=== PATIENT | female | born 1940 | race Caucasian/White ===

== ENCOUNTER 2024-01-25 15:01 | Inpatient (IN) | payer MEDICARE, BC, SELFPAY ==
[2024-01-25 09:40] VITALS: BP 163/80
--- NOTE | 2024-01-25 11:14 | ED.GENMED ---
History of Present Illness
General
Chief Complaint: Back Pain
Time Seen by Provider: 01/25/24 10:59
Travel History
Have you had any contact with someone who has COVID-19?: No
Do you have any symptoms of coronavirus? Fever > 100 degrees, chills, cough, shortness of breath, sore throat, loss of taste or smell, muscle aches, or headache?: No
History of Present Illness
History of Present Illness:
83-year-old female presents to the emergency department for evaluation of progressively worsening neck pain. She was initially treated [facility] in early October for nontraumatic low back pain where she was identified to have suspected acute
compression fractures of L1-L3, report the CT scan at that time suggest some degree of bony retropulsion at L2. She denies any lower extremity weakness or paresthesias but has had progressively worsening low back pain that is impairing her
functionality. She is following up with outpatient spine surgery as well as optimization of her bone health. Due to severe pain she has discontinued physical therapy. also notes, Constipation and urinary frequency over the past week, concern for
abdominal bloating and distention
Review of Systems
Review of Systems
Allergies reviewed?: Yes
All Other Systems: ROS reviewed and negative except as documented in HPI and ROS
Phy Exam
Physical Exam
Physical Exam:
GEN: Well appearing, NAD, WDWN
HEENT: Oral mucosa moist, no scleral icterus
Cardiac: Regular rate
Lung: No respiratory distress, no tachypnea
Abdomen: Soft, nontender, no rigidity or obvious distention
MSK: No gross deformity or injuries, trace lower extremity edema bilaterally
Skin: Good color, no pallor or jaundice, no rashes
Neuro: AO x3, moves all extremities freely. 3/5 strength of all villafana bilateral lower extremities, symmetric, no skin sensation abnormalities
Psych: Calm, cooperative
Course
Orders/Labs/Results
Orders:
Orders
01/25/24 11:13
CR Lumbar Spine Comp Min 4 Vw* Urgent
Comment:
Reason For Exam: increased back pain, known L1-2-3 compression fx
01/25/24 11:23
Complete Blood Count/With Diff Urgent
Comprehensive Metabolic Panel Urgent
01/25/24 11:51
Urinalysis Reflex To Culture Urgent
Date Specimen was Collected: 01/25/24
Time Specimen was Collected: 11:46
Urine Microscopic Reflex Cult Urgent
01/25/24 12:24
Pt Eval And Treat Urgent
Treatment: known L1-L2 compression fx
Activity Level: Ambulate
01/25/24 12:59
Case Management Consult ONCE
Case Management Consult: [facility]
01/25/24 13:03
Ketorolac [Toradol] 15 mg IV NOW STA
01/25/24 13:37
Polyethylene Glycol Powder [Miralax] 17 grams PO DAILY ONE
01/25/24 14:11
IRAD CONSULT Routine
Consulting Provider: Scott Briscoe
Was physician already notified: Yes
Reason for Consult/Procedure: l1, l2 compression fx eval for vetebroplasty
Acknowledgement that appropriate orders are entered: Yes
01/25/24 14:37
Admit/Transfer Patient As Directed
Co-Sign Provider:
Level of Care: Inpatient admission
Assign to:: Medical/Surgical
Physician / Group: jenna gonzalez
Diagnosis: intractable bacl pain 2/2 L1, L2 compression fx, constipation
Reason for Hospitalization: intractable bacl pain 2/2 L1, L2 compression fx, constipation
Expected length of stay greater than two midnights?: Yes
ELOS- Estimated Length of Stay in days: 3
I certify the patient meets the requirements for IP care: Yes
Code Status As Directed
Resuscitation Status: Do not resuscitate
Reached after discussion with pt or family/Healthcare POA: Yes
Based on pt advanced directive or healthcare POA form: Yes
Decision communicated with: per pt with daughter present at bedside
01/25/24 14:38
DNR Bracelet Application ONCE
Abnormal Lab Results
01/25/24 01/25/24
11:23 11:51
MPV 11.8 H fL
(7.4-10.4)
Abs Immat Gran (auto) 0.1 H 10^3/uL
(0-0.05)
Absolute Lymphs (auto) 0.8 L 10^3/uL
(1.2-3.4)
Absolute Monos (auto) 0.7 H 10^3/uL
(0.1-0.6)
Immature Gran % 0.7 H %
(0-0.5)
Neutrophils % 75.8 H %
(42.2-75.2)
Lymphocytes % 11.9 L %
(20.5-51.1)
Monocytes % 10.3 H %
(1.7-9.3)
BUN 22 H mg/dl
(7-17)
Glucose 125 H mg/dl
(70-99)
Calcium 10.8 H mg/dl
(8.4-10.2)
Urine Ketones 1+ A
(Negative)
Ur Occult Blood Reflex Trace A
(Negative)
Urine Bacteria (Reflex) Few A
(Negative)
01/25/24 11:23
01/25/24 11:23
Vital Signs
Initial and Last Documented VS:
Initial Vital Signs
Temp Pulse BP Pulse Ox
99.7 F 97 163/80 100
01/25/24 09:40 01/25/24 09:40 01/25/24 09:40 01/25/24 09:40
Last Documented Vital Signs
Temp Pulse BP Pulse Ox
99.7 F 97 163/80 100
01/25/24 09:40 01/25/24 09:40 01/25/24 09:40 01/25/24 09:40
MDM/Problems Addressed
MDM/Problems Addressed:
Patient is severely limited secondary to pain associated with her subacute lumbar compression fractures. Of note L1 has progressed dramatically since her initial x-rays in October. She does not have any focal lateralizing lower extremity
deficits, I suspect her general lower extremity weakness is more driven by pain with true neurologic deficit. I discussed the case with her orthopedic/intensive care medicine specialist who advises that a vertebroplasty would be indicated for pain control purposes,
if she is to be admitted for rehab purposes could feasibly consult IR for this to be done inpatient. She will be admitted due to lack of appropriate pain control and ambulatory dysfunction and will have hospitalist service consult interventional
radiology to consider vertebroplasty if appropriate for her.
There are no focal neurologic findings or signs of urinary retention/incontinence that would require urgent MRI. Her complaint abdominal distention is likely due to constipation which is likely in the setting of tramadol use coupled with recent
functional limitation
*Critical Care Note
Total Time (30-74mins, 75-104mins- exclusive of procedures): Not Applicable
ED Attending Note
-
Portions of this chart may have been created with voice recognition software.� Occasional wrong word or��sound alike� substitutions may have occurred due to the inherent limitations of voice recognition software.
Discharge Plan
Departure
Patient Disposition: Admit
Date of Disposition: 01/25/24
Time of Disposition: 13:53
Admit to: Med/Surg
Presentation/result/management discussed w/ accepting MD/DO: Hospitalist
Discharge Problem:
Closed compression fracture of L1 vertebra, Closed compression fracture of L2 vertebra, Intractable back pain
Prescriptions:
No Action
diltiazem HCl 180 mg Capsule,Extended Release 24 Hr
180 mg PO DAILY
lisinopril 20 mg Tablet
20 mg PO QPM
Theragen Tablet
1 tab PO DAILY@1200
tramadol 50 mg Tablet
25 mg PO QID
acetaminophen [Tylenol Extra Strength] 500 mg Tablet
500 mg PO QID
lactase [Lactaid] 3,000 unit Tablet
3,000 unit PO QPM
gabapentin 100 mg Capsule
100 mg PO HS
cyclosporine [Restasis] 0.05 % Dropperette
1 drp BOTH EYES Q12H
rosuvastatin [Crestor] 10 mg Tablet
10 mg PO QPM
Tymlos 80 mcg (3,120 mcg/1.56 mL) Pen Injector
0 mcg SC DAILY
Referrals:
Brien Booth DO [Family Provider] -
Interventions
Interventions:
*Risk Screen - Suicide Last Done: 01/25/24 11:26
*General Assessment Last Done: 01/25/24 11:26
*Neglect/Abuse Screening Last Done: 01/25/24 11:26
*ED COVID-19 Vaccine History Last Done: 01/25/24 11:26
ED-Musculoskeletal Assessment Last Done: 01/25/24 11:26
Discharge Date and Time
Print Language: AMHARIC
[2024-01-25 11:36] LABS: % Basophils 0.7 % (0-2); % Eosinophils 0.6 % (0-6); % Immature Granulocytes 0.7 % (0-0.5); % Lymphocytes 11.9 % (20.5-51.1); % Monocytes 10.3 % (1.7-9.3); % Neutrophils 75.8 % (42.2-75.2); Absolute Basophils 0.1 10^3/uL (0-0.2); Absolute Immature Granulocytes 0.1 10^3/uL (0-0.05); Absolute Lymphocytes 0.8 10^3/uL (1.2-3.4); Absolute Monocytes 0.7 10^3/uL (0.1-0.6); Absolute Neutrophils 5.2 10^3/uL (1.4-6.5); Hematocrit 41.5 % (37.0-47.0); Hemoglobin 13.9 g/dL (12.0-16.0); Mean Corp Hgb Conc. 33.5 g/dL (33.0-37.0); Mean Corpuscular Hgb 30.6 pg (27.0-31.0); Mean Corpuscular Volume 91.4 fL (81.0-99.0); Mean Platelet Volume 11.8 fL (7.4-10.4); Nucleated Red Blood Cells % 0 %; Platelet Count 243 10^3/uL (130-400); Red Blood Cell Count 4.54 10^6/uL (4.20-5.40); Red Cell Dist. Width 12.5 % (11.5-14.5); White Blood Cell Count 6.9 10^3/uL (4.8-10.8)
[2024-01-25 11:47] LABS: ALT (SGPT) 17 U/L (0-35); AST (SGOT) 25 U/L (14-36); Albumin 4.5 g/dl (3.5-5.0); Alkaline Phosphatase 66 U/L (38-126); Blood Urea Nitrogen 22 mg/dl (7-17); Calcium 10.8 mg/dl (8.4-10.2); Carbon Dioxide 26 mmol/L (22-30); Chloride 103 mmol/L (98-107); Glucose 125 mg/dl (70-99); Potassium 4.4 mmol/L (3.5-5.1); Sodium 141 mmol/L (135-145); Total Bilirubin 0.8 mg/dl (0.2-1.3); Total Protein 7.4 g/dl (6.3-8.2); eGFR > 60.00
[2024-01-25 12:11] LABS: Urine Albumin Negative (Neg - Trace); Urine Bilirubin Negative (Negative); Urine Character Clear (Clear); Urine Color Yellow; Urine Glucose Negative (Negative); Urine Ketone 1+ (Negative); Urine Leukocyte Negative (Negative); Urine Nitrite Negative (Negative); Urine Occult Blood Trace (Negative); Urine Specific Gravity 1.015 (<1.030); Urine Urobilinogen Negative (Neg - 1+); Urine pH 6.5 (5.0-9.0)
[2024-01-25] MEDS: TORADOL 15 MG IV (13:07)
[2024-01-25 13:46] LABS: Urine Bacteria Few (Negative); Urine Red Blood Cell 0-2 /HPF (0-2); Urine White Cell 0-2 /HPF (0-5)
[2024-01-25] MEDS: MIRALAX 17 GRAMS PO (14:01)
--- NOTE | 2024-01-25 14:08 | HPS.HSE ---
Addendum entered and electronically signed by Renee Panda MD 01/26/24 04:47:
Late entry I saw and examined the patient 01/25/24.
The PARKS WORKER or PA's note was reviewed and I agree with the note with exceptions/additions as follows.
Comment:
83F pmhx memory impairment, HTN, HLD, IBS, diverticulitis, arthritis, spinal fractures, osteoporosis, glaucoma p/w acute on chronic lower back pain. History L1-L3 compression fractures recently diagnosed in October. Pain progressively worsening,
debilitating, and impairing ambulatory function since then. Associate constipation. Patient recently had 50 mg of tramadol prn for pain decreased to 25 mg QID due to oversedation. Also was recently started on gabapentin but developed a rash rxn
to the medication. Follows orthopedic spine surgeon Dr Covarrubias outpatient who referred her for admission IR evaluation possible benefit vertebroplasty.
Physical Exam
General: Comfortable and Conversant; No Fever or Chills
HEENT: NormoCephalic, Anicteric, [place] Conjunctivae and No Ptosis
Cardiac: S1/S2 and Murmur (Systolic 3/6); No Rub, Gallop or Peripheral Edema
GI: Soft, Non Tender, Non Distended, Normal Bowel Sounds and No Hepatosplenomegaly
Musculoskeletal: No Clubbing, No Cyanosis, No Edema, Lower lumbar back pain tenderness
Neuro: AO x 3
Psych: Calm
#Acute on Chronic Back pain
#Lumbar compression fractures
#constipation
cont pain control tramadol Tylenol
IR eval vertebroplasty
bowel regimen
PT/OT
#Systolic Murmur noted on exam
known to patient who reports previous evaluation a few years ago was benign
Check ECHO
Original Note:
Family Physician
-
Family Physician: Brien Booth
Chief Complaint
-
Lumbar back pain
History of Present Illness
83-year-old female complaining of worsening lower lumbar back pain. She reports she was seen at [facility] and early October was noted to have compression fractures of L1-L3. She states the pain is progressively worsening and impairing her
ability to walk. She has also had constipation with only small pebble-like stool past few days. Her daughter states she is unable to tolerate 50 mg of tramadol so they decreased to 25 mg yesterday 4 times daily with Tylenol 500 mg 4 times daily
for pain. She had some mild relief only. She did take a gabapentin for pain for which she developed a macular rash to her face and back. She denies any lower extremity weakness, paresthesias, bowel or bladder incontinence, fever, chills, chest
pain, palpitations, shortness breath, cough, abdominal pain, nausea, vomiting, diarrhea. She is past medical history of memory impairment, HTN, HLD, IBS, diverticulitis, arthritis, spinal fractures, osteoporosis, glaucoma
Medical History
Past Medical History
Past Medical History: Reports Other
Additional Past Medical History:
memory impairment
HTN
HLD
IBS
diverticulitis
arthritis
Osteoporosis
Glaucoma
spinal fractures
Past Surgical History: Reports Other
Additional Past Surgical History:
Hysterectomy
Left lumpectomy
Cataract extraction
[place] teeth extraction
Prior history of colonoscopy
Social History
Tobacco: Non-smoker
Alcohol: None
Drug: None
Personal: Single
Living: With Family
Employment: Retired
Family History
Family History: Other (Father of gastric cancer mother is unknown)
Allergies / Home Medications
Allergies reflects when Allergies were last updated in [facility].
Home Medications with original date entered in [facility]
Allergy/Medication List:
Allergies
Allergy/AdvReac Type Severity Reaction Status Date / Time
lactose Allergy Intermediate Unknown Verified 01/25/24 09:43
gabapentin Allergy Mild Rash Verified 01/25/24 14:31
Sulfa (Sulfonamide Allergy Mild Rash Verified 01/25/24 09:43
Antibiotics)
Penicillins Allergy Rash Verified 01/25/24 09:43
Home Medications
abaloparatide (Tymlos) 0 mcg SC DAILY 01/25/24
acetaminophen 500 mg tablet (Tylenol Extra Strength) 500 mg PO QID 01/25/24
cyclosporine 0.05 % eye drops in a dropperette (Restasis) 1 drp BOTH EYES Q12H 01/25/24
diltiazem HCl 180 mg capsule,24 hr,extended release 180 mg PO DAILY 01/25/24
gabapentin 100 mg capsule 100 mg PO HS 01/25/24
lactase 3,000 unit tablet (Lactaid) 3,000 unit PO QPM 01/25/24
lisinopril 20 mg tablet 20 mg PO QPM 01/25/24
rosuvastatin 10 mg tablet 10 mg PO QPM 01/25/24
therapeutic multivitamin 1 tab PO DAILY@1200 01/25/24
tramadol 50 mg tablet 25 mg PO QID 01/25/24
Review of Systems
-
History Source: Patient and Family (Daughter and aide at bedside)
A 12 point ROS was completed and negative except as noted: Yes
Constitutional: Denies Fatigue or Chills
EENT: Denies Runny Nose
Abdomen/GI: Reports Constipated; Denies Abdominal Pain, Nausea, Vomiting or Diarrhea
: Reports Frequency; Denies Dysuria, Flank Pain, Incontinence, Difficulty Voiding or Urgency
Musculoskeletal: Reports Other (Lower lumbar pain); Denies Joint Pain or Edema
Skin: Reports Rash (Macular rash to face and upper back post gabapentin); Denies Itching
Neurological: Denies Dizzy, Headache or Weakness
Endocrine: Reports No Symptoms
Hematologic/Lymphatic: Reports No Symptoms
Psych: Reports Calm
Physical Exam
Vital Signs
Vital Signs
Temp Pulse BP Pulse Ox
99.7 F 97 163/80 100
01/25/24 09:40 01/25/24 09:40 01/25/24 09:40 01/25/24 09:40
Physical Exam
General: Comfortable and Conversant; No Fever or Chills
HEENT: NormoCephalic, Anicteric, [place] Conjunctivae and No Ptosis
Cardiac: S1/S2 and Murmur (Systolic 3/6); No Rub, Gallop or Peripheral Edema
Breast: Deferred by me
GI: Soft, Non Tender, Non Distended, Normal Bowel Sounds and No Hepatosplenomegaly
Genito-urinary: Deferred by me
Musculoskeletal: No Clubbing, No Cyanosis, No Edema and Other (Lower lumbar back pain)
Skin: Warm, Dry and Rash (Macular rash to face and upper back post gabapentin from home)
Neuro: AO x 3, Cranial Nerves Intact, No Sensory Deficits and Other (Reported painful walking has been using walker); No Slurred Speech, Facial Droop or Sedated
Psych: Calm
Laboratory Results
-
01/25/24 11:23
01/25/24 11:23
Laboratory Results
Total Bilirubin 0.8 mg/dl (0.2-1.3) 01/25/24 11:23
AST 25 U/L (14-36) 01/25/24 11:23
ALT 17 U/L (0-35) 01/25/24 11:23
Alkaline Phosphatase 66 U/L (38-126) 01/25/24 11:23
Data Reviewed
-
Diagnostic Radiology: Report Reviewed by me
Lab Data: Labs Reviewed by me
Impression/Plan
-
Impression/plan:
Admit to MedSurg
#Intractable pain secondary to acute/subacute L1-L2 compression fracture
-Consult IR for possible vertebroplasty
-Pain control, bowel regimen
-IV Toradol given in ER
-Continue Tylenol 650 mg 4 times daily with tramadol 25 mg 4 times daily
-Stop gabapentin as patient developed drug rash
-PT/OT/case management consult
X-ray lumbar spine:
1. Acute/subacute 95 per send compression fracture L1
2. Stable 50% compression fracture L2
3. Moderate lumbar levoscoliosis
4. DDD L3-4, L4-5 with mild disc space narrowing
#Acute constipation
-MiraLAX 17 g given in ER
-Continue bowel regimen
#Cardiac murmur on exam
- check 2D echo
#HTN�benign
BP 163/80
-Continue lisinopril 20 mg every afternoon, diltiazem 180 mg daily
#HLD
-Continue Crestor 10 mg every afternoon
#Hx IBS
#Hx diverticulitis
# hx severe lactose intolerance
-Lactaid free diet, unable to tolerate ibuprofen due to lactose binding agent
-Continue Lactaid 3000 units every afternoon
#Hx arthrits/osteoporosis
Patient may take own Tymlos injection daily
#Glaucoma
-Patient may take own Restasis
DVT prophylaxis
Subcu Lovenox
DNR per patient with daughter at bedside
--- NOTE | 2024-01-25 14:25 | CM ---
Addendum entered by Vicky Cooney RN 01/25/24 16:10:
CM updated daughter that patient is INPATIENT. Shraddha will consider alternative SNF's in the even [facility] is not available.
CM updated Samara at [facility] with plan for inpatient admission.
Addendum entered by Vicky Cooney RN 01/25/24 15:12:
CM provided patient with PAC list for SNF's. Of note, patient is inpatient.
Original Note:
CM met with patient in room. Patient's daughter Shraddha was available to assist with discharge plan. Patient's daughter stated that patient was recently at [facility] under observation. Patient lives alone and is otherwise independent.
Patient was discharged to [facility] with [facility] care for two weeks. Daughter stated that she had a poor experience at [place] so patient was brought here as she was continuing to have severe pain.
As per PT, patient was recommended SNF. Patient is Medicare Prime and not able to be placed from the emergency room. Patient is NOT eligible for [facility] SNF waiver.
Patient will be placed in OBS or admitted for procedure. Patient's daughter would like private pay information from [facility] as that is her first choice of SNF if needed. CM sent referral via Care port to [facility]. As per Mena admission
coordinator at [facility], she may not have bed availability when patient is ready for discharge. CM to advise daughter to consider alternative SNF's if needed on discharge.
Patient's daughter would be agreeable to [facility] at home. Patient does have a private pay [employer] for three hours three days per week. CM advised if SNF is not available patient may have to return home with [facility] and private pay [employer] care.
Patient daughter was appreciative for information.
[2024-01-25 17:15] VITALS: BP 196/88; BMI 21.2
[2024-01-25] MEDS: CRESTOR 10 MG PO (17:47)
[2024-01-25] MEDS: ULTRAM 25 MG PO ×2 (17:47→23:38)
[2024-01-25] MEDS: TYLENOL 650 MG PO ×2 (17:47→23:38)
[2024-01-25] MEDS: ZESTRIL 20 MG PO (17:48)
[2024-01-25] MEDS: LACTAID 1 CAPSULE PO (17:49)
[2024-01-25] MEDS: LOVENOX SC (17:50)
[2024-01-25] MEDS: RESTASIS 0.05% OPHTHALMIC EMULSION 1 DROPS BOTH EYES (21:14)
[2024-01-25 23:55] VITALS: BP 178/98
[2024-01-26 03:00] VITALS: BP 155/83
[2024-01-26] MEDS: ULTRAM 25 MG PO ×4 (05:09→23:23)
[2024-01-26] MEDS: TYLENOL 650 MG PO ×4 (05:09→23:23)
[2024-01-26 06:05] LABS: % Basophils 0.7 % (0-2); % Eosinophils 3.6 % (0-6); % Immature Granulocytes 0.2 % (0-0.5); % Neutrophils 60.5 % (42.2-75.2); Absolute Eosinophils 0.2 10^3/uL (0-0.7); Absolute Lymphocytes 1.2 10^3/uL (1.2-3.4); Absolute Monocytes 0.9 10^3/uL (0.1-0.6); Absolute Neutrophils 3.5 10^3/uL (1.4-6.5); Hematocrit 37.6 % (37.0-47.0); Hemoglobin 12.2 g/dL (12.0-16.0); Mean Corp Hgb Conc. 32.4 g/dL (33.0-37.0); Mean Corpuscular Hgb 30.5 pg (27.0-31.0); Mean Platelet Volume 11.7 fL (7.4-10.4); Nucleated Red Blood Cells % 0 %; Platelet Count 211 10^3/uL (130-400); Red Cell Dist. Width 12.4 % (11.5-14.5); White Blood Cell Count 5.8 10^3/uL (4.8-10.8)
[2024-01-26 06:37] LABS: ALT (SGPT) 14 U/L (0-35); AST (SGOT) 21 U/L (14-36); Albumin 3.5 g/dl (3.5-5.0); Alkaline Phosphatase 50 U/L (38-126); Blood Urea Nitrogen 16 mg/dl (7-17); Calcium 9.6 mg/dl (8.4-10.2); Carbon Dioxide 28 mmol/L (22-30); Chloride 103 mmol/L (98-107); Estimated Creatinine Clearance 63 ml/min; Glucose 99 mg/dl (70-99); Potassium 3.9 mmol/L (3.5-5.1); Sodium 140 mmol/L (135-145); Total Bilirubin 0.7 mg/dl (0.2-1.3); Total Protein 5.9 g/dl (6.3-8.2); eGFR > 60.00
[2024-01-26 07:20] VITALS: BP 178/100
--- NOTE | 2024-01-26 07:52 | W.PN.HOSP.TC ---
Today's Communication/Plan
-
pain control
blood pressure control
prn antiemetic
PT/OT
Assessment / Plan
Assessment / Plan
Physical Exam
General: moderate distress d/t back pain, constipation, nausea
HEENT: NormoCephalic, Anicteric, [place] Conjunctivae and No Ptosis
Cardiac: S1/S2 and Murmur (Systolic 3/6); No Rub, Gallop or Peripheral Edema
GI: Soft, Non Tender, Non Distended, Normal Bowel Sounds and No Hepatosplenomegaly
Musculoskeletal: No Clubbing, No Cyanosis, No Edema, Lower lumbar back pain tenderness
Neuro: AO x 3
Psych: Calm
83F pmhx memory impairment, HTN, HLD, IBS, diverticulitis, arthritis, spinal fractures, osteoporosis, glaucoma p/w acute on chronic lower back pain. History L1-L3 compression fractures recently diagnosed in October. Pain progressively worsening,
debilitating, and impairing ambulatory function since then. Associate constipation. Patient recently had 50 mg of tramadol prn for pain decreased to 25 mg QID due to oversedation. Also was recently started on gabapentin but developed a rash rxn
to the medication. Follows orthopedic spine surgeon Dr Covarrubias outpatient who referred her for admission IR evaluation possible benefit vertebroplasty. Denies lower extremity weakness, paresthesias, bowel or bladder incontinence, fever, chills,
chest pain, palpitations, shortness breath, cough, abdominal pain, diarrhea. Reports nausea constipation.
#Intractable pain secondary to acute/subacute L1-L2 compression fracture
-Consult IR requested for possible vertebroplasty
-Pain control, bowel regimen
-Continue Tylenol 650 mg 4 times daily with tramadol 25 mg 4 times daily, IV toradol prn added
-Gabapentin stopped d/t drug rash
-PT/OT/case management consult appreciated SNF rehab
X-ray lumbar spine:
1. Acute/subacute 95 per send compression fracture L1
2. Stable 50% compression fracture L2
3. Moderate lumbar levoscoliosis
4. DDD L3-4, L4-5 with mild disc space narrowing
MRI lumbar spine appreciated
Acute on chronic severe L1 compression fracture. Additional acute/subacute compression deformities of T11, T12 and L3. Subacute to chronic L2 compression fracture.
Prominent osseous retropulsion at L1 contributes to moderate to severe spinal canal stenosis with mild cord/conus impingement at this level.
#Nausea
prn zofran
#constipation
cont prn miralax senna/colace
resolving, hard stools
#Cardiac murmur on exam
ECHO appreciated normal systolic function, mild to moderate aortic stenosis and moderate tricuspid regurgitation
#HTN
#Hypertensive Urgency
-Continue lisinopril 20 mg every afternoon, diltiazem 180 mg daily
-BP possibly elevated d/t pain nausea
-cont pain control, prn antinausea medication
-hydralazine prn
#HLD
-Continue Crestor 10 mg every afternoon
#Hx IBS
#Hx diverticulitis
# hx severe lactose intolerance
-Lactaid free diet, unable to tolerate ibuprofen due to lactose binding agent
-Continue Lactaid 3000 units every afternoon
#Hx arthrits/osteoporosis
Patient may take own Tymlos injection daily
#Glaucoma
-Patient may take own Restasis
DVT prophylaxis
Subcu Lovenox
DNR
Discussed with patient and her daughter Shraddha
I spent a total of 59 minutes with the patient or on the floor. More than 50% of this time involved counseling and coordination of care.
Anticipated Discharge: 24 - 48 hours
Subjective/Interval History
-
Date of Service: January 26, 2024
Seen examined at bedside mild moderate distress due to back pain nausea constipation.
Objective Data
-
Labs:
Laboratory Results
01/26/24
05:32
WBC 5.8
Hgb 12.2
Hct 37.6
Plt Count 211
Sodium 140
Potassium 3.9
Chloride 103
Carbon Dioxide 28
BUN 16
Creatinine 0.6
Glucose 99
Calcium 9.6
Total Bilirubin 0.7
AST 21
ALT 14
Alkaline Phosphatase 50
Vital Signs:
Vital Signs
Temp Pulse Resp BP Pulse Ox
97.5 F 93 18 155/83 97
01/25/24 23:55 01/26/24 03:00 01/25/24 23:55 01/26/24 03:00 01/25/24 23:55
[2024-01-26] MEDS: MIRALAX 17 GRAMS PO (08:09)
[2024-01-26] MEDS: RESTASIS 0.05% OPHTHALMIC EMULSION 1 DROPS BOTH EYES ×2 (08:10→20:35)
[2024-01-26] MEDS: SENOKOT-S 1 TABLET PO (08:10)
[2024-01-26] MEDS: CARDIZEM CD 180 MG PO (08:11)
[2024-01-26] MEDS: NON-FORMULARY ITEM 80 MCG SC (08:12)
[2024-01-26] MEDS: ZOFRAN 4 MG IV ×2 (09:18→12:08)
[2024-01-26] MEDS: APRESOLINE 5 MG IV (09:46)
[2024-01-26] MEDS: PROTONIX 40 MG PO (10:14)
[2024-01-26] MEDS: TORADOL 15 MG IV (10:15)
[2024-01-26 10:19] LABS: Troponin I < 0.012 ng/ml
[2024-01-26 11:11] VITALS: BP 172/98
[2024-01-26] MEDS: MORPHINE SULFATE 2 MG IV (12:08)
[2024-01-26] MEDS: THERAGRAN 1 TABLET PO (14:51)
[2024-01-26 15:06] VITALS: BP 168/86
--- NOTE | 2024-01-26 15:59 | CM ---
ZEYNEP met with Aliyah at bedside. She had many tests today and felt very tired. I provided information about my role snf we spoke about the Medicare 3 day rule for SNF. Aliyah advised that she anticipates needing 'another procedure', so is unsure how
long she will be in the hospital.
I advised Aliyah that CM would follow her hospitalization and assist with discharge planning needs and resources as the hospitalization progresses. I provided her with a card so her daughter could be in contact with me, as well.
CM will follow for assistance with potential SNF placement at discharge. [facility] is first choice, and per Aliyah, her daughter is looking into other facilities.
[2024-01-26] MEDS: LACTAID 1 CAPSULE PO (17:16)
[2024-01-26] MEDS: CRESTOR 10 MG PO (17:16)
[2024-01-26] MEDS: ZESTRIL 20 MG PO (17:17)
[2024-01-26] MEDS: LOVENOX 40 MG SC (17:18)
[2024-01-26 19:08] VITALS: BP 144/74
[2024-01-26 23:30] VITALS: BP 128/72
[2024-01-27 03:30] VITALS: BP 134/75
[2024-01-27] MEDS: TORADOL 15 MG IV ×2 (04:02→14:24)
[2024-01-27] MEDS: ULTRAM 25 MG PO ×3 (06:12→17:36)
[2024-01-27] MEDS: TYLENOL 650 MG PO ×3 (06:13→17:35)
--- NOTE | 2024-01-27 06:56 | W.PN.HOSP.TC ---
Addendum entered and electronically signed by Renee Panda MD 01/28/24 03:25:
compression fractures likely d/t osteoporosis
Original Note:
Today's Communication/Plan
-
pain control
bowel regimen
blood pressure control
PT/OT
possible vertebroplasty with IR
Assessment / Plan
Assessment / Plan
Physical Exam
General: no acute distress appears comfortable at this time
HEENT: NormoCephalic, Anicteric, [place] Conjunctivae and No Ptosis
Cardiac: S1/S2 and Murmur (Systolic 3/6); No Rub, Gallop or Peripheral Edema
GI: Soft, Non Tender, Non Distended, Normal Bowel Sounds and No Hepatosplenomegaly
Musculoskeletal: No Clubbing, No Cyanosis, No Edema, Lower lumbar back pain tenderness
Neuro: AO x 3
Psych: Calm
83F pmhx memory impairment, HTN, HLD, IBS, diverticulitis, arthritis, spinal fractures, osteoporosis, glaucoma p/w acute on chronic lower back pain. History L1-L3 compression fractures recently diagnosed in October. Pain progressively worsening,
debilitating, and impairing ambulatory function since then. Associate constipation. Patient recently had 50 mg of tramadol prn for pain decreased to 25 mg QID due to oversedation. Also was recently started on gabapentin but developed a rash rxn
to the medication. Follows orthopedic spine surgeon Dr Covarrubias outpatient who referred her for admission IR evaluation possible benefit vertebroplasty. Denies lower extremity weakness, paresthesias, bowel or bladder incontinence, fever, chills,
chest pain, palpitations, shortness breath, cough, abdominal pain, diarrhea. Reports nausea constipation.
#Intractable pain secondary to acute/subacute L1-L2 compression fracture
-Consult IR appreciated possible benefit vertebroplasty
-Pain control, bowel regimen
-Continue Tylenol 650 mg 4 times daily with tramadol 25 mg 4 times daily, IV toradol prn added
-Gabapentin stopped d/t drug rash
-PT/OT/case management consult appreciated SNF rehab
X-ray lumbar spine:
1. Acute/subacute 95 per send compression fracture L1
2. Stable 50% compression fracture L2
3. Moderate lumbar levoscoliosis
4. DDD L3-4, L4-5 with mild disc space narrowing
MRI lumbar spine appreciated
Acute on chronic severe L1 compression fracture. Additional acute/subacute compression deformities of T11, T12 and L3. Subacute to chronic L2 compression fracture.
Prominent osseous retropulsion at L1 contributes to moderate to severe spinal canal stenosis with mild cord/conus impingement at this level.
Neurosurgery consult appreciated
#Nausea
prn zofran
#constipation
cont prn miralax senna/colace
resolving, hard stools
#Cardiac murmur on exam
ECHO appreciated normal systolic function, mild to moderate aortic stenosis and moderate tricuspid regurgitation
#HTN
#Hypertensive Urgency
-Continue lisinopril 20 mg every afternoon, diltiazem 180 mg daily
-BP possibly elevated d/t pain nausea
-cont pain control, prn antinausea medication
-hydralazine prn
#HLD
-Continue Crestor 10 mg every afternoon
#Hx IBS
#Hx diverticulitis
# hx severe lactose intolerance
-Lactaid free diet, unable to tolerate ibuprofen due to lactose binding agent
-Continue Lactaid 3000 units every afternoon
#Hx arthrits/osteoporosis
Patient may take own Tymlos injection daily
#Glaucoma
-Patient may take own Restasis
DVT prophylaxis
Subcu Lovenox
DNR
Discussed with patient and her daughter Shraddha
I spent a total of 55 minutes with the patient or on the floor. More than 50% of this time involved counseling and coordination of care.
Anticipated Discharge: 24 - 48 hours
Subjective/Interval History
-
Date of Service: January 27, 2024
Pain improved at rest constipation resolving. Denies nausea.
Objective Data
-
Labs:
Laboratory Results
01/27/24
06:00
WBC Pending
Hgb Pending
Hct Pending
Plt Count Pending
Sodium Pending
Potassium Pending
Chloride Pending
Carbon Dioxide Pending
BUN Pending
Creatinine Pending
Glucose Pending
Calcium Pending
Vital Signs:
Vital Signs
Temp Pulse Resp BP Pulse Ox
98.4 F 92 18 134/75 96
01/27/24 03:30 01/27/24 03:30 01/27/24 03:30 01/27/24 03:30 01/27/24 03:30
I&O
01/25/24 01/26/24 01/27/24
06:59 06:59 06:59
Intake Total 1200 / 1200
Balance 1200 / 1200
[2024-01-27 07:30] VITALS: BP 160/90
[2024-01-27 07:32] LABS: Hematocrit 41.8 % (37.0-47.0); Hemoglobin 13.6 g/dL (12.0-16.0); Mean Corp Hgb Conc. 32.5 g/dL (33.0-37.0); Mean Corpuscular Hgb 30.9 pg (27.0-31.0); Mean Platelet Volume 11.7 fL (7.4-10.4); Platelet Count 231 10^3/uL (130-400); Red Cell Dist. Width 12.5 % (11.5-14.5); White Blood Cell Count 5.5 10^3/uL (4.8-10.8)
[2024-01-27 08:01] LABS: Blood Urea Nitrogen 18 mg/dl (7-17); Calcium 10.3 mg/dl (8.4-10.2); Carbon Dioxide 28 mmol/L (22-30); Chloride 101 mmol/L (98-107); Estimated Creatinine Clearance 47 ml/min; Glucose 98 mg/dl (70-99); Phosphorus 4.5 mg/dl (2.5-4.5); Potassium 4.3 mmol/L (3.5-5.1); Sodium 139 mmol/L (135-145); eGFR > 60.00
[2024-01-27] MEDS: NON-FORMULARY ITEM 80 MCG SC (08:11)
[2024-01-27] MEDS: SENOKOT-S 1 TABLET PO (08:12)
[2024-01-27] MEDS: MIRALAX 17 GRAMS PO (08:13)
[2024-01-27] MEDS: RESTASIS 0.05% OPHTHALMIC EMULSION 1 DROPS BOTH EYES ×2 (08:14→20:26)
[2024-01-27] MEDS: PROTONIX 40 MG PO (08:14)
[2024-01-27] MEDS: CARDIZEM CD 180 MG PO (08:14)
--- NOTE | 2024-01-27 10:09 | PN.CDI ---
CDI
- -
CDI:
Physician Documentation Request
Admit Date: 01/25/24 15:01
Dear Doctor Farzad,
Please review the following and provide your response in the progress notes.
Clinical Indicators:
Pt admitted with Intractable pain secondary to acute/subacute L1-L2 compression fracture
Documented in the record, ' ..osteoporosis Patient may take own Tymlos injection daily...'
MRI Lumbar Spine,' Acute on chronic severe L1 compression fracture. Additional acute/subacute compression deformities of T11, T12 and L3. Subacute to chronic L2 compression fracture.Prominent osseous retropulsion at L1 contributes to moderate to
severe spinal canal stenosis with mild cord/conus impingement at this level....'
Please provide the suspected etiology of the acute L1-L2 compression fractures :
Due to Osteoporosis
Due to other etiology ( please specify)
Unable to determine
Use of terms such as suspected, likely, concern for, or probable (associated with a specific diagnosis that is being evaluated, monitored, or treated as if it exists) are acceptable and can be coded in the inpatient setting, when documented at the
time of discharge.
Thank you,
Nohemi Ahn RN
CDI Specialist
[place] [facility]
Please use your independent medical judgment in providing your response.
[2024-01-27 11:00] VITALS: BP 156/76
[2024-01-27] MEDS: THERAGRAN 1 TABLET PO (11:08)
[2024-01-27] MEDS: LMX 4 1 APPLIC TOPICAL ×2 (11:16→20:27)
--- NOTE | 2024-01-27 11:59 | CON.NS ---
Chief Complaint
-
Low back pain
History of Present Illness
This is a very pleasant 84-year-old female who was admitted with a chief complaint of low back pain. She states that she has been dealing with severe amounts of low back pain dating back to August 2023. She was seen in the hospital in October 2023
at that time she diagnosed with L1-L3 compression fractures. She was treated conservatively with a brace and followed with Dr. Webber. Her pain became acutely worse the day of her admission being her doctor to call 911. She is brought to the
emergency room. She states she has severe central low back pain which also refers to the left side of the back. Denies any radicular symptoms. Denies any weakness in the lower extremities however she is having difficulty walking secondary to her
pain. MRI was completed and is available for review
Review of Systems
-
10 point review of systems completed negative except stated in the HPI
Medication and Allergies
Home Medications
Home Medications
�Medication �Instructions �Recorded
abaloparatide (Tymlos) 0 mcg SC DAILY 01/25/24
acetaminophen 500 mg tablet 500 mg PO QID 01/25/24
(Tylenol Extra Strength)
cyclosporine 0.05 % eye drops in a 1 drp BOTH EYES Q12H 01/25/24
dropperette (Restasis)
diltiazem HCl 180 mg capsule,24 180 mg PO DAILY 01/25/24
hr,extended release
gabapentin 100 mg capsule 100 mg PO HS 01/25/24
lactase 3,000 unit tablet (Lactaid) 3,000 unit PO QPM 01/25/24
lisinopril 20 mg tablet 20 mg PO QPM 01/25/24
rosuvastatin 10 mg tablet 10 mg PO QPM 01/25/24
therapeutic multivitamin 1 tab PO DAILY@1200 01/25/24
tramadol 50 mg tablet 25 mg PO QID 01/25/24
Allergies
Allergies
Allergy/AdvReac Type Severity Reaction Status Date / Time
gabapentin Allergy Rash/macular Verified 01/25/24 17:10
rash upper
back and
face
lactose Allergy abd pain Verified 01/25/24 17:10
and
diarrhea
Penicillins Allergy Rash Verified 01/25/24 09:43
Sulfa (Sulfonamide Allergy Rash Verified 01/25/24 17:10
Antibiotics)
Physical Exam
-
Exam:
Is awake alert and oriented
Cranials 2 through 12 are grossly intact
Respirations even unlabored
Peripheral pulses palpable
Sensory is grossly intact
Motor exam reveals 5 out of 5 upper and lower extremity strength.
Reflexes are normal
No Gurrola's, no clonus
MRI lumbar spine reveals T11, T12 acute to subacute fractures. At L1 there is acute on chronic fracture. Chronic L2 fracture
Problems
-
Problem Status Onset Code
Intractable back pain M54.9
Closed compression fracture of L2 vertebra S32.020A
Closed compression fracture of L1 vertebra S32.010A
Assessment / Plan
-
Multilevel compression fractures
1. We discussed surgical versus nonsurgical interventions. In my opinion she has tried and failed conservative therapies with bracing and pain medication. Given the recent exacerbation of her pain and MRI findings I agree with proceeding with an
IR consult for kyphoplasty.
2. Would recommend T11, T12 and attempted L1 kyphoplasty.
3. No acute neurosurgical interventions.
4. Will sign off at this time please reconsult as needed
--- NOTE | 2024-01-27 12:14 | CON.IR ---
Consultation
-
Date/Time Consultation Requested: @14:10
Date/Time Consultation Performed: 01/27/24 @12:00
Requesting Provider: Jaja Freedman
Performing Provider: Debora Sterling PA-C
Reason for Consultation: Intractable back pain
Medical History
-
Chief Complaint: Back Pain
History of Present Illness:
This is an 83 yo female with PMHx of HTN, HLD, IBS, diverticulitis, arthritis, compression fractures, osteoporosis, glaucoma and memory impairment. She was diagnosed with L1-L3 compression fractures in October. She reports the pain is progressively
worsening despite Tramadol. The pain is interfering with her ambulatory function. She was trialed on Gabapentin but had a reaction and had to stop. She was admitted for evaluation of intractable back pain. She reports the pain radiates around
her sides. She denies paresthesias or weakness. She has no loss of bowel or bladder control. She denies fever, chills, chest pain, palpitations, shortness breath, cough, abdominal pain, nausea, vomiting, diarrhea
PMHx: HTN, HLD, IBS, diverticulitis, arthritis, compression fractures, osteoporosis, glaucoma and memory impairment
Social History
Tobacco: Non-Smoker
Alcohol: None
Personal: Single
Living: With Family
Allergies / Home Medications
Allergy/AdvReac Type Severity Reaction Status Date / Time
gabapentin Allergy Rash/macular Verified 01/25/24 17:10
rash upper
back and
face
lactose Allergy abd pain Verified 01/25/24 17:10
and
diarrhea
Penicillins Allergy Rash Verified 01/25/24 09:43
Sulfa (Sulfonamide Allergy Rash Verified 01/25/24 17:10
Antibiotics)
�Medication �Instructions �Recorded �Confirmed �Type
abaloparatide (Tymlos) 0 mcg SC DAILY 01/25/24 01/25/24 History
acetaminophen 500 mg tablet 500 mg PO QID 01/25/24 01/25/24 History
(Tylenol Extra Strength)
cyclosporine 0.05 % eye drops in a 1 drp BOTH EYES Q12H 01/25/24 01/25/24 History
dropperette (Restasis)
diltiazem HCl 180 mg capsule,24 180 mg PO DAILY 01/25/24 01/25/24 History
hr,extended release
gabapentin 100 mg capsule 100 mg PO HS 01/25/24 01/25/24 History
lactase 3,000 unit tablet (Lactaid) 3,000 unit PO QPM 01/25/24 01/25/24 History
lisinopril 20 mg tablet 20 mg PO QPM 01/25/24 01/25/24 History
rosuvastatin 10 mg tablet 10 mg PO QPM 01/25/24 01/25/24 History
therapeutic multivitamin 1 tab PO DAILY@1200 01/25/24 01/25/24 History
tramadol 50 mg tablet 25 mg PO QID 01/25/24 01/25/24 History
Physical Exam
Vital Signs
Temp Pulse Resp BP Pulse Ox
98.2 F 88 18 156/76 95
01/27/24 11:00 01/27/24 11:00 01/27/24 11:00 01/27/24 11:00 01/27/24 11:00
Lab Results
01/27/24 06:56
01/27/24 06:56
Troponin I < 0.012 ng/ml 01/26/24 09:45
PE: This is a WN/WD 84 yo female in [facility]. Color is good. Skin warm and dry. Heart is regular. Lungs are CTA. Abdomen is soft and nontender. She has tenderness to palpation over her lower lumbar spine. Mild tenderness over her lower thoracic
spine She has negative SLR. NO LE edema. Strength 5/5 Sensation maintained. Ambulations independently.
Assessment / Plan
-
84 yo female admitted with acute exacerbation of chronic back pain. She has been having pain since August of 2023 and was siagnosed with L1-L3 compression fractures in October 2023. Over the past several days the pain has acutely worsened. Repeat
MRI demonstrates Acute/Subacute T11, T12 and L3 compression fractures, acute on chronic L2 compression fracture and subacute to chronic L2 compression fracture. On exam her pain is mostly in her lower lumbar spine despite MRI findings of T11 and
T12 fractures.
I discussed the techniques of vertebral body augmentation including the logistics, risks, and success and failure rates, and alternatives.� The risks include, but are not limited to: Infection, bruising, bleeding, incomplete treatment, spinal cord
injury, paralysis and even . We discussed the probability of outcomes and the length of convalescence post procedure. She would like for me to discuss this with her daughter and the two of them can decide together.
With so many levels involved she may benefit from less invasive procedure like steroid injection
Case discussed with Dr. Briscoe who is in agreement with the plan
Data Reviewed
-
Medical Tests (Nuc Med, Echo etc): Other (MRI images and report personally reviewed by me)
Labs: Labs Reviewed by me
Old Records: Reviewed
[2024-01-27 15:15] VITALS: BP 166/86
[2024-01-27] MEDS: ZESTRIL 20 MG PO (17:35)
[2024-01-27] MEDS: CRESTOR 10 MG PO (17:35)
[2024-01-27] MEDS: LACTAID 1 CAPSULE PO (17:35)
[2024-01-27] MEDS: LOVENOX 40 MG SC (17:35)
--- NOTE | 2024-01-27 17:41 | CM ---
Referrals sent via [facility] to Isis Geller, Murali Mascorro and Ivonne Martin; updated [facility] regarding skilled stay with potential for LTC or d/c with in-home services.
[2024-01-27 19:45] VITALS: BP 145/73
[2024-01-27 23:57] VITALS: BP 132/77
[2024-01-28] VITALS (7 sets, daily range): BP systolic 115–187; BP diastolic 69–96; PULSE 90; O2SAT 97
[2024-01-28] MEDS: TYLENOL 650 MG PO ×5 (00:05→23:11)
[2024-01-28] MEDS: ULTRAM 25 MG PO ×5 (00:06→23:11)
[2024-01-28 05:30] LABS: Hematocrit 35.6 % (37.0-47.0); Hemoglobin 11.9 g/dL (12.0-16.0); Mean Corp Hgb Conc. 33.4 g/dL (33.0-37.0); Mean Corpuscular Hgb 30.6 pg (27.0-31.0); Mean Corpuscular Volume 91.5 fL (81.0-99.0); Mean Platelet Volume 11.6 fL (7.4-10.4); Platelet Count 226 10^3/uL (130-400); Red Blood Cell Count 3.89 10^6/uL (4.20-5.40); Red Cell Dist. Width 12.4 % (11.5-14.5); White Blood Cell Count 5.4 10^3/uL (4.8-10.8)
[2024-01-28 06:09] LABS: Blood Urea Nitrogen 18 mg/dl (7-17); Carbon Dioxide 30 mmol/L (22-30); Chloride 101 mmol/L (98-107); Estimated Creatinine Clearance 54 ml/min; Glucose 101 mg/dl (70-99); Phosphorus 4.1 mg/dl (2.5-4.5); Sodium 138 mmol/L (135-145); eGFR > 60.00
--- NOTE | 2024-01-28 07:24 | W.PN.HOSP.TC ---
Today's Communication/Plan
-
Pain control
bowel regimen
PT/OT
epidural steroid injection with IR today
Assessment / Plan
Assessment / Plan
Physical Exam
General: no acute distress appears comfortable at this time
HEENT: NormoCephalic, Anicteric, [place] Conjunctivae and No Ptosis
Cardiac: S1/S2 and Murmur (Systolic 3/6); No Rub, Gallop or Peripheral Edema
GI: Soft, Non Tender, Non Distended, Normal Bowel Sounds and No Hepatosplenomegaly
Musculoskeletal: No Clubbing, No Cyanosis, No Edema, Lower lumbar back pain tenderness
Neuro: AO x 3
Psych: Calm
83F pmhx memory impairment, HTN, HLD, IBS, diverticulitis, arthritis, spinal fractures, osteoporosis, glaucoma p/w acute on chronic lower back pain. History L1-L3 compression fractures recently diagnosed in October. Pain progressively worsening,
debilitating, and impairing ambulatory function since then. Associate constipation. Patient recently had 50 mg of tramadol prn for pain decreased to 25 mg QID due to oversedation. Also was recently started on gabapentin but developed a rash rxn
to the medication. Follows orthopedic spine surgeon Dr Covarrubias outpatient who referred her for admission IR evaluation possible benefit vertebroplasty. Denies lower extremity weakness, paresthesias, bowel or bladder incontinence, fever, chills,
chest pain, palpitations, shortness breath, cough, abdominal pain, diarrhea. Reports nausea constipation.
#Intractable pain secondary to acute/subacute L1-L2 compression fracture
-Consult IR appreciated possible benefit vertebroplasty vs steroid injection (given multilevel involvement steroid injection was offered and patient following discussion with daughter consented0
-Pain control, bowel regimen
-Continue Tylenol 650 mg 4 times daily with tramadol 25 mg 4 times daily, IV toradol prn added
-Gabapentin stopped d/t drug rash
-PT/OT/case management consult appreciated SNF rehab
Anxiety
-prn ativan
X-ray lumbar spine:
1. Acute/subacute 95 per send compression fracture L1
2. Stable 50% compression fracture L2
3. Moderate lumbar levoscoliosis
4. DDD L3-4, L4-5 with mild disc space narrowing
MRI lumbar spine appreciated
Acute on chronic severe L1 compression fracture. Additional acute/subacute compression deformities of T11, T12 and L3. Subacute to chronic L2 compression fracture.
Prominent osseous retropulsion at L1 contributes to moderate to severe spinal canal stenosis with mild cord/conus impingement at this level.
Neurosurgery consult appreciated
#Nausea
prn zofran
#constipation
cont prn miralax senna/colace
resolving, hard stools
#Cardiac murmur on exam
ECHO appreciated normal systolic function, mild to moderate aortic stenosis and moderate tricuspid regurgitation
#HTN
#Hypertensive Urgency
-Continue lisinopril 20 mg every afternoon, diltiazem 180 mg daily
-BP possibly elevated d/t pain nausea
-cont pain control, prn antinausea medication
-hydralazine prn
#HLD
-Continue Crestor 10 mg every afternoon
#Hx IBS
#Hx diverticulitis
# hx severe lactose intolerance
-Lactaid free diet, unable to tolerate ibuprofen due to lactose binding agent
-Continue Lactaid 3000 units every afternoon
#Hx arthrits/osteoporosis
Patient may take own Tymlos injection daily
#Glaucoma
-Patient may take own Restasis
#Stress vs Urge Incontinence
bladder scan prn retention
recent urinalysis not suggestive of UTI
Kegel exercises recommended
outpatient follow up with gynecology urologist recommended
DVT prophylaxis
Subcu Lovenox
DNR
Discussed with patient and her daughter Shraddha
I spent a total of 55 minutes with the patient or on the floor. More than 50% of this time involved counseling and coordination of care.
Anticipated Discharge: 24 - 48 hours
Subjective/Interval History
-
Date of Service: January 28, 2024
Seen and examined at bedside in no acute distress sitting up comfortably in chair. Reports improvement in overall symptoms including nausea. Patient reporting some incontinence progressive for the past few months stress vs urge. Daughter Shraddha
present during evaluation
Objective Data
-
Labs:
Laboratory Results
01/28/24
04:58
WBC 5.4
Hgb 11.9 L
Hct 35.6 L
Plt Count 226
Sodium 138
Potassium 4.0
Chloride 101
Carbon Dioxide 30
BUN 18 H
Creatinine 0.7
Glucose 101 H
Calcium 10.0
Vital Signs:
Vital Signs
Temp Pulse Resp BP Pulse Ox
98.5 F 84 16 139/77 97
01/28/24 03:21 01/28/24 03:21 01/28/24 03:21 01/28/24 03:21 01/28/24 03:21
I&O
01/27/24 01/28/24 01/29/24
06:59 06:59 06:59
Intake Total 1200 / 1200 120 / 120
Balance 1200 / 1200 120 / 120
[2024-01-28] MEDS: RESTASIS 0.05% OPHTHALMIC EMULSION 1 DROPS BOTH EYES ×2 (08:44→21:15)
[2024-01-28] MEDS: LMX 4 1 APPLIC TOPICAL ×2 (08:44→21:14)
[2024-01-28] MEDS: PROTONIX 40 MG PO (08:44)
[2024-01-28] MEDS: CARDIZEM CD 180 MG PO (08:44)
[2024-01-28] MEDS: NON-FORMULARY ITEM 80 MCG SC (08:47)
[2024-01-28 10:44] LABS: Hematocrit 38.2 % (37.0-47.0); Hemoglobin 12.5 g/dL (12.0-16.0)
[2024-01-28] MEDS: THERAGRAN 1 TABLET PO (12:05)
[2024-01-28 12:46] LABS: INR 1.05; PT 13.5 Sec (11.4-14.6)
[2024-01-28] MEDS: ATIVAN 0.25 MG IV (15:33)
[2024-01-28] MEDS: NSS (PRESERVATIVE FREE) 0.125 ML IV (15:35)
[2024-01-28] MEDS: APRESOLINE 5 MG IV (16:43)
--- NOTE | 2024-01-28 17:25 | PTCARENOTE ---
Received patient this am AAOx3. Pt OOB ambulating with assistance x1 an walker. Tolerated diet well. Pt off unit to IR for Epidural Injection. Pt returned from IR. Pt very anxious. Medicated with Ativan IV with relief. Pt's B/P 176/90 Pt medicated
at 1645 with Hydralazine 5mg IV. Will recheck patients B/P. Pt on schedule pain medication for back pain. Made patient comfortable. Cont to assess patient status.
[2024-01-28] MEDS: LACTAID 1 CAPSULE PO (17:54)
[2024-01-28] MEDS: CRESTOR 10 MG PO (17:54)
[2024-01-28] MEDS: LOVENOX 40 MG SC (17:55)
[2024-01-28] MEDS: ZESTRIL 20 MG PO (17:56)
[2024-01-29] MEDS: TYLENOL 650 MG PO ×4 (05:43→23:16)
[2024-01-29] MEDS: ULTRAM 25 MG PO ×4 (05:43→23:18)
[2024-01-29 07:10] VITALS: BP 129/64
[2024-01-29] MEDS: PROTONIX 40 MG PO (08:03)
[2024-01-29] MEDS: CARDIZEM CD 180 MG PO (08:04)
[2024-01-29] MEDS: NON-FORMULARY ITEM 80 MCG SC (08:04)
[2024-01-29] MEDS: RESTASIS 0.05% OPHTHALMIC EMULSION 1 DROPS BOTH EYES ×2 (08:04→20:42)
[2024-01-29] MEDS: LMX 4 1 APPLIC TOPICAL ×2 (08:05→20:42)
--- NOTE | 2024-01-29 08:22 | W.PN.HOSP.TC ---
Today's Communication/Plan
-
Blood Pressure Pain Control
PT/OT
discharge planning snf rehab
Assessment / Plan
Assessment / Plan
Physical Exam
General: no acute distress appears comfortable at this time
HEENT: NormoCephalic, Anicteric, [place] Conjunctivae and No Ptosis
Cardiac: S1/S2 and Murmur (Systolic 3/6); No Rub, Gallop or Peripheral Edema
GI: Soft, Non Tender, Non Distended, Normal Bowel Sounds and No Hepatosplenomegaly
Musculoskeletal: No Clubbing, No Cyanosis, No Edema, Lower lumbar back pain tenderness
Neuro: AO x 3
Psych: Calm
83F pmhx memory impairment, HTN, HLD, IBS, diverticulitis, arthritis, spinal fractures, osteoporosis, glaucoma p/w acute on chronic lower back pain. History L1-L3 compression fractures recently diagnosed in October. Pain progressively worsening,
debilitating, and impairing ambulatory function since then. Associate constipation. Patient recently had 50 mg of tramadol prn for pain decreased to 25 mg QID due to oversedation. Also was recently started on gabapentin but developed a rash rxn
to the medication. Follows orthopedic spine surgeon Dr Covarrubias outpatient who referred her for admission IR evaluation possible benefit vertebroplasty. Denies lower extremity weakness, paresthesias, bowel or bladder incontinence, fever, chills,
chest pain, palpitations, shortness breath, cough, abdominal pain, diarrhea. Reports nausea constipation.
#Intractable pain secondary to acute/subacute L1-L2 compression fracture
-Consult IR appreciated possible benefit vertebroplasty vs steroid injection (given multilevel involvement steroid injection was offered and patient following discussion with daughter consented0
-Pain control, bowel regimen
-Continue Tylenol 650 mg 4 times daily with tramadol 25 mg 4 times daily, IV toradol prn added
-Gabapentin stopped d/t drug rash
-PT/OT/case management consult appreciated SNF rehab
Anxiety
-prn ativan
X-ray lumbar spine:
1. Acute/subacute 95 per send compression fracture L1
2. Stable 50% compression fracture L2
3. Moderate lumbar levoscoliosis
4. DDD L3-4, L4-5 with mild disc space narrowing
MRI lumbar spine appreciated
Acute on chronic severe L1 compression fracture. Additional acute/subacute compression deformities of T11, T12 and L3. Subacute to chronic L2 compression fracture.
Prominent osseous retropulsion at L1 contributes to moderate to severe spinal canal stenosis with mild cord/conus impingement at this level.
Neurosurgery consult appreciated
#Nausea
prn zofran
#constipation
cont prn miralax senna/colace
resolving, hard stools
#Cardiac murmur on exam
ECHO appreciated normal systolic function, mild to moderate aortic stenosis and moderate tricuspid regurgitation
#HTN
#Hypertensive Urgency
-Continue lisinopril 20 mg every afternoon, diltiazem 180 mg daily
-BP possibly elevated d/t pain nausea
-cont pain control, prn antinausea medication
-hydralazine prn
#HLD
-Continue Crestor 10 mg every afternoon
#Hx IBS
#Hx diverticulitis
# hx severe lactose intolerance
-Lactaid free diet, unable to tolerate ibuprofen due to lactose binding agent
-Continue Lactaid 3000 units every afternoon
#Hx arthrits/osteoporosis
Patient may take own Tymlos injection daily
#Glaucoma
-Patient may take own Restasis
#Stress vs Urge Incontinence
bladder scan prn retention
recent urinalysis not suggestive of UTI
Kegel exercises recommended
outpatient follow up with gynecology urologist recommended
DVT prophylaxis
Subcu Lovenox
DNR
Discussed with patient and her daughter Shraddha
I spent a total of 55 minutes with the patient or on the floor. More than 50% of this time involved counseling and coordination of care.
Anticipated Discharge: 24 - 48 hours
Subjective/Interval History
-
Date of Service: January 29, 2024
Reports feeling well, pain significantly improved. constipation resolved. Denies new acute issues at this time.
Objective Data
-
Labs:
Laboratory Results
01/29/24
08:08
WBC Pending
Hgb Pending
Hct Pending
Plt Count Pending
Sodium Pending
Potassium Pending
Chloride Pending
Carbon Dioxide Pending
BUN Pending
Creatinine Pending
Glucose Pending
Calcium Pending
Vital Signs:
Vital Signs
Temp Pulse Resp BP Pulse Ox
97.8 F 88 18 129/64 96
01/29/24 07:10 01/29/24 08:04 01/29/24 07:10 01/29/24 08:04 01/29/24 07:10
I&O
01/28/24 01/29/24 01/30/24
06:59 06:59 06:59
Intake Total 120 / 120 960 / 960
Output Total 320 / 320
Balance 120 / 120 640 / 640
[2024-01-29 08:45] LABS: Hematocrit 36.6 % (37.0-47.0); Hemoglobin 12.3 g/dL (12.0-16.0); Mean Corp Hgb Conc. 33.6 g/dL (33.0-37.0); Mean Corpuscular Hgb 30.7 pg (27.0-31.0); Mean Corpuscular Volume 91.3 fL (81.0-99.0); Mean Platelet Volume 11.4 fL (7.4-10.4); Platelet Count 238 10^3/uL (130-400); Red Blood Cell Count 4.01 10^6/uL (4.20-5.40); Red Cell Dist. Width 12.4 % (11.5-14.5); White Blood Cell Count 7.5 10^3/uL (4.8-10.8)
[2024-01-29 09:07] LABS: Blood Urea Nitrogen 24 mg/dl (7-17); Carbon Dioxide 29 mmol/L (22-30); Chloride 100 mmol/L (98-107); Estimated Creatinine Clearance 54 ml/min; Glucose 120 mg/dl (70-99); Phosphorus 4.5 mg/dl (2.5-4.5); Potassium 4.5 mmol/L (3.5-5.1); Sodium 137 mmol/L (135-145); eGFR > 60.00
[2024-01-29] MEDS: THERAGRAN 1 TABLET PO (11:50)
[2024-01-29 15:10] VITALS: BP 148/79
[2024-01-29] MEDS: LOVENOX 40 MG SC (18:18)
[2024-01-29] MEDS: CRESTOR 10 MG PO (18:18)
[2024-01-29] MEDS: LACTAID 1 CAPSULE PO (18:18)
[2024-01-29] MEDS: ZESTRIL 20 MG PO (18:18)
[2024-01-29] MEDS: APRESOLINE 5 MG IV (23:26)
[2024-01-29 23:53] VITALS: BP 163/91
[2024-01-30 00:57] VITALS: BP 122/63
[2024-01-30] MEDS: ULTRAM 25 MG PO ×4 (05:11→23:21)
[2024-01-30] MEDS: TYLENOL 650 MG PO ×4 (05:11→23:20)
[2024-01-30 06:53] LABS: Hematocrit 35.8 % (37.0-47.0); Hemoglobin 11.8 g/dL (12.0-16.0); Mean Platelet Volume 11.9 fL (7.4-10.4); Platelet Count 214 10^3/uL (130-400); Red Blood Cell Count 3.81 10^6/uL (4.20-5.40); Red Cell Dist. Width 12.6 % (11.5-14.5); White Blood Cell Count 7.6 10^3/uL (4.8-10.8)
--- NOTE | 2024-01-30 06:58 | W.PN.HOSP.TC ---
Today's Communication/Plan
-
Medically stable for discharge pending placement SNF rehab
Assessment / Plan
Assessment / Plan
Physical Exam
General: no acute distress appears comfortable at this time
HEENT: NormoCephalic, Anicteric, [place] Conjunctivae and No Ptosis
Cardiac: S1/S2 and Murmur (Systolic 3/6); No Rub, Gallop or Peripheral Edema
GI: Soft, Non Tender, Non Distended, Normal Bowel Sounds and No Hepatosplenomegaly
Musculoskeletal: No Clubbing, No Cyanosis, No Edema, Lower lumbar back pain tenderness
Neuro: AO x 3
Psych: Calm
83F pmhx memory impairment, HTN, HLD, IBS, diverticulitis, arthritis, spinal fractures, osteoporosis, glaucoma p/w acute on chronic lower back pain. History L1-L3 compression fractures recently diagnosed in October. Pain progressively worsening,
debilitating, and impairing ambulatory function since then. Associate constipation. Patient recently had 50 mg of tramadol prn for pain decreased to 25 mg QID due to oversedation. Also was recently started on gabapentin but developed a rash rxn
to the medication. Follows orthopedic spine surgeon Dr Covarrubias outpatient who referred her for admission IR evaluation possible benefit vertebroplasty. Denies lower extremity weakness, paresthesias, bowel incontinence, fever, chills, chest pain,
palpitations, shortness breath, cough, abdominal pain, diarrhea. Reports nausea constipation.
#Intractable pain secondary to acute/subacute L1-L2 compression fracture
-Consult IR appreciated possible benefit vertebroplasty vs steroid injection (given multilevel involvement steroid injection was offered and patient following discussion with daughter consented0
-s/p therapeutic steroid injection 01/27
-Pain control, bowel regimen
-Continue Tylenol 650 mg 4 times daily with tramadol 25 mg 4 times daily, IV toradol prn added
-Gabapentin stopped d/t drug rash
-PT/OT/case management consult appreciated SNF rehab
Anxiety
-prn ativan
X-ray lumbar spine:
1. Acute/subacute 95 per send compression fracture L1
2. Stable 50% compression fracture L2
3. Moderate lumbar levoscoliosis
4. DDD L3-4, L4-5 with mild disc space narrowing
MRI lumbar spine appreciated
Acute on chronic severe L1 compression fracture. Additional acute/subacute compression deformities of T11, T12 and L3. Subacute to chronic L2 compression fracture.
Prominent osseous retropulsion at L1 contributes to moderate to severe spinal canal stenosis with mild cord/conus impingement at this level.
Neurosurgery consult appreciated
#Nausea
prn zofran
#constipation
cont prn miralax senna/colace
resolving, hard stools
#Cardiac murmur on exam
ECHO appreciated normal systolic function, mild to moderate aortic stenosis and moderate tricuspid regurgitation
#HTN
#Hypertensive Urgency
-Continue lisinopril 20 mg every afternoon, diltiazem 180 mg daily
-BP possibly elevated d/t pain nausea
-cont pain control, prn antinausea medication
-hydralazine prn
#HLD
-Continue Crestor 10 mg every afternoon
#Hx IBS
#Hx diverticulitis
# hx severe lactose intolerance
-Lactaid free diet, unable to tolerate ibuprofen due to lactose binding agent
-Continue Lactaid 3000 units every afternoon
#Hx arthrits/osteoporosis
Patient may take own Tymlos injection daily
#Glaucoma
-Patient may take own Restasis
#Stress vs Urge Incontinence
bladder scan prn retention
recent urinalysis not suggestive of UTI
Kegel exercises recommended also discussed w/ patient strategies such as timed bathroom visits
outpatient follow up with gynecology urologist recommended
PT/OT SNF rehab
DVT prophylaxis
Subcu Lovenox
DNR
Medically stable for discharge pending placement
Discussed with patient and her daughter Shraddha
I spent a total of 35 minutes with the patient or on the floor. More than 50% of this time involved counseling and coordination of care.
Anticipated Discharge: 24 - 48 hours
Subjective/Interval History
-
Date of Service: January 30, 2024
pain control improved.
Objective Data
-
Labs:
Laboratory Results
01/30/24
06:21
WBC Pending
Hgb Pending
Hct Pending
Plt Count Pending
Sodium Pending
Potassium Pending
Chloride Pending
Carbon Dioxide Pending
BUN Pending
Creatinine Pending
Glucose Pending
Calcium Pending
Vital Signs:
Vital Signs
Temp Pulse Resp BP Pulse Ox
98.0 F 90 18 122/63 97
01/29/24 23:53 01/30/24 00:57 01/29/24 23:53 01/30/24 00:57 01/29/24 23:53
I&O
01/28/24 01/29/24 01/30/24
06:59 06:59 06:59
Intake Total 120 / 120 960 / 960 1530 / 1530
Output Total 320 / 320 450 / 450
Balance 120 / 120 640 / 640 1080 / 1080
[2024-01-30 07:02] LABS: Blood Urea Nitrogen 28 mg/dl (7-17); Calcium 9.8 mg/dl (8.4-10.2); Carbon Dioxide 29 mmol/L (22-30); Chloride 100 mmol/L (98-107); Estimated Creatinine Clearance 54 ml/min; Glucose 130 mg/dl (70-99); Phosphorus 4.1 mg/dl (2.5-4.5); Potassium 4.5 mmol/L (3.5-5.1); Sodium 135 mmol/L (135-145); eGFR > 60.00
[2024-01-30 07:05] VITALS: BP 152/89
[2024-01-30] MEDS: CARDIZEM CD 180 MG PO (08:41)
[2024-01-30] MEDS: NON-FORMULARY ITEM 80 MCG SC (08:42)
[2024-01-30] MEDS: LMX 4 1 APPLIC TOPICAL ×2 (08:42→21:51)
[2024-01-30] MEDS: PROTONIX 40 MG PO (08:42)
[2024-01-30] MEDS: RESTASIS 0.05% OPHTHALMIC EMULSION 1 DROPS BOTH EYES ×2 (08:42→21:51)
[2024-01-30] MEDS: THERAGRAN 1 TABLET PO (12:33)
[2024-01-30 15:15] VITALS: BP 130/61
[2024-01-30] MEDS: LACTAID 1 CAPSULE PO (17:30)
[2024-01-30] MEDS: CRESTOR 10 MG PO (17:30)
[2024-01-30] MEDS: ZESTRIL 20 MG PO (17:30)
[2024-01-30] MEDS: LOVENOX 40 MG SC (17:30)
[2024-01-30 23:47] VITALS: BP 165/86
[2024-01-30] MEDS: APRESOLINE 5 MG IV (23:54)
[2024-01-31 02:00] VITALS: BP 141/71
[2024-01-31] MEDS: TYLENOL 650 MG PO ×2 (06:03→11:53)
[2024-01-31] MEDS: ULTRAM 25 MG PO ×2 (06:04→11:53)
[2024-01-31 07:30] VITALS: BP 186/89
[2024-01-31 08:19] LABS: Hematocrit 41.9 % (37.0-47.0); Hemoglobin 13.9 g/dL (12.0-16.0); Mean Corp Hgb Conc. 33.2 g/dL (33.0-37.0); Mean Corpuscular Volume 93.3 fL (81.0-99.0); Mean Platelet Volume 12.1 fL (7.4-10.4); Platelet Count 282 10^3/uL (130-400); Red Blood Cell Count 4.49 10^6/uL (4.20-5.40); Red Cell Dist. Width 12.8 % (11.5-14.5); White Blood Cell Count 7.7 10^3/uL (4.8-10.8)
[2024-01-31 08:37] LABS: Blood Urea Nitrogen 22 mg/dl (7-17); Calcium 10.2 mg/dl (8.4-10.2); Carbon Dioxide 30 mmol/L (22-30); Chloride 100 mmol/L (98-107); Estimated Creatinine Clearance 54 ml/min; Glucose 115 mg/dl (70-99); Magnesium 2.1 mg/dl (1.6-2.3); Phosphorus 4.1 mg/dl (2.5-4.5); Potassium 4.7 mmol/L (3.5-5.1); Sodium 140 mmol/L (135-145); eGFR > 60.00
[2024-01-31] MEDS: CARDIZEM CD 180 MG PO (08:47)
[2024-01-31] MEDS: RESTASIS 0.05% OPHTHALMIC EMULSION 1 DROPS BOTH EYES (08:47)
[2024-01-31] MEDS: PROTONIX 40 MG PO (08:48)
[2024-01-31] MEDS: LMX 4 1 APPLIC TOPICAL (08:48)
[2024-01-31] MEDS: NON-FORMULARY ITEM 80 MCG SC (08:49)
[2024-01-31 09:30] VITALS: BP 150/80
--- NOTE | 2024-01-31 11:45 | CM ---
Aliyah has been offered a bed at [facility] for today. I spoke with Aliyah and her daughter, Shraddha, who prefer [facility] also offered a bed, however since Aliyah will be moving into a suite at [facility] in the near future, both
Shraddha and Aliyah advised they would prefer to stay within the [facility] facility.
Covid test must be done prior to discharge; notified.
W/C van transport to be arranged with [facility] for transfer to [facility] ($120 cost per [facility] at [facility]) for after 3PM. Daughter provided phone number to call to pay for transport.
Report: [phone]
[2024-01-31] MEDS: THERAGRAN 1 TABLET PO (11:52)
[2024-01-31 12:52] LABS: COVID-19 Antigen Negative (Negative)
--- NOTE | 2024-01-31 14:33 | W.PN.HOSP.TC ---
Today's Communication/Plan
-
dc to SNF
Assessment / Plan
Assessment / Plan
Assessment:
Intractable pain secondary to acute/subacute L1-L2 compression fracture
- X-ray lumbar spine: Acute/subacute 95 per send compression fracture L1, Stable 50% compression fracture L2, Moderate lumbar levoscoliosis, DDD L3-4, L4-5 with mild disc space narrowing
- MRI L spine: Acute on chronic severe L1 compression fracture. Additional acute/subacute compression deformities of T11, T12 and L3. Subacute to chronic L2 compression fracture.
Prominent osseous retropulsion at L1 contributes to moderate to severe spinal canal stenosis with mild cord/conus impingement at this level.
- s/p steroid injection 01/27 by IR - as recommended by NeuroSurgery
- pain control + concurrent bowel regimen
- PT/OT - SNF today
Anxiety
- prn ativan
Nausea
- prn zofran
Constipation
- continue bowel regimen
Cardiac murmur on exam
- ECHO appreciated normal systolic function, mild to moderate aortic stenosis and moderate tricuspid regurgitation
Essential HTN
Hypertensive Urgency
- continue lisinopril/diltiazem
HLD
- continue Crestor 10 mg every afternoon
Hx IBS
Hx diverticulitis
hx severe lactose intolerance
- Lactaid free diet, unable to tolerate ibuprofen due to lactose binding agent
- Continue Lactaid 3000 units every afternoon
Hx arthritis/osteoporosis
- Patient may take own Tymlos injection daily
Glaucoma
- Patient may take own Restasis
Stress vs Urge Incontinence
- bladder scan prn retention
- Kegel exercises recommended also discussed w/ patient strategies such as timed bathroom visits
- outpatient follow up with gynecology urologist recommended
DVT prophylaxis: SC Lovenox
Code: DNR
More than 30 minutes spent in discharge including
Final examination of the patient
Summarizing hospital stay
Instructions for continuing care to all relevant caregivers
Preparation of discharge records, prescriptions, and referral forms
Total time spent (in minutes): 41
Anticipated Discharge: Today
Subjective/Interval History
-
Date of Service: January 31, 2024
pain reasonably controlled, denies any complaints
Objective Data
-
Labs:
Laboratory Results
01/31/24
07:03
WBC 7.7
Hgb 13.9
Hct 41.9
Plt Count 282 D
Sodium 140
Potassium 4.7
Chloride 100
Carbon Dioxide 30
BUN 22 H
Creatinine 0.7
Glucose 115 H
Calcium 10.2
Vital Signs:
Vital Signs
Temp Pulse Resp BP Pulse Ox
98.4 F 85 20 186/89 98
01/31/24 07:30 01/31/24 08:47 01/31/24 07:30 01/31/24 08:47 01/31/24 07:30
I&O
01/30/24 01/31/24 02/01/24
06:59 06:59 06:59
Intake Total 1530 / 1530 1200 / 1200
Output Total 450 / 450 900 / 900
Balance 1080 / 1080 300 / 300
Physical Exam
-
General: No Apparent Distress
HEENT: Normocephalic and Atraumatic
Respiratory: Negative Wheezes
Cardiac: Regular Rhythm and S1/S2
GI: Soft
Neuro: AO x 3
Psych: Calm
Data Reviewed
-
Total Time Spent with Patient (in minutes): 41
Labs: Labs Reviewed by me
[2024-01-31 15:05] VITALS: BP 191/84
--- NOTE | 2024-01-31 15:19 | W.DS.TRANS ---
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
-
Discharge Instructions:
Discharge Diagnosis/Procedures acute/subacute L1-L2 compression fracture s/p
steroid injection 01/27
Diet Low Cholesterol
Activity As tolerated
Bathing Restrictions None
Other Services PT,OT
Instructions:
Stand-Alone Forms:
Changes to Home Medications: Yes
Discharge Medications:
DC Medications w/original date entered in [facility]
abaloparatide (Tymlos) 0 mcg SC DAILY 01/25/24
acetaminophen 500 mg tablet (Tylenol Extra Strength) 500 mg PO QID 01/25/24
cyclosporine 0.05 % eye drops in a dropperette (Restasis) 1 drp BOTH EYES Q12H 01/25/24
diltiazem HCl 180 mg capsule,24 hr,extended release 180 mg PO DAILY 01/25/24
gabapentin 100 mg capsule 100 mg PO HS 01/25/24
lactase 3,000 unit tablet (Lactaid) 3,000 unit PO QPM 01/25/24
rosuvastatin 10 mg tablet 10 mg PO QPM 01/25/24
therapeutic multivitamin 1 tab PO DAILY@1200 01/25/24
baclofen 5 mg tablet 2.5 mg (1/2 x 5 mg) PO TIDPRN PRN muscle spasm/cramping #60 tabs 01/31/24
lisinopril 20 mg tablet 20 mg PO BID #60 tabs 01/31/24
sennosides 8.6 mg-docusate sodium 50 mg tablet (Stool Softener-Stimulant Laxative) 1 tab PO BIDPRN PRN constipation #60 tabs 01/31/24
tramadol 50 mg tablet 25 mg (1/2 x 50 mg) PO QID #20 tabs 01/31/24
Home Medication Changes
Lisinopril to BID
Pending Results: No
Total time spent discharging patient (in min): 41
[2024-01-31 15:27] VITALS: BP 152/82
== END 2024-01-31 15:35 | DRG 544 ==
LOC: 4 EAST ACU 15:01
PROVIDERS: Clinical Nurse Specialist Family Health; Physician Assistant; ADMITTING PHYSICIAN Internal Medicine; ATTENDING PHYSICIAN Internal Medicine; CONSULT PHYSICIAN Radiology Vascular & Interventional Radiology; EMERGENCY PHYSICIAN Emergency Medicine; FAMILY PHYSICIAN Family Medicine; OTHER PHYSICIAN Neurological Surgery
PROC: 3E0R33Z Introduction of Anti-inflammatory into Spinal Canal, Percutaneous Approach (ICD-10-PCS; 2024-01-28)
PROC: 3E0R3BZ Introduction of Anesthetic Agent into Spinal Canal, Percutaneous Approach (ICD-10-PCS; 2024-01-28)
DX: M80.08XA Age-related osteoporosis with current pathological fracture, vertebra(e), initial encounter for fracture (principal); E78.5 Hyperlipidemia, unspecified; I10 Essential (primary) hypertension; G89.29 Other chronic pain; K58.1 Irritable bowel syndrome with constipation; M19.90 Unspecified osteoarthritis, unspecified site; H40.9 Unspecified glaucoma; E73.9 Lactose intolerance, unspecified; Z66 Do not resuscitate; I08.2 Rheumatic disorders of both aortic and tricuspid valves; N39.46 Mixed incontinence; I16.0 Hypertensive urgency; F41.9 Anxiety disorder, unspecified; R11.0 Nausea; M41.86 Other forms of scoliosis, lumbar region; M51.36 Other intervertebral disc degeneration, lumbar region; Z11.52 Encounter for screening for COVID-19; Z79.899 Other long term (current) drug therapy
CPT/HCPCS: 62323; 72110; 72148; 80048; 80053; 81003; 81015; 83735; 84100; 84484; 85014; 85018; 85025; 85027; 85610; 87811; 93005; 93306; 96374; 97116; 97530; 99285

== ENCOUNTER 2024-12-04 08:48 | Inpatient (IN) | payer MEDICARE, BC, SELFPAY ==
[2024-12-02] VITALS (10 sets, daily range): BP systolic 168–224; BP diastolic 72–110; BMI 19.4
--- NOTE | 2024-12-02 19:01 | ED.GENMED ---
History of Present Illness
General
Chief Complaint: Blood Pressure Problem
Source: patient and ambulance crew
Time Seen by Provider: 12/02/24 18:47
History of Present Illness
History of Present Illness:
84 year old female with past medical history of hypertension and hyperlipidemia presenting to the ER from [facility] via EMS for evaluation of elevated blood pressure with systolic being greater than 200 today accompanied with feeling lightheaded
with change in position, at time of my exam patient works she only feels nervous about being here in the ER but has no physical concerns at this time including headache, chest pain, abdominal pain, shortness of breath, visual changes, focal weakness
or numbness or any other concerns. Patient reports good compliance with her antihypertensive regimen. No change to her medications recently. Patient believes she took her medications this morning but has not taken her nighttime dose yet. She has
no other concerns at this time
Review of Systems
Review of Systems
All Other Systems: ROS reviewed and negative except as documented in HPI and ROS
Phy Exam
Physical Exam
Physical Exam:
GENERAL: Alert , in no apparent distress
HEAD: Normocephalic atraumatic
EYE: pupils equal and reactive, 4 mm bilateral, clear conjunctiva
NECK: Supple
ENT: o/p clr, mmm.
CARDIAC: Regular rate and rhythm .
LUNGS: Clear breath sounds bilaterally, no acute respiratory distress, no wheezes/rales/rhonchi
ABDOMEN: Soft, without focal tenderness, no r/g, no cvat
NEUROLOGICAL: Alert and oriented, no focal neuro deficits, moves all extremities, she does have shakiness/tremor to the right upper extremity which she is attributing to her nervousness
SKIN: Warm and dry, skin intact.
MUSCULOSKELETAL: No edema, well perfused.
PSYCH: Normal and appropriate interaction.
Scores
Heart Failure Risk
Heart Failure Risk Score: Not Applicable
Heart Score for Chest Pain Patients
STEMI patient?: Not applicable
Withdrawal Assessment of Alcohol
Withdrawal Assessment Completed?: Not applicable
Course
Orders/Labs/Results
Orders:
Orders
12/02/24 18:54
Electrocardiogram (*1) Urgent
Reason for Study: Hypertension, Benign
CT Head W/o Iv Contrast Urgent
Comment:
Reason For Exam: elevated BP, intermittent dizzy/lightheaded
EKG- Treatment ONCE
12/02/24 19:26
Complete Blood Count/With Diff Urgent
Comprehensive Metabolic Panel Urgent
Troponin I Urgent
12/02/24 21:59
HydrALAZINE [Apresoline] 10 mg IV NOW STA
Abnormal Lab Results
12/02/24
19:26
MCH 31.9 H pg
(27.0-31.0)
MPV 12.1 H fL
(7.4-10.4)
Absolute Monos (auto) 0.7 H 10^3/uL
(0.1-0.6)
Neutrophils % 41.2 L %
(42.2-75.2)
Monocytes % 13.7 H %
(1.7-9.3)
Eosinophils % 9.5 H %
(0-6)
Carbon Dioxide 31 H mmol/L
(22-30)
BUN 18 H mg/dl
(7-17)
Glucose 110 H mg/dl
(70-99)
Calcium 12.3 H mg/dl
(8.4-10.2)
Total Bilirubin 1.5 H mg/dl
(0.2-1.3)
12/02/24 19:26
12/02/24 19:26
Vital Signs
Initial and Last Documented VS:
Initial Vital Signs
Temp Pulse Resp BP Pulse Ox
97.9 F 85 18 170/110 97
12/02/24 18:50 12/02/24 18:50 12/02/24 18:50 12/02/24 18:50 12/02/24 18:50
Last Documented Vital Signs
Temp Pulse Resp BP Pulse Ox
97.9 F 86 15 180/72 100
12/02/24 18:50 12/02/24 22:30 12/02/24 22:30 12/02/24 22:30 12/02/24 22:30
MDM/Problems Addressed
Differential Diagnosis Includes:
Asymptomatic hypertension, hypertensive urgency/emergency, no current symptoms to suggest ACS, CVA, endorgan dysfunction
MDM/Problems Addressed:
84-year-old female presenting to the ER for evaluation of elevated blood pressures over the last 2 days with systolic intermittently being greater than 200. On arrival to the ER here patient blood pressure is 170/110 however she has no symptoms at
this time given her age we will check labs including an EKG as well as CT of the head. Will closely monitor patient's blood pressure. Disposition pending
Chronic conditions affecting care: HTN
Acute Exacerbation and/or Progression of Chronic Illness: HTN
*Radiology
Radiology exam reviewed: radiology read reviewed
*Pulse Oximetry
Patient hypoxic: no
*EKG
Interpreted by ED Provider?: Yes
Heart Rate: 83
Rate: normal
Rhythm: sinus
Ischemia: no ischemia
*Manager Appointment Interpretation
Rate: normal
Rhythm: sinus
*Critical Care Note
Total Time (30-74mins, 75-104mins- exclusive of procedures): Not Applicable
Data Reviewed
Review of Other/Old Records Reveals: Records
Patient Management
Discussion with other providers: Hospitalist
Escalation/DeEscalation of care consider admission/obs:
CT scan without any acute intracranial pathologies. There is a suspected meningioma, radiology recommends MRI if any further concern but do not suspect any acute neurologic complications. Patient blood pressure continues to have multiple readings
with her systolic being greater than 200 and diastolic being greater than 100 her home medications. Caregiver is now at the bedside stating that a few weeks ago patient had her amlodipine increased by cardiology but patient has not had any
improvement with her blood pressure. I did give her a dose of hydralazine, shortly before receiving this medication patient now notes she is feeling a little bit lightheaded again. Given her age combined with continuously elevated blood pressures
and now symptomatic will admit for further monitoring and care as well as treatment of hypertensive urgency.
ED Attending Note
-
Portions of this chart may have been created with voice recognition software.� Occasional wrong word or��sound alike� substitutions may have occurred due to the inherent limitations of voice recognition software.
Discharge Plan
Departure
Patient Disposition: Admit
Date of Disposition: 12/02/24
Time of Disposition: 22:18
Presentation/result/management discussed w/ accepting MD/DO: Hospitalist
Discharge Problem:
Hypertensive urgency
Prescriptions:
No Action
diltiazem HCl 180 mg Capsule,Extended Release 24 Hr
180 mg PO DAILY
therapeutic multivitamin Tablet
1 tab PO DAILY@1200
acetaminophen [Tylenol Extra Strength] 500 mg Tablet
500 mg PO QID
lactase [Lactaid] 3,000 unit Tablet
3,000 unit PO QPM
gabapentin 100 mg Capsule
100 mg PO HS
cyclosporine [Restasis] 0.05 % Dropperette
1 drp BOTH EYES Q12H
rosuvastatin 10 mg Tablet
10 mg PO QPM
Tymlos 80 mcg (3,120 mcg/1.56 mL) Pen Injector
0 mcg SC DAILY
lisinopril 20 mg Tablet
20 mg PO BID Qty: 60 0RF
baclofen 5 mg Tablet
2.5 mg PO TIDPRN PRN (Reason: muscle spasm/cramping) Qty: 60 0RF
sennosides-docusate sodium [Stool Softener-Stimulant Laxat] 8.6-50 mg Tablet
1 tab PO BIDPRN PRN (Reason: constipation) Qty: 60 0RF
tramadol 50 mg Tablet
25 mg PO QID Qty: 20 0RF
Referrals:
Brien Booth, DO [Family Provider] -
Interventions
Interventions:
*Risk Screen - Suicide Last Done: 12/02/24 18:54
*General Assessment Last Done: 12/02/24 18:54
*Neglect/Abuse Screening Last Done: 12/02/24 18:54
*ED- Fall Risk Assessment Last Done: 12/02/24 18:54
*ED COVID-19 Vaccine History Last Done: 12/02/24 18:54
ED- Cardiac Assessment Last Done: 12/02/24 19:27
ED- Neurological Assessment Last Done: 12/02/24 19:27
ED- Pulmonary Assessment Last Done: 12/02/24 19:27
Discharge Date and Time
Print Language: SRI LANKAN
[2024-12-02 19:38] LABS: % Basophils 1.3 % (0-2); % Eosinophils 9.5 % (0-6); % Lymphocytes 34.3 % (20.5-51.1); % Monocytes 13.7 % (1.7-9.3); % Neutrophils 41.2 % (42.2-75.2); Absolute Basophils 0.1 10^3/uL (0-0.2); Absolute Eosinophils 0.5 10^3/uL (0-0.7); Absolute Lymphocytes 1.9 10^3/uL (1.2-3.4); Absolute Monocytes 0.7 10^3/uL (0.1-0.6); Absolute Neutrophils 2.2 10^3/uL (1.4-6.5); Hematocrit 43.5 % (37.0-47.0); Mean Corp Hgb Conc. 34.5 g/dL (33.0-37.0); Mean Corpuscular Hgb 31.9 pg (27.0-31.0); Mean Corpuscular Volume 92.6 fL (81.0-99.0); Mean Platelet Volume 12.1 fL (7.4-10.4); Nucleated Red Blood Cells % 0 %; Platelet Count 158 10^3/uL (130-400); Red Cell Dist. Width 12.2 % (11.5-14.5); White Blood Cell Count 5.4 10^3/uL (4.8-10.8)
[2024-12-02 19:47] LABS: ALT (SGPT) 27 U/L (0-35); AST (SGOT) 34 U/L (14-36); Albumin 3.9 g/dl (3.5-5.0); Alkaline Phosphatase 122 U/L (38-126); Blood Urea Nitrogen 18 mg/dl (7-17); Calcium 12.3 mg/dl (8.4-10.2); Carbon Dioxide 31 mmol/L (22-30); Chloride 103 mmol/L (98-107); Estimated Creatinine Clearance 45 ml/min; Glucose 110 mg/dl (70-99); Potassium 3.5 mmol/L (3.5-5.1); Sodium 144 mmol/L (135-145); Total Bilirubin 1.5 mg/dl (0.2-1.3); Total Protein 7.9 g/dl (6.3-8.2); eGFR > 60.00
[2024-12-02 19:58] LABS: Troponin I 0.012 ng/ml
[2024-12-02] MEDS: APRESOLINE 10 MG IV (22:03)
--- NOTE | 2024-12-02 23:54 | HPS.HSE ---
Family Physician
-
Family Physician: Brien Booth
Chief Complaint
-
Lightheadedness and hypertension
History of Present Illness
Patient is an 84-year-old female with past medical history significant for hypertension, hyperlipidemia presented to the emergency department from [facility] via EMS secondary to elevated blood pressures associated with lightheadedness. She had
systolic blood pressures greater than 200 at the nursing facility associated with lightheadedness. In in addition, in the ED she initially felt anxious. She denies chest pain no abdominal pain no headache no change in vision, no neurologic focal
deficits, and has been taking her medications regularly. In the ED her blood pressure initially was 170/110 and 211/91
Emergency room -treatment hydralazine 10 mg IV once
Medical History
Past Medical History
Past Medical History: Reports HTN, Hypercholesterolemia and Other (Arthritis, glaucoma, stress and urge incontinence, glaucoma)
Additional Past Medical History:
memory impairment
HTN
HLD
IBS
diverticulitis
arthritis
Osteoporosis
Glaucoma
spinal fractures
Past Surgical History: Reports Other
Additional Past Surgical History:
Hysterectomy
Left lumpectomy
Cataract extraction
[place] teeth extraction
Prior history of colonoscopy
Social History
Tobacco: Non-smoker
Alcohol: None
Drug: None
Personal: Single
Living: With Family
Employment: Retired
Family History
Family History: Other (Father of gastric cancer mother is unknown)
Allergies / Home Medications
Allergies reflects when Allergies were last updated in [facility].
Home Medications with original date entered in [facility]
Allergy/Medication List:
Allergies
Allergy/AdvReac Type Severity Reaction Status Date / Time
gabapentin Allergy Rash/macular Verified 01/25/24 17:10
rash upper
back and
face
lactose Allergy abd pain Verified 01/25/24 17:10
and
diarrhea
Penicillins Allergy Rash Verified 01/25/24 09:43
Sulfa (Sulfonamide Allergy Rash Verified 01/25/24 17:10
Antibiotics)
Home Medications
abaloparatide (Tymlos) 0 mcg SC DAILY 01/25/24
acetaminophen 500 mg tablet (Tylenol Extra Strength) 500 mg PO QID 01/25/24
cyclosporine 0.05 % eye drops in a dropperette (Restasis) 1 drp BOTH EYES Q12H 01/25/24
diltiazem HCl 180 mg capsule,24 hr,extended release 180 mg PO DAILY 01/25/24
gabapentin 100 mg capsule 100 mg PO HS 01/25/24
lactase 3,000 unit tablet (Lactaid) 3,000 unit PO QPM 01/25/24
rosuvastatin 10 mg tablet 10 mg PO QPM 01/25/24
therapeutic multivitamin 1 tab PO DAILY@1200 01/25/24
baclofen 5 mg tablet 2.5 mg (1/2 x 5 mg) PO TIDPRN PRN muscle spasm/cramping #60 tabs 01/31/24
lisinopril 20 mg tablet 20 mg PO BID #60 tabs 01/31/24
sennosides 8.6 mg-docusate sodium 50 mg tablet (Stool Softener-Stimulant Laxative) 1 tab PO BIDPRN PRN constipation #60 tabs 01/31/24
tramadol 50 mg tablet 25 mg (1/2 x 50 mg) PO QID #20 tabs 01/31/24
Review of Systems
-
A 12 point ROS was completed and negative except as noted: Yes
Physical Exam
Vital Signs
Vital Signs
Temp Pulse Resp BP Pulse Ox
97.9 F 86 15 180/72 100
12/02/24 18:50 12/02/24 22:30 12/02/24 22:30 12/02/24 22:30 12/02/24 22:30
Physical Exam
General: Well Nourished, No Apparent Distress, Comfortable and Conversant
HEENT: NormoCephalic and Anicteric
Respiratory: Clear
Cardiac: S1/S2, Regular Rhythm and Murmur
GI: Soft, Non Tender, Non Distended and Normal Bowel Sounds
Musculoskeletal: No Clubbing, No Cyanosis and No Edema
Skin: Warm and Dry
Neuro: No Motor Deficits and Nonfocal/grossly intact
Psych: Calm
Laboratory Results
-
12/02/24 19:26
12/02/24 19:
Laboratory Results
Total Bilirubin 1.5 mg/dl (0.2-1.3) H 12/02/24:
AST 34 U/L (14-36) 12/02/24 19:
ALT 27 U/L (0-35) 12/02/24 19:
Alkaline Phosphatase 122 U/L (38-126) 12/02/24 19:
Troponin I 0.012 ng/ml 12/02/24 19:
Data Reviewed
-
Medical Tests (Nuc Med, Echo, EKG etc): Image Personally Visualized and interpreted and Report Reviewed by me (EKG NSR, no STEMI, unchanged from 01/26/24)
Lab Data: Other (Echocardiogram 01/26/2024 shows normal left ventricular size wall thickness and systolic function with an EF of 55 to 60% and mild to moderate aortic stenosis with moderate tricuspid regurgitation)
Impression/Plan
-
IMPRESSION: The patient is an 84-year-old woman with past medical history significant for hypertension and hyperlipidemia presents the emergency department with systolic blood pressure in the 200s associated with lightheadedness.
#Hypertensive urgency
-telemetry monitoring
- History of essential hypertension
- Blood pressure improved after IV hydralazine in the emergency department
- Continue lisinopril and amlodipine in the morning and Nebivolol and lisinopril in the evening
-Increased morning dose of amlodipine to 10 mg from 5 mg, and monitor BP
Chronic medical conditions:
#memory impairment
#HLD
# IBS
#diverticulitis
#Osteoporosis
-Tylenol prn
#Glaucoma
# spinal fractures
DVT proph Lovenox
Full Code
[2024-12-03] VITALS (10 sets, daily range): BP systolic 127–216; BP diastolic 65–94; BMI 17.8
[2024-12-03] MEDS: TYLENOL 650 MG PO (02:54)
[2024-12-03] MEDS: APRESOLINE 10 MG IV (03:24)
[2024-12-03 06:44] LABS: Blood Urea Nitrogen 16 mg/dl (7-17); Calcium 11.9 mg/dl (8.4-10.2); Carbon Dioxide 32 mmol/L (22-30); Chloride 105 mmol/L (98-107); Estimated Creatinine Clearance 48 ml/min; Glucose 103 mg/dl (70-99); Magnesium 1.4 mg/dl (1.6-2.3); Potassium 3.3 mmol/L (3.5-5.1); Sodium 145 mmol/L (135-145); eGFR > 60.00
[2024-12-03] MEDS: NORVASC 10 MG PO (09:28)
[2024-12-03] MEDS: ZESTRIL 20 MG PO ×2 (09:29→20:10)
--- NOTE | 2024-12-03 11:53 | W.PN.HOSP.TC ---
Today's Communication/Plan
-
Continue with current antihypertensive regimen
Start on IV fluids and follow calcium
Replete magnesium IV
Assessment / Plan
Assessment / Plan
IMPRESSION: The patient is an 84-year-old woman with past medical history significant for hypertension and hyperlipidemia presents the emergency department with systolic blood pressure in the 200s associated with lightheadedness.
#Hypertensive urgency
-Improved on her home regimen and increased dose of amlodipine from 5 mg to 10 mg on admission.
- History of essential hypertension
Patient lives in [facility] home and independent section. According to the caregiver at bedside who gets involved over the weekends only tells me that the patient medications are organized in the pillbox and patient supposed to take them. She reviewed
the medication record and tells me that patient did not take her Wednesday afternoon medications and subsequent to that the blood pressure was noted to be high. Caregiver could not tell me how she was doing over the weekdays.
Uncontrolled blood pressure could be secondary to medication compliance. She does have cognitive impairment evident now and also has a history of memory impairment/dementia.
There is also hypercalcemia which could potentially increase the blood pressure.
Hypercalcemia
Patient is on Tymlos for OA which is PTH analog and could be a potential cause of it. Hold labs and start on IV fluids for hypercalcemia and follow. She has to choose another agent for osteoporosis.
Hypomagnesemia-replete
Chronic medical conditions:
#memory impairment
#HLD
# IBS
#diverticulitis
#Osteoporosis
-Tylenol prn
#Glaucoma
# spinal fractures
DVT proph Lovenox
Full Code
Total time spent on today's encounter was 52 minutes which included time spent in counseling the patient/family regarding diagnosis and treatment plan as listed above, goals of care, and symptom management. Case was discussed with nursing staff,
specialists, and care coordinators/case management. All labs and imaging personally reviewed by me. Remainder the time spent in detailed review of previous records, lab data, imaging, and other medical provider documentation.
Anticipated Discharge: 24 - 48 hours
Subjective/Interval History
-
Date of Service: December 03, 2024
Patient is alert but she thought she was at [facility]. Could easily be reoriented to the place. She knew the month and the year. She does have a history of dementia according to the caregiver at bedside.
Patient is not sure why she came to the hospital.
Denies headache, dizziness, visual disturbances or speech impairment. Denies any chest pain or shortness of breath. Denies any limb weakness.
Objective Data
-
Labs:
Laboratory Results
12/03/24
05:22
Sodium 145
Potassium 3.3 L
Chloride 105
Carbon Dioxide 32 H
BUN 16
Creatinine 0.7
Glucose 103 H
Calcium 11.9 H
Vital Signs:
Vital Signs
Temp Pulse Resp BP Pulse Ox
98.0 F 73 20 158/76 98
12/03/24 11:00 12/03/24 11:00 12/03/24 11:00 12/03/24 11:00 12/03/24 11:00
I&O
12/02/24 12/03/24 12/04/24
06:59 06:59 06:59
Output Total 400 / 400
Balance -400 / -400
Physical Exam
-
General: Comfortable
Respiratory: Clear to Auscultation and Non Labored Respirations; Negative Accessory Resp Muscle Use
Cardiac: Regular Rhythm, S1/S2 and Murmur; Negative Tachycardic
GI: Soft and Nontender
Neuro: Awake, Alert, Oriented and No Motor Deficits; Negative Tremors, Slurred Speech or Facial Droop
Psych: Calm
Data Reviewed
-
Labs: Labs Reviewed by me
[2024-12-03] MEDS: NSS 1000 IV (12:44)
[2024-12-03] MEDS: MAGNESIUM SULFATE 100 IV (12:46)
--- NOTE | 2024-12-03 14:27 | CM ---
Spoke with patient's daughter to obtain information for assessment. Patient's daughter stated that patient lives alone in an apartment at [facility]. Patient has someone who comes in at 9am to provide patient with her morning
pills and then someone comes in at 9 at night to provide patient's evening pills. She has friends who watch her during the day and support her. The cg that provides pills to patient in the am, assists with bathing and dressing. [facility]
caregivers come in on the weekends. They assist her with cooking, cleaning, side door worker and laundry. During the week she goes with friends to the dining room. She uses a walker to assist with her ambulation. She has had [facility] in the past as
recently as a month ago. She has been to [facility] for rehab in the past.
Patient's daughter stated that right now, patient is on the waiting list at [facility] for personal care.
Patient's daughter was advised that patient is on OBS status and form was reviewed. It is signed on chart. Patient stated that she is unsure of what patient will need at d/c as patient's cognition has rapidly declined. Per daughter patient is
normally forgetful but not confused and agitated.
Attending updated about change in mental status.
D/C plan will be dependent on how patient does (if she becomes more oriented) as she would be unable to be independent currently.
Plan: Case management will continue to follow and assist with discharge planning. Back to [facility] with daughter supervising or other caregivers and VN, or SNF however patient is currently not inpatient and will not then get her 3 night stay.
--- NOTE | 2024-12-03 15:55 | PTCARENOTE ---
Received patient this am AAOX 2-3. Pt forgetful and uncooperative at times. Spoke to patients daughter on phone an gave her an update. Pt OOB to chair an tolerated well. Tolerated diet , however appetite poor. Made patient comfortable. Cont to
assess patient status.
[2024-12-03] MEDS: LOVENOX 40 MG SC (17:25)
[2024-12-03] MEDS: LACTAID PO (17:30)
--- NOTE | 2024-12-03 17:57 | PTCARENOTE ---
Took over care of pt once transferred from . Pt initially gave staff difficult time getting in to bed but then her managed care coordinator showed up and she was able to get her to bed. call hinds in reach. Bed alarm placed on bed.
--- NOTE | 2024-12-03 18:12 | PTCARENOTE ---
1715 Report given to [facility] RN An patient transferred.
--- NOTE | 2024-12-03 18:23 | PTCARENOTE ---
Dr. Romo made aware that patient refused Potassium Po.
[2024-12-03] MEDS: BYSTOLIC 5 MG PO (20:09)
[2024-12-04] VITALS (28 sets, daily range): BP systolic 116–187; BP diastolic 56–106; BMI 17.8; BMI 17.6
[2024-12-04] MEDS: NSS 1000 IV ×2 (02:19→18:01)
[2024-12-04] MEDS: APRESOLINE 10 MG IV (07:39)
[2024-12-04] MEDS: BYSTOLIC 5 MG PO (08:51)
[2024-12-04] MEDS: NORVASC 10 MG PO (08:52)
[2024-12-04] MEDS: ZESTRIL 20 MG PO (08:53)
[2024-12-04 09:02] LABS: Blood Urea Nitrogen 13 mg/dl (7-17); Calcium 11.1 mg/dl (8.4-10.2); Carbon Dioxide 28 mmol/L (22-30); Chloride 105 mmol/L (98-107); Estimated Creatinine Clearance 48 ml/min; Glucose 110 mg/dl (70-99); Magnesium 1.4 mg/dl (1.6-2.3); Potassium 3.1 mmol/L (3.5-5.1); Sodium 143 mmol/L (135-145); eGFR > 60.00
[2024-12-04] MEDS: MAGNESIUM SULFATE 100 IV (11:24)
--- NOTE | 2024-12-04 13:15 | RR ---
Addendum entered by Sherri De Leon RN 12/04/24 15:11:
1:1 rang to alert nursing staff of new LUE weakness noted while taking pt to bathroom. Upon assessment, pt able to move LUE but cannot hold or keep arm up on her own. Pt states she feels 'pins and needles', like her 'arm is asleep.' Slight L sided
facial droop noted and mild slurring. Dr. Wing at bedside, advised to call stroke alert.
Original Note:
A Rapid Response was called on this patient, please see Rapid Response form.
[2024-12-04 13:29] LABS: Glucose - Point of Care 128 mg/dl (70-99)
--- NOTE | 2024-12-04 13:45 | CM ---
custodial manager reviewed patient's chart and patient has switched to inpatient IMM discussed with patient's daughter by phone, and referral sent to [facility] skilled, PT/OT to see patient. Spoke with physician.
Plan; Skilled placement at [facility] referral sent through [facility].
--- NOTE | 2024-12-04 13:51 | CON.NEURO ---
Neuro Assessment/Plan
Assessment
84 year old woman, in hospital strokie/TIA, improving, symptoms remain disabling, advising TNK
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
CTA head/neck imgs rev'd, right carotid bifurcation calcification; await measurement from radiologist
Plan
TNK then transfer to ICU
neurochecks q1, Frequent vital signs Q15min x 2hrs, then Q30min x 6hrs, then Q1H x 16hrs until stable from the start of TNK.�
�tele, accuchecks/ISS.
Blood pressure goals: <180/105 and MAP 80-100� in the acute period.� If BP elevated for 2 readings, preferred agents include IV labetalol or nicardipine.� Vasopressors as necessary to maintain MAP and CPP.�
Glucose goals: Maintain euglycemia using sliding scale insulin. If glucose >180 for two consecutive readings, please use MICU insulin protocol.�
Temperature goals: maintain normothermia�
Diagnostic tests: MRI brain without contrast, ECHO with bubble.�
Consultation
Order
Date of Consultation: 12/04/24
Requesting Provider: Rosaura Wing
Reason for Consult: Stroke alert
Subjective/Objective
Subjective Data
Date of Service: December 04, 2024
Objective Data
Vital Signs
Temp Pulse Resp BP Pulse Ox
37.1 C 81 20 158/72 98
12/04/24 13:19 12/04/24 13:19 12/04/24 13:19 12/04/24 13:19 12/04/24 13:19
Lab Results
12/02/24 19:26
12/04/24 07:01
Sodium 143 mmol/L (135-145) 12/04/24 07:01
Potassium 3.1 mmol/L (3.5-5.1) L 12/04/24 07:01
BUN 13 mg/dl (7-17) 12/04/24 07:01
Glucose 110 mg/dl (70-99) H 12/04/24 07:01
Calcium 11.0 mg/dl (8.4-10.2) H 12/04/24 12:27
Patient Allergies
gabapentin Allergy (Verified 01/25/24 17:10)
Rash/macular rash upper back and face
lactose Allergy (Verified 01/25/24 17:10)
abd pain and diarrhea
Penicillins Allergy (Verified 01/25/24 09:43)
Rash
Sulfa (Sulfonamide Antibiotics) Allergy (Verified 01/25/24 17:10)
Rash
CVA Assessment
Onset of Stroke Symptoms
Time pt last seen normal is known: Yes
Date last time pt seen normal: 12/04/24
Time last time pt seen normal: 13:00
NIH Stroke Score
Level of Consciousness: 0 - Alert
LOC Questions: 0-Answers both correctly
LOC Commands: 0-Performs both correctly
Best Horizontal Gaze: 0-Normal
Visual Solano: 0=Normal, no visual loss
Facial Palsy: 1=Minor paralysis
Motor - Right Arm: 0=No drift 10 seconds
Motor - Left Arm: 2=Partial vs. gravity
Motor - Right Le-No drift 5 seconds
Motor - Left Le-Drift < 5 seconds
Limb Ataxia: 0-Absent
Sensation: 0-Normal
Best Language: 0-No aphasia
Dysarthria: 1-Mild slurring
Extinction and Inattention: 0-No abnormality
Total Score:: 5
Tenecteplase Contraindications
Inclusion and Exclusion criteria reviewed: Yes
Physical Exam
-
AAOx3, mildly dysarthric
VFF, EOMI, L nasolabial flattening
LUE some antigravity, LLE mild drift; RUE/LE full strength
sensation intact touch/pin; decreased vib left side
Medications
-
Active Medications
Generic Name Dose Route Start Last Admin
Trade Name Freq PRN Reason Stop Dose Admin
Acetaminophen 650 mg 12/03/24 01:59
Acetaminophen 325 Mg Tablet PO 12/31/24 01:58
Q6HPRN PRN
mild pain/ fever>100.5F
Amlodipine Besylate 10 mg 12/03/24 08:00 12/04/24 08:52
Amlodipine 10 Mg Tablet PO 12/31/24 07:59 10 mg
DAILY SOSA Administration
Bisacodyl 10 mg 12/03/24 01:59
Bisacodyl 10 Mg Rectal Suppository RECTAL 12/31/24 01:58
[id number] PRN
constipation
Enoxaparin Sodium 40 mg 12/03/24 18:00 12/03/24 17:25
Enoxaparin Sodium 40 Mg/0.4 Ml Syringe SC 12/31/24 17:59 40 mg
QPM SOSA Administration
Hydralazine HCl 10 mg 12/03/24 01:59 12/04/24 07:39
Hydralazine 20 Mg/Ml Vial IV 12/31/24 01:58 10 mg
Q6HPRN PRN Administration
HTN
Sodium Chloride 1,000 mls @ 80 mls/hr 12/03/24 12:00 12/04/24 02:19
Nss IV 1,000 mls
.[id number] SOSA Administration
Magnesium Sulfate 4 gram in 100 mls @ 25 mls/hr 12/04/24 11:06 12/04/24 11:24
Magnesium Sulfate IV 12/04/24 15:05 100 mls
NOW STA Administration
Potassium Chloride 40 meq/ 270 mls @ 67.5 mls/hr 12/04/24 11:42
Sodium Chloride IV 12/04/24 15:41
NOW STA
Tenecteplase 13 mg/ Device 2.6 mls @ 1,872 mls/hr 12/04/24 13:48
IV 12/04/24 13:49
NOW STA
Protocol
Lactase 1 capsule 12/03/24 18:00 12/03/24 17:30
Lactase Enzyme Capsule PO 12/31/24 17:59 Not Given
QPM SOSA
Lisinopril 20 mg 12/03/24 08:00 12/04/24 08:53
Lisinopril 20 Mg Tablet PO 12/31/24 07:59 20 mg
BID SOSA Administration
Nebivolol 5 mg 12/03/24 20:00 12/04/24 08:51
Nebivolol Hcl 2.5 Mg Tablet PO 12/31/24 19:59 5 mg
DAILY SOSA Administration
Polyethylene Glycol 17 grams 12/03/24 01:59
Polyethylene Glycol Powder 17 Grams Packet PO 12/31/24 01:58
DAILYPRN PRN
constipation
Senna/Docusate Sodium 1 tablet 12/03/24 01:59
Docusate W/Senna (Lizzy-Colace) Tablet PO 12/31/24 01:58
BIDPRN PRN
constipation
Sodium Chloride 0 flush 12/04/24 12:00
Sodium Chloride 0.9% (Flush) Syringe IV 01/01/25 11:59
PER PROTOCOL SOSA
Tramadol HCl 25 mg 12/03/24 03:08
Tramadol Hcl 50 Mg Tablet PO 12/31/24 03:07
Q6HPRN PRN
mod pain
Home Medications
�Medication �Instructions �Recorded
abaloparatide (Tymlos) 0 mcg SC DAILY 01/25/24
acetaminophen 500 mg tablet 500 mg PO QID 01/25/24
(Tylenol Extra Strength)
cyclosporine 0.05 % eye drops in a 1 drp BOTH EYES Q12H 01/25/24
dropperette (Restasis)
lactase 3,000 unit tablet (Lactaid) 3,000 unit PO QPM 01/25/24
therapeutic multivitamin 1 tab PO DAILY@1200 01/25/24
lisinopril 20 mg tablet 20 mg PO BID #60 tabs 01/31/24
sennosides 8.6 mg-docusate sodium 1 tab PO BIDPRN PRN constipation 01/31/24
50 mg tablet (Stool #60 tabs
Softener-Stimulant Laxative)
Zyrtec 12/03/24
amlodipine 5 mg tablet 5 mg PO DAILY 12/03/24
calcium 12/03/24
nebivolol 5 mg tablet 5 mg PO HS 12/03/24
[2024-12-04] MEDS: TNKASE 2.6 MG IV (14:05)
--- NOTE | 2024-12-04 14:06 | PTCARENOTE ---
TNK 13 mg slow IV push given as ordered.
--- NOTE | 2024-12-04 14:13 | CON.INTV ---
Consultation
Consultation Request
Date/Time Consultation Requested: 12/04/24
Date/Time Consultation Performed: 12/04/24
Performing Provider: Mallika
Reason for Consultation: ICU
Medical History
-
History of Present Illness:
Patient is an 84-year-old female with a previous history of hypertension, hypercholesterolemia presenting to ER on 12/02/2024 with elevated blood pressure, lightheadedness. She had reported systolic blood pressures greater than 200; was started on
IV hydralazine. 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 This AM 12/04/2024 developed left upper extremity weakness with slurred speech. Stroke alert was called,
patient ruled in with NIH score of 5, received TNK. She is now transferred to ICU for further management.
Past Medical History
Past Medical History: Other (see list below)
Social History
Tobacco: Non-smoker
Alcohol: None
Drug: None
Family History
Family History: Reviewed & Not Pertinent
Allergies / Home Medications
Allergies
Allergy/AdvReac Type Severity Reaction Status Date / Time
gabapentin Allergy Rash/macular Verified 01/25/24 17:10
rash upper
back and
face
lactose Allergy abd pain Verified 01/25/24 17:10
and
diarrhea
Penicillins Allergy Rash Verified 01/25/24 09:43
Sulfa (Sulfonamide Allergy Rash Verified 01/25/24 17:10
Antibiotics)
Home Medications
�Medication �Instructions �Recorded �Confirmed �Last Taken �Type
abaloparatide (Tymlos) 0 mcg SC DAILY 01/25/24 12/04/24 01/25/24 History
acetaminophen 500 mg tablet 500 mg PO QID 01/25/24 12/04/24 01/25/24 History
(Tylenol Extra Strength)
cyclosporine 0.05 % eye drops in a 1 drp BOTH EYES Q12H 01/25/24 12/04/24 01/25/24 History
dropperette (Restasis)
lactase 3,000 unit tablet (Lactaid) 3,000 unit PO QPM 01/25/24 12/04/24 01/24/24 History
therapeutic multivitamin 1 tab PO DAILY@1200 01/25/24 12/03/24 01/25/24 History
lisinopril 20 mg tablet 20 mg PO BID #60 tabs 01/31/24 12/03/24 Unknown Rx
sennosides 8.6 mg-docusate sodium 1 tab PO BIDPRN PRN constipation 01/31/24 12/04/24 Unknown Rx
50 mg tablet (Stool #60 tabs
Softener-Stimulant Laxative)
Zyrtec 12/03/24 Unknown History
amlodipine 5 mg tablet 5 mg PO DAILY 12/03/24 12/03/24 Unknown History
calcium 12/03/24 Unknown History
nebivolol 5 mg tablet 5 mg PO HS 12/03/24 12/03/24 Unknown History
Review of Systems
-
History Source: Patient
All other systems: Negative unless noted
Vitals / Labs / Diagnostic Testing
Vital Signs
Temp Pulse Resp BP Pulse Ox
98.7 F 81 20 158/72 98
12/04/24 13:19 12/04/24 13:19 12/04/24 13:19 12/04/24 13:19 12/04/24 13:19
Lab Data
12/02/24 19:26
12/04/24 07:01
Diagnostic Testing:
Physical Exam
-
HEENT: Normocephalic, Anicteric and Moist Mucous Membranes
Cardiovascular: S1/S2 and Regular Rhythm
Respiratory: Clear and Non-Labored Respirations
GI: Soft, Non Distended and Non Tender
Neurology: Awake, Alert, Other (weakness of LUE, improved) and Other (confusion, speaking but not oriented, not able to answer questions clearly)
Skin: Warm and Dry
General: Comfortable and Other (NAD)
Assessment
-
Patient is an 84-year-old female with a previous history of hypertension, hypercholesterolemia presenting to ER on 12/02/2024 with elevated blood pressure, lightheadedness. She had reported systolic blood pressures greater than 200; was started on
IV hydralazine. 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 This AM 12/04/2024 developed left upper extremity weakness with slurred speech. Stroke alert was called,
patient ruled in with NIH score of 5, received TNK. She is now transferred to ICU for further management.
Acute CVA status post TNK 12/04/24
Left upper extremity weakness, slurred speech
Admitted 12/02/24 for hypertensive emergency
Lightheadedness
Conditions present prior to admission
memory impairment
HTN
HLD
IBS
diverticulitis
Osteoporosis
Glaucoma
Spinal fractures, L1
Plan
S/p TNK for CVA
Observe overnight following administration, careful watch for signs of bleeding
Follow CBC, neurovascular checks
Repeat MRI in AM
Neuro following
Prior cardiac history includes HTN, HLD
Hypertensive emergency noted on admission
IV PRN treatment, gtt if needed
Monitor on telemetry
ECHO showing normal function in the past
No prior h/o lung disease, nonsmoker
Aspiration precautions
No prior CXR available for review
Stable on RA
Restart diet per protocol
Speech eval
GI ppx if indicated
Creat at baseline, follow UO
I/Os, daily weights
No signs/symptoms suspicious for infectious etiology at this time.
Will observe off antibiotics for now.
DVT ppx held, SCDs
Diagnostic Data
Chest X-Ray:
CT Scan: H&N 12/04/24- Bilateral carotid atherosclerotic plaque without hemodynamically significant bilateral internal carotid artery stenosis. No findings to suggest internal carotid artery or vertebral artery dissection bilaterally.
No findings to suggest significant proximal intracranial arterial stenosis or vessel cut off bilaterally. Enlarged heterogeneous thyroid gland with calcifications as well as small low-attenuation nodules. Suggest elective dedicated thyroid
ultrasound for more complete evaluation.
Echo: 01/26/24 Normal biventricular size and systolic function without regional wall motion abnormality. Mild to moderate aortic stenosis. Moderate tricuspid regurgitation. No prior study available for comparison.
PFT's:
Reports and relevant images were personally reviewed.
Critical Care time 50 mins -- The patient is admitted for acute critical illness for the treatment of vital organ failure and/or prevention of further life-threatening conditions. Total care includes time spent in review of history, physical exam,
medications, hemodynamic/ventilator parameters, laboratory data, imaging and discussion with house staff, pharmacy, respiratory therapy, ice house supervisor, and nursing.
--- NOTE | 2024-12-04 14:39 | W.PN.UPDATE ---
Update Note
Progress Note Update
Called to see patient by nurse for limited left arm movement with paresthesias. Had seen patient approximately 1/2-hour before with residents on routine rounds. At that time, patient had tremor to the right hand/arm with no other deficits.
Arrived at patient bedside and noticed small facial droop on the left with worsening confusion and trouble with words along with significant weakness to the left arm 0 menagerie superintendent strength and inability to hold arm up on her own. Asked nurse to call
stroke alert.
GENERAL: well developed, well nourished, female in no apparent distress
HEENT: left facial droop, mild
NEUROLOGIC: thick speech, trouble word finding, confusion--left arm with 0 menagerie superintendent strength and no ability to keep arm elevated under her own power.
EKG, SR rate ~75
accucheck [address] negative.
Neurology at bedside.
TNK given.
Patient transferred to ICU.
Total Critical Care Time 33 minutes. I was immediately available to the patient and staff. I personally examined, reviewed labs, diagnostic images/reports, interpretations, treatment plans, discussed patient care with other providers and family
or caregivers (if patient is unable to make decisions), entered orders as appropriate and documented the medical record.
--- NOTE | 2024-12-04 15:02 | PTCARENOTE ---
recd [id number] at AIR MOVING TECHNICIAN, ongoing assessment [facility] neuro, Dr. Wing, to CT scan for CT/CTA. Dr. Talavera bedside, discussing with PT, reviewed and pt agreeable to proceed. to ICU. TNK given at 1406, see MAR. See VS and neuro exams. as less activity, pt
began talking more, confused speech but tangential about environment and per perceptions of safety. paranoid about people out to harm her. redirectable in the moment but then it continued.
--- NOTE | 2024-12-04 15:28 | PTCARENOTE ---
multiple visitors, pt storytelling, reassured she is safe, that there is no threat, oriented at times. confused. occas has difficulty following directions or maintaining focus. presently being seen by speech therapy.
[2024-12-04] MEDS: KCL 270 MEQ IV (16:12)
--- NOTE | 2024-12-04 16:17 | PTOTSP ---
Speech Therapy Evaluation:
Pt presents with mild oral dysphagia with no signs concerning for aspiration/pharyngeal dysphagia. She demonstrated impaired bolus retrieval (LUE weakness and RUE tremors), occasional oral holding, prolonged mastication and bolus formation, and
diffuse lingual residue. No overt s/sx of aspiration across trials. Pt required frequent verbal cueing not to talk while masticating. Suspect pt's current swallow function a reflection of cognitive status with impaired attention and impulsivity. Pt
currently afebrile, on room air, and WBC WNL. No chest imaging completed thus far. Pt remains at increased risk of aspiration given current cognitive status with concern for CVA.
Recommend:
1. Diet downgrade to IDDSI Level 6 (soft and bite sized solids); Continue thin liquids
2. Medications as best tolerated
3. 1:1 assistance and supervision
4. Strict aspiration precautions including 1 bite at a time and not to talk while masticating
5. METAL ANNEALER to follow to monitor tolerance of diet and determine need for further modifications/advancements
--- NOTE | 2024-12-04 17:33 | PTCARENOTE ---
forgetful, confused, restless. Neuro exam fluid at times, pt not necessarily cooperative or understanding questions or tasks. becomes paranoid with noise in the hallway. friend bedside.
--- NOTE | 2024-12-04 18:23 | W.PN.HOSP.TC ---
Addendum entered and electronically signed by Rosaura Wing MD 12/04/24 19:10:
I saw and evaluated the patient independently. I reviewed the resident�s note and agree with findings and plan as documented by Dr. Diaz.
GENERAL: well developed, well nourished, female in no apparent distress
HEENT: NC/AT
HEART: regular rate and rhythm, +S1, +S2, SANFORD
LUNGS : clear to auscultation bilaterally
ABDOM: soft, nontender, nondistended, + bowel sounds
EXT: no cyanosis, clubbing, or edema
NEUROLOGIC:grossly intact with right arm tremor (says it is with nerves)
CVA with left arm weakness and paresthesia--was normal at the time of earlier evaluation with the residents--called to see patient urgently as documented in update note--moved to ICU after TNK administration--head CT
neg--neurochecks--PT/OT/speech--likely will need MRI brain--apprec neuro
Hypertensive urgency--initial presentation--BP improved--No dizziness, headaches, blurred vision, nausea, vomiting--Continue on amlodipine 10 mg and nebivolol 5 mg when OK with neuro--permissive HTN post stroke--Past echo showed normal function
Hypercalcemia--etiology unclear but may be related to Tymlos (pth analog)--hold for now--Ordered PTH related peptide and PTH--hold on renal consult for now--calcium 11.0--cont IVF--No history of nephrolithiasis, dehydration, bone pain, pathological
fracture, constipation, abdominal pain, does have neuro/psych symptoms
Hypokalemia--Repleted potassium
Hypomagnesemia--Repleted magnesium level was 1.4 prior to repletion
DVT proph
code status--Full code
Total Critical Care Time 40 minutes. I was immediately available to the patient and staff. I personally examined, reviewed labs, diagnostic images/reports, interpretations, treatment plans, discussed patient care with other providers and family
or caregivers (if patient is unable to make decisions), entered orders as appropriate and documented the medical record.
Original Note:
Today's Communication/Plan
-
Continue to follow with neuro
Trend BMP
Carefully monitor blood pressure
Assessment / Plan
Assessment / Plan
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
-Stroke alert was called today after patient started to develop left arm weakness, decreased strength, facial droop on the left, confusion
-Head CT was negative
-Neurology was consulted and they gave TNK, watch for bleeding overnight observation
-Patient was transferred to ICU
-Neurochecks daily
-Repeat MRI in a.m.
Hypertensive urgency:
-Today her blood pressure is 160/75
-No dizziness, headaches, blurred vision, nausea, vomiting
-Continue on amlodipine 10 mg and nebivolol 5 mg
-Past echo showed normal function
Hypercalcemia:
-Ordered PTH related peptide and PTH
-No history of nephrolithiasis, dehydration, bone pain, pathological fracture, constipation, abdominal pain, does have neuro/psych symptoms
-Continue on IV fluids as needed
-Trend BMP, albumin, ionized calcium
Hypokalemia:
-Repleted potassium
-Potassium level was 3.1 prior to repletion
Hypomagnesemia:
-Repleted magnesium level was 1.4 prior to repletion
-Trend magnesium levels
Anticipated Discharge: 24 - 48 hours
Subjective/Interval History
-
Date of Service: December 04, 2024
Patient is an 84-year-old woman the past medical history for hypertension, hyperlipidemia who presented from [facility] to the emergency department for hypertensive urgency because her blood pressure systolic was in the
200s. Was not adherent to her medications. Also was found to have hypercalcemia.
Objective Data
-
Labs:
Laboratory Results
12/04/24 12/04/24
07:01 12:27
Sodium 143
Potassium 3.1 L
Chloride 105
Carbon Dioxide 28
BUN 13
Creatinine 0.7
Glucose 110 H
Calcium 11.1 H 11.0 H
Vital Signs:
Vital Signs
Temp Pulse Resp BP Pulse Ox
98.1 F 78 16 160/75 97
12/04/24 15:19 12/04/24 18:00 12/04/24 18:00 12/04/24 18:00 12/04/24 18:00
I&O
12/03/24 12/04/24 12/05/24
06:59 06:59 06:59
Intake Total 1670 / 1670 712 / 712
Output Total 400 / 400 550 / 550
Balance -400 / -400 1670 / 1670 162 / 162
Review of Systems
-
Unable to obtain full review of systems at this time due to: Dementia
History Source: Patient
Constitutional: Denies Fever, Fatigue or Night Sweats
Respiratory: Denies Cough, Trouble Breathing or Wheezing
Cardiac: Denies Chest Pain, Palpitations, Syncope or Orthopnea
Abdomen/GI: Denies Abdominal Pain, Nausea, Vomiting, Diarrhea or Constipated
Genitourinary: Reports Dysuria
Physical Exam
-
Respiratory: Clear to Auscultation and Non Labored Respirations
Cardiac: Regular Rhythm and S1/S2
GI: Soft, Nontender and Nondistended
Skin: Dry
Neuro: Awake, Alert and Other (Left upper extremity weakness with slurred speech)
Data Reviewed
-
CT Scan: Image personally visualized and interpreted, Report Reviewed by me and Discussed with Physician
Medical Tests (Nuc Med, Echo etc): Image personally visualized and interpreted, Report Reviewed by me and Discussed with Physician
Labs: Labs Reviewed by me and Discussed with Physician
[2024-12-04] MEDS: LACTAID PO (18:24)
[2024-12-04] MEDS: RESTASIS 0.05% OPHTHALMIC EMULSION 1 DROPS BOTH EYES (20:23)
--- NOTE | 2024-12-04 23:38 | PTCARENOTE ---
Pt received at 19:00, initial assessment as documented. Pt continues with L sided weakness and mild facial droop. Confused conversation, varying orientation to place/time/events. Frequently adamant that she is at home and needs to go to bed or get
up for the day. Yelling out for daughter Shraddha intermittently, difficulty reorienting.
[2024-12-05] VITALS (20 sets, daily range): BP systolic 126–183; BP diastolic 53–100; BMI 18.0
--- NOTE | 2024-12-05 01:25 | PTCARENOTE ---
Addendum entered by Fern Lira RN 12/05/24 02:27:
Pt c/o dizziness/nausea prior to head CT. Neuro assessment remains unchanged. Head CT completed.
Original Note:
Pt requesting tylenol, c/o 'horrible DOMINGO' and back pain. Pupils 3mm, remain equal and brisk, no change in neuro check. [employer] MEMBER made aware, ordered STAT head CT. PRN tylenol given.
[2024-12-05] MEDS: TYLENOL 650 MG PO ×3 (01:34→18:38)
--- NOTE | 2024-12-05 01:55 | W.PN.UPDATE ---
Update Note
Progress Note Update
0130 Patient complaining of headache, stat head CT ordered. No deficit noted.
0150 Patient now complaining of nausea and dizziness. CT still pending.
0230 CT results, not significant changes noted
[2024-12-05 03:52] LABS: Hematocrit 27.9 % (37.0-47.0); Hemoglobin 9.6 g/dL (12.0-16.0); Mean Corp Hgb Conc. 34.4 g/dL (33.0-37.0); Mean Corpuscular Hgb 31.7 pg (27.0-31.0); Mean Corpuscular Volume 92.1 fL (81.0-99.0); Mean Platelet Volume 12.2 fL (7.4-10.4); Platelet Count 109 10^3/uL (130-400); Red Blood Cell Count 3.03 10^6/uL (4.20-5.40); Red Cell Dist. Width 12.5 % (11.5-14.5); White Blood Cell Count 5.4 10^3/uL (4.8-10.8)
[2024-12-05 03:58] LABS: INR 1.56; PT 18.9 Sec (11.4-14.6)
[2024-12-05 03:59] LABS: APTT 30.3 Sec (23.4-35.0)
--- NOTE | 2024-12-05 04:43 | PTCARENOTE ---
LUE strength varies, drift intermittently with neuro hourly neuro checks. Intermittently c/o nausea, PRN zofran given and effective.
[2024-12-05] MEDS: ZOFRAN 4 MG IV (04:48)
[2024-12-05 04:57] LABS: Blood Urea Nitrogen 11 mg/dl (7-17); Calcium 10.5 mg/dl (8.4-10.2); Carbon Dioxide 27 mmol/L (22-30); Chloride 110 mmol/L (98-107); Estimated Creatinine Clearance 56 ml/min; Glucose 109 mg/dl (70-99); Potassium 3.2 mmol/L (3.5-5.1); Sodium 144 mmol/L (135-145); eGFR > 60.00
--- NOTE | 2024-12-05 06:55 | W.PN.HOSP.TC ---
Addendum entered and electronically signed by Rosaura Wing MD 12/05/24 18:23:
I saw and evaluated the patient independently. I reviewed the resident�s note and agree with findings and plan as documented by Dr. Diaz.
GENERAL: well developed, well nourished, female in no apparent distress
HEENT: NC/AT
HEART: regular rate and rhythm, +S1, +S2, SANFORD
LUNGS : clear to auscultation bilaterally
ABDOM: soft, nontender, nondistended, + bowel sounds
EXT: no cyanosis, clubbing, or edema
NEUROLOGIC: grossly intact strength much improved
AM labs from 03:27 incorrect--drawn from IV line and diluted
acute CVA with left arm weakness and paresthesia--was normal at the time of earlier evaluation with the residents on 12/04--called to see patient urgently as documented in update note 12/04--s/p TNK administration--head CT
neg--neurochecks--PT/OT/speech-- MRI brain shows right hemisphere acute to subacute infarct, left hemisphere foci of subacute infarction--apprec neuro--asa after 24 hour jb--cont lipitor
Hypertensive urgency--initial presentation--BP improved--No dizziness, headaches, blurred vision, nausea, vomiting--Continue on amlodipine 10 mg and nebivolol 5 mg when OK with neuro--permissive HTN post stroke--Past echo showed normal
function--repeat ECHO with normal EF and stage 2 diastolic dysfunction
Hypercalcemia--etiology unclear but may be related to Tymlos (PTH analog)--hold for now, hold calcium supps too- iPTH low indicates intact feedback loop---calcium 10.1--stop IVF--No history of nephrolithiasis, dehydration, bone pain, pathological
fracture, constipation, abdominal pain, does have neuro/psych symptoms
Hypokalemia--Repleted potassium
Hypomagnesemia--Repleted magnesium level was 1.4 prior to repletion
DVT proph
code status--Full code
ok to downgrade from ICU to tele
Original Note:
Today's Communication/Plan
-
- Neurology is following
- Neurochecks
- Monitor in ICU
Assessment / Plan
Assessment / Plan
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
-Stroke alert was called today after patient started to develop left arm weakness, decreased strength, facial droop on the left, confusion
- recent Head CT was negative as well as CTA
-Neurology was consulted and following,administered TNK, watch for bleeding overnight observation
-Neurochecks daily
- PT/OT
-Keep blood pressure less than 180/105 and mean atrial pressure between 80-100.
- Can restart aspirin and lipitor after 24 hours as per Neurology
-Needs MRI brain contrast in a.m.
Hypertensive urgency:
-Today her blood pressure is 166/70
-No dizziness, headaches, blurred vision, nausea, vomiting
-Continue on amlodipine 10 mg and nebivolol 5 mg
- IV hydralazine
-Past echo showed normal function
Hypercalcemia:
-Calcium levels 10.5
-Ordered PTH related peptide and PTH which are still pending
-No history of nephrolithiasis, dehydration, bone pain, pathological fracture, constipation, abdominal pain, does have neuro/psych symptoms
-Continue on IV fluids as needed
- Check 1,25 hydroxyvitamin D
-Trend BMP, albumin, ionized calcium
Hypokalemia:
-Repleted potassium
-Potassium level was 3.2 prior to repletion
Hypomagnesemia:
-Repleted magnesium level was 1.4
Anticipated Discharge: 24 - 48 hours
Subjective/Interval History
-
Date of Service: December 05, 2024
She she is an 84-year-old female full code was admitted into the ICU yesterday just after we had rounds because she had limited left arm movement with paresthesias, small facial droop on the left, initially with significant weakness to the left arm
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
Objective Data
-
Labs:
Laboratory Results
12/05/24 12/05/24
03:27 04:26
WBC 5.4
Hgb 9.6 L D
Hct 27.9 L
Plt Count 109 L D
PT 18.9 H
INR 1.56
APTT 30.3
Sodium Cancelled 144
Potassium Cancelled 3.2 L
Chloride Cancelled 110 H
Carbon Dioxide Cancelled 27
BUN Cancelled 11
Creatinine Cancelled 0.6
Glucose Cancelled 109 H
Calcium Cancelled 10.5 H
Vital Signs:
Vital Signs
Temp Pulse Resp BP Pulse Ox
98 F 77 12 166/70 96
12/05/24 03:39 12/05/24 06:15 12/05/24 06:15 12/05/24 06:00 12/05/24 06:15
I&O
12/03/24 12/04/24 12/05/24
06:59 06:59 06:59
Intake Total 1670 / 1670 1822 / 1822
Output Total 400 / 400 550 / 550
Balance -400 / -400 1670 / 1670 1272 / 1272
Review of Systems
-
History Source: Patient
Constitutional: Denies Fever, Chills or Weakness
Respiratory: Denies Cough, Trouble Breathing or Wheezing
Abdomen/GI: Denies Abdominal Pain, Nausea, Vomiting, Diarrhea or Constipated
Musculoskeletal: Denies Joint Pain
Physical Exam
-
Respiratory: Clear to Auscultation
Cardiac: Irregular Rhythm
GI: Soft, Nontender, Nondistended and Normal Bowel Sounds
Musculoskeletal: No Clubbing and No Edema
Skin: Warm and Dry
Neuro: Awake, Alert and Oriented
Psych: Calm
Data Reviewed
-
Labs: Labs Reviewed by me and Discussed with Physician
[2024-12-05] MEDS: NSS 1000 IV (07:13)
--- NOTE | 2024-12-05 07:19 | W.PN.INTV ---
Today's Communication / Plan
Recommendations
Stable ON, not on pressors, on RA
MRI planning today
Speech to see, diet advancement per team
If stable, can transfer to tele today, we will sign off upon transfer
Assessment
-
Patient is an 84-year-old female with a previous history of hypertension, hypercholesterolemia presenting to ER on 12/02/2024 with elevated blood pressure, lightheadedness. She had reported systolic blood pressures greater than 200; was started on
IV hydralazine. 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 This AM 12/04/2024 developed left upper extremity weakness with slurred speech. Stroke alert was called,
patient ruled in with NIH score of 5, received TNK. She is now transferred to ICU for further management.
Acute CVA status post TNK 12/04/24
Left upper extremity weakness, slurred speech
Admitted 12/02/24 for hypertensive emergency
Lightheadedness
Conditions present prior to admission
memory impairment
HTN
HLD
IBS
diverticulitis
Osteoporosis
Glaucoma
Spinal fractures, L1
Plan
S/p TNK for CVA
Observe overnight following administration, careful watch for signs of bleeding
Follow CBC, neurovascular checks
Repeat MRI this AM
Neuro following
Prior cardiac history includes HTN, HLD
Hypertensive emergency noted on admission
IV PRN treatment, gtt if needed
Monitor on telemetry
ECHO showing normal function in the past
No prior h/o lung disease, nonsmoker
Aspiration precautions
No prior CXR available for review
Stable on RA
Restart diet per protocol
Speech eval
GI ppx if indicated
Creat at baseline, follow UO
I/Os, daily weights
No signs/symptoms suspicious for infectious etiology at this time.
Will observe off antibiotics for now.
DVT ppx held, SCDs
Diagnostic Data
Chest X-Ray:
CT Scan: H&N 12/04/24- Bilateral carotid atherosclerotic plaque without hemodynamically significant bilateral internal carotid artery stenosis. No findings to suggest internal carotid artery or vertebral artery dissection bilaterally.
No findings to suggest significant proximal intracranial arterial stenosis or vessel cut off bilaterally. Enlarged heterogeneous thyroid gland with calcifications as well as small low-attenuation nodules. Suggest elective dedicated thyroid
ultrasound for more complete evaluation.
Echo: 01/26/24 Normal biventricular size and systolic function without regional wall motion abnormality. Mild to moderate aortic stenosis. Moderate tricuspid regurgitation. No prior study available for comparison.
PFT's:
Reports and relevant images were personally reviewed.
Critical Care time 32 mins -- The patient is admitted for acute critical illness for the treatment of vital organ failure and/or prevention of further life-threatening conditions. Total care includes time spent in review of history, physical exam,
medications, hemodynamic/ventilator parameters, laboratory data, imaging and discussion with house staff, pharmacy, respiratory therapy, surface mount technology operator, and nursing.
Subjective Dataa
Subjective Data
Date of Service:
Date of Service: December 05, 2024
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
Subjective:
No new events ON, stable on RA
Speech and motor function improved
Objective Data
Data Reviewed
Vital Signs / I&O / Oxygen:
Vital Signs
Temp Pulse Resp BP Pulse Ox
98 F 77 12 166/70 96
12/05/24 03:39 12/05/24 06:15 12/05/24 06:15 12/05/24 06:00 12/05/24 06:15
Intake and Output
12/04/24 12/05/24 12/06/24
06:59 06:59 06:59
Intake Total 1670 / 1670 1822 / 1822
Output Total 550 / 550
Balance 1670 / 1670 1272 / 1272
SaO2 96
Physical Exam
General: Comfortable and Other (NAD)
HEENT: Normocephalic, Anicteric and Moist Mucous Membranes
Cardiovascular: S1-S2 and Regular Rhythm
Respiratory: Clear and Non-Labored Respirations
GI: Soft, Non Distended and Non Tender
Neurology: Awake, Alert, Oriented and No Motor Deficits
Skin: Warm, Dry and Good Color
Labs/Micro/Reports
Lab Data
12/05/24 03:27
12/05/24 04:26
Laboratory Results
12/05/24
03:27
PT 18.9 H
INR 1.56
APTT 30.3
[2024-12-05 07:51] LABS: Magnesium 1.8 mg/dl (1.6-2.3)
[2024-12-05] MEDS: RESTASIS 0.05% OPHTHALMIC EMULSION 1 DROPS BOTH EYES ×2 (07:54→19:59)
[2024-12-05] MEDS: KCL 270 MEQ IV (07:54)
[2024-12-05] MEDS: BYSTOLIC 5 MG PO (07:54)
[2024-12-05] MEDS: NORVASC 10 MG PO (07:54)
--- NOTE | 2024-12-05 08:26 | W.PN.INTV ---
Today's Communication / Plan
Recommendations
Patient doing much better today, will most likely be downgraded from ICU levels following results of MRI
Assessment
-
Assessment:
84yo F with a past medical history of hypertension and hyperlipidemia presented to the ED with hypertensive crisis on 12/02/2024 and then while admitted developed stroke like symptoms affecting her left side for which she was given TNK and
transferred to the ICU for further monitoring. Patient had some worsening headaches and nausea and underwent a stat Head CT which did not show any abnormalities. Currently awaiting MRI and Echo today for further management. Patient potentially
downgraded today as per results of MRI.
Acute CVA status post TNK 12/04/24
Left upper extremity weakness, slurred speech
Admitted 12/02/24 for hypertensive emergency
Lightheadedness
Conditions present prior to admission:
Memory Impairment
HTN
HLD
IBS
diverticulitis
Osteoporosis
Glaucoma
Spinal fractures, L1
Plan
#Acute CVA with subsequent TNK administration
-Developed headache and nausea overnight
-Stat Head CT ordered which did not show any acute findings
-Symptoms resolved with Zofran and pain medication (Tylenol) Continue monitoring
-Hgb abnormality seen on lab draw (misdraw most likely)- repeat CBC showed improvement in Hgb
-Neuro on board, input appreciated
-continue neurochecks as directed
-MRI in the AM today
-Echocardiogram today
#Hypertensive urgency
-Continue hydralazine PRN
-Continue Amlodipine 10mg (recently increased from 5mg)
-Continue Nebivolol (5mg)- can increase dose if HTN worsens
-Previous Echo in 2023 showed no abnormalities
-Recent EKG yesterday showed normal sinus rhythm with inverted T waves
-Repeat Echo today
#Clear lungs with no history of respiratory disease
-No recent CXR done, no symptoms such as cough, dyspnea or fever
-Aspiration precautions due to dysphagia
-No supplemental oxygen required at this time, continue monitoring breathing
#Dysphagia following acute CVA
-Speech evaluation showed aspiration risk
-IDDSI 6 diet ordered yesterday
-Lactose intolerance so low lactose diet
-Nausea treated with Zofran, give as needed
-LFTs normal on presentation
-Evaluated by speech today, diet upgraded to Regular, Thin Liquids
#Hypercalcemia
#Hypomagnesemia
#Hypokalemia
-Bladder scan as needed
-Incontinent, urinating with no problems
-Hypercalcemia improving probably due to dilutional effect from IVF
-Underlying hypercalcemia reason unknown-> PTHrp levels pending. Most likely from home med Tymlos
-Hypomagnesemia resolved- continue monitoring and replete as needed
-Hypokalemia- persisting, continue repletion
#Afebrile, no dysuria, no leukocytosis
-No current signs of infection, no abx indicated at this time
#Acute anemia post TNK/IVF Fluids
-Pancytopenia and thrombocytopenia seen seen on lab draw (misdraw most likely)- repeated CBC showed improvement
-Continue to monitor CBC
#Enlarged Thyroid gland with calcifications
-Enlarged heterogeneous thyroid gland with calcifications as well as small low-attenuation nodules. Suggest elective dedicated thyroid ultrasound for more complete evaluation.
-TSH normal
-PTH low/PTHrh pending
-Hypercalcemia resolving with IVF (Possibly residual from med for osteoporosis Tymlos)
-Glucose levels in control
DVT prophylaxis: SCDs, Lovenox held-> can be resumed pending MRI
Diagnostic Data
Chest X-Ray: None
CT Scan: H&N 12/04/24- Bilateral carotid atherosclerotic plaque without hemodynamically significant bilateral internal carotid artery stenosis. No findings to suggest internal carotid artery or vertebral artery dissection bilaterally.
No findings to suggest significant proximal intracranial arterial stenosis or vessel cut off bilaterally. Enlarged heterogeneous thyroid gland with calcifications as well as small low-attenuation nodules. Suggest elective dedicated thyroid
ultrasound for more complete evaluation.
CT Head 12/05/2024- No acute intracranial abnormality noted. Moderate atrophy. Stable. Mild periventricular small vessel ischemic disease. Stable. Stable partially calcified meningiomas.
Echo: 01/26/24 Normal biventricular size and systolic function without regional wall motion abnormality. Mild to moderate aortic stenosis. Moderate tricuspid regurgitation. No prior study available for comparison.
Subjective Dataa
Subjective Data
Date of Service:
Date of Service: December 05, 2024
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
Subjective:
Patient had some headaches and nausea overnight for which she had a stat CT head. Patient started feeling much better after receiving tylenol and a dose of Zofran. Currently, patient says that her strength is returning and is feeling a bit better
from before. Said she had some nightmares last night about being kidnapped which made it hard for her to sleep.
Review of Systems
GI: Nausea
Neuro: Headache, Numbness (Describes numbness in her right hand which resolved overnight) and Weakness
Objective Data
Data Reviewed
Vital Signs / I&O / Oxygen:
Vital Signs
Temp Pulse Resp BP Pulse Ox
98 F 80 12 177/77 95
12/05/24 03:39 12/05/24 08:00 12/05/24 08:00 12/05/24 08:00 12/05/24 08:00
Intake and Output
12/04/24 12/05/24 12/06/24
06:59 06:59 06:59
Intake Total 1670 / 1670 1822 / 1902 160 / 160
Output Total 550 / 550
Balance 1670 / 1670 1272 / 1352 160 / 160
SaO2 95
Physical Exam
General: Comfortable and Good Appetite
HEENT: Normocephalic and Anicteric
Cardiovascular: S1-S2 and Regular Rhythm
Respiratory: Clear and Non-Labored Respirations
GI: Soft, Non Distended, Non Tender and Normal Bowel Sounds
Neurology: Awake, Alert, Oriented, AO x 3 and Other (3/5 strength left upper extremity. No sensory deficits )
Skin: Warm and Good Color
Labs/Micro/Reports
Lab Data
12/05/24 03:27
12/05/24 04:26
Laboratory Results
12/05/24
03:27
PT 18.9 H
INR 1.56
APTT 30.3
[2024-12-05 09:53] LABS: TSH 1.05 uIU/ml (0.47-4.68)
--- NOTE | 2024-12-05 10:09 | W.PN.NEURO.1 ---
Addendum entered and electronically signed by Mychal Talavera MD 12/05/24 19:36:
I reviewed brain MRI imaging, appears embolic, ~6-7 emboli all subacute appearing
with embolic stroke of unknown source, continue ASA 81 and Lipitor 40
not much yield looking for clots on DASHAWN after TNK as if there were any they're probably gone now.
in addition with recent lightheadedness, I think our yield on afib ~20-25%, would prefer loop recorder over zio, though this is optional
spent 15 mins on phone with patient's dtr Shraddha, who is willing to consider it
Original Note:
Today's Communication / Plan
-
complete 24 hrs of ICU monitoring then repeat head CT and start aspirin 81 and Lipitor 40
Neuro Assessment/Plan
Assessment
84 year old woman, [facility], improving, symptoms remain disabling, advising TNK
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
CTA head/neck imgs rev'd, right carotid bifurcation calcification; await measurement from radiologist
Plan
complete 24 hrs of ICU monitoring then repeat head CT, and if no bleed then downgrade and start aspirin 81 and Lipitor 40
Subjective/Objective
Subjective Data
Date of Service: December 05, 2024
doing well after TNK
mild left arm weakness
Objective Data
Vital Signs
Temp Pulse Resp BP Pulse Ox
36.7 C 80 12 177/77 95
12/05/24 08:00 12/05/24 08:00 12/05/24 08:00 12/05/24 08:00 12/05/24 08:00
Lab Results
12/05/24 03:27
12/05/24 04:26
PT 18.9 Sec (11.4-14.6) H 12/05/24 03:27
INR 1.56 12/05/24 03:27
APTT 30.3 Sec (23.4-35.0) 12/05/24 03:27
Sodium 144 mmol/L (135-145) 12/05/24 04:26
Potassium 3.2 mmol/L (3.5-5.1) L 12/05/24 04:26
BUN 11 mg/dl (7-17) 12/05/24 04:26
Glucose 109 mg/dl (70-99) H 12/05/24 04:26
Calcium 10.5 mg/dl (8.4-10.2) H 12/05/24 04:26
Patient Allergies
gabapentin Allergy (Verified 01/25/24 17:10)
Rash/macular rash upper back and face
lactose Allergy (Verified 01/25/24 17:10)
abd pain and diarrhea
Penicillins Allergy (Verified 01/25/24 09:43)
Rash
Sulfa (Sulfonamide Antibiotics) Allergy (Verified 01/25/24 17:10)
Rash
Physical Exam
-
AAOx3
speech clear
face symmetric
LUE 5-/5, RUE and b/l LE 5/5
sensation intact
[2024-12-05 10:25] LABS: Intact PTH 5.9 pg/ml (13.6-85.8)
[2024-12-05 10:53] LABS: % Basophils 1.3 % (0-2); % Eosinophils 7.2 % (0-6); % Immature Granulocytes 0.2 % (0-0.5); % Lymphocytes 19.3 % (20.5-51.1); % Monocytes 12.6 % (1.7-9.3); % Neutrophils 59.4 % (42.2-75.2); Absolute Basophils 0.1 10^3/uL (0-0.2); Absolute Eosinophils 0.5 10^3/uL (0-0.7); Absolute Lymphocytes 1.2 10^3/uL (1.2-3.4); Absolute Monocytes 0.8 10^3/uL (0.1-0.6); Absolute Neutrophils 3.7 10^3/uL (1.4-6.5); Hematocrit 35.4 % (37.0-47.0); Hemoglobin 12.5 g/dL (12.0-16.0); Mean Corp Hgb Conc. 35.3 g/dL (33.0-37.0); Mean Corpuscular Hgb 32.3 pg (27.0-31.0); Mean Corpuscular Volume 91.5 fL (81.0-99.0); Mean Platelet Volume 12.3 fL (7.4-10.4); Nucleated Red Blood Cells % 0 %; Platelet Count 140 10^3/uL (130-400); Red Blood Cell Count 3.87 10^6/uL (4.20-5.40); Red Cell Dist. Width 12.6 % (11.5-14.5); White Blood Cell Count 6.3 10^3/uL (4.8-10.8)
--- NOTE | 2024-12-05 11:03 | PTOTSP ---
Dysphagia Therapy
Impression: Mildly prolonged but functional oral stage (i.e., mastication, A-P transfers) this date. No signs of aspiration. Suspect improvement in cognition compared to prior evaluation, though this may fluctuate. Monitor tolerance of diet
advancement (to allow preferred foods) closely.
Recommend:
1. IDDSI Level 7 Regular, Thin Liquids
2. Medications as best tolerated
3. 1:1 assistance and supervision
4. Strict aspiration precautions including 1 bite at a time and not to talk while masticating
5. Brief dysphagia tx f/u to monitor tolerance of diet, use of compensations, and determine need for further modifications
[2024-12-05 11:07] LABS: ALT (SGPT) 39 U/L (0-35); AST (SGOT) 43 U/L (14-36); Albumin 3.3 g/dl (3.5-5.0); Alkaline Phosphatase 86 U/L (38-126); Blood Urea Nitrogen 11 mg/dl (7-17); Calcium 10.1 mg/dl (8.4-10.2); Carbon Dioxide 28 mmol/L (22-30); Chloride 108 mmol/L (98-107); Estimated Creatinine Clearance 57 ml/min; Glucose 166 mg/dl (70-99); Potassium 3.5 mmol/L (3.5-5.1); Sodium 142 mmol/L (135-145); Total Bilirubin 1.4 mg/dl (0.2-1.3); Total Protein 6.5 g/dl (6.3-8.2); eGFR > 60.00
--- NOTE | 2024-12-05 12:00 | PTCARENOTE ---
AAOx2. Morning NIH 3. Strength equal bilaterally. Very faint facial droop. LUE ataxia. Tolerating diet. All other assessments unchanged. Daughter at bedside.
[2024-12-05] MEDS: NSS IV (12:34)
[2024-12-05 13:18] LABS: Vitamin D, 25-OH*** 73.4 ng/mL (30-80)
--- NOTE | 2024-12-05 16:09 | PTCARENOTE ---
All assessments unchanged. Heading to MRI at this time.
--- NOTE | 2024-12-05 16:24 | CM ---
Patient seen at beside with physicians in ED. Patient plan to go to [facility] pending assessment; SNF vs home with VN to apartment. CM will continue to follow for discharge planning needs.
Plan; home with VN vs SNF
[2024-12-05] MEDS: LIDOCAINE 4% PATCH 1 PATCH TOPICAL (16:28)
[2024-12-05] MEDS: LACTAID PO (18:24)
[2024-12-05] MEDS: LIPITOR 40 MG PO (18:38)
[2024-12-05] MEDS: ASPIR LOW (ENTERIC COATED) 81 MG PO (19:59)
[2024-12-06] VITALS (19 sets, daily range): BP systolic 111–181; BP diastolic 51–94; PULSE 86–91; BMI 17.9; BMI 18.0
[2024-12-06 05:32] LABS: Hematocrit 33.6 % (37.0-47.0); Hemoglobin 11.7 g/dL (12.0-16.0); Mean Corp Hgb Conc. 34.8 g/dL (33.0-37.0); Mean Corpuscular Hgb 32.1 pg (27.0-31.0); Mean Corpuscular Volume 92.1 fL (81.0-99.0); Mean Platelet Volume 12.8 fL (7.4-10.4); Platelet Count 143 10^3/uL (130-400); Red Blood Cell Count 3.65 10^6/uL (4.20-5.40); Red Cell Dist. Width 12.5 % (11.5-14.5); White Blood Cell Count 5.9 10^3/uL (4.8-10.8)
[2024-12-06 05:55] LABS: Blood Urea Nitrogen 15 mg/dl (7-17); Calcium 10.6 mg/dl (8.4-10.2); Carbon Dioxide 29 mmol/L (22-30); Chloride 109 mmol/L (98-107); Estimated Creatinine Clearance 49 ml/min; Glucose 105 mg/dl (70-99); Potassium 3.5 mmol/L (3.5-5.1); Sodium 144 mmol/L (135-145); eGFR > 60.00
[2024-12-06] MEDS: BYSTOLIC 5 MG PO (08:44)
[2024-12-06] MEDS: RESTASIS 0.05% OPHTHALMIC EMULSION 1 DROPS BOTH EYES ×2 (08:45→20:25)
[2024-12-06] MEDS: ASPIR LOW (ENTERIC COATED) 81 MG PO (08:45)
[2024-12-06] MEDS: NORVASC 10 MG PO (08:45)
[2024-12-06] MEDS: LIDOCAINE 4% PATCH 1 PATCH TOPICAL (08:45)
--- NOTE | 2024-12-06 09:00 | PTCARENOTE ---
Rec'd pt at 0700 and Neuro check completed with off going RN. Rec'd pt awake and alert resting in bed. Oriented to self but not to place or time. Thought she was in a basement and at another location. Speech is clear can answer some basic questions
and was able to let me know that she had to urinate, although will have some confused conversation. Was able to identify objects appropriately. NIH is a 5. Pt with a sl L sided facial droop. Denies headache or dizziness. [place]. L handgrasp is weaker
than the R and does have sl less sensation on the L arm as opposed to the R as well as some ataxia with the L arm. Legs are equal in strength and movement although is weak and unsteady with getting oob to the bsc. Pt with occasional arm tremors.
OSCAR at 2mm. Skin is pale pink wm and dry. Respirs are unlabored on RA with sats of 94%. BS are sl decreased at the bases but clear. Monitor SR with 1st'avb. + pulses. No edema. Denies chest pain. Pt had been placed on the schedule this am for a
LINQ device-loop recorder however when Dr. Argueta went in to speak with her she refused it. He updated her daughter Shraddha who was made aware that if the decision is to go ahead with it, she will need to be here with her mother to sign consent.
Procedure cancelled for today. Abd is soft with + BS. Denies nausea. Assisted with assist of 1 oob to the BSC for yellow urine. Gait is weak but able to bear wt. Needs direction for activities. Pt did own oral care this am. Currently resting back in
bed as she did not want to sit in a chair currently. Capped #22 int intact L forearm. Pt repositioned. Pts caregiver Rosa in with pt and plan of care reviewed with both pt and caregiver. Call hinds in reach. Bed alarm on bed.
--- NOTE | 2024-12-06 09:53 | CON.CAR ---
Consultation
Consultation Request
Date/Time Consultation Requested: 12/06/2024
Date/Time Consultation Performed: 12/06/2024
Requesting Provider: Dr. Talavera
Performing Provider: Dr. Castellon
Reason for Consultation: CVA
Medical History
-
Chief Complaint: CVA
History of Present Illness:
84-year-old female with hypertension, hyperlipidemia, and mild to moderate aortic stenosis admitted with multifocal CVA (treated with TNK). Cardiology consulted for ILR to help monitor for occult atrial fibrillation.
Past Medical History
Past Medical History: HTN and Hypercholesterolemia
Past Surgical History: Gynecological (hysterectomy) and Other (cataract)
Social History
Tobacco: Non-Smoker
Alcohol: None
Drug: None
Personal: Single
Living: With Family
Employment: Retired
Family History
Family History: Reviewed & Not Pertinent
Allergies / Home Medications
Allergy/AdvReac Type Severity Reaction Status Date / Time
gabapentin Allergy Rash/macular Verified 01/25/24 17:10
rash upper
back and
face
lactose Allergy abd pain Verified 01/25/24 17:10
and
diarrhea
Penicillins Allergy Rash Verified 01/25/24 09:43
Sulfa (Sulfonamide Allergy Rash Verified 01/25/24 17:10
Antibiotics)
�Medication �Instructions �Recorded �Confirmed �Type
abaloparatide (Tymlos) 80 mcg SC DAILY Osteoporosis 01/25/24 12/04/24 History
acetaminophen 500 mg tablet 500 mg PO QID Pain 01/25/24 12/04/24 History
(Tylenol Extra Strength)
cyclosporine 0.05 % eye drops in a 1 drp BOTH EYES Q12 Eye Condition 01/25/24 12/04/24 History
dropperette (Restasis)
lactase 3,000 unit tablet (Lactaid) 3,000 unit PO QPM Supplement 01/25/24 12/04/24 History
therapeutic multivitamin 1 tab PO DAILY@1200 Supplement 01/25/24 12/03/24 History
lisinopril 20 mg tablet 20 mg PO BID #60 tabs 01/31/24 12/04/24 Rx
sennosides 8.6 mg-docusate sodium 1 tab PO BIDPRN PRN constipation 01/31/24 12/04/24 Rx
50 mg tablet (Stool #60 tabs
Softener-Stimulant Laxative)
amlodipine 5 mg tablet 5 mg PO DAILY Blood Pressure 12/03/24 12/04/24 History
nebivolol 5 mg tablet 5 mg PO HS Blood Pressure 12/03/24 12/04/24 History
cetirizine 10 mg tablet 10 mg PO DAILYPRN PRN allergies 12/04/24 12/04/24 History
Review of Systems
-
Unable to obtain full review of systems at this time due to: Other (CVA)
History Source: Patient
All other systems: Negative unless noted
Physical Exam
Vital Signs
Temp Pulse Resp BP Pulse Ox
98.3 F 82 23 173/68 95
12/06/24 07:25 12/06/24 08:45 12/06/24 06:00 12/06/24 08:45 12/05/24 11:15
Lab Results
12/06/24 05:14
12/06/24 05:14
Troponin I 0.012 ng/ml 12/02/24 19:26
Physical Exam
General: No Apparent Distress and Comfortable
HEENT: Anicteric
Respiratory: Clear
Cardiac: S1/S2, Regular Rhythm and Murmur (11/02)
Breast: Deferred by me
GI: Soft and Non Tender
Rectal: Deferred by Provider
Musculoskeletal: No Clubbing, No Cyanosis and No Edema
Neuro: Awake and Alert
Psych: Calm
Impression / Plan
-
84-year-old female with hypertension, hyperlipidemia, and mild to moderate aortic stenosis admitted with multifocal CVA (treated with TNK). Cardiology consulted for ILR to help monitor for occult atrial fibrillation.
Multifocal CVA:
- Patient likely with some residual cognitive deficits related to her CVA, but she is currently declining ILR insertion this a.m.
- I had a conversation with the patient and her daughter yesterday, and they were agreeable at that time; however, the patient is not agreeable currently.
- I informed the daughter this morning that the procedure will be canceled for today; they will notify the team if they wish to proceed at some point in the future.
- Cardiology will remain available on an as-needed basis.
Hypertension:
- On amlodipine and Bystolic; continue management as per primary team.
Hyperlipidemia:
- Continue atorvastatin; goal LDL should be less than 55.
Mild to moderate aortic stenosis:
- Outpatient follow-up with her primary Wrecker Operator at [place] for surveillance monitoring.
Data Reviewed
-
EKG: Tracing Personally Visualized and interpreted (Telemetry: Sinus rhythm)
Medical Tests (Nuc Med, Echo etc): Report Reviewed by me (Echo: Normal LVEF; mild to moderate .)
Labs: Labs Reviewed by me
--- NOTE | 2024-12-06 10:10 | PTCARENOTE ---
OOB to the BSC for yellow urine. Overall appetite ok for breakfast. No difficulty noted with swallowing. Pts aide/caregiver at the bedside with her. Had placed SCD's on pt this am around 0930 however within about 30 min of having them on pt got
angry and insisted they be taken off. Informed pt that they help prevent blood clots and pt sternly said 'Not that way'. SCD's removed. No other changes. If BP remains elevated will give PRN BP meds. Pt rec'd all of her am meds a little over an hr
ago.
--- NOTE | 2024-12-06 10:21 | PTOTSP ---
Speech Pathology
Dysphagia Treatment
Impression: Continues to p/w mildly prolonged but functional oral stage of swallowing this date. No overt signs of aspiration. AMS. Continue to monitor tolerance of diet advancement.
Maintain recommendations:
1. IDDSI Level 7 Regular, Thin Liquids
2. Medications as best tolerated
3. 1:1 assistance and supervision
4. Strict aspiration precautions including 1 bite at a time and not to talk while masticating
5. Brief dysphagia tx f/u to monitor tolerance of diet, use of compensations, and determine need for further modifications
--- NOTE | 2024-12-06 11:31 | PN.CDI ---
CDI
- -
CDI:
Physician Documentation Request
Admit Date: 12/04/24 08:48
Dear Doctor Emily,
Patient admitted for stroke.
12/05 Hospitalist PN: 'CVA with left arm weakness and paresthesia...Keep blood pressure less than 180/105...Hypertensive urgency'
12/05 Assembler Corncob Pipes PN: 'Acute CVA status post TNK 12/04/24....Admitted 12/02/24 for hypertensive emergency'
Clarify which, if any of the following, is a more accurate diagnosis reflecting the type and acuity of the documented hypertension:
Hypertensive Urgency - B/P is severely elevated (systolic > or = to 180 or diastolic > or = to 110) but there is no associated organ damage. Symptoms may include: headache, shortness of breath, nosebleeds, severe anxiety. Treatment usually consists
of addition to or adjusting of oral medications and does not generally necessitate hospitalization.
Hypertensive Emergency - B/P is severely elevated (systolic > or = to 180 or diastolic > or = to 110) but can occur at lower levels especially in patients who did not previously have high B/P. There is usually associated organ damage. Symptoms may
include: memory loss, LOC, CVA, UT, angina, renal failure, pulmonary edema. Generally requires more aggressive treatment and a hospitalization.
Other (please specify)
Unable to Determine
Use of terms such as suspected, likely, concern for, or probable (associated with a specific diagnosis that is being evaluated, monitored, or treated as if it exists) are acceptable and can be coded in the inpatient setting, when documented at the
time of discharge.
Thank you,
Aye Bneitez RN, BSN
CDI Specialist
Available via [place] text
Please use your independent medical judgment in providing your response.
--- NOTE | 2024-12-06 11:36 | PN.CDI ---
CDI
- -
CDI:
Physician Documentation Request
Admit Date: 12/04/24 08:48
Dear Doctor Emily,
Patient admitted for stroke.
Please review the following and provide your response in the progress notes.
Clinical Indicators:
Height: 5' 8'
Weight: 117 lbs
BMI: 17.9
If possible, please provide an associated diagnosis related to the abnormal BMI, such as:
Underweight
Cachectic
BMI is not significant
Other
BMI < or = to 19.9
Underweight
Weight Loss
Cachectic
Anorexia
Use of terms such as suspected, likely, concern for, or probable (associated with a specific diagnosis that is being evaluated, monitored, or treated as if it exists) are acceptable and can be coded in the inpatient setting, when documented at the
time of discharge.
Thank you,
Aye Benitez RN, BSN
CDI Specialist
Available via [place] text
Please use your independent medical judgment in providing your response.
--- NOTE | 2024-12-06 12:00 | PTCARENOTE ---
Assessment overall is unchanged. Get anxious at intervals but overall is calm and cooperative but forgetful. [place] like she had to have a BM- assisted oob to the BSC but just voided yellow urine. Gait remains tremulous and unsteady but able to bear
wt with assistance. VS as documented. Currently resting oob in the chair. Call hinds in reach. Caregiver remains with pt
--- NOTE | 2024-12-06 13:00 | PTCARENOTE ---
Fair appetite for lunch. No c/o nausea just states she is tired and 'doesn't' feel well. [place] like it was her nerves but was dozing per aide in room prior. Currently worked with PT/OT and is back in bed. See notes. No other changes. Needs direction
for activiies and per PT/OT noticed some neglect of the L side when having pt ambulate in the room. Call hinds in reach.
[2024-12-06] MEDS: TYLENOL 650 MG PO (14:39)
[2024-12-06] MEDS: APRESOLINE 10 MG IV (14:40)
--- NOTE | 2024-12-06 14:40 | PTCARENOTE ---
Pt oob to use the BSC to void and had a small amt of soft brown stool. Does get anxious and tearful intermittently when she struggles to do something. L arm remains weak and overall pt states it feels heavy. Is able to lift the L arm but is weak and
L arm will drift. Waxes and wanes with orientation- sometimes is oriented to where she is her age and her birthday and other times stuggles with the correct answer. Is forgetful. Neurology in and updated and pt was asking himquestions about the
loop recorder. No decision made yet. Admitted to a 10/09 frontal headache. Medicated with Tylenol 650 mg po. BP curretly 181/78 and pt given Hydralazine 10 mg IV at 1440. While flushing pt c/o L forearm IV site hurting her so IV dc'd and new #22
protective inserted the L forearm. Pt with bruising on both arms and slight bruising on the L hip. Currently resting back in bed. Call hinds in reach.
--- NOTE | 2024-12-06 14:53 | W.PN.HOSP.TC ---
Addendum entered and electronically signed by Rosaura Wing MD 12/06/24 15:09:
I saw and evaluated the patient independently. I reviewed the resident�s note and agree with findings and plan as documented by Dr. Diaz.
GENERAL: well developed, well nourished, female in no apparent distress, seems more confused today
HEENT: NC/AT
HEART: regular rate and rhythm, +S1, +S2, [place]
LUNGS : clear to auscultation bilaterally
ABDOM: soft, nontender, nondistended, + bowel sounds
EXT: no cyanosis, clubbing, or edema
NEUROLOGIC: grossly intact strength much improved
AM labs on 12/05/24 from 03:27 incorrect--drawn from IV line and diluted
acute CVA with left arm weakness and paresthesia--was normal at the time of earlier evaluation with the residents on 12/04--called to see patient urgently as documented in update note 12/04--s/p TNK administration--head CT
neg--neurochecks--PT/OT/speech-- MRI brain shows right hemisphere acute to subacute infarct, left hemisphere foci of subacute infarction--apprec neuro--asa after 24 hour jb--cont lipitor
Hypertensive urgency--initial presentation (no stroke was found on initial presentation--stroke happened after BP was better controlled next day)--BP improved--No dizziness, headaches, blurred vision, nausea, vomiting--Continue on amlodipine 10 mg
and nebivolol 5 mg when OK with neuro--permissive HTN post stroke--Past echo showed normal function--repeat ECHO with normal EF and stage 2 diastolic dysfunction
Hypercalcemia--etiology unclear but may be related to Tymlos (PTH analog)--hold for now, hold calcium supps too- iPTH low indicates intact feedback loop---calcium 10.1--stop IVF--No history of nephrolithiasis, dehydration, bone pain, pathological
fracture, constipation, abdominal pain, does have neuro/psych symptoms
Hypokalemia--Repleted potassium
Hypomagnesemia--Repleted magnesium level was 1.4 prior to repletion
underweight by BMI
DVT proph
code status--Full code
Original Note:
Today's Communication/Plan
-
- follow neuro
- Neurochecks
- PT/OT
Assessment / Plan
Assessment / Plan
Downgrading patient to telemetry
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
-Stroke alert was called today after patient started to develop left arm weakness, decreased strength, facial droop on the left, confusion
- recent Head CT was negative as well as CTA
-Neurochecks daily
- PT/OT
-Keep blood pressure less than 180/105 and mean atrial pressure between 80-100.
- Can restart aspirin and lipitor after 24 hours as per Neurology. They will speak to cardiology about ordering a loop recorder.
-MRI shows embolic foci in right and left hemisphere leading to subacute infarction.
Hypertensive urgency:
-Today her blood pressure is 166/70
-No dizziness, headaches, blurred vision, nausea, vomiting
-Continue on amlodipine 10 mg and nebivolol 5 mg
- IV hydralazine
-Past echo showed normal function
Hypercalcemia:
- Hold tymlos and calcium gummies
-Calcium levels 10.6
-PTH levels are low
-No history of nephrolithiasis, dehydration, bone pain, pathological fracture, constipation, abdominal pain, does have neuro/psych symptoms
-Continue on IV fluids as needed
- 1,25 hydroxyvitamin D pending
-Trend BMP, albumin, ionized calcium
Hypokalemia:
- Resolved
Hypomagnesemia:
-Resolved
Anticipated Discharge: 24 - 48 hours
Subjective/Interval History
-
Date of Service: December 06, 2024
She she is an 84-year-old female full code was admitted into the ICU yesterday just after we had rounds because she had limited left arm movement with paresthesias, small facial droop on the left, initially with significant weakness to the left arm
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
Objective Data
-
Labs:
Laboratory Results
12/06/24
05:14
WBC 5.9
Hgb 11.7 L
Hct 33.6 L
Plt Count 143
Sodium 144
Potassium 3.5
Chloride 109 H
Carbon Dioxide 29
BUN 15
Creatinine 0.7
Glucose 105 H
Calcium 10.6 H
Vital Signs:
Vital Signs
Temp Pulse Resp BP Pulse Ox
98.6 F 84 16 181/78 98
12/06/24 11:30 12/06/24 14:40 12/06/24 13:00 12/06/24 14:40 12/06/24 11:30
I&O
12/05/24 12/06/24 12/07/24
06:59 06:59 06:59
Intake Total 1822 / 1902 730.0 / 730.0 350 / 350
Output Total 550 / 550 500 / 500 550 / 550
Balance 1272 / 1352 230.0 / 230.0 -200 / -200
Review of Systems
-
Unable to obtain full review of systems at this time due to: Dementia
History Source: Patient
Constitutional: Denies Fever, Chills or Weakness
Respiratory: Denies Cough, Trouble Breathing or Wheezing
Abdomen/GI: Denies Abdominal Pain, Nausea, Vomiting, Diarrhea or Constipated
Musculoskeletal: Denies Joint Pain
Physical Exam
-
Respiratory: Clear to Auscultation
Cardiac: Irregular Rhythm
GI: Soft, Nontender, Nondistended and Normal Bowel Sounds
Musculoskeletal: No Clubbing and No Edema
Skin: Warm and Dry
Neuro: Awake, Alert and Other (not orientated to time place or person)
Psych: Calm
Data Reviewed
-
MRI: Report Reviewed by me and Discussed with Physician
Labs: Labs Reviewed by me and Discussed with Physician
--- NOTE | 2024-12-06 15:05 | CM ---
Patient seen at bedside with physicians. [facility] responded to referral to say that there is no available bed. CM spoke with patient daughter response and she will look at options and talk to CM tomorrow. CM will continue to follow for discharge
planning needs.
Plan; SNF
--- NOTE | 2024-12-06 17:11 | PTCARENOTE ---
OOB to the bsc to void yellow urine- voids about 100-150 mls at a time. Then assisted into the chair. Used the walker and overall does better with the use of the walker although needs the assist of 1 as she is unsteady on her feet and needs
direction. Daughter in to see pt and updated. Pt for transfer to tele bed when bed available. BP as documented. No other changes.
[2024-12-06] MEDS: LIPITOR 40 MG PO (18:11)
[2024-12-06] MEDS: LACTAID 1 CAPSULE PO (18:11)
--- NOTE | 2024-12-06 18:34 | PTCARENOTE ---
Report called to the 4th floor-will transfer pt via wheelchair. No changes in assessment. Good appetite for dinner
--- NOTE | 2024-12-06 20:02 | W.PN.UPDATE ---
Update Note
Progress Note Update
Underweight: (CDI REQUESTT)
- patient is underweight with a BMI of 17.9
- Her protein and albumin levels are low suggesting some levels of malnutrition
- Currently on a regular diet and is eating appropriately
--- NOTE | 2024-12-06 20:06 | W.PN.UPDATE ---
Update Note
Progress Note Update
Hypertensive urgency:
- On admission her blood pressure was more than 196/88
- No end organ damage
-Today her blood pressure is 166/70
-No dizziness, headaches, blurred vision, nausea, vomiting
-Continue on amlodipine 10 mg and nebivolol 5 mg
- IV hydralazine
-Past echo showed normal function
[2024-12-06] MEDS: LOVENOX 40 MG SC (20:25)
[2024-12-07] VITALS (8 sets, daily range): BP systolic 125–163; BP diastolic 59–85; PULSE 79; O2SAT 94
[2024-12-07 07:38] LABS: % Basophils 1.3 % (0-2); % Eosinophils 11.3 % (0-6); % Immature Granulocytes 0.2 % (0-0.5); % Lymphocytes 29.4 % (20.5-51.1); % Monocytes 13.7 % (1.7-9.3); % Neutrophils 44.1 % (42.2-75.2); Absolute Basophils 0.1 10^3/uL (0-0.2); Absolute Eosinophils 0.7 10^3/uL (0-0.7); Absolute Lymphocytes 1.8 10^3/uL (1.2-3.4); Absolute Monocytes 0.9 10^3/uL (0.1-0.6); Absolute Neutrophils 2.8 10^3/uL (1.4-6.5); Hematocrit 35.7 % (37.0-47.0); Hemoglobin 12.4 g/dL (12.0-16.0); Mean Corp Hgb Conc. 34.7 g/dL (33.0-37.0); Mean Corpuscular Hgb 31.9 pg (27.0-31.0); Mean Corpuscular Volume 91.8 fL (81.0-99.0); Mean Platelet Volume 12.9 fL (7.4-10.4); Nucleated Red Blood Cells % 0 %; Platelet Count 150 10^3/uL (130-400); Red Blood Cell Count 3.89 10^6/uL (4.20-5.40); Red Cell Dist. Width 12.7 % (11.5-14.5); White Blood Cell Count 6.2 10^3/uL (4.8-10.8)
[2024-12-07 08:19] LABS: ALT (SGPT) 64 U/L (0-35); AST (SGOT) 43 U/L (14-36); Alkaline Phosphatase 101 U/L (38-126); Blood Urea Nitrogen 16 mg/dl (7-17); Calcium 10.4 mg/dl (8.4-10.2); Carbon Dioxide 30 mmol/L (22-30); Chloride 109 mmol/L (98-107); Estimated Creatinine Clearance 46 ml/min; Glucose 88 mg/dl (70-99); Magnesium 1.5 mg/dl (1.6-2.3); Potassium 3.2 mmol/L (3.5-5.1); Sodium 144 mmol/L (135-145); Total Bilirubin 1.4 mg/dl (0.2-1.3); eGFR > 60.00
[2024-12-07] MEDS: BYSTOLIC 5 MG PO (08:47)
[2024-12-07] MEDS: LIDOCAINE 4% PATCH 1 PATCH TOPICAL (08:47)
[2024-12-07] MEDS: RESTASIS 0.05% OPHTHALMIC EMULSION 1 DROPS BOTH EYES ×2 (08:48→20:39)
[2024-12-07] MEDS: NORVASC 10 MG PO (08:48)
[2024-12-07] MEDS: ASPIR LOW (ENTERIC COATED) 81 MG PO (08:48)
--- NOTE | 2024-12-07 12:00 | W.PN.HOSP.TC ---
Addendum entered and electronically signed by Rosaura Wing MD 12/07/24 15:59:
I saw and evaluated the patient independently. I reviewed the resident�s note and agree with findings and plan as documented by Dr. Diaz.
GENERAL: well developed, well nourished, female in no apparent distress, confusion seems to wax and wane
HEENT: NC/AT
HEART: regular rate and rhythm, +S1, +S2, [place]
LUNGS : clear to auscultation bilaterally
ABDOM: soft, nontender, nondistended, + bowel sounds
EXT: no cyanosis, clubbing, or edema
NEUROLOGIC: grossly intact strength much improved
AM labs on 12/05/24 from 03:27 incorrect--drawn from IV line and diluted
acute CVA with left arm weakness and paresthesia--was normal at the time of earlier evaluation with the residents on 12/04--called to see patient urgently as documented in update note 12/04--s/p TNK administration--head CT
neg--neurochecks--PT/OT/speech-- MRI brain shows right hemisphere acute to subacute infarct, left hemisphere foci of subacute infarction--apprec neuro--asa after 24 hour jb--cont lipitor
Hypertensive urgency--initial presentation (no stroke was found on initial presentation--stroke happened after BP was better controlled next day)--BP improved--No dizziness, headaches, blurred vision, nausea, vomiting--Continue on amlodipine 10 mg
and nebivolol 5 mg when OK with neuro--permissive HTN post stroke--Past echo showed normal function--repeat ECHO with normal EF and stage 2 diastolic dysfunction
Hypercalcemia--etiology unclear but may be related to Tymlos (PTH analog)--hold for now, hold calcium supps too- iPTH low indicates intact feedback loop---calcium 10.1--stop IVF--No history of nephrolithiasis, dehydration, bone pain, pathological
fracture, constipation, abdominal pain, does have neuro/psych symptoms
Hypokalemia--Repleted potassium
Hypomagnesemia--Repleted magnesium level was 1.4 prior to repletion
underweight by BMI
DVT proph
code status--Full code
d/c planning--no need for pulmonary consult as documented below
Original Note:
Today's Communication/Plan
-
- Pulm consulted
Assessment / Plan
Assessment / Plan
Patient has been downgraded to tele.
PT/OT recommended SNF.
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
-Stroke alert was called today after patient started to develop left arm weakness, decreased strength, facial droop on the left, confusion
- recent Head CT was negative as well as CTA
-Neurochecks daily
- PT/OT
-Keep blood pressure less than 180/105 and mean atrial pressure between 80-100.
- Can restart aspirin and lipitor after 24 hours as per Neurology. They will speak to cardiology about ordering a loop recorder.
-MRI shows embolic foci in right and left hemisphere leading to subacute infarction.
Hypertensive urgency:
-Today her blood pressure is 166/70
-No dizziness, headaches, blurred vision, nausea, vomiting
-Continue on amlodipine 10 mg and nebivolol 5 mg
- IV hydralazine
-Past echo showed normal function
Hypercalcemia:
- Hold tymlos and calcium gummies
-Calcium levels 10.6
-PTH levels are low
-No history of nephrolithiasis, dehydration, bone pain, pathological fracture, constipation, abdominal pain, does have neuro/psych symptoms
-Continue on IV fluids as needed
- 1,25 hydroxyvitamin D pending
-Trend BMP, albumin, ionized calcium
Hypokalemia:
potassium 3.2 but repleted 40 mg iv
Hypomagnesemia:
- mag is 1.5 so repleted with 4 iv
Anticipated Discharge: 24 - 48 hours
Subjective/Interval History
-
Date of Service: December 07, 2024
She she is an 84-year-old female full code was admitted into the ICU yesterday just after we had rounds because she had limited left arm movement with paresthesias, small facial droop on the left, initially with significant weakness to the left arm
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 MRI showed embolic stroke.
Objective Data
-
Labs:
Laboratory Results
12/07/24
06:50
WBC 6.2
Hgb 12.4
Hct 35.7 L
Plt Count 150
Sodium 144
Potassium 3.2 L
Chloride 109 H
Carbon Dioxide 30
BUN 16
Creatinine 0.7
Glucose 88
Calcium 10.4 H
Total Bilirubin 1.4 H
AST 43 H
ALT 64 H
Alkaline Phosphatase 101
Vital Signs:
Vital Signs
Temp Pulse Resp BP Pulse Ox
98.4 F 85 18 162/85 96
12/07/24 07:44 12/07/24 07:44 12/07/24 07:44 12/07/24 08:47 12/07/24 08:00
I&O
12/06/24 12/07/24 12/08/24
06:59 06:59 06:59
Intake Total 730.0 / 730.0 600 / 600
Output Total 500 / 500 900 / 900
Balance 230.0 / 230.0 -300 / -300
Review of Systems
-
History Source: Patient
Constitutional: Denies Fever, Chills or Weakness
Respiratory: Denies Cough, Trouble Breathing or Wheezing
Abdomen/GI: Denies Abdominal Pain, Nausea, Vomiting, Diarrhea or Constipated
Musculoskeletal: Denies Joint Pain
Neuro: Reports No Symptoms
Physical Exam
-
Respiratory: Clear to Auscultation
Cardiac: Irregular Rhythm
GI: Soft, Nontender, Nondistended and Normal Bowel Sounds
Musculoskeletal: No Clubbing and No Edema
Skin: Warm and Dry
Neuro: Awake, Alert and Other (not orientated to place ( thinks shes in [facility]))
Psych: Calm
--- NOTE | 2024-12-07 14:30 | CM ---
Patient seen at bedside, CM will call patient daughter and review referrals for SNF placement. Per aide, no loop recorder anticipated. CM will continue to follow for discharge planing needs.
Plan; placement
[2024-12-07] MEDS: LOVENOX 40 MG SC (17:25)
[2024-12-07] MEDS: LIPITOR 40 MG PO (17:25)
[2024-12-07] MEDS: LACTAID 1 CAPSULE PO (17:25)
[2024-12-07] MEDS: MAGNESIUM SULFATE 100 IV (20:35)
[2024-12-07] MEDS: KCL 40 MEQ PO (20:38)
[2024-12-07 22:44] LABS: Vitamin D 1,25 Dihydroxy 35.7 pg/mL (19.9-79.3)
[2024-12-08] VITALS (7 sets, daily range): BP systolic 139–167; BP diastolic 62–88; PULSE 88–89; O2SAT 96
[2024-12-08 08:16] LABS: % Eosinophils 8.6 % (0-6); % Immature Granulocytes 0.1 % (0-0.5); % Lymphocytes 22.8 % (20.5-51.1); % Monocytes 13.1 % (1.7-9.3); % Neutrophils 54.4 % (42.2-75.2); Absolute Basophils 0.1 10^3/uL (0-0.2); Absolute Eosinophils 0.7 10^3/uL (0-0.7); Absolute Lymphocytes 1.8 10^3/uL (1.2-3.4); Absolute Neutrophils 4.2 10^3/uL (1.4-6.5); Hematocrit 34.2 % (37.0-47.0); Hemoglobin 11.8 g/dL (12.0-16.0); Mean Corp Hgb Conc. 34.5 g/dL (33.0-37.0); Mean Corpuscular Hgb 31.9 pg (27.0-31.0); Mean Corpuscular Volume 92.4 fL (81.0-99.0); Mean Platelet Volume 12.7 fL (7.4-10.4); Nucleated Red Blood Cells % 0 %; Platelet Count 159 10^3/uL (130-400); Red Cell Dist. Width 12.5 % (11.5-14.5); White Blood Cell Count 7.8 10^3/uL (4.8-10.8)
[2024-12-08 08:28] LABS: ALT (SGPT) 61 U/L (0-35); AST (SGOT) 41 U/L (14-36); Albumin 2.9 g/dl (3.5-5.0); Alkaline Phosphatase 112 U/L (38-126); Blood Urea Nitrogen 18 mg/dl (7-17); Calcium 10.1 mg/dl (8.4-10.2); Carbon Dioxide 31 mmol/L (22-30); Chloride 108 mmol/L (98-107); Estimated Creatinine Clearance 46 ml/min; Glucose 117 mg/dl (70-99); Magnesium 2.5 mg/dl (1.6-2.3); Potassium 3.5 mmol/L (3.5-5.1); Sodium 142 mmol/L (135-145); Total Bilirubin 1.1 mg/dl (0.2-1.3); Total Protein 5.9 g/dl (6.3-8.2); eGFR > 60.00
[2024-12-08] MEDS: LIDOCAINE 4% PATCH 1 PATCH TOPICAL (09:39)
[2024-12-08] MEDS: ASPIR LOW (ENTERIC COATED) 81 MG PO (09:39)
[2024-12-08] MEDS: RESTASIS 0.05% OPHTHALMIC EMULSION 1 DROPS BOTH EYES ×2 (09:39→20:19)
[2024-12-08] MEDS: NORVASC 10 MG PO (09:39)
[2024-12-08] MEDS: BYSTOLIC 5 MG PO (09:39)
[2024-12-08 12:51] LABS: COVID-19 Antigen Negative (Negative)
--- NOTE | 2024-12-08 15:44 | CM ---
Patient accepted for transfer to [facility] tomorrow, after 3pm. Patient daughter aware. Patient daughter to sign IMM and verbally indicated that she understood form. Please call report to [phone]/fax [phone]. CM updated [facility] about
the report number and will fax to the unit transportation forms. CM will continue to follow for discharge planning needs.
Plan; transfer to [facility] tomorrow
--- NOTE | 2024-12-08 15:56 | W.PN.HOSP.TC ---
Addendum entered and electronically signed by Rosaura Wing MD 12/08/24 17:38:
I saw and evaluated the patient independently. I reviewed the resident�s note and agree with findings and plan as documented by Dr. Diaz.
GENERAL: well developed, well nourished, female in no apparent distress, confusion seems to wax and wane
HEENT: NC/AT
HEART: regular rate and rhythm, +S1, +S2, [place]
LUNGS : clear to auscultation bilaterally
ABDOM: soft, nontender, nondistended, + bowel sounds
EXT: no cyanosis, clubbing, or edema
NEUROLOGIC: grossly intact strength much improved
AM labs on 12/05/24 from 03:27 incorrect--drawn from IV line and diluted
acute CVA with left arm weakness and paresthesia--was normal at the time of earlier evaluation with the residents on 12/04--called to see patient urgently as documented in update note 12/04--s/p TNK administration--head CT
neg--neurochecks--PT/OT/speech-- MRI brain shows right hemisphere acute to subacute infarct, left hemisphere foci of subacute infarction--apprec neuro--asa after 24 hour jb--cont Lipitor--no loop recorder--for d/c in AM to [facility]
Hypertensive urgency--initial presentation (no stroke was found on initial presentation--stroke happened after BP was better controlled next day)--BP improved--No dizziness, headaches, blurred vision, nausea, vomiting--Continue on amlodipine 10 mg
and nebivolol 5 mg when OK with neuro--permissive HTN post stroke--Past echo showed normal function--repeat ECHO with normal EF and stage 2 diastolic dysfunction
Hypercalcemia--etiology unclear but may be related to Tymlos (PTH analog)--hold for now, hold calcium supps too- iPTH low indicates intact feedback loop---calcium 10.1--stop IVF--No history of nephrolithiasis, dehydration, bone pain, pathological
fracture, constipation, abdominal pain, does have neuro/psych symptoms
Hypokalemia--Repleted potassium
Hypomagnesemia--replete
underweight by BMI
DVT proph
code status--Full code
Original Note:
Today's Communication/Plan
-
- patient is being discharged tomorrow to SNF
Assessment / Plan
Assessment / Plan
Patient has been downgraded to tele.
PT/OT recommended SNF.
She is being discharged to [facility]
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
- recent Head CT was negative as well as CTA
-Neurochecks daily
- PT/OT
-Keep blood pressure less than 180/105 and mean atrial pressure between 80-100.
- Continue aspirin and lipitor after 24 hours as per Neurology
- patient and her daughter decided they do not want loop recorder
-MRI shows embolic foci in right and left hemisphere leading to subacute infarction.
Hypertensive urgency:
-Today her blood pressure is 158/74
-No dizziness, headaches, blurred vision, nausea, vomiting
-Continue on amlodipine 10 mg and nebivolol 5 mg
- IV hydralazine PRN
-Past echo showed normal function
Hypercalcemia:
- Hold tymlos and calcium gummies
-Calcium levels 10.1 and normal
-PTH levels are low
-No history of nephrolithiasis, dehydration, bone pain, pathological fracture, constipation, abdominal pain, does have neuro/psych symptoms
-Continue on IV fluids as needed
- 1,25 hydroxyvitamin D normal
-Trend BMP, albumin, ionized calcium
Hypokalemia:
potassium 3.5
Hypomagnesemia:
- mag is 2.5
Anticipated Discharge: Within 24 hours
Subjective/Interval History
-
Date of Service: December 08, 2024
She she is an 84-year-old female full code was admitted into the ICU yesterday just after we had rounds because she had limited left arm movement with paresthesias, small facial droop on the left, initially with significant weakness to the left arm
with 0 hat body sorter strength and inability to hold up her arm. MRI showed embolic stroke. She was given TNK, has since been paced on Aspirin and Atorvastatin, lovenox. Is conversating normally today. Planning on discharging to [facility].
Objective Data
-
Labs:
Laboratory Results
12/08/24
07:51
WBC 7.8
Hgb 11.8 L
Hct 34.2 L
Plt Count 159
Sodium 142
Potassium 3.5
Chloride 108 H
Carbon Dioxide 31 H
BUN 18 H
Creatinine 0.7
Glucose 117 H
Calcium 10.1
Total Bilirubin 1.1
AST 41 H
ALT 61 H
Alkaline Phosphatase 112
Vital Signs:
Vital Signs
Temp Pulse Resp BP Pulse Ox
98.8 F 85 16 158/74 96
12/08/24 15:41 12/08/24 15:41 12/08/24 15:41 12/08/24 15:41 12/08/24 15:41
I&O
12/07/24 12/08/24 12/09/24
06:59 06:59 06:59
Intake Total 600 / 600 700 / 700
Output Total 900 / 900
Balance -300 / -300 700 / 700
Review of Systems
-
History Source: Patient
Constitutional: Denies Fever, Chills or Weakness
Respiratory: Denies Cough, Trouble Breathing or Wheezing
Abdomen/GI: Denies Abdominal Pain, Nausea, Vomiting, Diarrhea or Constipated
Musculoskeletal: Denies Joint Pain
Neuro: Reports No Symptoms
Physical Exam
-
Respiratory: Clear to Auscultation
Cardiac: Irregular Rhythm
GI: Soft, Nontender, Nondistended and Normal Bowel Sounds
Musculoskeletal: No Clubbing and No Edema
Skin: Warm and Dry
Neuro: Awake, Alert and Other (not orientated to place ( thinks shes in [facility]))
Psych: Calm
Data Reviewed
-
Labs: Labs Reviewed by me and Discussed with Physician
--- NOTE | 2024-12-08 17:25 | W.PN.UPDATE ---
Update Note
Progress Note Update
Cachectic
Protein Calorie malnutrition:
- BMI is 18
- Evidence of muscle wasting
- Low serum albumin and protein
- Nutrition consulted
[2024-12-08] MEDS: LACTAID 1 CAPSULE PO (17:29)
[2024-12-08] MEDS: LIPITOR 40 MG PO (17:29)
[2024-12-08] MEDS: LOVENOX 40 MG SC (17:29)
[2024-12-08] MEDS: TYLENOL 650 MG PO (20:20)
[2024-12-09 00:34] LABS: PTH Related Peptide LC-MS/MS 3.1 pmol/L (0.0-3.4)
[2024-12-09 03:42] VITALS: BP 159/75
[2024-12-09 07:00] VITALS: BP 154/69
[2024-12-09 07:28] LABS: % Basophils 1.5 % (0-2); % Eosinophils 9.3 % (0-6); % Immature Granulocytes 0.2 % (0-0.5); % Lymphocytes 30.3 % (20.5-51.1); % Monocytes 12.8 % (1.7-9.3); % Neutrophils 45.9 % (42.2-75.2); Absolute Basophils 0.1 10^3/uL (0-0.2); Absolute Eosinophils 0.5 10^3/uL (0-0.7); Absolute Lymphocytes 1.7 10^3/uL (1.2-3.4); Absolute Monocytes 0.7 10^3/uL (0.1-0.6); Absolute Neutrophils 2.5 10^3/uL (1.4-6.5); Hematocrit 36.1 % (37.0-47.0); Hemoglobin 12.3 g/dL (12.0-16.0); Mean Corp Hgb Conc. 34.1 g/dL (33.0-37.0); Mean Corpuscular Hgb 31.7 pg (27.0-31.0); Nucleated Red Blood Cells % 0 %; Platelet Count 162 10^3/uL (130-400); Red Blood Cell Count 3.88 10^6/uL (4.20-5.40); Red Cell Dist. Width 12.6 % (11.5-14.5); White Blood Cell Count 5.5 10^3/uL (4.8-10.8)
[2024-12-09 07:55] LABS: Blood Urea Nitrogen 23 mg/dl (7-17); Calcium 10.1 mg/dl (8.4-10.2); Carbon Dioxide 28 mmol/L (22-30); Chloride 107 mmol/L (98-107); Estimated Creatinine Clearance 46 ml/min; Glucose 95 mg/dl (70-99); Potassium 3.6 mmol/L (3.5-5.1); Sodium 144 mmol/L (135-145); eGFR > 60.00
[2024-12-09] MEDS: RESTASIS 0.05% OPHTHALMIC EMULSION 1 DROPS BOTH EYES (08:45)
[2024-12-09] MEDS: BYSTOLIC 5 MG PO (08:45)
[2024-12-09] MEDS: ASPIR LOW (ENTERIC COATED) 81 MG PO (08:45)
[2024-12-09] MEDS: NORVASC 10 MG PO (08:45)
[2024-12-09] MEDS: LIDOCAINE 4% PATCH 1 PATCH TOPICAL (08:46)
[2024-12-09 11:00] VITALS: BP 152/55
--- NOTE | 2024-12-09 12:07 | W.PN.HOSP.TC ---
Today's Communication/Plan
-
d/c
Assessment / Plan
Assessment / Plan
pt is an 84 year old female
acute CVA with left arm weakness and paresthesia--was normal at the time of earlier evaluation with the residents on 12/04--called to see patient urgently as documented in update note 12/04--s/p TNK administration--head CT
neg--neurochecks--PT/OT/speech-- MRI brain shows right hemisphere acute to subacute infarct, left hemisphere foci of subacute infarction--apprec neuro--asa after 24 hour jb--cont Lipitor--no loop recorder--for d/c to [facility]
Hypertensive urgency--initial presentation (no stroke was found on initial presentation--stroke happened after BP was better controlled next day)--BP improved--No dizziness, headaches, blurred vision, nausea, vomiting--Continue on amlodipine 10 mg
and nebivolol 5 mg when OK with neuro--permissive HTN post stroke--Past echo showed normal function--repeat ECHO with normal EF and stage 2 diastolic dysfunction
Hypercalcemia--etiology unclear but may be related to Tymlos (PTH analog)--hold for now, hold calcium supps too- iPTH low indicates intact feedback loop---calcium 10.1--stop IVF--No history of nephrolithiasis, dehydration, bone pain, pathological
fracture, constipation, abdominal pain, does have neuro/psych symptoms
Hypokalemia--Repleted potassium
Hypomagnesemia--replete
underweight by BMI
DVT proph
code status--Full code
Anticipated Discharge: Today
Subjective/Interval History
-
Date of Service: December 09, 2024
pt without c/o
Objective Data
-
Labs:
Laboratory Results
12/09/24
06:28
WBC 5.5
Hgb 12.3
Hct 36.1 L
Plt Count 162
Sodium 144
Potassium 3.6
Chloride 107
Carbon Dioxide 28
BUN 23 H
Creatinine 0.7
Glucose 95
Calcium 10.1
Vital Signs:
max temp for 24 hours
12/08/24
15:41
Temp 98.8 F
Vital Signs
Temp Pulse Resp BP Pulse Ox
97.9 F 69 16 154/69 97
12/09/24 07:00 12/09/24 07:00 12/09/24 07:00 12/09/24 07:00 12/09/24 07:00
I&O
12/08/24 12/09/24 12/10/24
06:59 06:59 06:59
Intake Total 700 / 700 1440 / 1440
Balance 700 / 700 1440 / 1440
Review of Systems
-
All other systems: Reviewed and negative
Physical Exam
-
General: Well Developed and No Apparent Distress
HEENT: Normocephalic and Atraumatic
Respiratory: Clear to Auscultation; Negative Wheezes or Rhonchi
Cardiac: Regular Rhythm, S1/S2 and Murmur
GI: Soft, Nontender, Nondistended and Normal Bowel Sounds
Musculoskeletal: No Clubbing, No Cyanosis and No Edema
Skin: Warm
Neuro: Awake
Psych: Calm
--- NOTE | 2024-12-09 13:50 | CM ---
Pt for dc today to [facility]
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
--- NOTE | 2024-12-09 14:49 | W.DCSUMMARY ---
Discharge Summary
Discharge Data
Date of Admission: 12/04/24
Date of Discharge: 12/09/24
-
Pending Results: No
Hospital Course
Primary care physician : Brien Booth
Principal Discharge diagnosis : Acute stroke status post tenecteplase administration, hypertensive urgency, hypercalcemia
Chronic Discharge diagnosis : Underweight BMI, mild dementia/memory loss, essential hypertension, hyperlipidemia
Hospital Course : Patient was an 84-year-old female with a history of essential hypertension, hyperlipidemia who presented from [facility] secondary to elevated blood pressures associated with lightheadedness. Systolic blood pressure was greater
than 200 at the nursing facility and she felt anxious. She denied chest pain, abdominal pain, headache, change in vision, neurologic focal deficits and stated that she was taking her medications regularly. Initial blood pressures were 170/110 and
211/91. Patient was admitted.
Problem #1: Acute stroke status post tenecteplase administration. Patient did not have an acute stroke on admission or at presentation. On the morning of December 04, 2024, patient was evaluated by myself and the resident team and was found to be
normal. Approximately 1:30 PM, I was asked to see the patient again as she had trouble moving her left arm. Stroke alert was called, neurology arrived at the bedside and patient was sent for head CT which was negative for acute findings. Patient
was given tenecteplase and moved to the intensive care unit. Patient's left arm improved, patient had a mild left facial droop which also improved after tenecteplase administration. She was seen in consultation by physical therapy, Occupational
Therapy, speech therapy who all recommended intermediate facility prior to returning to her apartment to [facility]. She was started on aspirin and higher dose Lipitor. There was some discussion as to whether or not she would need a loop
recorder because brain MRI showed right hemisphere with acute to subacute infarcts in left hemisphere with foci of his subacute infarction consistent with embolic phenomenon. No atrial fibrillation was noted on telemetry. Patient was seen in
consultation by cardiology and loop recorder was recommended. Patient and family declined loop recorder and she was continued on her aspirin and Lipitor. Patient also had an echocardiogram which showed a normal ejection fraction and stage II
diastolic dysfunction.
Problem #2: Hypertensive urgency. Patient was seen given IV hydralazine in the emergency department and started on amlodipine and continued on nebivolol. It is important to note that the patient did not have strokelike symptoms and blood pressure
was improved prior to the episode of the acute stroke. Blood pressure medications were adjusted.
Problem #3: Hypercalcemia. Patient has a history of osteoporosis and has been getting Tymlos (PTH analog) and this was thought to be the cause of the elevated calcium. Intact PTH was appropriately suppressed. Calcium supplements were stopped.
Calcium level on admission was 12.3 which dropped to 10.1 by the time of discharge. This improved with holding medications and administering IV fluids.
Problem #4: All other medical issues. These include Underweight BMI, mild dementia/memory loss, essential hypertension, hyperlipidemia. These medical issues were stable during her hospitalization. Medications were continued as able.
Patient is stable for discharge to intermediate facility at [facility] at this time. If there are any questions regarding this dictation or her hospital stay, please and hesitate to call. Our office number is [phone].
Time for discharge is 37 minutes.
Important imaging findings :
12/02/[address] IMPRESSION:
1. Chronic white matter infarcts in the right frontal lobe and left parietal lobe.
2. Moderate white matter leukoaraiosis.
3. Moderate bilateral temporal lobe volume loss.
4. Mild to moderate bilateral frontal lobe volume loss.
5. 1.3 cm meningioma arising from the right tentorium cerebelli.
6. 2.5 cm meningioma overlying the inferolateral left frontal lobe.
7. No CT evidence for acute intracranial hemorrhage.
12/04/[address] IMPRESSION:
Small old white matter infarcts again seen in the right frontal left parietal lobes.
No findings to suggest acute intracranial abnormality.
12/04/24 CT ANGIOGRAM HEAD/NECK IMPRESSION:
Bilateral carotid atherosclerotic plaque without hemodynamically significant bilateral internal carotid artery stenosis.
No findings to suggest internal carotid artery or vertebral artery dissection bilaterally.
No findings to suggest significant proximal intracranial arterial stenosis or vessel cut off bilaterally.
Enlarged heterogeneous thyroid gland with calcifications as well as small low-attenuation nodules. Suggest elective dedicated thyroid ultrasound for more complete evaluation.
12/05/[address] IMPRESSION:
No acute intracranial abnormality noted.
Moderate atrophy. Stable
Mild periventricular small vessel ischemic disease. Stable
Stable partially calcified meningiomas.
12/05/24 BRAIN MRI IMPRESSION: In the right hemisphere, there are multiple foci of increased diffusion-weighted signal and decreased ADC signal, suggesting acute to subacute infarction.
In the left hemisphere, foci of increased diffusion-weighted signal with only mild before meals signal, suggestive of foci of subacute infarction.
Calcified meningioma involving the right tentorium.
Plaque-like extra-axial area of signal abnormality at the left frontal temporal junction, corresponding to calcified meningeal thickening on prior CT examinations. This could either represent a calcified meningioma or calcification from previous
dural thickening such as a subdural hematoma. Consideration for continued imaging follow-up.
Foci of decreased T2 gradient-echo signal bilaterally within the cerebellum, compatible with old microhemorrhage, likely from hypertensive angiopathy given the distribution.
Discharge Plan
-
Patient Disposition: Correction/SNF
Discharge Diagnosis/Procedures: Acute CVA with left arm weakness/Paresthesia's, Hypertensive urgency, Hypercalcemia, Hypokalemia, Hypomagnesemia, Protein calorie malnutrition
Condition: Fair
Diet: Regular
Activity: As tolerated
Driving Restrictions: Not until seen by your Dr
Bathing Restrictions: After dressing removed
Blood Work: CBC in 1 week with PCP
CMP in 1 week with PCP
Other Services: VN, PT and OT
Stand Alone Forms: DC Inst - Implanted Device
Referrals:
[facility]- [facility] [Provider Group] - 12/20/24 10:40 am (Linq incision check appointment)
Brien Booth DO [Family Provider] - in less than 1 week
Prescriptions:
New
atorvastatin 40 mg Tablet
40 mg PO QPM Qty: 0 0RF
acetaminophen 325 mg Tablet
650 mg PO Q6HPRN PRN (Reason: mild pain/ fever>100.5F) Qty: 0 0RF
lidocaine 4 % Adhesive Patch,Medicated
1 patch topical DAILY Qty: 0 0RF
aspirin 81 mg Tablet,Delayed Release (Dr/Ec)
81 mg PO DAILY Qty: 0 0RF
amlodipine 10 mg Tablet
10 mg PO DAILY Qty: 0 0RF
Continued
therapeutic multivitamin Tablet
1 tab PO DAILY@1200
lactase [Lactaid] 3,000 unit Tablet
3,000 unit PO QPM
cyclosporine [Restasis] 0.05 % Dropperette
1 drp BOTH EYES Q12
sennosides-docusate sodium [Stool Softener-Stimulant Laxat] 8.6-50 mg Tablet
1 tab PO BIDPRN PRN (Reason: constipation) Qty: 60 0RF
nebivolol 5 mg Tablet
5 mg PO HS
cetirizine 10 mg Tablet
10 mg PO DAILYPRN PRN (Reason: allergies)
Discontinued
acetaminophen [Tylenol Extra Strength] 500 mg Tablet
500 mg PO QID
Tymlos 80 mcg (3,120 mcg/1.56 mL) Pen Injector
80 mcg SC DAILY
lisinopril 20 mg Tablet
20 mg PO BID Qty: 60 0RF
amlodipine 5 mg Tablet
5 mg PO DAILY
Discharge Orders:
Discharge Patient (As Directed); Ordered 12/09/24
Ordered By: Rosaura Wing
Discharge Date and Time
Print Language: COOK ISLANDER
[2024-12-09 16:43] VITALS: BP 152/78
[2024-12-09] MEDS: LIPITOR 40 MG PO (17:24)
[2024-12-09] MEDS: LOVENOX 40 MG SC (17:25)
[2024-12-09] MEDS: LACTAID 1 CAPSULE PO (17:25)
[2024-12-09 17:47] VITALS: BP 151/71
[2024-12-09] MEDS: ATIVAN 0.5 MG PO (18:35)
[2024-12-09 19:49] VITALS: BP 148/75
== END 2024-12-09 21:00 | DRG 304 ==
LOC: 4 WEST ACU 08:48
PROVIDERS: Internal Medicine; Nurse Practitioner Primary Care; Physician Assistant Medical; Student in an Organized Health Care Education/Training Program; ADMITTING PHYSICIAN Internal Medicine; ATTENDING PHYSICIAN Internal Medicine; CONSULT PHYSICIAN Internal Medicine; CONSULT PHYSICIAN Psychiatry & Neurology Clinical Neurophysiology; EMERGENCY PHYSICIAN Emergency Medicine; FAMILY PHYSICIAN Family Medicine; OTHER PHYSICIAN Internal Medicine
PROC: 3E03317 Introduction of Other Thrombolytic into Peripheral Vein, Percutaneous Approach (ICD-10-PCS; 2024-12-04)
DX: I16.0 Hypertensive urgency (principal); I63.49 Cerebral infarction due to embolism of other cerebral artery; E46 Unspecified protein-calorie malnutrition; Z68.1 Body mass index [BMI] 19.9 or less, adult; R64 Cachexia; G83.24 Monoplegia of upper limb affecting left nondominant side; R29.810 Facial weakness; R47.81 Slurred speech; R29.705 NIHSS score 5; E83.52 Hypercalcemia; I10 Essential (primary) hypertension; E78.00 Pure hypercholesterolemia, unspecified; F03.A0 Unspecified dementia, mild, without behavioral disturbance, psychotic disturbance, mood disturbance, and anxiety; M81.0 Age-related osteoporosis without current pathological fracture; D32.0 Benign neoplasm of cerebral meninges; I35.0 Nonrheumatic aortic (valve) stenosis; T50.995A Adverse effect of other drugs, medicaments and biological substances, initial encounter; E87.6 Hypokalemia; E83.42 Hypomagnesemia; K58.9 Irritable bowel syndrome, unspecified; H40.9 Unspecified glaucoma; N39.46 Mixed incontinence; M19.90 Unspecified osteoarthritis, unspecified site; Z11.52 Encounter for screening for COVID-19
CPT/HCPCS: 70450; 70496; 70498; 70551; 80048; 80053; 82306; 82652; 82962; 83519; 83735; 83970; 84443; 84484; 85025; 85027; 85610; 85730; 87811; 92526; 92610; 93005; 93306; 96374; 97116; 97163; 97166; 97530; 97535; 99285; J3101; Q9967

== ENCOUNTER 2024-12-22 11:20 | Inpatient (IN) | payer MEDICARE, BC, SELFPAY ==
[2024-12-21 18:41] VITALS: BP 176/93
[2024-12-21 18:47] VITALS: BMI 19.8
[2024-12-21 19:00] VITALS: BP 159/83
[2024-12-21 19:13] LABS: % Basophils 0.8 % (0-2); % Immature Granulocytes 0.3 % (0-0.5); % Lymphocytes 20.2 % (20.5-51.1); % Monocytes 12.5 % (1.7-9.3); % Neutrophils 59.2 % (42.2-75.2); Absolute Basophils 0.1 10^3/uL (0-0.2); Absolute Eosinophils 0.5 10^3/uL (0-0.7); Absolute Lymphocytes 1.5 10^3/uL (1.2-3.4); Absolute Neutrophils 4.5 10^3/uL (1.4-6.5); Hematocrit 38.3 % (37.0-47.0); Hemoglobin 13.8 g/dL (12.0-16.0); Mean Corpuscular Hgb 33.1 pg (27.0-31.0); Mean Corpuscular Volume 91.8 fL (81.0-99.0); Mean Platelet Volume 11.4 fL (7.4-10.4); Nucleated Red Blood Cells % 0 %; Platelet Count 193 10^3/uL (130-400); Red Blood Cell Count 4.17 10^6/uL (4.20-5.40); White Blood Cell Count 7.6 10^3/uL (4.8-10.8)
--- NOTE | 2024-12-21 19:16 | ED.GENMED ---
History of Present Illness
General
Chief Complaint: Abnormal Lab Value
Time Seen by Provider: 12/21/24 19:05
History of Present Illness
History of Present Illness:
TIME OF INITIAL ENCOUNTER: 7 PM
HPI: Patient comes ended from [facility] by EMS due to calcium of 12.8. The patient denies any complaints however daughter indicates that she has had some memory impairment over the last several months.
EXAM:
GENERAL: Appears in no distress, she is awake and alert
HEENT: Moist oral mucosa
CARDIOVASCULAR: Regular rate and rhythm
PULMONARY: No respiratory distress, breathing is nonlabored, equal and clear breath sounds
ABDOMEN: Soft and nontender with no peritoneal signs
NEUROLOGIC: The patient is not oriented to month or place, strength is equal in all extremities
EXTREMITIES: Moves all extremities equally, no tenderness, no edema
PYSCHIATRIC: Very limited historian, poor insight and judgment
NUMBER AND COMPLEXITY OF PROBLEMS ADDRESSED AT THE ENCOUNTER
� Chronic conditions affecting care: 'Memory loss', high blood pressure, hyperlipidemia, IBS
� Acute Exacerbation and/or Progression of Chronic Illness: This is an acute problem
� Differential Diagnosis includes: Hypercalcemia related to medication use, malignancy unlikely, PTH levels checked last admission
AMOUNT AND/OR COMPLEXITY OF DATA TO BE REVIEWED AND ANALYZED
� I performed an independent evaluation of and my interpretation is:
EKG: Sinus 80, QTc 408 ms, first-degree AV block, borderline LVH
CT:
X-rays:
Laboratory Studies: CBC unremarkable, calcium 13.2
Other:
� Review of other/old records: The patient was admitted here from December 04 through December 09, 2024. She was initially here with very high blood pressure but then was found to have a stroke and received TNK (presented with left arm
weakness and mild left facial droop) she was discharged to [facility]. She was found to be hypercalcemic last admission and has history of osteoporosis and has been getting timeless (PTH analog)
� Clinical information was obtained by an independent historian: I spoke to daughter at bedside
� Prescriptions/Medications Considered but not given:
� Further testing considered but not performed:
RISK OF COMPLICATIONS AND/OR MORBIDITY OR MORTALITY OF PATIENT MANAGEMENT
� Social determinants of health affecting care: Has been a [facility]
� Discussion with other providers: Dr. Mccullough for admission
� Escalation of care including admission/observation vs risk of discharge considered: The patient's calcium level is now worse than prior. Daughter states that she has had poor cognitive function since the beginning of this year
and currently she is not oriented to month or place. She has not been diagnosed with dementia in the past. I do question if the calcium is contributing to her cognitive dysfunction. Recommend the patient stay in the hospital for further
evaluation and management.
ANY OTHER UPDATES:
Phy Exam
Physical Exam
Physical Exam:
See HPI
Course
Orders/Labs/Results
Orders:
Orders
12/21/24 18:49
Electrocardiogram (*1) Urgent
Reason for Study: Other
Other Reason for Exam: high calcium
EKG- Treatment ONCE
12/21/24 19:02
Complete Blood Count/With Diff Urgent
Comprehensive Metabolic Panel Urgent
Phosphorus Urgent
12/21/24 19:25
0.9% Sodium Chloride 1000 ml [Nss] 1,000 ml IV BOLUS
12/21/24 20:44
Intact PTH Includes Calcium Urgent
12/21/24 20:45
Add On- LAB Urgent
Tests Added?: phos
Urine Calcium Routine
Urine Creatinine Routine
Abnormal Lab Results
12/21/24
19:02
RBC 4.17 L 10^6/uL
(4.20-5.40)
MCH 33.1 H pg
(27.0-31.0)
MPV 11.4 H fL
(7.4-10.4)
Absolute Monos (auto) 1.0 H 10^3/uL
(0.1-0.6)
Lymphocytes % 20.2 L %
(20.5-51.1)
Monocytes % 12.5 H %
(1.7-9.3)
Eosinophils % 7.0 H %
(0-6)
Carbon Dioxide 33 H mmol/L
(22-30)
BUN 31 H mg/dl
(7-17)
Glucose 110 H mg/dl
(70-99)
Calcium 13.2 H* mg/dl
(8.4-10.2)
12/21/24 19:02
12/21/24 19:02
Vital Signs
Initial and Last Documented VS:
Initial Vital Signs
Temp Pulse Resp BP Pulse Ox
37.1 C 84 22 176/93 98
12/21/24 18:41 12/21/24 18:41 12/21/24 18:41 12/21/24 18:41 12/21/24 18:41
Last Documented Vital Signs
Temp Pulse Resp BP Pulse Ox
37.1 C 84 22 176/93 98
12/21/24 18:41 12/21/24 18:41 12/21/24 18:41 12/21/24 18:41 12/21/24 18:41
*Critical Care Note
Total Time (30-74mins, 75-104mins- exclusive of procedures): Not Applicable
ED Attending Note
-
Portions of this chart may have been created with voice recognition software.� Occasional wrong word or��sound alike� substitutions may have occurred due to the inherent limitations of voice recognition software.
Discharge Plan
Departure
Patient Disposition: Admit
Date of Disposition: 12/21/24
Time of Disposition: 19:48
Presentation/result/management discussed w/ accepting MD/DO: Hospitalist
Discharge Problem:
Hypercalcemia
Prescriptions:
No Action
therapeutic multivitamin Tablet
1 tab PO DAILY@1200
lactase [Lactaid] 3,000 unit Tablet
3,000 unit PO QPM
cyclosporine [Restasis] 0.05 % Dropperette
1 drp BOTH EYES Q12
sennosides-docusate sodium [Stool Softener-Stimulant Laxat] 8.6-50 mg Tablet
1 tab PO BIDPRN PRN (Reason: constipation) Qty: 60 0RF
nebivolol 5 mg Tablet
5 mg PO HS
cetirizine 10 mg Tablet
10 mg PO DAILYPRN PRN (Reason: allergies)
atorvastatin 40 mg Tablet
40 mg PO QPM Qty: 0 0RF
acetaminophen 325 mg Tablet
650 mg PO Q6HPRN PRN (Reason: mild pain/ fever>100.5F) Qty: 0 0RF
lidocaine 4 % Adhesive Patch,Medicated
1 patch topical DAILY Qty: 0 0RF
aspirin 81 mg Tablet,Delayed Release (Dr/Ec)
81 mg PO DAILY Qty: 0 0RF
amlodipine 10 mg Tablet
10 mg PO DAILY Qty: 0 0RF
Referrals:
Brien Booth DO [Family Provider] -
Interventions
Interventions:
*Risk Screen - Suicide Last Done: 12/21/24 18:47
*Neglect/Abuse Screening Last Done: 12/21/24 18:47
*ED- Fall Risk Assessment Last Done: 12/21/24 18:48
Discharge Date and Time
Print Language: URDU
[2024-12-21 19:36] LABS: ALT (SGPT) 30 U/L (0-35); AST (SGOT) 31 U/L (14-36); Albumin 3.6 g/dl (3.5-5.0); Alkaline Phosphatase 95 U/L (38-126); Blood Urea Nitrogen 31 mg/dl (7-17); Calcium 13.2 mg/dl (8.4-10.2); Carbon Dioxide 33 mmol/L (22-30); Chloride 99 mmol/L (98-107); Estimated Creatinine Clearance 37 ml/min; Glucose 110 mg/dl (70-99); Potassium 4.1 mmol/L (3.5-5.1); Sodium 139 mmol/L (135-145); Total Bilirubin 1.1 mg/dl (0.2-1.3); Total Protein 6.9 g/dl (6.3-8.2); eGFR 54.87
[2024-12-21] MEDS: NSS 1000 IV (19:50)
[2024-12-21 20:00] VITALS: BP 164/76
[2024-12-21 20:20] VITALS: BP 168/84
--- NOTE | 2024-12-21 20:24 | HPS.HSE ---
Family Physician
-
Family Physician: Brien Booth
Chief Complaint
-
abnormal labs
History of Present Illness
Patient is a 84-year-old female with past medical history significant for hypertension, hyperlipidemia, arthritis, diverticulosis and IBS who presented to [facility] for evaluation of abnormal out patient labs. Patient with recent hospitalization for
high blood pressure with stroke and TNK, she was found to be hypercalcemic last admission. Patient has been at [facility] since previous discharge. Daughter reported that patient has had increasing memory impairment over the last several months.
Medical History
Past Medical History
Past Medical History: Reports HTN, Hypercholesterolemia and Other (Arthritis, glaucoma, stress and urge incontinence, glaucoma)
Additional Past Medical History:
memory impairment
HTN
HLD
IBS
diverticulitis
arthritis
Osteoporosis
Glaucoma
spinal fractures
Past Surgical History: Reports Other
Additional Past Surgical History:
Hysterectomy
Left lumpectomy
Cataract extraction
[place] teeth extraction
Prior history of colonoscopy
Social History
Tobacco: Non-smoker
Alcohol: None
Drug: None
Personal: Single
Living: With Family
Employment: Retired
Family History
Family History: Other (Father of gastric cancer mother is unknown)
Allergies / Home Medications
Allergies reflects when Allergies were last updated in [employer].
Home Medications with original date entered in [employer]
Allergy/Medication List:
Allergies
Allergy/AdvReac Type Severity Reaction Status Date / Time
gabapentin Allergy Rash/macular Verified 12/21/24 18:47
rash upper
back and
face
lactose Allergy abd pain Verified 12/21/24 18:47
and
diarrhea
Penicillins Allergy Rash Verified 12/21/24 18:47
Sulfa (Sulfonamide Allergy Rash Verified 12/21/24 18:47
Antibiotics)
Home Medications
cyclosporine 0.05 % eye drops in a dropperette (Restasis) 1 drp BOTH EYES Q12 Eye Condition 01/25/24
lactase 3,000 unit tablet (Lactaid) 3,000 unit PO QPM Supplement 01/25/24
therapeutic multivitamin 1 tab PO DAILY@1200 Supplement 01/25/24
sennosides 8.6 mg-docusate sodium 50 mg tablet (Stool Softener-Stimulant Laxative) 1 tab PO BIDPRN PRN constipation #60 tabs 01/31/24
cetirizine 10 mg tablet 10 mg PO DAILYPRN PRN allergies 12/04/24
acetaminophen 325 mg tablet 650 mg (2 x 325 mg) PO Q6HPRN PRN mild pain/ fever>100.5F #0 tabs 12/09/24
amlodipine 10 mg tablet 10 mg PO DAILY #0 tabs 12/09/24
aspirin 81 mg tablet,delayed release 81 mg PO DAILY #0 tabs 12/09/24
atorvastatin 40 mg tablet 40 mg PO QPM #0 tabs 12/09/24
lidocaine 4 % topical patch 1 patch topical DAILY #0 ea 12/09/24
emollient (Vanicream topical) applic topical 12/21/24
metoprolol tartrate 25 mg tablet 25 mg PO BID 12/21/24
Review of Systems
-
History Source: Patient
Constitutional: Reports No Symptoms
EENT: Reports No Symptoms
Respiratory: Reports No Symptoms
Cardiac: Reports No Symptoms
Abdomen/GI: Reports No Symptoms
: Reports No Symptoms
Musculoskeletal: Reports No Symptoms
Skin: Reports No Symptoms
Neurological: Reports No Symptoms
Endocrine: Reports No Symptoms
Hematologic/Lymphatic: Reports No Symptoms
Psych: Reports No Symptoms
Physical Exam
Vital Signs
Vital Signs
Temp Pulse Resp BP Pulse Ox
98.7 F 84 22 176/93 98
12/21/24 18:41 12/21/24 18:41 12/21/24 18:41 12/21/24 18:41 12/21/24 18:41
Physical Exam
General: Well Developed, Well Nourished, No Apparent Distress, Comfortable and Conversant
HEENT: NormoCephalic, Moist mucous membranes, Atraumatic, Nose Appears Normal and Ears Appear Normal
Respiratory: Clear and Non Labored Respirations
Cardiac: S1/S2, Regular Rhythm and Murmur
Breast: Deferred by me
GI: Soft, Non Tender, Non Distended and Normal Bowel Sounds; No Organomegaly
Rectal: Deferred by Provider
Genito-urinary: Deferred by me
Musculoskeletal: No Clubbing, No Cyanosis and No Edema
Skin: No Rash
Neuro: Awake, Alert and Nonfocal/grossly intact
Psych: Calm
Laboratory Results
-
12/21/24 19:02
12/21/24 19:02
Laboratory Results
Total Bilirubin 1.1 mg/dl (0.2-1.3) 12/21/24 19:02
AST 31 U/L (14-36) 12/21/24 19:02
ALT 30 U/L (0-35) 12/21/24 19:02
Alkaline Phosphatase 95 U/L (38-126) 12/21/24 19:02
Data Reviewed
-
Medical Tests (Nuc Med, Echo, EKG etc): Report Reviewed by me (EKG: NORMAL SINUS RHYTHM POSSIBLE LEFT ATRIAL ENLARGEMENT LEFT VENTRICULAR HYPERTROPHY ( R in aVL , Nahid product , Romhilt-Archibald ) ANTEROSEPTAL INFARCT (CITED ON OR BEFORE
26-JAN-2024))
Lab Data: Labs Reviewed by me (Calcium 13.2)
Impression/Plan
-
IMPRESSION/PLAN:
#hypercalcemic
Calcium 13.2
EKG: NORMAL SINUS RHYTHM
POSSIBLE LEFT ATRIAL ENLARGEMENT
LEFT VENTRICULAR HYPERTROPHY ( R in aVL , Otis product , Romhilt-Archibald )
ANTEROSEPTAL INFARCT (CITED ON OR BEFORE 26-JAN-2024)
- Admit to telemetry
- NSS 125cc/hr
- check ionized calcium and magnesium in morning
- Consult Nephrology
- IV Pamidronate
#hypertension
- continue amlodipine and metoprolol
#hyperlipidemia
- continue atorvastatin
#arthritis
- continue lidocaine patch
#diverticulosis
#IBS
- continue lactase
Code status: full code
DVT prophylaxis: Heparin Sq
--- NOTE | 2024-12-21 20:53 | W.PN.UPDATE ---
Update Note
Progress Note Update
Patient seen in conjunction with KAREN. I agree with the examination and physical. I concur with assessment and plan unless stated otherwise.
This is an 84-year-old female with past medical history significant for CVA status post TNK, hypertension, osteoporosis for which she is on Tymlos complicated by hypercalcemia in the setting of additional calcium supplements who was recently
admitted here and then discharged recently. Patient has been off his Tymlos since 09 December. She had a routine blood work done today and was found to be hypercalcemia with a calcium of 12.8 in outpatient setting and she was sent to the emergency
department.
For me the patient denied any acute symptoms. She says she is not having any headache. She denies any abdominal pain. She denies any cramps nausea vomiting. She is unaware of her current medication regimen. She denies feeling dizzy or
lightheaded. She denies feeling thirsty. She denies any polyuria.
In the emergency department her labs are notable for a calcium of 13.2 with albumin of 3.3. Electrolytes are otherwise unremarkable. ECG shows a normal sinus rhythm at a rate of [address] or T wave changes and no interval
abnormalities. She was hypertensive to the 160s systolic but otherwise vital signs are stable. CBC was unremarkable.
Assessment and plan
Patient here coming in with moderate hypercalcemia without acute symptoms or ECG changes. She has had hypercalcemia in the past which was managed with discontinuation of calcium supplementation as well as discontinuation of Tymlos. Calcium is now
even more elevated compared to previous admission. It is 13.2. She is without acute symptoms attributed to the hypercalcemia. Normal renal function. She had suppressed PTH last time.
- admit to med/surg observation
- check ionized calcium in am
- check ipth, vit d, phosphate level, urine calcium excretion to eval for parathyroid driven hypercalcemia.
- IV NS at 125 ml/hr, no h/o CHF
- start pamidronate
- nephrology consultation.
DVT PPX - lovenox sq
Code status - Full code pending further d/w family
[2024-12-21 21:00] VITALS: BP 149/70
[2024-12-21 21:24] LABS: Phosphorus 4.1 mg/dl (2.5-4.5)
[2024-12-21 22:00] VITALS: BP 165/92
[2024-12-21 22:48] LABS: Calcium 12.9 mg/dl (8.4-10.2)
[2024-12-22] VITALS (9 sets, daily range): BP systolic 142–188; BP diastolic 61–118; PULSE 84; O2SAT 97; BMI 19.8
[2024-12-22] MEDS: AREDIA 280 MG IV (00:40)
[2024-12-22] MEDS: NSS 1000 IV ×3 (00:40→17:32)
[2024-12-22 01:29] LABS: Urine Calcium 12.9 mg/dl
[2024-12-22] MEDS: RESTASIS 0.05% OPHTHALMIC EMULSION 1 DROPS BOTH EYES ×2 (07:43→20:10)
[2024-12-22] MEDS: LOPRESSOR 25 MG PO ×2 (07:44→20:11)
[2024-12-22] MEDS: NORVASC 10 MG PO (07:44)
[2024-12-22] MEDS: ASPIR LOW (ENTERIC COATED) 81 MG PO (07:44)
[2024-12-22 08:13] LABS: Blood Urea Nitrogen 24 mg/dl (7-17); Carbon Dioxide 31 mmol/L (22-30); Chloride 106 mmol/L (98-107); Estimated Creatinine Clearance 41 ml/min; Glucose 98 mg/dl (70-99); Magnesium 1.4 mg/dl (1.6-2.3); Potassium 3.6 mmol/L (3.5-5.1); Sodium 144 mmol/L (135-145); eGFR > 60.00
[2024-12-22 08:29] LABS: Vitamin D, 25-OH*** 56.4 ng/mL (30-80)
[2024-12-22] MEDS: MAGNESIUM SULFATE 100 IV (09:15)
--- NOTE | 2024-12-22 11:28 | W.CON.NEPH ---
Consultation
-
Date/Time Consultation Requested: 12/22/2024 7:00 AM
Date/Time Consultation Performed: 12/22/2024 11:51 AM
Requesting Provider: Dr. Wing
Performing Provider: Dr. Fatima
Reason for Consultation: Hypercalcemia
Medical History
-
Chief Complaint: Hypercalcemia
History of Present Illness:
The patient is an 84-year-old female with a history of hypertension maintained on amlodipine and metoprolol. She has a history of dyslipidemia maintained on statin therapy. She has a history of IBS and is maintained on laxatives as needed. The
patient is chronically maintained on Tymlos for her osteoporosis which has potentiated hypercalcemia in the past. She had been hospitalized earlier this month with hypercalcemia at that time and her Tymlos was discontinued on December 09. On routine
blood work yesterday the patient was found to have a calcium of 12.8 and she was sent to the emergency room department for further evaluation. Of note the patient was hypertensive in the 160 systolic range on presentation. Previous intact PTH is
obtained from prior admission were appropriately suppressed. Pamidronate's and IV fluids were given for her hypercalcemia and nephrology was consulted.
Past Medical History
Osteoporosis
Hypertension
Dyslipidemia
History of stroke
Cognitive impairment
Arthritis
Osteoporosis
Spinal fracture
Hysterectomy
Left lumpectomy
Glaucoma
IBS
History of diverticulitis
Social History
Tobacco: Non-Smoker
Alcohol: None
Drug: None
Family History
No chronic kidney disease
Allergies / Home Medications
Allergy/AdvReac Type Severity Reaction Status Date / Time
gabapentin Allergy Rash/macular Verified 12/21/24 18:47
rash upper
back and
face
lactose Allergy abd pain Verified 12/21/24 18:47
and
diarrhea
Penicillins Allergy Rash Verified 12/21/24 18:47
Sulfa (Sulfonamide Allergy Rash Verified 12/21/24 18:47
Antibiotics)
�Medication �Instructions �Recorded �Confirmed �Type
cyclosporine 0.05 % eye drops in a 1 drp BOTH EYES Q12 Eye Condition 01/25/24 12/21/24 History
dropperette (Restasis)
lactase 3,000 unit tablet (Lactaid) 3,000 unit PO QPM Supplement 01/25/24 12/21/24 History
therapeutic multivitamin 1 tab PO DAILY@1200 Supplement 01/25/24 12/21/24 History
sennosides 8.6 mg-docusate sodium 1 tab PO BIDPRN PRN constipation 01/31/24 12/21/24 Rx
50 mg tablet (Stool #60 tabs
Softener-Stimulant Laxative)
cetirizine 10 mg tablet 10 mg PO DAILYPRN PRN allergies 12/04/24 12/21/24 History
acetaminophen 325 mg tablet 650 mg (2 x 325 mg) PO Q6HPRN PRN 12/09/24 12/21/24 Rx
mild pain/ fever>100.5F #0 tabs
amlodipine 10 mg tablet 10 mg PO DAILY #0 tabs 12/09/24 12/21/24 Rx
aspirin 81 mg tablet,delayed 81 mg PO DAILY #0 tabs 12/09/24 12/21/24 Rx
release
atorvastatin 40 mg tablet 40 mg PO QPM #0 tabs 12/09/24 12/21/24 Rx
lidocaine 4 % topical patch 1 patch topical DAILY #0 ea 12/09/24 12/21/24 Rx
emollient (Vanicream topical) applic topical 12/21/24 History
metoprolol tartrate 25 mg tablet 25 mg PO BID 12/21/24 12/21/24 History
Review of Systems
-
History Source: Patient
All other systems: Negative unless noted
Constitutional: No Symptoms
EENT: No Symptoms
Respiratory: No Symptoms
Cardiac: No Symptoms
Abdomen/GI: No Symptoms
: No Symptoms
Musculoskeletal: No Symptoms
Skin: No Symptoms
Neurological: No Symptoms
Endocrine: No Symptoms
Hematologic/Lymphatic: No Symptoms
Physical Exam
Vital Signs
Vital Signs
Temp Pulse Resp BP Pulse Ox
98.2 F 68 17 169/83 96
12/22/24 10:00 12/22/24 10:00 12/22/24 10:00 12/22/24 10:00 12/22/24 10:00
Lab Results
12/21/24 19:02
12/22/24 07:29
WBC 7.6 10^3/uL (4.8-10.8) 12/21/24 19:02
RBC 4.17 10^6/uL (4.20-5.40) L 12/21/24 19:02
Hgb 13.8 g/dL (12.0-16.0) 12/21/24 19:02
Hct 38.3 % (37.0-47.0) 12/21/24 19:02
Plt Count 193 10^3/uL (130-400) 12/21/24 19:02
Sodium 144 mmol/L (135-145) 12/22/24 07:29
Potassium 3.6 mmol/L (3.5-5.1) 12/22/24 07:29
Chloride 106 mmol/L (98-107) 12/22/24 07:29
Carbon Dioxide 31 mmol/L (22-30) H 12/22/24 07:29
BUN 24 mg/dl (7-17) H 12/22/24 07:29
Creatinine 0.9 mg/dL (0.6-1.0) 12/22/24 07:
eGFR > 60.00 12/22/24 07:29
Glucose 98 mg/dl (70-99) 12/22/24 07:29
Calcium 13.0 mg/dl (8.4-10.2) H 12/22/24 07:
Phosphorus 4.1 mg/dl (2.5-4.5) 12/21/24 19:02
Albumin 3.6 g/dl (3.5-5.0) 12/21/24 19:02
Physical Exam
General: AOx3, Nontoxic , NAD
HEENT: PERRL, EOMI, Anicteric, Conjunctivae Clear, Ear/Nose Intact, Hearing Normal, Oropharynx Clear/Moist, Dentition Intact, Facial Symmetry, Neck Supple, Neck: Trachea Midline, No JVD and No Thyromegaly, no Bruits
Respiratory: Clear to auscultation bilaterally with normal lung exersion
Cardiac: S1/S2 and Regular Rate/Rhythm with 3/6 [place]
Breast: Deferred by me
Abdomen: Soft, Nontender, Nondistended, Normal Bowel Sounds and No Hepatosplenomegaly
Rectal: Deferred by Provider
Genito-urinary: No Costovertebral Tenderness
Extremities: No Clubbing, No Cyanosis and No Edema
Skin: No Rash or open lesions
Neuro: Nonfocal/Grossly Intact, CN II-XII (Intact) and Strength (Musculoskeletal exam 5 out of 5 both upper and lower extremities)
Hematologic/Lymphatic: No Cervical Lymphadenopathy, No Submandibular Lymphadenopathy and No Supraclavicular Lymphadenopathy
Psych: Mood/affect pleasant, Insight/judgement good and Appropriate
Vascular: plus 2 pedal and radial pulses
Data Reviewed
-
Medical Tests (Nuc Med, Echo etc): Other (EKG report personally reviewed showed normal sinus rhythm at 80 bpm with anterior septal old infarct)
Labs: Labs Reviewed by me (BMP CBC)
Old Records: Reviewed (Old labs reviewed in EMR from date 12/09/2024 calcium 10.1, PTH level from date 12/04/2024 5.9)
Assessment/Plan
-
Impression:
Hypercalcemia
Hypertension
Dyslipidemia
Osteoarthritis
IBS
History of stroke
Plan:
Hypercalcemia
- Concur with pamidronate administration and IV fluids, monitor I's and O's carefully
- Would obtain SPEP and intact PTH RP, previous PTH level earlier this month was appropriately low at less than 6, WILMER level sent, vitamin D and activated vitamin D levels obtained ,Tymlos and calcium tablets were discontinued during prior admission
weeks ago
- Strong concern for underlying malignancy
HTN:
- Maintain amlodipine and metoprolol
- Hypertension likely exacerbated by underlying hypercalcemia
[2024-12-22] MEDS: THERAGRAN 1 TABLET PO (13:30)
--- NOTE | 2024-12-22 14:33 | W.PN.HOSP.TC ---
Addendum entered and electronically signed by Rosaura Wing MD 12/22/24 17:23:
I saw and evaluated the patient independently. I reviewed the resident�s note and agree with findings and plan as documented by Dr. Diaz.
GENERAL: well developed, well nourished, female in no apparent distress
HEENT: NC/AT no O2
HEART: regular rate and rhythm, +S1, +S2
LUNGS : clear to auscultation bilaterally
ABDOM: soft, nontender, nondistended, + bowel sounds
EXT: no cyanosis, clubbing, or edema
NEUROLOGIC: forgetful but grossly intact
Hypercalcemia--unclear etiology--last admission was thought to be due to calcium gummies and Tymlos (both of which were stopped)--calcium level on admission was 13.2--apprec renal--cont IVF and pamidronate--no improvement with calcium levels--iPTH
low last admission (5.9 on 12/04/24)--rechecking iPTH, PTHrP, SPEP, WILMER level
Essential hypertension--Blood pressure is 160/76--Continue amlodipine 10 mg p.o. daily and metoprolol tartrate--Ordered hydralazine
Hypomagnesemia--replete
Hyperlipidemia--Continue atorvastatin
DVT proph-- Lovenox
code status--Full code
Original Note:
Today's Communication/Plan
-
- Continue to follow-up with nephrology
- Continue to monitor electrolytes
Assessment / Plan
Assessment / Plan
Hypercalcemia due to unspecified cause:
- Calcium level was 13.2 on admission and 13 today
- PTH is pending, to check whether this is PTH dependent or independent hypercalcemia, Vitamin D is 56.4 and normal, phosphate is 95 and normal, urine calcium is 12.9 and normal, on last admission PTH was low. Low PTH suggests PTH independent
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
-Continue IV normal saline
- Continue pamidronate which helps to decrease rate of calcium turnover in the bones
- Nephrology is following
Essential hypertension:
-Blood pressure is 160/76
- Continue amlodipine 10 mg p.o. daily and metoprolol tartrate
- Ordered hydralazine 10 mg once
Hypomagnesemia:
- Magnesium level was 1.4, repleted
- Check magnesium level in the a.m.
Hyperlipidemia:
-Continue atorvastatin
DVT prophylaxis is Lovenox 30
Full code
Anticipated Discharge: 24 - 48 hours
Subjective/Interval History
-
Date of Service: December 22, 2024
Patient is an 84-year-old female patient who presented from [facility] with a past medical history of hypertension hyperlipidemia, diverticulosis, IBS, after she had outpatient labs which showed a calcium level of 12.8. Previously she was seen for
CVA status post TNK therapy, hypertensive urgency, and hypercalcemia for which she was given IV fluids, taken off her Tymlos, taken off her calcium supplements.
Objective Data
-
Labs:
Laboratory Results
12/22/24
07:29
Sodium 144
Potassium 3.6
Chloride 106
Carbon Dioxide 31 H
BUN 24 H
Creatinine 0.9
Glucose 98
Calcium 13.0 H
Vital Signs:
Vital Signs
Temp Pulse Resp BP Pulse Ox
98.2 F 68 17 169/83 96
12/22/24 10:00 12/22/24 10:00 12/22/24 10:00 12/22/24 10:00 12/22/24 10:00
Review of Systems
-
All other systems: Reviewed and negative
Physical Exam
-
General: Well Developed and No Apparent Distress
HEENT: Normocephalic and Atraumatic
Respiratory: Clear to Auscultation
Cardiac: Regular Rhythm, S1/S2 and Murmur (Right upper sternal border)
GI: Soft, Nontender, Nondistended and Normal Bowel Sounds
Musculoskeletal: No Clubbing, No Cyanosis and No Edema
Skin: Warm
Neuro: Awake
Psych: Calm
Data Reviewed
-
Labs: Labs Reviewed by me and Discussed with Physician
--- NOTE | 2024-12-22 16:37 | CM ---
Addendum entered by Divya Chow 12/22/24 16:48:
Patient changed to INP status by physician today.
Original Note:
Patient seen at bedside with physicians. Prior to this admission patient was at [facility] as Short term patient. Previously Patient's daughter indicated that patient lives alone in an apartment at [facility]. Patient has
someone who comes in at 9am to provide patient with her morning pills and then someone comes in at 9 at night to provide patient's evening pills. [facility] caregivers come in on the weekends. They assist her with cooking, cleaning, household
chores and laundry. Patient has a rolling walker for ambulation. She has had [facility] in the past as recently as a month ago. D/C plan will be dependent on patient functional status. CM called to [facility] admissions to inquire as to patient bed
hold status. CM left regarding clarification. CM will continue to follow for discharge planning needs.
Plan: SNF; [facility] pending patient functional status; will need referral
[2024-12-22] MEDS: LACTAID 1 CAPSULE PO (17:25)
[2024-12-22] MEDS: LIPITOR 40 MG PO (17:25)
[2024-12-22] MEDS: LOVENOX 30 MG SC (17:33)
[2024-12-23] VITALS (7 sets, daily range): BP systolic 142–165; BP diastolic 73–89
[2024-12-23] MEDS: NSS 1000 IV (04:16)
[2024-12-23 07:33] LABS: Hematocrit 35.9 % (37.0-47.0); Hemoglobin 12.8 g/dL (12.0-16.0); Mean Corp Hgb Conc. 35.7 g/dL (33.0-37.0); Mean Corpuscular Hgb 32.6 pg (27.0-31.0); Mean Corpuscular Volume 91.3 fL (81.0-99.0); Mean Platelet Volume 12.7 fL (7.4-10.4); Platelet Count 134 10^3/uL (130-400); Red Blood Cell Count 3.93 10^6/uL (4.20-5.40); Red Cell Dist. Width 12.5 % (11.5-14.5); White Blood Cell Count 7.8 10^3/uL (4.8-10.8)
[2024-12-23 08:13] LABS: Blood Urea Nitrogen 23 mg/dl (7-17); Calcium 10.8 mg/dl (8.4-10.2); Carbon Dioxide 27 mmol/L (22-30); Chloride 107 mmol/L (98-107); Estimated Creatinine Clearance 46 ml/min; Glucose 86 mg/dl (70-99); Magnesium 1.8 mg/dl (1.6-2.3); Potassium 3.2 mmol/L (3.5-5.1); Sodium 144 mmol/L (135-145); eGFR > 60.00
[2024-12-23] MEDS: ASPIR LOW (ENTERIC COATED) 81 MG PO (08:59)
[2024-12-23] MEDS: NORVASC 10 MG PO (08:59)
[2024-12-23] MEDS: LOPRESSOR 25 MG PO ×2 (09:00→20:02)
[2024-12-23] MEDS: RESTASIS 0.05% OPHTHALMIC EMULSION 1 DROPS BOTH EYES ×2 (09:02→20:04)
[2024-12-23] MEDS: TYLENOL 650 MG PO ×2 (09:11→17:08)
[2024-12-23 09:42] LABS: Intact PTH 6.1 pg/ml (13.6-85.8)
--- NOTE | 2024-12-23 10:13 | W.PN.NEPH.PH ---
Today's Communication / Plan
-
Can discontinue IV fluids now that serum calcium 10.8
Follow serum calcium level
Hypercalcemia workup in process
Assessment/Plan
-
Impression:
Hypercalcemia
Hypertension
Dyslipidemia
Osteoarthritis
IBS
History of stroke
Plan:
Hypercalcemia
- Status post pamidronate administration and IV fluids, monitor I's and O's carefully
-Can DC further IV fluids today as serum calcium of 10.8
- Pending SPEP and intact PTH RP, previous PTH level earlier this month was appropriately low at less than 6, WILMER level sent, vitamin D and activated vitamin D levels obtained ,Tymlos and calcium tablets were discontinued during prior admission
weeks ago
- Strong concern for underlying malignancy
HTN:
- Maintain amlodipine and metoprolol
- Hypertension likely exacerbated by underlying hypercalcemia
-
-
Date of Service: December 23, 2024
CC / HPI / ROS
-
Chief Complaint:
Hypercalcemia
History of Present Illness:
Serum calcium down to 10.8 following IV fluids and pamidronate administration
Blood pressure remains elevated on amlodipine and metoprolol
Review of Systems:
Nonoliguric
No chest pain or shortness of breath
Labs
-
Labs:
WBC 7.8 10^3/uL (4.8-10.8) 12/23/24 07:12
RBC 3.93 10^6/uL (4.20-5.40) L 12/23/24 07:12
Hgb 12.8 g/dL (12.0-16.0) 12/23/24 07:12
Hct 35.9 % (37.0-47.0) L 12/23/24 07:12
Plt Count 134 10^3/uL (130-400) D 12/23/24 07:12
Sodium 144 mmol/L (135-145) 12/23/24 07:12
Potassium 3.2 mmol/L (3.5-5.1) L 12/23/24 07:12
Chloride 107 mmol/L (98-107) 12/23/24 07:12
Carbon Dioxide 27 mmol/L (22-30) 12/23/24 07:12
BUN 23 mg/dl (7-17) H 12/23/24 07:12
Creatinine 0.8 mg/dL (0.6-1.0) 12/23/24 07:12
eGFR > 60.00 12/23/24 07:12
Glucose 86 mg/dl (70-99) 12/23/24 07:12
Calcium 10.8 mg/dl (8.4-10.2) H D 12/23/24 07:12
Phosphorus 4.1 mg/dl (2.5-4.5) 12/21/24 19:02
Albumin 3.6 g/dl (3.5-5.0) 12/21/24 19:02
Physical Exam
-
Vital Signs:
Vital Signs
Temp Pulse Resp BP Pulse Ox
97.8 F 92 16 162/85 100
12/23/24 07:00 12/23/24 08:59 12/23/24 07:00 12/23/24 08:59 12/23/24 07:00
Cardiovascular:: Regular rate and rhythm
Respiratory:: Bilateral: CTA
Lung Excursion:: Normal
Abdomen:: Nontender and Soft
Bowel Sounds:: Normal
Extremity Edema:: None: Bilateral:
Hanks Catheter: No
[2024-12-23] MEDS: KCL 270 MEQ IV (12:17)
[2024-12-23] MEDS: SENOKOT-S 1 TABLET PO (12:19)
[2024-12-23] MEDS: THERAGRAN 1 TABLET PO (12:19)
--- NOTE | 2024-12-23 12:36 | W.PN.HOSP.TC ---
Addendum entered and electronically signed by Rosaura Wing MD 12/23/24 14:04:
I saw and evaluated the patient independently. I reviewed the resident�s note and agree with findings and plan as documented by Dr. Diaz.
GENERAL: well developed, well nourished, female in no apparent distress
HEENT: NC/AT no O2
HEART: regular rate and rhythm, +S1, +S2
LUNGS : clear to auscultation bilaterally
ABDOM: soft, nontender, nondistended, + bowel sounds
EXT: no cyanosis, clubbing, or edema
NEUROLOGIC: forgetful but grossly intact
Hypercalcemia--unclear etiology--last admission was thought to be due to calcium gummies and Tymlos (both of which were stopped)--calcium level on admission was 13.2--apprec renal--stop IVF, s/p pamidronate---iPTH low last admission (5.9 on
12/04/24)--rechecking iPTH, PTHrP, SPEP, WILMER level
Essential hypertension--Blood pressure is 160/76--Continue amlodipine 10 mg p.o. daily and metoprolol tartrate--Ordered hydralazine
Hypomagnesemia--replete
Hyperlipidemia--Continue atorvastatin
DVT proph-- Lovenox
code status--Full code
dispo--if calcium remains stable off IVF, then OK to d/c back to [facility] in AM--CM aware
Original Note:
Today's Communication/Plan
-
- F/u case managment
- Check CMP, trend electrolytes
Assessment / Plan
Assessment / Plan
Hypercalcemia due to unspecified cause:
- Calcium level was 13.2 on admission and 10.8 today, Iv fluids discontinued as calcium trending towards normal range, waiting on results of PTHrp, SPEP, WILMER,
- PTH is pending, to check whether this is PTH dependent or independent hypercalcemia, Vitamin D is 56.4 and normal, phosphate is 95 and normal, urine calcium is 12.9 and normal, on last admission PTH was low. Low PTH suggests PTH independent
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
- Continue pamidronate which helps to decrease rate of calcium turnover in the bones
- Nephrology is following
- PT/OT recommend skilled rehab
- Case management will try to find her a bed at [facility] [place] tomorrow
Hypokalemia:
- potassium is 3.2, this can possibly explain the muscle cramping she is feeling along the length of her left leg
- Repleted potassium, will check again in AM
Essential hypertension:
-Blood pressure is 160/76
- Continue amlodipine 10 mg p.o. daily and metoprolol tartrate
- Ordered hydralazine 10 mg once
Hypomagnesemia:
- resolved
Hyperlipidemia:
-Continue atorvastatin
DVT prophylaxis is Lovenox 30
Full code
Anticipated Discharge: 24 - 48 hours
Subjective/Interval History
-
Date of Service: December 23, 2024
patient is complaining of a cramping sensation along the length of her left leg and especially around her knee area since this morning.
Objective Data
-
Labs:
Laboratory Results
12/23/24
07:12
WBC 7.8
Hgb 12.8
Hct 35.9 L
Plt Count 134 D
Sodium 144
Potassium 3.2 L
Chloride 107
Carbon Dioxide 27
BUN 23 H
Creatinine 0.8
Glucose 86
Calcium 10.8 H D
Vital Signs:
Vital Signs
Temp Pulse Resp BP Pulse Ox
97.8 F 92 16 162/85 100
12/23/24 07:00 12/23/24 08:59 12/23/24 07:00 12/23/24 08:59 12/23/24 07:00
I&O
12/22/24 12/23/24 12/24/24
06:59 06:59 06:59
Intake Total 2189
Balance 2189
Review of Systems
-
All other systems: Reviewed and negative
Musculoskeletal: Reports Other (cramping along the length of her left extremity especially her knee)
Physical Exam
-
General: Well Developed and No Apparent Distress
HEENT: Normocephalic and Atraumatic
Respiratory: Clear to Auscultation
Cardiac: Regular Rhythm, S1/S2 and Murmur (Right upper sternal border)
GI: Soft, Nontender, Nondistended and Normal Bowel Sounds
Musculoskeletal: No Clubbing, No Cyanosis and No Edema
Skin: Warm
Neuro: Awake
Psych: Calm
--- NOTE | 2024-12-23 12:58 | CM ---
Referral sent to [facility] via [facility] and message to their liaison pending response.
[2024-12-23] MEDS: NSS IV (13:21)
[2024-12-23] MEDS: MAGNESIUM SULFATE 100 IV (16:54)
[2024-12-23] MEDS: LOVENOX 30 MG SC (16:56)
[2024-12-23] MEDS: LIPITOR 40 MG PO (16:56)
[2024-12-23] MEDS: LACTAID 1 CAPSULE PO (16:56)
--- NOTE | 2024-12-23 17:06 | PTCARENOTE ---
Pt c/o LLE and L knee pain. made aware.
[2024-12-23] MEDS: ATIVAN 0.25 MG PO (20:02)
--- NOTE | 2024-12-23 21:01 | PTCARENOTE ---
VAT at the bedside at shift change r/t pt complaints of pain at the IV site, receiving IV magnesium. Pt AAOx1, anxious/tearful, caregiver at the bedside refusing to allow new IV placement/continuation of IV mag until discussed with pt's daughter
Shraddha. RN spoke with Shraddha over the phone, discussed importance of completing IV infusion and importance of INT availability for telemetry ordered patients. Pt's daughter Shraddha expressed understanding, states pt's last admission pt had a similar
presentation of anxiety/paranoia and received a low dose of Ativan, requesting pt receive this now. 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 VAT contacted, responded bedside to place new INT, pt tolerated
well, IV magnesium infusing per order. Pt resting comfortably in bed, caregiver at the bedside, call hinds within reach.
[2024-12-24 03:00] VITALS: BP 167/80
[2024-12-24 07:00] VITALS: BP 174/89
[2024-12-24 07:07] LABS: Blood Urea Nitrogen 23 mg/dl (7-17); Calcium 9.6 mg/dl (8.4-10.2); Carbon Dioxide 25 mmol/L (22-30); Chloride 109 mmol/L (98-107); Estimated Creatinine Clearance 46 ml/min; Glucose 82 mg/dl (70-99); Potassium 3.8 mmol/L (3.5-5.1); Sodium 142 mmol/L (135-145); eGFR > 60.00
[2024-12-24 07:50] LABS: Angiotensin-1-converting Enzym 37 U/L (16-85)
[2024-12-24] MEDS: LOPRESSOR 25 MG PO (08:15)
[2024-12-24] MEDS: ASPIR LOW (ENTERIC COATED) 81 MG PO (08:15)
[2024-12-24] MEDS: RESTASIS 0.05% OPHTHALMIC EMULSION 1 DROPS BOTH EYES (08:18)
[2024-12-24] MEDS: NORVASC 10 MG PO (08:18)
[2024-12-24 09:41] LABS: Hematocrit 33.8 % (37.0-47.0); Hemoglobin 12.2 g/dL (12.0-16.0); Mean Corp Hgb Conc. 36.1 g/dL (33.0-37.0); Mean Corpuscular Hgb 32.7 pg (27.0-31.0); Mean Corpuscular Volume 90.6 fL (81.0-99.0); Mean Platelet Volume 12.3 fL (7.4-10.4); Platelet Count 157 10^3/uL (130-400); Red Blood Cell Count 3.73 10^6/uL (4.20-5.40); Red Cell Dist. Width 12.7 % (11.5-14.5); White Blood Cell Count 6.2 10^3/uL (4.8-10.8)
[2024-12-24 09:54] LABS: ALT (SGPT) 27 U/L (0-35); AST (SGOT) 29 U/L (14-36); Albumin 3.3 g/dl (3.5-5.0); Alkaline Phosphatase 101 U/L (38-126); Blood Urea Nitrogen 21 mg/dl (7-17); Calcium 9.6 mg/dl (8.4-10.2); Carbon Dioxide 26 mmol/L (22-30); Chloride 108 mmol/L (98-107); Estimated Creatinine Clearance 46 ml/min; Glucose 101 mg/dl (70-99); Potassium 3.6 mmol/L (3.5-5.1); Sodium 142 mmol/L (135-145); Total Bilirubin 1.3 mg/dl (0.2-1.3); Total Protein 6.3 g/dl (6.3-8.2); eGFR > 60.00
--- NOTE | 2024-12-24 10:02 | W.PN.UPDATE ---
Update Note
Progress Note Update
I saw and evaluated the patient. I reviewed the resident�s note and agree with findings and plan as documented in the resident�s note.
Pt without new complaints.
Gen: NAD, Awake and alert
Eyes: EOMI, PERRLA, no scleral icterus.
Neck: supple.
CV: RRR, +S1/S2, no m/r/g.
Resp: CTAB, no rales, wheezes, or rhonchi.
Abd: +BS, soft, NT, ND
Skin: No rashes.
Neuro: CN 2-12 intact, non-focal.
Psych: Normal mood and affect.
Hypercalcemia:
-unclear etiology
-last admission was thought to be due to calcium gummies and Tymlos (both of which were stopped)
-iPTH low last admission and this admission
-calcium level on admission was 13.2
-renal following
-s/p pamidronate
-was on IVFs which were stopped 12/23/24
-Ca now now normal
-WILMER, Vit D 25-OH normal
-PTHrp/SPEP/UPEP pending
Other problems:
Essential HTN: cont BB/Norvasc. Start Hydralazine.
Hypomagnesemia, resolved
Hyperlipidemia: cont atorvastatin
FULL/Lovenox
Medically cleared for d/c with continued work up in the outpt setting.
Total time spent on d/c = 31 min. This included today's physical exam, progress note, review of laboratory and diagnostic data, preparation of discharge documents and prescriptions, and discussions about the pt's hospital course and discharge plan
with the patient and other medical assistant prn involved in the patient's care.
--- NOTE | 2024-12-24 10:02 | W.PN.HOSP.TC ---
Today's Communication/Plan
-
- f/u case management
Assessment / Plan
Assessment / Plan
Case management found a bed for this patient today at [facility] pending a negative covid 19 test
Ordered a covid 19 test
Hypercalcemia due to unspecified cause:
- Calcium level was 13.2 on admission and 9.6 today, waiting on results of PTHrp, SPEP, WILMER
- PTH is pending, to check whether this is PTH dependent or independent hypercalcemia, Vitamin D is 56.4 and normal, phosphate is 95 and normal, urine calcium is 12.9 and normal, on last admission PTH was low. Low PTH suggests PTH independent
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
- pamidronate dc'd as calcium level is near normal levels
- Nephrology is following
- PT/OT recommend skilled rehab
Hypokalemia:
- potassium is 3.6 today, cramping in leg resolved
- resolved
Essential hypertension:
-Blood pressure is 174/89
- Continue amlodipine 10 mg p.o. daily and metoprolol tartrate
- Ordered hydralazine 10 mg once
Hypomagnesemia:
- resolved
Hyperlipidemia:
-Continue atorvastatin
DVT prophylaxis is Lovenox 30
Full code
Anticipated Discharge: Today
Subjective/Interval History
-
Date of Service: December 24, 2024
Patient has no acute complaints.
Objective Data
-
Labs:
Laboratory Results
12/24/24 12/24/24
04:35 09:34
WBC 6.2
Hgb 12.2
Hct 33.8 L
Plt Count 157
Sodium 142 142
Potassium 3.8 3.6
Chloride 109 H 108 H
Carbon Dioxide 25 26
BUN 23 H 21 H
Creatinine 0.8 0.8
Glucose 82 101 H
Calcium 9.6 9.6
Total Bilirubin 1.3
AST 29
ALT 27
Alkaline Phosphatase 101
Vital Signs:
Vital Signs
Temp Pulse Resp BP Pulse Ox
98.1 F 87 16 174/89 98
12/24/24 07:00 12/24/24 08:15 12/24/24 07:00 12/24/24 08:15 12/24/24 07:00
I&O
12/23/24 12/24/24 12/25/24
06:59 06:59 06:59
Intake Total 2189
Balance 2189
Review of Systems
-
All other systems: Reviewed and negative
Physical Exam
-
General: Well Developed and No Apparent Distress
HEENT: Normocephalic and Atraumatic
Respiratory: Clear to Auscultation
Cardiac: Regular Rhythm, S1/S2 and Murmur (Right upper sternal border)
GI: Soft, Nontender, Nondistended and Normal Bowel Sounds
Musculoskeletal: No Clubbing, No Cyanosis and No Edema
Skin: Warm and Dry
Neuro: Awake, Alert, Oriented and AO x 3
Psych: Calm
Data Reviewed
-
Labs: Labs Reviewed by me and Discussed with Physician
--- NOTE | 2024-12-24 10:15 | CM ---
Addendum entered by Donna Hernández 12/24/24 13:58:
Facility notified of ambulance picking belt operator time
Met with patient; IMM benefit explained; form signed @ [id number]
Addendum entered by Donna Hernández 12/24/24 10:26:
ambulance picking belt operator scheduled for 1530
Original Note:
Plan: Return to [facility] today via ambulance; Bed on hold
Facility requested a Covid-19 test; Attending notified
Report # [phone]
--- NOTE | 2024-12-24 11:14 | W.PN.NEPH.PH ---
Today's Communication / Plan
-
stable
Assessment/Plan
-
Impression:
Hypercalcemia
Hypertension
Dyslipidemia
Osteoarthritis
IBS
History of stroke
Plan:
Hypercalcemia
- Status post pamidronate administration and IV fluids, monitor I's and O's carefully
-serum calcium now normalized
- Pending SPEP and intact PTH RP, previous PTH level earlier this month was appropriately low at less than 6, WILMER level sent, vitamin D and activated vitamin D levels obtained ,Tymlos and calcium tablets were discontinued during prior admission
weeks ago
- Strong concern for underlying malignancy although previous PTH rp earlier this month was not abnormal
HTN:
- Maintain amlodipine and metoprolol
- Hypertension likely exacerbated by underlying hypercalcemia
-
-
Date of Service: December 24, 2024
CC / HPI / ROS
-
Chief Complaint:
Hypercalcemia
History of Present Illness:
Serum calcium down to 9.6 following IV fluids and pamidronate administration
Blood pressure remains elevated on amlodipine and metoprolol
Review of Systems:
Nonoliguric
No chest pain or shortness of breath
Labs
-
Labs:
WBC 6.2 10^3/uL (4.8-10.8) 12/24/24 09:34
RBC 3.73 10^6/uL (4.20-5.40) L 12/24/24 09:34
Hgb 12.2 g/dL (12.0-16.0) 12/24/24 09:34
Hct 33.8 % (37.0-47.0) L 12/24/24 09:34
Plt Count 157 10^3/uL (130-400) 12/24/24 09:34
Sodium 142 mmol/L (135-145) 12/24/24 09:34
Potassium 3.6 mmol/L (3.5-5.1) 12/24/24 09:34
Chloride 108 mmol/L (98-107) H 12/24/24 09:34
Carbon Dioxide 26 mmol/L (22-30) 12/24/24 09:34
BUN 21 mg/dl (7-17) H 12/24/24 09:34
Creatinine 0.8 mg/dL (0.6-1.0) 12/24/24 09:34
eGFR > 60.00 12/24/24 09:34
Glucose 101 mg/dl (70-99) H 12/24/24 09:34
Calcium 9.6 mg/dl (8.4-10.2) 12/24/24 09:34
Phosphorus 4.1 mg/dl (2.5-4.5) 12/21/24 19:02
Albumin 3.3 g/dl (3.5-5.0) L 12/24/24 09:34
Physical Exam
-
Vital Signs:
Vital Signs
Temp Pulse Resp BP Pulse Ox
98.1 F 75 16 159/70 98
12/24/24 07:00 12/24/24 10:18 12/24/24 07:00 12/24/24 10:18 12/24/24 07:00
[2024-12-24 11:30] VITALS: BP 154/67
[2024-12-24 11:43] LABS: COVID-19 Antigen Negative (Negative)
[2024-12-24] MEDS: THERAGRAN 1 TABLET PO (12:39)
--- NOTE | 2024-12-24 12:57 | W.DCSUMMARY ---
Discharge Summary
Discharge Data
Date of Admission: 12/22/24
Date of Discharge: 12/24/24
-
Pending Results: Yes
Additional Pending Results:
PTHrP, SPEP, WILMER
Hospital Course
Discharging Physician : Dr. Kan Tim and Dr. Celestino Diaz
Disposition : SNF
Primary care physician : Dr. Booth
Principal Discharge diagnosis : Hypercalcemia due to an unspecified cause, Hypokalemia, Hypomagnesemia,
Chronic Discharge diagnosis : Hyperlipidemia, essential Hypertension
Hospital Course : Patient is a 84-year-old female with past medical history significant for hypertension, hyperlipidemia, arthritis, diverticulosis, IBS, and hypercalcemia who presented to ED for evaluation of abnormal out patient labs with a
calcium level of 13.2 . Patient with recent hospitalization on 12/02/24 for high blood pressure with stroke and TNK, she was found to be hypercalcemic last admission and was discontinued on Tymlos and calcium supplements. Patient has been at [facility] since previous discharge.
Problem #1: Hypercalcemia due to unspecified cause---calcium level was 13.2 on admission. Patient did not experience any lethargy, weakness, confusion. Patient was started on IV fluids, pamidronate was started, hydrochlorothiazide was stopped and
nephrology were consulted. Her vitamin D is normal, phosphate is normal, urine calcium is normal, PTH is low. There is a strong suspicion for underlying malignancy as per nephrology. On discharge the calcium level was 9.6, IV fluids were stopped,
and pamidronate/hydrochlorothiazide was discontinued. Nephrology also ordered parathyroid hormone related peptide, WILMER, SPEP which are still pending and will be sent out. CMP to be done in 1 week with PCP.
Problem #2: Essential hypertension---patient is continued on her home medication of amlodipine 10 mg and metoprolol tartrate during hospital stay, however her blood pressure has been running high at times during her admission. Intermittently
ordered hydralazine 10 mg IV as needed during hospital course to control blood pressure. No headache, blurry vision, weakness, lightheadedness. On discharge added hydralazine to be taken at facility, 25 Mg p.o. 3 times daily to help further
control blood pressure. Please address this at PCP follow-up in 1 week.
Problem #3: Hypokalemia/hypomagnesemia---repleted and normal on discharge.
Problem #4 hyperlipidemia---continue on discharge
Important imaging findings :
EKG on:
NORMAL SINUS RHYTHM
POSSIBLE LEFT ATRIAL ENLARGEMENT
LEFT VENTRICULAR HYPERTROPHY ( R in aVL , [place] product , Romhilt-Archibald )
ANTEROSEPTAL INFARCT (CITED ON OR BEFORE 26-JAN-2024)
ABNORMAL ECG
WHEN COMPARED WITH ECG OF 04-DEC-2024 13:25,
NO SIGNIFICANT CHANGE WAS FOUND
Procedure findings :
Discharge Plan
-
Patient Disposition: Longterm/SNF
Discharge Diagnosis/Procedures: Hypercalcemia of unclear etiology, hypokalemia, essential hypertension, hypomagnesemia, hyperlipidemia
Condition: Fair
Diet: Low Cholesterol
Activity: As tolerated
Driving Restrictions: Not until seen by your Dr
Bathing Restrictions: None
Blood Work: CBC in 1 week with PCP
CMP in 1 week with PCP
Activity Restrictions/Additional Instructions:
PTHrP, SPEP, WILMER labs are pending
Referrals:
Brien Booth, DO [Family Provider] - in less than 1 week
Additional Discharge Medication Instructions: Hydralazine 25 mg PO TID added to better control hypertension
Prescriptions:
New
hydralazine 25 mg Tablet
25 mg PO TID Qty: 60 0RF
Continued
therapeutic multivitamin Tablet
1 tab PO DAILY@1200
lactase [Lactaid] 3,000 unit Tablet
3,000 unit PO QPM
cyclosporine [Restasis] 0.05 % Dropperette
1 drp BOTH EYES Q12
sennosides-docusate sodium [Stool Softener-Stimulant Laxat] 8.6-50 mg Tablet
1 tab PO BIDPRN PRN (Reason: constipation) Qty: 60 0RF
cetirizine 10 mg Tablet
10 mg PO DAILYPRN PRN (Reason: allergies)
atorvastatin 40 mg Tablet
40 mg PO QPM Qty: 0 0RF
acetaminophen 325 mg Tablet
650 mg PO Q6HPRN PRN (Reason: mild pain/ fever>100.5F) Qty: 0 0RF
lidocaine 4 % Adhesive Patch,Medicated
1 patch topical DAILY Qty: 0 0RF
aspirin 81 mg Tablet,Delayed Release (Dr/Ec)
81 mg PO DAILY Qty: 0 0RF
amlodipine 10 mg Tablet
10 mg PO DAILY Qty: 0 0RF
emollient [Vanicream] Cream
TOPICAL
metoprolol tartrate 25 mg Tablet
25 mg PO BID
Discharge Orders:
Discharge Patient (As Directed); Ordered 12/24/24
Ordered By: Kan Tim
Discharge Date and Time
Print Language: AMHARIC
[2024-12-24] MEDS: LACTAID 1 CAPSULE PO (15:12)
[2024-12-24] MEDS: APRESOLINE 25 MG PO (15:12)
[2024-12-24 15:36] VITALS: BP 122/86
[2024-12-27 01:08] LABS: Albumin 3.22 g/dL (3.75-5.01); Alpha 1 Globulin 0.36 g/dL (0.19-0.46); Alpha 2 Globulin 0.65 g/dL (0.48-1.05); SPEP IFE Reflex Not Done; Total Protein-Electrophoresis 6.5 g/dL (6.3-8.2)
== END 2024-12-24 15:39 | DRG 641 ==
LOC: 3 WEST ACU 11:20
PROVIDERS: Nurse Practitioner Family; ADMITTING PHYSICIAN Internal Medicine; ATTENDING PHYSICIAN Internal Medicine; EMERGENCY PHYSICIAN Emergency Medicine; FAMILY PHYSICIAN Family Medicine; OTHER PHYSICIAN Specialist
DX: E83.52 Hypercalcemia (principal); E78.00 Pure hypercholesterolemia, unspecified; E87.6 Hypokalemia; E83.42 Hypomagnesemia; I10 Essential (primary) hypertension; H40.9 Unspecified glaucoma; K58.9 Irritable bowel syndrome, unspecified; K57.30 Diverticulosis of large intestine without perforation or abscess without bleeding; M19.90 Unspecified osteoarthritis, unspecified site; M81.0 Age-related osteoporosis without current pathological fracture; Z90.710 Acquired absence of both cervix and uterus; Z88.2 Allergy status to sulfonamides; Z88.0 Allergy status to penicillin; Z86.73 Personal history of transient ischemic attack (TIA), and cerebral infarction without residual deficits; Z79.899 Other long term (current) drug therapy; Z79.82 Long term (current) use of aspirin; Z11.52 Encounter for screening for COVID-19
CPT/HCPCS: 80048; 80053; 82164; 82306; 82340; 82570; 83519; 83735; 83970; 84100; 84155; 84165; 85025; 85027; 87811; 93005; 96360; 97162; 97530; 99285; J2430

== ENCOUNTER 2024-12-27 21:49 | Observation (INO) | payer MEDICARE, BC, SELFPAY ==
[2024-12-27] VITALS (10 sets, daily range): BP systolic 101–171; BP diastolic 43–81; BMI 20.5
[2024-12-27 16:20] LABS: % Basophils 0.9 % (0-2); % Eosinophils 8.9 % (0-6); % Immature Granulocytes 0.2 % (0-0.5); % Lymphocytes 25.3 % (20.5-51.1); % Monocytes 13.7 % (1.7-9.3); Absolute Basophils 0.1 10^3/uL (0-0.2); Absolute Eosinophils 0.6 10^3/uL (0-0.7); Absolute Lymphocytes 1.6 10^3/uL (1.2-3.4); Absolute Monocytes 0.9 10^3/uL (0.1-0.6); Absolute Neutrophils 3.3 10^3/uL (1.4-6.5); Hematocrit 32.3 % (37.0-47.0); Hemoglobin 11.2 g/dL (12.0-16.0); Mean Corp Hgb Conc. 34.7 g/dL (33.0-37.0); Mean Corpuscular Hgb 32.5 pg (27.0-31.0); Mean Corpuscular Volume 93.6 fL (81.0-99.0); Mean Platelet Volume 12.7 fL (7.4-10.4); Nucleated Red Blood Cells % 0 %; Platelet Count 153 10^3/uL (130-400); Red Blood Cell Count 3.45 10^6/uL (4.20-5.40); Red Cell Dist. Width 13.4 % (11.5-14.5); White Blood Cell Count 6.4 10^3/uL (4.8-10.8)
[2024-12-27 16:50] LABS: ALT (SGPT) 48 U/L (0-35); AST (SGOT) 44 U/L (14-36); Albumin 3.5 g/dl (3.5-5.0); Alkaline Phosphatase 93 U/L (38-126); Blood Urea Nitrogen 25 mg/dl (7-17); Calcium 8.2 mg/dl (8.4-10.2); Carbon Dioxide 27 mmol/L (22-30); Chloride 106 mmol/L (98-107); Estimated Creatinine Clearance 45 ml/min; Glucose 120 mg/dl (70-99); Potassium 3.6 mmol/L (3.5-5.1); Sodium 140 mmol/L (135-145); Total Bilirubin 0.8 mg/dl (0.2-1.3); Total Protein 6.2 g/dl (6.3-8.2); eGFR > 60.00
[2024-12-27 17:05] LABS: Urine Albumin 1+ (Neg - Trace); Urine Bilirubin Negative (Negative); Urine Character Clear (Clear); Urine Color Yellow; Urine Glucose Negative (Negative); Urine Ketone Negative (Negative); Urine Leukocyte 3+ (Negative); Urine Nitrite Negative (Negative); Urine Occult Blood Negative (Negative); Urine Urobilinogen 2+ (Neg - 1+)
[2024-12-27 17:11] LABS: Urine Squamous Cell >30 /LPF (Few)
[2024-12-27 17:12] LABS: Urine Bacteria Moderate (Negative); Urine Red Blood Cell 0-2 /HPF (0-2); Urine White Cell 30-40 /HPF (0-5)
[2024-12-27] MEDS: NSS 500 IV (19:06)
[2024-12-27] MEDS: ROCEPHIN 1000 MG IV (19:09)
--- NOTE | 2024-12-27 19:27 | ED.GENMED ---
History of Present Illness
General
Chief Complaint: Extremity Pain (non-traumatic)
Source: patient and family
Time Seen by Provider: 12/27/24 15:13
History of Present Illness
History of Present Illness:
This is a 84-year-old female who presents with family. They report that she saw complaint of left upper leg pain while at the facility. The patient has been on gabapentin in the past. Recently had a CVA. Daughter was at bedside and states that
she had been complaining of the leg and they started rubbing the leg and gave Tylenol. They are thinking about starting gabapentin. Patient daughter then went home for little bit and the nurse called and said she had to come to the hospital
because not responding well to her. Daughter states that she has been recently occasionally confused. She states now she seems much better. She did seem to be slurring her words a little bit. Again, now much improved. Patient states she feels
much better and has no further leg pain. No chest pain. No shortness of breath. No headache
Past History
Past History
ED Past Medical History: CVA, HTN and Other (Hypercalcemia)
Phy Exam
Physical Exam
Physical Exam:
CONSTITUTIONAL Patient alert and oriented to person, place and time. Well-appearing. Vital signs reviewed.
HEAD atraumatic, normocephalic.
EYES eyelids normal to inspection, Extraocular muscles intact, Conjunctiva normal, Sclera normal.
NECK normal range of motion, Trachea midline, no jugular venous distention.
RESPIRATORY CHEST No respiratory distress noted, Chest expansion equal, Bilateral breath sounds clear.
CARDIOVASCULAR regular rate and rhythm, 3 out of 6 systolic ejection murmur
ABDOMEN abdomen nontender, Bowel sounds normal. No distention.
BACK normal inspection, no obvious deformities
UPPER EXTREMITY range of motion normal, Motor strength normal, no cyanosis, no edema.
LOWER EXTREMITY range of motion normal, Motor strength normal, no cyanosis, no edema.
NEURO Speech normal, slight weakness with left hip flexion but is able to flex against gravity, Cranial Nerves intact to screening exam.
SKIN skin warm, dry, and normal in color.
Course
Orders/Labs/Results
Orders:
Orders
12/27/24 16:03
Complete Blood Count/With Diff Urgent
Comprehensive Metabolic Panel Urgent
12/27/24 16:[address] [CT Head W/o Iv Contrast] Urgent
Comment:
Reason For Exam: left side weakness
12/27/24 17:00
Urinalysis Reflex To Culture Urgent
Date Specimen was Collected: 12/27/24
Time Specimen was Collected: 16:58
Urine Microscopic Reflex Cult Urgent
Urine Culture Urgent
LAURA Source: U
Specimen Description:
Date Specimen was Collected: 12/27/24
Time Specimen was Collected: 16:58
12/27/24 18:29
Vital Signs- Treatment ONCE
Frequency: Once
CefTRIAXone [Rocephin] 1,000 mg IV NOW STA
12/27/24 18:51
0.9% Sodium Chloride 500 ml [Nss] 500 ml IV BOLUS
Abnormal Lab Results
12/27/24 12/27/24
16:03 17:00
RBC 3.45 L 10^6/uL
(4.20-5.40)
Hgb 11.2 L g/dL
(12.0-16.0)
Hct 32.3 L %
(37.0-47.0)
MCH 32.5 H pg
(27.0-31.0)
MPV 12.7 H fL
(7.4-10.4)
Absolute Monos (auto) 0.9 H 10^3/uL
(0.1-0.6)
Monocytes % 13.7 H %
(1.7-9.3)
Eosinophils % 8.9 H %
(0-6)
BUN 25 H mg/dl
(7-17)
Glucose 120 H mg/dl
(70-99)
Calcium 8.2 L mg/dl
(8.4-10.2)
AST 44 H U/L
(14-36)
ALT 48 H U/L
(0-35)
Total Protein 6.2 L g/dl
(6.3-8.2)
Urine Urobilinogen 2+ A
(Neg - 1+)
Leukocyte Esterase Rfl 3+ A
(Negative)
Urine WBC (Reflex) 30-40 A /HPF
(0-5)
Urine Bacteria (Reflex) Moderate A
(Negative)
Urine Albumin (Reflex) 1+ A
(Neg - Trace)
12/27/24 16:03
12/27/24 16:03
Vital Signs
Initial and Last Documented VS:
Initial Vital Signs
Temp Pulse Resp BP Pulse Ox
98.2 F 79 15 123/52 99
12/27/24 14:50 12/27/24 14:50 12/27/24 14:50 12/27/24 14:50 12/27/24 14:50
Last Documented Vital Signs
Temp Pulse Resp BP Pulse Ox
98.2 F 63 13 101/43 99
12/27/24 14:50 12/27/24 18:30 12/27/24 18:30 12/27/24 18:15 12/27/24 14:50
MDM/Problems Addressed
Differential Diagnosis Includes:
Metabolic cephalopathy, electrolyte disturbance, UTI, stroke
MDM/Problems Addressed:
Possible TIA, UTI, change in mental status
*Radiology
Radiology exam reviewed: radiology read reviewed
*Pulse Oximetry
Patient hypoxic: no
*Critical Care Note
Total Time (30-74mins, 75-104mins- exclusive of procedures): Not Applicable
Data Reviewed
Review of Other/Old Records Reveals: Discharge Summary (Discharge summary from December 24 reviewed. Patient was here for hypercalcemia and was treated. Discharge summary also reviewed from December 09. Was admitted for acute stroke)
Source: patient and family
Further Testing Considered But Not Given:
Consider TNK but symptoms improved and unclear source of her symptoms
Patient Management
Discussion with other providers: Hospitalist
Escalation/DeEscalation of care consider admission/obs:
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 Unclear cause of her symptomatology from earlier. CT does show possible progression of her previous stroke region and question whether it is new or just demarcation from previous event. Does appear
to have a UTI. Admit for close monitoring and reassessment
ED Attending Note
-
Portions of this chart may have been created with voice recognition software.� Occasional wrong word or��sound alike� substitutions may have occurred due to the inherent limitations of voice recognition software.
Discharge Plan
Departure
Patient Disposition: Admit
Date of Disposition: 12/27/24
Time of Disposition: 19:33
Admit to: Telemetry
Presentation/result/management discussed w/ accepting MD/DO: Hospitalist
Discharge Problem:
Urinary tract infection, TIA (transient ischemic attack)
Prescriptions:
No Action
therapeutic multivitamin Tablet
1 tab PO DAILY@1200
lactase [Lactaid] 3,000 unit Tablet
3,000 unit PO QPM
cyclosporine [Restasis] 0.05 % Dropperette
1 drp BOTH EYES Q12
sennosides-docusate sodium [Stool Softener-Stimulant Laxat] 8.6-50 mg Tablet
1 tab PO BIDPRN PRN (Reason: constipation) Qty: 60 0RF
cetirizine 10 mg Tablet
10 mg PO DAILYPRN PRN (Reason: allergies)
atorvastatin 40 mg Tablet
40 mg PO QPM Qty: 0 0RF
acetaminophen 325 mg Tablet
650 mg PO Q6HPRN PRN (Reason: mild pain/ fever>100.5F) Qty: 0 0RF
lidocaine 4 % Adhesive Patch,Medicated
1 patch topical DAILY Qty: 0 0RF
aspirin 81 mg Tablet,Delayed Release (Dr/Ec)
81 mg PO DAILY Qty: 0 0RF
amlodipine 10 mg Tablet
10 mg PO DAILY Qty: 0 0RF
emollient [Vanicream] Cream
TOPICAL
metoprolol tartrate 25 mg Tablet
25 mg PO BID
hydralazine 25 mg Tablet
25 mg PO TID Qty: 60 0RF
Referrals:
Rodney Anand MD [Family Provider] -
Interventions
Interventions:
*Risk Screen - Suicide Last Done: 12/27/24 14:57
*General Assessment Last Done: 12/27/24 14:57
*Neglect/Abuse Screening Last Done: 12/27/24 14:57
*ED- Fall Risk Assessment Last Done: 12/27/24 14:57
*ED COVID-19 Vaccine History Last Done: 12/27/24 14:57
ED-Skin Assessment Last Done: 12/27/24 18:50
ED-Peripheral Vascular Assessment Last Done: 12/27/24 18:50
ED-Musculoskeletal Assessment Last Done: 12/27/24 17:44
Discharge Date and Time
Print Language: CZECH
--- NOTE | 2024-12-27 20:48 | HPS.HSE ---
Family Physician
-
Family Physician: Rodney Anand MD
Chief Complaint
-
Change in Mental Status
History of Present Illness
Patient is an 84 y/o female past medical history of recent stroke, essential hypertension, hyperlipidemia, and hyperlipidemia who presents with a change in mental status. Patient had two separate hospitalizations this month first from December 04
for hypertensive urgency which was complicated by development of acute stroke for which she received TNK, and second hospitalization from December 21 for hypercalcemia. Patient is currently in the skilled area at [facility] for rehab following
her recent stroke. After lunch today patient was complaining about increased pain in her left thigh. Staff at the facility put her back to bed. Patient seemed sleepy so daughter went home, but shortly afterward she received a call that the was
sent the patient to the ED as she was not responding. Daughter returned to the facility and describe patient as unresponsive as noted her eyes rolled up. Daughter states to took a while for patient to return to baseline.
Medical History
Past Medical History
Past Medical History: Reports Other
Additional Past Medical History:
Multifocal Stroke
Essential Hypertension
Hyperlipidemia
Overactive Bladder / Incontinence
Osteoarthritis
Osteoporosis
Compression Fractures
Glaucoma
Past Surgical History: Reports Other
Additional Past Surgical History:
Hysterectomy
Left Lumpectomy
Cataract Extraction
[place] Teeth Extraction
Social History
Tobacco: Non-smoker
Alcohol: None
Drug: None
Living: Other (Usually resides in independent apartment at [facility], but currently in skilled section)
Employment: Retired
Family History
Family History: Other (Father of gastric cancer mother is unknown)
Allergies / Home Medications
Allergies reflects when Allergies were last updated in [employer].
Home Medications with original date entered in [employer]
Allergy/Medication List:
Allergies
Allergy/AdvReac Type Severity Reaction Status Date / Time
gabapentin Allergy Rash/macular Verified 12/21/24 18:47
rash upper
back and
face
lactose Allergy abd pain Verified 12/21/24 18:47
and
diarrhea
Penicillins Allergy Rash Verified 12/21/24 18:47
Sulfa (Sulfonamide Allergy Rash Verified 12/21/24 18:47
Antibiotics)
Home Medications
cyclosporine 0.05 % eye drops in a dropperette (Restasis) 1 drp BOTH EYES Q12 Eye Condition 01/25/24
lactase 3,000 unit tablet (Lactaid) 3,000 unit PO QPM Supplement 01/25/24
therapeutic multivitamin 1 tab PO DAILY@1200 Supplement 01/25/24
sennosides 8.6 mg-docusate sodium 50 mg tablet (Stool Softener-Stimulant Laxative) 1 tab PO BIDPRN PRN constipation #60 tabs 01/31/24
cetirizine 10 mg tablet 10 mg PO DAILYPRN PRN allergies 12/04/24
acetaminophen 325 mg tablet 650 mg (2 x 325 mg) PO Q6HPRN PRN mild pain/ fever>100.5F #0 tabs 12/09/24
amlodipine 10 mg tablet 10 mg PO DAILY #0 tabs 12/09/24
aspirin 81 mg tablet,delayed release 81 mg PO DAILY #0 tabs 12/09/24
atorvastatin 40 mg tablet 40 mg PO QPM #0 tabs 12/09/24
lidocaine 4 % topical patch 1 patch topical DAILY #0 ea 12/09/24
emollient (Vanicream topical) 1 applic topical DAILY 12/21/24
metoprolol tartrate 25 mg tablet 25 mg PO BID 12/21/24
hydralazine 25 mg tablet 25 mg PO TID #60 tabs 12/24/24
Review of Systems
-
A 12 point ROS was completed and negative except as noted: Yes
Constitutional: Denies Fever
Respiratory: Denies Cough or Trouble Breathing
Cardiac: Denies Chest Pain or Palpitations
Neurological: Reports Other (Daughter describes a new right upper extremity tremor that occurs intermittently and seems to be worse when patient is anxious)
Physical Exam
Vital Signs
Vital Signs
Temp Pulse Resp BP Pulse Ox
98.2 F 81 13 153/78 99
12/27/24 14:50 12/27/24 20:00 12/27/24 20:00 12/27/24 20:00 12/27/24 14:50
Physical Exam
General: Comfortable and Conversant
HEENT: Anicteric and Moist mucous membranes
Respiratory: Clear and Non Labored Respirations
Cardiac: S1/S2 and Regular Rhythm
GI: Soft and Non Tender
Rectal: Deferred by Provider
Musculoskeletal: No Clubbing, No Cyanosis and Other (Tubigrip stockings bilateral lower extremities)
Skin: Warm and Dry
Neuro: Awake, Alert and Other (Left hemiparesis which daughter reports seems to be at baseline)
Psych: Calm
Laboratory Results
-
12/27/24 16:03
12/27/24 16:03
Laboratory Results
Total Bilirubin 0.8 mg/dl (0.2-1.3) 12/27/24 16:03
AST 44 U/L (14-36) H 12/27/24 16:03
ALT 48 U/L (0-35) H 12/27/24 16:03
Alkaline Phosphatase 93 U/L (38-126) 12/27/24 16:03
Data Reviewed
-
CT Scan: Report Reviewed by me
Lab Data: Labs Reviewed by me
Impression/Plan
-
Acute Change in Mental Status, possibly syncope vs seizure vs UTI
-Monitor on Telemetry
-Check orthostatic vital signs
-Check EEG - Consider Neurology consult
-Patient given ceftriaxone 1gm in ED for possible UTI - Urinalysis appears contaminated with >30 squamous epithelial cell - Attempt to obtain a new urine sample
Left Hip / Thigh Pain, suspect sciatica
-Add lidocaine patch
Multifocal Stroke with Residual Left Hemiparesis
-Continue aspirin
-Consult PT/OT
Recent Hypercalcemia
-Calcium level stable
-PTH related peptide from prior admission still pending
Essential Hypertension
-Continue amlodipine, hydralazine and metoprolol
Hyperlipidemia
-Continue atorvastatin
DVT proph: Lovenox
Code Status: Full Code
--- NOTE | 2024-12-27 21:33 | W.PN.UPDATE ---
Update Note
Progress Note Update
Patient seen in conjunction with KAREN. I agree with the examination and physical. I concur with assessment and plan unless stated otherwise.
This is an 84-year-old female with past medical history significant for CVA status post TNK, hypertension, osteoporosis, who hypercalcemia now resolved presenting to the emergency department to be discharged from the hospital for multiple findings
including episode of altered mental status with confusion which she appears to be intermittent for about 1 day as well as an episode of difficulty arousal. The difficulty around is what brought her to the emergency department today. Apparently
after physical therapy today she went to bed. When they tried to get her up she was difficult to arouse. When she was aroused she appeared to be delayed in terms of her mental status which is unusual for her. In addition family reports no
dysuria. No hematuria. She denies any nausea vomiting diarrhea. No fevers or chills. In the noted intermittent tremors when she is anxious but no associated loss of consciousness during those episodes.
Here in the emergency department she was afebrile blood pressure was 150/78 with a pulse of 80 and she was satting 99% on room air. ECG shows a normal sinus rhythm at a rate of 92. CT of the head showing small localized, though progressive region
of diminished white matter attenuation in the posterior-superior right frontal lobe, most consistent with evolving subacute-chronic infarct which has developed/progressed since prior examination. No mass effect. UA was equivocal with numerous
squamous white cells, leukocyte esterase. CBC was normal. Electrolytes BUN/creatinine were normal.
Assessment and plan
84-year-old with CVA status post TNK, CT of the head with evolving subacute/chronic infarct of the posterior inferior right frontal lobe, UA equivocal, shaking episode with depressed mental status difficulty arousal concerning for seizure/syncope.
- admit to telemetry observation
- tele x 24 hours
- eeg
- orthostatic vs
- suspect behavioral changes possibly secondary to stroke, vs UTI, repeat U/a, hold abx pending confirmation of uti
- BP stable, no change unless orthostatic
- DVT PPX - lovenox sq
- Code status - full code
[2024-12-27] MEDS: FLUSH (NSS) 1 FLUSH IV (21:54)
[2024-12-27 22:03] LABS: Urine Albumin 1+ (Neg - Trace); Urine Bilirubin Negative (Negative); Urine Character Clear (Clear); Urine Color Yellow; Urine Glucose Negative (Negative); Urine Ketone Negative (Negative); Urine Leukocyte 3+ (Negative); Urine Nitrite Negative (Negative); Urine Occult Blood Negative (Negative); Urine Urobilinogen 1+ (Neg - 1+); Urine pH 6.5 (5.0-9.0)
[2024-12-27 22:10] LABS: Urine Squamous Cell >30 /LPF (Few)
[2024-12-27 22:11] LABS: Urine Red Blood Cell 0-2 /HPF (0-2)
[2024-12-27 22:12] LABS: Urine Bacteria Moderate (Negative); Urine White Cell 50-60 /HPF (0-5)
[2024-12-27] MEDS: ATARAX 25 MG PO (23:49)
[2024-12-27] MEDS: APRESOLINE 25 MG PO (23:49)
--- NOTE | 2024-12-28 00:24 | PTCARENOTE ---
Patient arrived from the ED via stretcher accompanied by daughter. Patient ambulated into the room with assistance. AAOx1, only to self. VSS, BP elevated, BP medication given see MAR. Patient has left sided weakness from recent stroke. Passed
swallow screen. No complaints of pain. Has a rash to her back and B/L thighs. Complains of itchiness. Hypoallergenic sheets and gown applied. Patient and family updated on plan of care. Bed alarm in place, call hinds is within reach.
[2024-12-28 03:12] VITALS: BP 141/73
[2024-12-28 05:21] VITALS: BP 143/76; BP 152/71; BP 165/71; PULSE 103; PULSE 107; PULSE 96
[2024-12-28 05:55] VITALS: BMI 19.8
[2024-12-28 06:55] VITALS: BP 150/67
[2024-12-28 07:26] LABS: Hematocrit 33.4 % (37.0-47.0); Hemoglobin 11.8 g/dL (12.0-16.0); Mean Corp Hgb Conc. 35.3 g/dL (33.0-37.0); Mean Corpuscular Hgb 32.8 pg (27.0-31.0); Mean Corpuscular Volume 92.8 fL (81.0-99.0); Mean Platelet Volume 12.8 fL (7.4-10.4); Platelet Count 141 10^3/uL (130-400); Red Cell Dist. Width 13.2 % (11.5-14.5); White Blood Cell Count 6.5 10^3/uL (4.8-10.8)
[2024-12-28] MEDS: LIDOCAINE 4% PATCH 1 PATCH TOPICAL (07:59)
[2024-12-28] MEDS: NORVASC 10 MG PO (08:01)
[2024-12-28] MEDS: ASPIR LOW (ENTERIC COATED) 81 MG PO (08:01)
--- NOTE | 2024-12-28 08:01 | W.PN.HOSP.TC ---
Today's Communication/Plan
-
- Follow CBC, temperature curve
- Follow neurology recommendation
- Follow orthostatic vital checks
Assessment / Plan
Assessment / Plan
#Acute Change in Mental Status
-Head CT: No acute intracranial events
-Suspicion of an episode seizure-No one observed an episode-EEG pending to be obtained
-Neurology was consulted
-Monitor Telemetry
-Check orthostatic vital signs
-Patient given ceftriaxone 1gm in ED for possible UTI - 2 sample of UA shows contamination - Follow Temperature curve and WBC to decide treatment
#Transaminitis
-Slightly elevated LFT s; AST 44, ALT 48
-Follow up
-Avoid hepatotoxic meds as possible
Left Hip / Thigh Pain, suspect sciatica
-Continue lidocaine patch as needed
-Pain control
#Multifocal CVA with Residual Left Hemiparesis
-Continue aspirin
-PT/OT
History of recent hypercalcemia
-Calcium level 8.2
-PTHrP on 12/04: 3.1 WNL and other test on 12/23 pending from prior admission
- Follow with PCP
Essential Hypertension
-Continue amlodipine, hydralazine and metoprolol
Hyperlipidemia
-Continue atorvastatin
DVT proph: Lovenox
Code Status: Full Code
Anticipated Discharge: 24 - 48 hours
Subjective/Interval History
-
Date of Service: December 28, 2024
Patient was seen in her last awake and fully oriented.
Objective Data
-
Labs:
Laboratory Results
12/28/24
06:39
WBC 6.5
Hgb 11.8 L
Hct 33.4 L
Plt Count 141
Sodium Pending
Potassium Pending
Chloride Pending
Carbon Dioxide Pending
BUN Pending
Creatinine Pending
Glucose Pending
Calcium Pending
Vital Signs:
Vital Signs
Temp Pulse Resp BP Pulse Ox
98.1 F 87 16 141/73 98
12/28/24 03:12 12/28/24 03:12 12/28/24 03:12 12/28/24 03:12 12/28/24 03:12
Review of Systems
-
History Source: Patient
EENT: Reports No Symptoms Reported
Respiratory: Reports No Symptoms
Cardiac: Reports No Symptoms
Abdomen/GI: Reports No Symptoms
Genitourinary: Reports No Symptoms
Musculoskeletal: Reports Other (Generalized weakness)
Skin: Reports No Symptoms
Neuro: Reports Weakness
Physical Exam
-
General: Well Developed, Well Nourished, Comfortable, Conversant and Appears Chronically Ill
HEENT: Normocephalic and Atraumatic
Respiratory: Clear to Auscultation
Cardiac: Regular Rhythm and S1/S2
GI: Soft, Nontender and Nondistended
Musculoskeletal: No Clubbing, No Cyanosis and No Edema
Skin: Warm
Neuro: Awake, Alert, Oriented, AO x 3 and Other (Residual left-sided weakness comparing to right side)
Psych: Calm
[2024-12-28] MEDS: APRESOLINE 25 MG PO (08:02)
[2024-12-28] MEDS: LOPRESSOR 25 MG PO (08:02)
[2024-12-28] MEDS: HYDROCORTISONE 1% CREAM 1 APPLIC TOPICAL (08:02)
[2024-12-28 08:28] LABS: Blood Urea Nitrogen 18 mg/dl (7-17); Calcium 8.2 mg/dl (8.4-10.2); Carbon Dioxide 25 mmol/L (22-30); Chloride 113 mmol/L (98-107); Estimated Creatinine Clearance 49 ml/min; Glucose 90 mg/dl (70-99); Potassium 3.2 mmol/L (3.5-5.1); Sodium 146 mmol/L (135-145); eGFR > 60.00
--- NOTE | 2024-12-28 08:38 | W.PN.UPDATE ---
Addendum entered and electronically signed by Kan Tim MD 12/28/24 14:03:
EEG normal as per discussion with Dr. Lopez. Medically cleared for discharge.
Total time spent on d/c = 34 min. This included today's physical exam, progress note, review of laboratory and diagnostic data, preparation of discharge documents and prescriptions, and discussions about the pt's hospital course and discharge plan
with the patient and other biomedical specialist involved in the patient's care.
Original Note:
Update Note
Progress Note Update
I saw and evaluated the patient. I reviewed the resident�s note and agree with findings and plan as documented in the resident�s note.
Patient offers no acute complaints.
Gen: NAD, AAOx3.
Eyes: EOMI, PERRLA, no scleral icterus.
Neck: supple.
CV: RRR, +S1/S2, no m/r/g.
Resp: CTAB, no rales, wheezes, or rhonchi.
Abd: +BS, soft, NT, ND
Skin: No rashes.
Neuro: CN 2-12 intact, moves all 4 extremities
Psych: Normal mood and affect.
CT brain: No acute intracranial hemorrhage. Small localized, though progressive region of diminished white matter attenuation in the posterior-superior right frontal lobe, most consistent with evolving subacute-chronic infarct which has
developed/progressed since prior examination. No mass effect.
Acute Change in Mental Status/encephalopathy:
-stop checking U/As (afebrile, no leukocytosis, no urinary symptoms)
-possible seizure. Check EEG, c/s neuro.
-Check orthostatic vital signs
Other problems:
Left Hip/Thigh Pain: Likely sciatica, cont lidocaine patch
Multifocal Stroke with Residual Left Hemiparesis: cont ASA/statin, PT/OT
Recent Hypercalcemia: Ca now low, PTHrp pending
Essential Hypertension: cont amlodipine/hydralazine/metoprolol
Hyperlipidemia: cont statin
FULL/Lovenox
Dispo: Likely discharge later today.
--- NOTE | 2024-12-28 09:07 | CON.NEURO4 ---
Addendum entered and electronically signed by Luciano Lopez MD 12/28/24 14:20:
Studies reviewed.
I have personally examined the patient. I reviewed and agree with the MASTER DYER's Note.
My addenda:
Awake, alert, interactive. No acute distress.
Speech intact. Moderate difficulty with recall of own medical history.
Follows 2-step requests w/ mild difficulty. No tremor.
Extra-ocular movements grossly intact.
Facial movements full and symmetric. Hearing intact to normal conversational volume.
Normal UE movements bilaterally.
Neck: full ROM.
Chest: no dyspnea
Heart: no JVD
Ext: (-) Clubbing, (-) Cyanosis, (-) Edema
IMPRESSIONS/RECOMMENDATIONS:
Abrupt onset of change in mental status. Etiology for this is unclear at this time. Differential diagnosis would include orthostatic hypotension
Continue aspirin
Maintain atorvastatin at 40 mg
Check blood work for potential metabolic abnormalities
Follow orthostatic blood pressures
Outpatient speech therapy/cognitive therapy
D/W patient
Will continue to follow as needed.
Original Note:
Documented by User: Vinita Camp NP 12/28/24 11:38
Consultation - Neurology 4
-
CONSULTING PHYSICIAN: Luciano Lopez MD
REFERRING PHYSICIAN: Hospitalists/Dr. Tim
DICTATED BY: KAREN Regalado
DATE/TIME OF REQUEST: 12/28/24
DATE/TIME OF CONSULTATION: 12/28/24
Reason for Consultation: Change in mental status
History of Present Illness:
This is an 84-year-old female who has presented to the hospital on 12/27/24 with report of a change in mental status. Patient was previously hospitalized at from 12/02/24-12/09/24 with hypertensive urgency and then subsequently developed left-sided
weakness and slurred speech. CTA head/neck was unremarkable and CT head was negative for any acute abnormalities; she received TNK.
From ICU psychologist industrial organizational Dr. Tena's note on 12/04/24:
'Patient is an 84-year-old female with a previous history of hypertension, hypercholesterolemia presenting to ER on 12/02/2024 with elevated blood pressure, lightheadedness. She had reported systolic blood pressures greater than 200; was started
on IV hydralazine. 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 This AM 12/04/2024 developed left upper extremity weakness with slurred speech. Stroke alert was called,
patient ruled in with NIH score of 5, received TNK. She is now transferred to ICU for further management.'
MRI brain 12/05/24 demonstrated multiple acute to subacute foci of infarction in the right hemisphere and one area in the left hemisphere. Neurology recommended follow-up with Cardiology for ILR placement as an outpatient due to embolic appearance of
stroke. Patient was discharged to [facility]. She was admitted at again from 12/21/24-12/24/24 for hypercalcemia. She was discharged back to [facility] for rehab again on 12/24/24.
Yesterday (12/27/24) patient was reporting left thigh discomfort and was assisted back to bed. [place] staff checked on her a couple of hours later and found her unresponsive with an upward gaze. When she 'came to' she was confused and slurring her
words, prompting them to send her to the ER for evaluation. There was no incontinence of bowel/bladder and no tongue biting with this event. CT head was obtained on arrival and is negative for any acute findings. Per medical records, her daughter
has reported that she has memory issues/confusion, becoming more prominent in the past several months. She has not had an ILR placed yet. She continues on aspirin 81mg daily.
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
Surgical History: Hysterectomy, L lumpectomy, b/l cataract extraction
Family History: Reviewed and noncontributory.
Social History: Denies tobacco, alcohol, and illicit drug use.
Allergies: Sulfa, penicillins, gabapentin, lactose.
Home Medications: See below.
Review of Symptoms:
Patient denies any fever, headache, chest pain, shortness of breath, GI or symptoms.
�Per the HPI.�All systems are reviewed negative except above.
Physical Exam:
The patient is afebrile, abdomen is nondistended, breathing is unlabored, skin is warm and dry, no edema.
NIH Stroke Scale:
I performed the NIH stroke scale on the patient on 12/28/24 at 0910. The patient scored 4 points on the NIH stroke scale assessment, which were assigned as follows: See below.
Neurologic Examination:
The patient is awake, alert and oriented x 3, poor historian. She is able to follow commands and answer questions appropriately. There is no aphasia or dysarthria, verbal responses are occasional delayed, unclear if this is related to hearing. On
cranial nerve assessment, pupils are 3 mm bilateral, round and reactive to light and accommodation. Visual solano are full. There is bilateral lateral gaze restriction in the left eye, bilateral upgaze restriction. There is no facial asymmetry.
Hearing is diminished bilaterally to normal conversation volume. Tongue palate and uvula are midline. There is no tongue laceration. +Camptocormia. Sternocleidomastoid strengths are full bilaterally. Motor strengths are 5/5 right upper, 4-/5 left
upper, and 5/5 lower extremities on medical research [place] scale. There is drift in the LUE. No involuntary movement noted. There was extinction noted on double simultaneous stimulation on the left side. Coordination is intact by finger to nose
bilaterally.
Lab Results: See below.
Neuro Imaging:
1. CT Head 12/27/24: No acute intracranial hemorrhage. Small localized, though progressive region of diminished white matter attenuation in the posterior-superior right frontal lobe, most consistent with evolving subacute-chronic infarct which has
developed/progressed since prior examination. No mass effect.
2. MRI Brain 12/05/24: In the right hemisphere, there are multiple foci of increased diffusion-weighted signal and decreased ADC signal, suggesting acute to subacute infarction. In the left hemisphere, foci of increased diffusion-weighted signal with
only mild before meals signal, suggestive of foci of subacute infarction. Calcified meningioma involving the right tentorium. Plaque-like extra-axial area of signal abnormality at the left frontal temporal junction, corresponding to calcified
meningeal thickening on prior CT examinations. This could either represent a calcified meningioma or calcification from previous dural thickening such as a subdural hematoma. Consideration for continued imaging follow-up. Foci of decreased T2
gradient-echo signal bilaterally within the cerebellum, compatible with old microhemorrhage, likely from hypertensive angiopathy given the distribution.
Differentials for the patient's presentation include:
1. Unresponsive episode; unclear etiology, symptoms not highly supportive of partial seizure but cannot entirely exclude this, consider orthostatic hypotension.
2. Transient confusion/memory impairment episodes; likely underlying cognitive impairment, possibly exacerbated by periods of hypertensive encephalopathy and recent stroke.
3. Bihemispheric ischemic stroke 11/2024, etiology concerning for embolic source.
4. No concern for TIA or recurrent stroke. Transient slurred speech may be due to recrudescence of old stroke symptoms.
Patient has the following risk factors for their symptoms: Recent stroke, cognitive impairment, hypertensive urgency
Recommendations:
-Continue aspirin 81mg daily for stroke prevention.
-Check orthostatic vital signs as ordered.
-Routine EEG pending.
-Goal normotension.
-Follow-up with Cardiology as an outpatient for ILR.
-LDL goal <70. Lipid panel pending. Continue atorvastatin 40mg daily.
-Goal normoglycemia. HbA1c pending.
-Checking blood work for metabolic disturbances.
-Neurological checks per unit guidelines.
-Provide patient with a stroke education packet.
-DVT prophylaxis.
-Will follow pending results. Follow-up with Neurology as an outpatient.
Discussed patient care with: Dr. Lopez, the patient
Vital Signs and Labs
-
Vital Signs and Labs:
Vital Signs
Temp Pulse Resp BP Pulse Ox
98.3 F 90 16 150/67 99
12/28/24 06:55 12/28/24 08:01 12/28/24 06:55 12/28/24 08:01 12/28/24 06:55
Lab Results
12/28/24 06:39
12/28/24 06:39
Sodium 146 mmol/L (135-145) H 12/28/24 06:39
Potassium 3.2 mmol/L (3.5-5.1) L 12/28/24 06:39
BUN 18 mg/dl (7-17) H 12/28/24 06:39
Glucose 90 mg/dl (70-99) 12/28/24 06:39
Calcium 8.2 mg/dl (8.4-10.2) L 12/28/24 06:39
Medications
-
Active Medications
Generic Name Dose Route Start Last Admin
Trade Name Freq PRN Reason Stop Dose Admin
Acetaminophen 650 mg 12/27/24 23:25
Acetaminophen 325 Mg Tablet PO 01/24/25 23:24
Q6HPRN PRN
mild pain/ fever>100.5F
Amlodipine Besylate 10 mg 12/28/24 08:00 12/28/24 08:01
Amlodipine 10 Mg Tablet PO 01/25/25 07:59 10 mg
DAILY SOSA Administration
Aspirin 81 mg 12/28/24 08:00 12/28/24 08:01
Aspirin 81 Mg (Enteric Coated) Tablet PO 01/25/25 07:59 81 mg
DAILY SOSA Administration
Atorvastatin Calcium 40 mg 12/28/24 18:00
Atorvastatin (Lipitor) 40 Mg Tablet PO 01/25/25 17:59
QPM SOSA
Enoxaparin Sodium 40 mg 12/28/24 18:00
Enoxaparin Sodium 40 Mg/0.4 Ml Syringe SC 01/25/25 17:59
QPM SOSA
Hydralazine HCl 25 mg 12/27/24 23:25 12/28/24 08:02
Hydralazine 25 Mg Tablet PO 01/24/25 23:24 25 mg
TID SOSA Administration
Hydrocortisone 0 applic 12/28/24 08:00 12/28/24 08:02
Hydrocortisone 1% (Cream) Tube TOPICAL 01/25/25 07:59 1 applic
BID SOSA Administration
Hydroxyzine HCl 25 mg 12/27/24 23:25 12/27/24 23:49
Hydroxyzine 25 Mg Tablet PO 01/24/25 23:24 25 mg
QIDPRN PRN Administration
pruritus
Lactase 1 capsule 12/28/24 18:00
Lactase Enzyme Capsule PO 01/25/25 17:59
QPM SOSA
Lidocaine 1 patch 12/28/24 08:00 12/28/24 07:59
Lidocaine 4% Topical Patch TOPICAL 01/25/25 07:59 1 patch
DAILY SOSA Administration
Protocol
Metoprolol Tartrate 25 mg 12/28/24 08:00 12/28/24 08:02
Metoprolol 25 Mg Regular Release Tablet PO 01/25/25 07:59 25 mg
BID SOSA Administration
Patch Removal 1 patch 12/28/24 20:00
Remove Lidocaine Patch REMOVE 01/25/25 19:59
DAILY@2000 SOSA
Sodium Chloride 0 flush 12/27/24 22:00 12/27/24 21:54
Sodium Chloride 0.9% (Flush) Syringe IV 01/24/25 21:59 1 flush
PER PROTOCOL SOSA Administration
Home Medications
�Medication �Instructions �Recorded
cyclosporine 0.05 % eye drops in a 1 drp BOTH EYES Q12 Eye Condition 01/25/24
dropperette (Restasis)
lactase 3,000 unit tablet (Lactaid) 3,000 unit PO QPM Supplement 01/25/24
therapeutic multivitamin 1 tab PO DAILY@1200 Supplement 01/25/24
sennosides 8.6 mg-docusate sodium 1 tab PO BIDPRN PRN constipation 01/31/24
50 mg tablet (Stool #60 tabs
Softener-Stimulant Laxative)
cetirizine 10 mg tablet 10 mg PO DAILYPRN PRN allergies 12/04/24
acetaminophen 325 mg tablet 650 mg (2 x 325 mg) PO Q6HPRN PRN 12/09/24
mild pain/ fever>100.5F #0 tabs
amlodipine 10 mg tablet 10 mg PO DAILY #0 tabs 12/09/24
aspirin 81 mg tablet,delayed 81 mg PO DAILY #0 tabs 12/09/24
release
atorvastatin 40 mg tablet 40 mg PO QPM #0 tabs 12/09/24
lidocaine 4 % topical patch 1 patch topical DAILY #0 ea 12/09/24
emollient (Vanicream topical) 1 applic topical DAILY Skin Issues 12/21/24
metoprolol tartrate 25 mg tablet 25 mg PO BID Blood Pressure 12/21/24
hydralazine 25 mg tablet 25 mg PO TID #60 tabs 12/24/24
NIH Stroke Score
Subsequent NIH Scale
Date of Subsequent NIH Scale: 12/28/24
Time of Subsequent NIH Scale: 09:10
NIH Stroke Score
Level of Consciousness: 0 - Alert
LOC Questions: 0-Answers both correctly
LOC Commands: 0-Performs both correctly
Best Horizontal Gaze: 1-Partial gaze palsy
Visual Solano: 0=Normal, no visual loss
Facial Palsy: 0=Normal, symmetrical
Motor - Right Arm: 0=No drift 10 seconds
Motor - Left Arm: 1=Drift < 10 seconds
Motor - Right Le-No drift 5 seconds
Motor - Left Le-No drift 5 seconds
Limb Ataxia: 0-Absent
Sensation: 1-Mild loss
Best Language: 0-No aphasia
Dysarthria: 0-Normal
Extinction and Inattention: 1-Sensory inattention
Total Score:: 4
Modified Preston (mRS) Score
Modified Preston Scale (mRS): Moderate disability. Requires some help, able to walk unassisted.
Score: 3

Documented by User: Luciano Lopez MD 12/28/24 14:11
NIH Stroke Score
NIH Stroke Score
Total Score:: 4
Modified [place] (mRS) Score
Score: 3
--- NOTE | 2024-12-28 10:05 | CM ---
Addendum entered by Terese Obrien 12/28/24 14:58:
Patient admitted under OBS, [place] letter reviewed with patient signed and placed on chart.
Original Note:
project manager process development reviewed patient's chart and met with patient and patient is originally from the apartments at [facility], patient has caregivers for AM and PM through [facility]. Patient required assist with adl's and used a walker with ambulation,
patient has been at [facility] skilled, on bedhold and plan is for patient to return to [facility] today, referral sent through [facility] and bed is available today, patient will need COVID testing
[facility]
Report [phone]

Plan; Patient for transfer to [facility] facility today.
[2024-12-28 10:36] LABS: COVID-19 Antigen Negative (Negative)
[2024-12-28 11:28] VITALS: BP 128/61
[2024-12-28 11:30] VITALS: BP 131/71; O2SAT 99
[2024-12-28 12:14] LABS: HDL Cholesterol 31 mg/dl; Iron 158 ug/dl (37-170); LDL Cholesterol, Calculated 59 mg/dl; Total Cholesterol 106 mg/dl (50-199); Triglyceride 80 mg/dl (10-149); Very Low Density Lipoprotein 16 mg/dl (0-30)
[2024-12-28 12:46] LABS: TSH Reflex To Free T4 0.37 uIU/ml (0.47-4.68)
[2024-12-28 12:50] LABS: Ferritin 82.9 ng/ml (11.1-264.0)
[2024-12-28 13:05] LABS: Vitamin B12 791 pg/ml (239-931)
[2024-12-28 13:19] LABS: Glycohemoglobin (HgbA1c) 5.1 % (4.0-5.6)
[2024-12-28 13:56] LABS: Magnesium 1.7 mg/dl (1.6-2.3)
--- NOTE | 2024-12-28 14:06 | EEG.RPT ---
Electroencephalogram Report
Recording
Date of EE12/28/24
Type of EEG: Routine
Length of EEG recordin minutes
Done with Video Recording: Yes
Patient Status: Inpatient
Recording Conditions: Awake, Drowsy and Asleep
Hyperventilation Performed: No
Photic Stimulation Performed: Yes
Report
LESS THAN 1 HOUR EEG REPORT
LESS THAN 1 HOUR EEG INTERPRETATION:
Likely unremarkable EEG for age
CLINICAL CORRELATION:
Although normative values not been established for a person of this advanced age, the patient�s symmetry of the background suggests that this study was unremarkable.
A normal EEG does not rule out a diagnosis of epilepsy. If clinical suspicion for seizure persists, a prolonged recording may be warranted.
Clinical correlation is advised.
METHODS:
A 21 channel digitized electroencephalogram (EEG) was performed using the 10/20 international system of electrode placement and one-lead of ECG recorded. The [employer] website quantitative review system was utilized.
ELECTROENCEPHALOGRAPHER IMPRESSION(S):
Quality of study
Good
Background
There was an unremarkable anterior-posterior voltage gradient of alpha frequency.
With eye opening the background activity changed to a low voltage mixture of frequencies.
There were no significant asymmetries of background activity noted.
Sleep
Drowsiness present
Stage II sleep was characterized by K complexes and sleep spindles
Photic Stimulation
No driving
ECG
Normal sinus rhythm
[2024-12-28 14:13] LABS: Free T4 2.02 ng/dl (0.78-2.19)
--- NOTE | 2024-12-28 14:17 | W.DCSUMMARY ---
Discharge Summary
Discharge Data
Date of Admission: 12/27/24
Date of Discharge: 12/28/24
-
Pending Results: No
Hospital Course
Disposition : SNF/Fpc
Primary care physician : Rodney Anand MD
Principal Discharge diagnosis : Change in mental status/acute encephalopathy, Hypokalemia
Chronic Discharge diagnosis : Recent hx of CVA, Left Hip/Thigh Pain, Underweight BMI, mild dementia/memory loss, essential hypertension, hyperlipidemia
Hospital Course :
# Change in mental status/acute encephalopathy: Patient is an 84-year-old female with a past medical history of essential hypertension, hyperlipidemia who presented from [facility] secondary to being found some confused at her caring facility.
Additionally, patient had two separate hospitalizations in this month first from December 04- for hypertensive urgency which was complicated by development of acute stroke for which she received TNK, and second hospitalization from December 21 for
hypercalcemia.
At this presentation, patient was obtained a head CT due her confusion at ER admission which was not remarkable for an acute event. Her UA showed contamination and her other lab results were not remarkable. She was seen by neurology and obtained an
EEG with a concern of an episode of seizure. EEG findings were not remarkable. The patient was not considered having a TIA or recurrent stroke by neurology. Her mental status found improved this morning, She was awake and alert and oriented. It
was planned to discharge the patient with her current medications.
#Hypokalemia: It was replaced with KCI.
Other Chronic Problems: These include a recent CVA, Left Hip/Thigh Pain, underweight BMI, mild dementia/memory loss, essential hypertension and hyperlipidemia. These medical problems were chris during her hospitalization and treated as able to.
Important imaging findings :
12/27/[address]
FINDINGS:
No acute intracranial hemorrhage. No extra-axial collection. Stable partially calcified meningioma along the posterior right tentorium and probable partially calcified plaque like meningioma contiguous with the inner table at the junction of the
left frontal and temporal lobe.
PARENCHYMA: There is a small localized, though progressive region of diminished white matter attenuation in the subcortical white matter of the posterior superior right frontal lobe. No associated mass effect. No cerebral sulcal effacement. Most
consistent with evolving subacute-chronic white matter infarct having developed/progressed since prior examination.
Otherwise, mild to moderate patchy and confluent regions of white matter diminished attenuation are noted, bilaterally, consistent with chronic ischemic change, relatively stable.
MASS EFFECT: No evidence of mass effect or midline shift.
ATROPHY: Moderate atrophy.
VENTRICLES: No hydrocephalus.
CALVARIUM: No calvarial fracture.
PARANASAL SINUSES: Incompletely imaged. Clear as far as visualized.
MASTOID AIR CELLS: The mastoid air cells are clear.
IMPRESSION:
No acute intracranial hemorrhage.
Small localized, though progressive region of diminished white matter attenuation in the posterior-superior right frontal lobe, most consistent with evolving subacute-chronic infarct which has developed/progressed since prior examination. No mass
effect.
Otherwise stable chronic findings, as described.
Procedure findings :
Electroencephalogram Report
Recording
Date of EE12/28/24
Type of EEG: Routine
Length of EEG recordin minutes
Done with Video Recording: Yes
Patient Status: Inpatient
Recording Conditions: Awake, Drowsy and Asleep
Hyperventilation Performed: No
Photic Stimulation Performed: Yes
Report
LESS THAN 1 HOUR EEG REPORT
LESS THAN 1 HOUR EEG INTERPRETATION:
Likely unremarkable EEG for age
CLINICAL CORRELATION:
Although normative values not been established for a person of this advanced age, the patient�s symmetry of the background suggests that this study was unremarkable.
A normal EEG does not rule out a diagnosis of epilepsy. If clinical suspicion for seizure persists, a prolonged recording may be warranted.
Clinical correlation is advised.
METHODS:
A 21 channel digitized electroencephalogram (EEG) was performed using the 10/20 international system of electrode placement and one-lead of ECG recorded. The [employer] review system was utilized.
ELECTROENCEPHALOGRAPHER IMPRESSION(S):
Quality of study
Good
Background
There was an unremarkable anterior-posterior voltage gradient of alpha frequency.
With eye opening the background activity changed to a low voltage mixture of frequencies.
There were no significant asymmetries of background activity noted.
Sleep
Drowsiness present
Stage II sleep was characterized by K complexes and sleep spindles
Photic Stimulation
No driving
ECG
Normal sinus rhythm
Discharge Plan
-
Patient Disposition: Fpc/SNF
Discharge Diagnosis/Procedures: Change in mental status/acute encephalopathy
Condition: Good
Diet: Low Cholesterol
Activity: With assistance
Driving Restrictions: No driving
Blood Work: BMP in 4 days, script from PCP
Referrals:
Rodney Anand MD [Family Provider] - in less than 1 week
Prescriptions:
Continued
therapeutic multivitamin Tablet
1 tab PO DAILY@1200
lactase [Lactaid] 3,000 unit Tablet
3,000 unit PO QPM
cyclosporine [Restasis] 0.05 % Dropperette
1 drp BOTH EYES Q12
sennosides-docusate sodium [Stool Softener-Stimulant Laxat] 8.6-50 mg Tablet
1 tab PO BIDPRN PRN (Reason: constipation) Qty: 60 0RF
cetirizine 10 mg Tablet
10 mg PO DAILYPRN PRN (Reason: allergies)
atorvastatin 40 mg Tablet
40 mg PO QPM Qty: 0 0RF
acetaminophen 325 mg Tablet
650 mg PO Q6HPRN PRN (Reason: mild pain/ fever>100.5F) Qty: 0 0RF
lidocaine 4 % Adhesive Patch,Medicated
1 patch topical DAILY Qty: 0 0RF
aspirin 81 mg Tablet,Delayed Release (Dr/Ec)
81 mg PO DAILY Qty: 0 0RF
amlodipine 10 mg Tablet
10 mg PO DAILY Qty: 0 0RF
emollient [Vanicream] Cream
1 applic TOPICAL DAILY
metoprolol tartrate 25 mg Tablet
25 mg PO BID
hydralazine 25 mg Tablet
25 mg PO TID Qty: 60 0RF
Discharge Orders:
Discharge Patient (As Directed); Ordered 12/28/24
Ordered By: Kan Tim
Discharge Date and Time
Print Language: YAKUT
[2024-12-28] MEDS: KLOR-CON 40 MEQ PO (14:28)
[2024-12-28 15:11] VITALS: BP 117/51
[2024-12-28] MEDS: APRESOLINE PO (15:11)
[2024-12-28] MEDS: LOVENOX 40 MG SC (17:04)
[2024-12-28] MEDS: LACTAID 1 CAPSULE PO (17:04)
[2024-12-28] MEDS: LIPITOR 40 MG PO (17:05)
== END 2024-12-28 18:41 ==
LOC: 4 EAST ACU 21:49
PROVIDERS: Physician Assistant Medical; Student in an Organized Health Care Education/Training Program; ADMITTING PHYSICIAN Internal Medicine; ATTENDING PHYSICIAN Internal Medicine; CONSULT PHYSICIAN Psychiatry & Neurology Neurology; EMERGENCY PHYSICIAN Emergency Medicine; FAMILY PHYSICIAN Family Medicine
DX: G93.40 Encephalopathy, unspecified (principal); M79.652 Pain in left thigh; R47.81 Slurred speech; R53.1 Weakness; I69.354 Hemiplegia and hemiparesis following cerebral infarction affecting left non-dominant side; E83.52 Hypercalcemia; I10 Essential (primary) hypertension; Z79.82 Long term (current) use of aspirin; R74.01 Elevation of levels of liver transaminase levels; E78.00 Pure hypercholesterolemia, unspecified
CPT/HCPCS: 70450; 80048; 80053; 80061; 81003; 81015; 82607; 82728; 83036; 83540; 83735; 84439; 84443; 85025; 85027; 87086; 87811; 93005; 95816; 96361; 96374; 97163; 97167; 99285; G0378

== ENCOUNTER 2025-07-07 13:38 | Inpatient (IN) | payer MEDICARE, BC, SELFPAY ==
[2025-07-06] VITALS (9 sets, daily range): BP systolic 101–155; BP diastolic 48–86; BMI 23.6
--- NOTE | 2025-07-06 09:50 | ED.GENMED ---
History of Present Illness
General
Chief Complaint: Back Pain
Time Seen by Provider: 07/06/25 09:35
History of Present Illness
History of Present Illness:
85-year-old woman with history of hypertension, hyperlipidemia, dementia presenting to the emergency department with back pain. Patient has limited history given her dementia but states that she has some back pain in her mid to lower back and does
have a history of compression fracture. No recent trauma or falls. No new weakness. No numbness tingling. She does note that her chest feels slightly heavy. She also has slight nausea. No shortness of breath. No abdominal pain. No fevers
chills. No urinary symptoms. No saddle anesthesia. No spinal injections.
Past History
Past History
ED Past Medical History: CVA, HTN and Other (Hypercalcemia)
Phy Exam
Physical Exam
Physical Exam:
GENERAL: in no acute distress
HEENT: normocephalic, extraocular movements intact, moist oral mucosa
NECK: normal inspection
RESPIRATORY: no respiratory distress, clear to auscultation bilaterally
CARDIOVASCULAR: regular rate and rhythm
ABDOMEN/: soft, non-distended, non-tender to palpation, no rebound or guarding
EXTREMITIES: non-tender, no edema/swelling
NEUROLOGIC: awake and alert, moves all extremities, slight weakness of left upper and lower extremity which is at baseline per patient's paperwork
SKIN: warm
Course
Orders/Labs/Results
Orders:
Orders
07/06/25 09:44
Electrocardiogram (*1) Urgent
Reason for Study: Chest Pain
EKG- Treatment ONCE
07/06/25 09:50
CT Chest/abd/pel W Iv Cont Urgent
Comment:
Reason For Exam: nausea,vomitting, back pain, hx compression fx
Ibuprofen [Motrin] 600 mg PO NOW STA
07/06/25 10:30
Complete Blood Count/With Diff Urgent
Comprehensive Metabolic Panel Urgent
Troponin I Urgent
07/06/25 10:31
Ondansetron Injectable [Zofran] 4 mg IV NOW STA
07/06/25 10:47
Urinalysis Reflex To Culture Urgent
Date Specimen was Collected: 07/06/25
Time Specimen was Collected: 10:46
Urine Microscopic Reflex Cult Urgent
07/06/25 14:00
Blood Culture Q30M
LAURA Source: Blood/Venous
Specimen Description:
07/06/25 14:30
Blood Culture Q30M
LAURA Source: Blood/Venous
Specimen Description:
Abnormal Lab Results
07/06/25 07/06/25
10:30 10:47
WBC 19.0 H 10^3/uL
(4.8-10.8)
MPV 11.5 H fL
(7.4-10.4)
Abs Immat Gran (auto) 0.1 H 10^3/uL
(0-0.05)
Absolute Neuts (auto) 15.9 H 10^3/uL
(1.4-6.5)
Absolute Lymphs (auto) 0.7 L 10^3/uL
(1.2-3.4)
Absolute Monos (auto) 2.3 H 10^3/uL
(0.1-0.6)
Neutrophils % 83.5 H %
(42.2-75.2)
Lymphocytes % 3.5 L %
(20.5-51.1)
Monocytes % 12.2 H %
(1.7-9.3)
BUN 23 H mg/dl
(7-17)
Glucose 156 H mg/dl
(70-99)
Total Bilirubin 2.1 H mg/dl
(0.2-1.3)
Urine Ketones 1+ A
(Negative)
Ur Occult Blood Reflex 3+ A
(Negative)
Urine RBC 3-6 A /HPF
(0-2)
Urine Albumin (Reflex) 1+ A
(Neg - Trace)
07/06/25 10:30
07/06/25 10:30
Vital Signs
Initial and Last Documented VS:
Initial Vital Signs
Temp Pulse Resp BP Pulse Ox
98.4 F 98 20 155/86 96
07/06/25 09:39 07/06/25 09:39 07/06/25 09:39 07/06/25 09:39 07/06/25 09:39
Last Documented Vital Signs
Temp Pulse Resp BP Pulse Ox
98.4 F 76 16 132/61 95
07/06/25 09:39 07/06/25 13:30 07/06/25 13:30 07/06/25 13:00 07/06/25 13:30
MDM/Problems Addressed
Differential Diagnosis Includes:
Patient is a 85-year-old woman with history of dementia, hypertension, hyperlipidemia presenting to the emergency department back pain chest pain nausea. On arrival vitals unremarkable and exam is reassuring. Differential is broad but consists of
worsening compression fracture versus ACS versus intra-abdominal pathology. History and exam not consistent with any red flags to suggest cauda equina or cord compression or discitis. Will obtain labs EKG and CT scan to further evaluate. Will
pain control.
*Pulse Oximetry
SaO2: 96
Oxygen Mode of Delivery: Room air
Patient hypoxic: no
*Critical Care Note
Total Time (30-74mins, 75-104mins- exclusive of procedures): Not Applicable
Update Note
Update Note:
On reevaluation pain is slightly better. Blood work does show leukocytosis. Urine does not appear infected. CT scan as above
Given patient's leukocytosis and no clear etiology will obtain blood cultures. Patient will need admission for further evaluation/monitoring.
ED Attending Note
-
Portions of this chart may have been created with voice recognition software.� Occasional wrong word or��sound alike� substitutions may have occurred due to the inherent limitations of voice recognition software.
Discharge Plan
Departure
Patient Disposition: Admit
Date of Disposition: 07/06/25
Time of Disposition: 13:51
Presentation/result/management discussed w/ accepting MD/DO: Hospitalist
Patient with high blood pressure during this ER visit?: Yes
Discharge Problem:
Leukocytosis
Prescriptions:
No Action
therapeutic multivitamin Tablet
1 tab PO DAILY@1200
lactase [Lactaid] 3,000 unit Tablet
3,000 unit PO QPM
cyclosporine [Restasis] 0.05 % Dropperette
1 drp BOTH EYES Q12
sennosides-docusate sodium [Stool Softener-Stimulant Laxat] 8.6-50 mg Tablet
1 tab PO BIDPRN PRN (Reason: constipation) Qty: 60 0RF
cetirizine 10 mg Tablet
10 mg PO DAILYPRN PRN (Reason: allergies)
atorvastatin 40 mg Tablet
40 mg PO QPM Qty: 0 0RF
acetaminophen 325 mg Tablet
650 mg PO Q6HPRN PRN (Reason: mild pain/ fever>100.5F) Qty: 0 0RF
lidocaine 4 % Adhesive Patch,Medicated
1 patch topical DAILY Qty: 0 0RF
aspirin 81 mg Tablet,Delayed Release (Dr/Ec)
81 mg PO DAILY Qty: 0 0RF
amlodipine 10 mg Tablet
10 mg PO DAILY Qty: 0 0RF
emollient [Vanicream] Cream
1 applic TOPICAL DAILY
metoprolol tartrate 25 mg Tablet
25 mg PO BID
hydralazine 25 mg Tablet
25 mg PO TID Qty: 60 0RF
Referrals:
Rodney Anand MD [Family Provider, Family Practice]
Interventions
Interventions:
*Risk Screen - Suicide Last Done: 07/06/25 09:39
*General Assessment Last Done: 07/06/25 09:39
*Neglect/Abuse Screening Last Done: 07/06/25 09:39
*ED COVID-19 Vaccine History Last Done: 07/06/25 10:00
*ED Influenza Vaccine History Last Done: 07/06/25 10:00
ED- Cardiac Assessment Last Done: 07/06/25 10:00
ED-Musculoskeletal Assessment Last Done: 07/06/25 10:00
Discharge Date and Time
Print Language: ROMANIAN
[2025-07-06] MEDS: MOTRIN 600 MG PO (10:34)
[2025-07-06] MEDS: ZOFRAN 4 MG IV (10:34)
[2025-07-06 10:43] LABS: Hematocrit 38.8 % (37.0-47.0); Hemoglobin 12.9 g/dL (12.0-16.0); Mean Corp Hgb Conc. 33.2 g/dL (33.0-37.0); Mean Corpuscular Volume 88.4 fL (81.0-99.0); Nucleated Red Blood Cells % 0 %; Platelet Count 250 10^3/uL (130-400); Red Cell Dist. Width 13.3 % (11.5-14.5)
[2025-07-06 10:57] LABS: Urine Character Clear (Clear)
[2025-07-06 11:12] LABS: ALT (SGPT) 29 U/L (0-35); AST (SGOT) 24 U/L (14-36); Albumin 4.4 g/dl (3.5-5.0); Alkaline Phosphatase 115 U/L (38-126); Blood Urea Nitrogen 23 mg/dl (7-17); Calcium 9.6 mg/dl (8.4-10.2); Carbon Dioxide 26 mmol/L (22-30); Chloride 101 mmol/L (98-107); Estimated Creatinine Clearance 55 ml/min; Glucose 156 mg/dl (70-99); Potassium 4.1 mmol/L (3.5-5.1); Sodium 135 mmol/L (135-145); Total Protein 7.5 g/dl (6.3-8.2); eGFR > 60.00
[2025-07-06 11:44] LABS: Urine White Cell 0-2 /HPF (0-5)
[2025-07-06 12:00] LABS: Troponin I < 0.012 ng/ml
--- NOTE | 2025-07-06 13:55 | HPS.HSE ---
Family Physician
-
Family Physician: Rodney Anand MD
Chief Complaint
-
Back pain
History of Present Illness
I could not get any information from the patient due to dementia �
Information gathered by chart review and speaking with the ER staff.
HPI�
85F Limited historian , non smoker, Res of independent apartment at [facility]
HX recent stroke, essential hypertension, hyperlipidemia, Overactive Bladder / Incontinence, Compression Fractures
- seen at ER who pw back pain -mid to lower back and does have HX L1 compression fracture per Prior MRI
- report chest feels slightly heavy
- slight nausea. No vomiting. No abdominal pain.
ROS
- No recent trauma or falls.
- No new weakness.
- No paraesthesia .
- No saddle anaesthesia
- No shortness of breath.
- No fevers chills. No urinary symptoms.
Medical History
Past Medical History
Past Medical History: Reports Other
Past Surgical History: Reports Other
Additional Past Surgical History:
Hysterectomy
Left Lumpectomy
Cataract Extraction
[place] Teeth Extraction
Social History
Tobacco: Non-smoker
Alcohol: None
Drug: None
Living: Other (Usually resides in independent apartment at [facility], but currently in skilled section)
Employment: Retired
Family History
Family History: Other (Father of gastric cancer mother is unknown)
Allergies / Home Medications
Allergies reflects when Allergies were last updated in [employer]
Home Medications with original date entered in [employer]
Allergy/Medication List:
Allergies
Allergy/AdvReac Type Severity Reaction Status Date / Time
gabapentin Allergy Rash/macular Verified 12/21/24 18:47
rash upper
back and
face
lactose Allergy abd pain Verified 12/21/24 18:47
and
diarrhea
Penicillins Allergy Rash Verified 12/21/24 18:47
Sulfa (Sulfonamide Allergy Rash Verified 12/21/24 18:47
Antibiotics)
Home Medications
cyclosporine 0.05 % eye drops in a dropperette (Restasis) 1 drp BOTH EYES Q12 Eye Condition 01/25/24
lactase 3,000 unit tablet (Lactaid) 3,000 unit PO QPM Supplement 01/25/24
therapeutic multivitamin 1 tab PO DAILY@1200 Supplement 01/25/24
sennosides 8.6 mg-docusate sodium 50 mg tablet (Stool Softener-Stimulant Laxative) 1 tab PO BIDPRN PRN constipation #60 tabs 01/31/24
cetirizine 10 mg tablet 10 mg PO DAILYPRN PRN allergies 12/04/24
acetaminophen 325 mg tablet 650 mg (2 x 325 mg) PO Q6HPRN PRN mild pain/ fever>100.5F #0 tabs 12/09/24
amlodipine 10 mg tablet 10 mg PO DAILY #0 tabs 12/09/24
aspirin 81 mg tablet,delayed release 81 mg PO DAILY #0 tabs 12/09/24
atorvastatin 40 mg tablet 40 mg PO QPM #0 tabs 12/09/24
lidocaine 4 % topical patch 1 patch topical DAILY #0 ea 12/09/24
emollient (Vanicream topical) 1 applic topical DAILY 12/21/24
metoprolol tartrate 25 mg tablet 25 mg PO BID 12/21/24
hydralazine 25 mg tablet 25 mg PO TID #60 tabs 12/24/24
Review of Systems
-
Constitutional: Reports No Symptoms
EENT: Reports No Symptoms
Respiratory: Reports No Symptoms
Cardiac: Reports No Symptoms
Abdomen/GI: Reports No Symptoms
: Reports No Symptoms
Musculoskeletal: Reports See HPI and Other (Back pain )
Skin: Reports No Symptoms
Neurological: Reports No Symptoms
Endocrine: Reports No Symptoms
Hematologic/Lymphatic: Reports No Symptoms
Psych: Reports No Symptoms
Physical Exam
Vital Signs
Vital Signs
Temp Pulse Resp BP Pulse Ox
98.4 F 76 16 132/61 95
07/06/25 09:39 07/06/25 13:30 07/06/25 13:30 07/06/25 13:00 07/06/25 13:30
Physical Exam
General: Comfortable and Conversant
HEENT: Anicteric and Moist mucous membranes
Respiratory: Clear and Non Labored Respirations
Cardiac: S1/S2 and Regular Rhythm
GI: Soft and Non Tender
Rectal: Brown and Other (SARAH: many aaron of stool at proximal valutl, large yellow bulk of stool impaction at distal vault )
Musculoskeletal: No Clubbing, No Cyanosis and Other (Tubigrip stockings bilateral lower extremities)
Skin: Warm and Dry
Neuro: Awake, Alert and Other (Left hemiparesis which daughter reports seems to be at baseline)
Psych: Calm
Laboratory Results
-
07/06/25 10:30
07/06/25 10:30
Laboratory Results
Total Bilirubin 2.1 mg/dl (0.2-1.3) H 07/06/25 10:30
AST 24 U/L (14-36) 07/06/25 10:30
ALT 29 U/L (0-35) 07/06/25 10:30
Alkaline Phosphatase 115 U/L (38-126) 07/06/25 10:30
Troponin I < 0.012 ng/ml 07/06/25 10:30
Data Reviewed
-
CT Scan: Report Reviewed by me
Lab Data: Labs Reviewed by me
Old Records: Reviewed
Impression/Plan
-
Vital Signs
Temp Pulse Resp BP Pulse Ox
98.4 F 76 16 132/61 95
07/06/25 09:39 07/06/25 13:30 07/06/25 13:30 07/06/25 13:00 07/06/25 13:30
Laboratory Tests
12/28/24 07/06/25
06:39 10:30
WBC 6.5 19.0 H
Hgb 11.8 L 12.9
Plt Count 141 250
Absolute Neuts (auto) 15.9 H
BUN 23 H
Creatinine 0.7
eGFR > 60.00
Glucose 156 H
Total Bilirubin 2.1 H
Troponin I < 0.012
CT Chest/abd/pel W Iv Cont
1. Trace bilateral pleural effusions with adjacent bandlike opacities within the lower lobes, likely scarring versus atelectasis.
2. Mildly enlarged heart with small pericardial effusion.
3. Moderate to large amount of stool within the rectum which is distended measuring 6.9 cm.
No wall thickening or inflammatory stranding.
Fecal impaction is a diagnostic consideration.
4. Diffuse osteopenia with multiple thoracolumbar compression fractures, most of which appear old.
Moderate compression deformity of T12, age-indeterminate, new compared to prior MRI from 01/26/24.
5. Additional findings above.
01/06/24 Lx spine MRI
Acute on chronic severe L1 compression fracture.
Additional acute/subacute compression deformities of T11, T12 and L3. Subacute to chronic L2 compression fracture.
Prominent osseous retropulsion at L1 contributes to moderate to severe spinal canal stenosis with mild cord/conus impingement at this level.
Last hospitalist admission: 12/27/24 - 12/28/24
DC DXS:
Change in mental status/acute encephalopathy, Hypokalemia
ASSESSMENT & PLAN
Pending Rx reconciliation
Limited historian due to dementia
- non smoker, Res of independent apartment at [facility]
CT suggestive of fecal impaction confirmed by SARAH by me : many aaron of stool at proximal vault with large soft bulk of ywllow stool impaction at distal vault , able to broken up
Acute back pain suspect likely precipitated by fecal impaction
HX prior Back pain due to multiple chr compression Fxs ( T11 , T12 + L1, L2, L3)
- No clinical evidence of BWO - just slight nausea. No vomiting. No abdominal pain.
- Molasses enema times one
- BW Regime: Lactulose 30ml q3hr till adequate BMs + senna ii tabs now and BID PRN
- IV Gentle Hydration NS 60/H for 1 L
- Local pain control: Lidoderm patch
- PT/OT
Leucocytosis
- suspect Leukemoid reaction to fecal impaction
- no clinical evidence of acute infective process
- Elements of hemoconcentration
- Trend WCC
- Gentle IV NS 1 L
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
Multifocal Stroke with Residual Left Hemiparesis
-Continue ASA
Essential Hypertension
- Continue amlodipine, hydralazine and metoprolol
Hyperlipidemia
- Continue atorvastatin
HX Overactive Bladder / Incontinence
DVT LMWH
Code: Full code
OBS MS
[2025-07-06] MEDS: NSS 1000 IV (17:19)
[2025-07-06] MEDS: LOVENOX 40 MG SC (17:20)
[2025-07-06] MEDS: LIPITOR 40 MG PO (17:20)
--- NOTE | 2025-07-06 17:47 | PTCARENOTE ---
RN called pt's only contact on file- Shraddha (daughter). RN completed the admission questions to the best of Shraddha's ability. Shraddha lives in [place] and hasn't seen her mom since her stroke in November 2024 which she received treatment for here at
[facility].
Pt is pleasantly confused, only oriented to self, walked from ER stretcher to bed. She voided in bathroom. Abdomen is soft, non tender. Pt endorses chronic back pain. RN called pharmacy to get stat Senokot syrup which was supposed to be
administered in ED at 1400. Pharmacy told RN to jb it not given since it was ordered for ED care area, as it is ordered again to be administered on the next shift.
Pt eating dinner in bed, IVF infusing per order. Bed alarm placed for memory issues. Call hinds placed next to patient. Patient oriented to room and call hinds use
[2025-07-06] MEDS: HYDROCORTISONE 1% CREAM 1 APPLIC TOPICAL (21:52)
[2025-07-06] MEDS: SENOKOT 8.6 MG PO (21:53)
[2025-07-06] MEDS: ZYRTEC 5 MG PO (21:53)
[2025-07-06] MEDS: LOPRESSOR 25 MG PO (21:56)
[2025-07-06] MEDS: RESTASIS 0.05% OPHTHALMIC EMULSION 1 DROPS BOTH EYES (22:07)
[2025-07-07 04:18] VITALS: BMI 23.6
[2025-07-07 07:05] VITALS: BP 139/65
[2025-07-07 07:55] LABS: Hematocrit 34.3 % (37.0-47.0); Hemoglobin 11.4 g/dL (12.0-16.0); Mean Corp Hgb Conc. 33.2 g/dL (33.0-37.0); Mean Corpuscular Volume 89.8 fL (81.0-99.0); Nucleated Red Blood Cells % 0.2 %; Platelet Count 206 10^3/uL (130-400); Red Cell Dist. Width 13.7 % (11.5-14.5)
[2025-07-07 08:13] LABS: ALT (SGPT) 24 U/L (0-35); AST (SGOT) 19 U/L (14-36); Albumin 3.4 g/dl (3.5-5.0); Alkaline Phosphatase 94 U/L (38-126); Blood Urea Nitrogen 28 mg/dl (7-17); Calcium 8.7 mg/dl (8.4-10.2); Carbon Dioxide 24 mmol/L (22-30); Chloride 104 mmol/L (98-107); Estimated Creatinine Clearance 41 ml/min; Glucose 101 mg/dl (70-99); Potassium 3.9 mmol/L (3.5-5.1); Sodium 134 mmol/L (135-145); Total Protein 6.2 g/dl (6.3-8.2); eGFR > 60.00
[2025-07-07] MEDS: ASPIR LOW (ENTERIC COATED) 81 MG PO (10:39)
[2025-07-07] MEDS: LOPRESSOR 25 MG PO (10:39)
[2025-07-07] MEDS: COZAAR 50 MG PO (10:39)
[2025-07-07] MEDS: SENOKOT 8.6 MG PO ×2 (10:39→19:53)
[2025-07-07] MEDS: RESTASIS 0.05% OPHTHALMIC EMULSION 1 DROPS BOTH EYES ×2 (10:39→19:52)
[2025-07-07] MEDS: NORVASC 10 MG PO (10:39)
--- NOTE | 2025-07-07 10:42 | VATNOTE ---
pt with infiltrated to right ac. less than +1 edema. pt denies discomfort. heat applied, RN to elevate once pt returns from testing.will cont to monitor
[2025-07-07] MEDS: HYDROCORTISONE 1% CREAM 1 APPLIC TOPICAL ×2 (10:46→19:52)
[2025-07-07 12:36] VITALS: BP 140/82; O2SAT 95
[2025-07-07] MEDS: TYLENOL 650 MG PO (12:42)
--- NOTE | 2025-07-07 13:00 | PTCARENOTE ---
Patient HR in 150s. EKG preformed, shows A fib with RVR. Telemetry monitoring initiated. Rhythm breaking back to SR without intervention. A 6.33 second pause noted as Afib broke. Dr. Cano notified. Cardiology consult placed. See orders.
--- NOTE | 2025-07-07 13:22 | W.PN.HOSP.TC ---
Today's Communication/Plan
-
Monitor vital signs see plan
Cardiology evaluation
Continue to monitor telemetry
Hold metoprolol
Check TSH, magnesium
Abdominal x-ray
Assessment / Plan
Assessment / Plan
General: Comfortable and Conversant
HEENT: Anicteric and Moist mucous membranes
Respiratory: Clear and Non Labored Respirations
Cardiac: S1/S2 and Regular Rhythm
GI: Soft and Non Tender
Musculoskeletal: no edema
Neuro: Awake, Alert and Other (Left hemiparesis which daughter reports seems to be at baseline)
Psych: Calm
Patient with fecal impaction
Disimpacted in the ED
And enema administered
Continue monitor bowel movements
Check abdomen x-ray
Leukocytosis improving
Positive blood culture, 1 bottle with gram-positive cocci in clusters
Likely contaminant, await final speciation
Currently without any fever and leukocytosis improving without any antibiotic
Went into A-fib with RVR 07/07, no prior history
Subsequently converted to normal sinus rhythm with big pause. Cardiology consulted. Discussed and will need pacemaker
Check TSH, check magnesium
Check echo
chadvasc 6; awaiting cardiology evaluation. Start anticoagulation if okay with cardiology
Hold metoprolol
Essential hypertension
Currently normotensive
Hold amlodipine, metoprolol
Hyponatremia
monitor
Multifocal stroke with residual left hemiparesis
Continue aspirin for now
Spoke with daughter, patient refused loop recorder in the past
Hyperlipidemia
DVT prophylaxis
Full code
I spent a total of 54 minutes with the patient or on the floor. More than 50% of this time involved counseling and coordination of care.
Anticipated Discharge: > 48 hours
Subjective/Interval History
-
Date of Service: July 07, 2025
denies pain
Objective Data
-
Labs:
Laboratory Results
07/07/25
07:18
WBC 12.8 H
Hgb 11.4 L
Hct 34.3 L
Plt Count 206
Sodium 134 L
Potassium 3.9
Chloride 104
Carbon Dioxide 24
BUN 28 H
Creatinine 0.9
Glucose 101 H
Calcium 8.7
Total Bilirubin 2.2 H
AST 19
ALT 24
Alkaline Phosphatase 94
Vital Signs:
Vital Signs
Temp Pulse Resp BP Pulse Ox
99 F 82 18 139/65 95
07/07/25 07:05 07/07/25 07:05 07/07/25 07:05 07/07/25 07:05 07/07/25 07:05
I&O
07/06/25 07/07/25 07/08/25
06:59 06:59 06:59
Intake Total 980 / 980
Output Total 300 / 300
Balance 680 / 680
--- NOTE | 2025-07-07 13:33 | CM ---
I.A: Completed By ZEYNEP Noe.
Patient lives with her daughter in a 1 level private home with 2 steps to enter, No DME, No VN/PT, and No Inpatient Rehab.
PCP: Dr. Prashant Alvarado
Pharmacy: [facility]
Patient has transportation home. PLAN: Anticipate Home No [facility] vs. VN
[2025-07-07 14:05] LABS: Magnesium 1.8 mg/dl (1.6-2.3)
[2025-07-07 15:25] VITALS: BP 103/55
[2025-07-07] MEDS: LOVENOX 40 MG SC (17:57)
[2025-07-07] MEDS: LIPITOR 40 MG PO (17:57)
[2025-07-07 19:53] VITALS: BP 99/66
[2025-07-07] MEDS: ZYRTEC 5 MG PO (19:54)
[2025-07-07 23:06] VITALS: BP 126/57
[2025-07-08] VITALS (10 sets, daily range): BP systolic 112–170; BP diastolic 58–131; BMI 23.4
[2025-07-08] MEDS: TYLENOL 650 MG PO ×2 (02:27→18:22)
[2025-07-08 07:16] LABS: Hematocrit 31.0 % (37.0-47.0); Hemoglobin 10.0 g/dL (12.0-16.0); Mean Corp Hgb Conc. 32.3 g/dL (33.0-37.0); Mean Corpuscular Volume 89.9 fL (81.0-99.0); Nucleated Red Blood Cells % 0 %; Platelet Count 203 10^3/uL (130-400); Red Cell Dist. Width 13.5 % (11.5-14.5)
[2025-07-08 07:32] LABS: ALT (SGPT) 30 U/L (0-35); AST (SGOT) 25 U/L (14-36); Albumin 2.8 g/dl (3.5-5.0); Alkaline Phosphatase 84 U/L (38-126); Blood Urea Nitrogen 34 mg/dl (7-17); Calcium 8.4 mg/dl (8.4-10.2); Carbon Dioxide 24 mmol/L (22-30); Chloride 103 mmol/L (98-107); Estimated Creatinine Clearance 34 ml/min; Glucose 107 mg/dl (70-99); Potassium 3.8 mmol/L (3.5-5.1); Sodium 131 mmol/L (135-145); Total Protein 5.5 g/dl (6.3-8.2); eGFR 48.63
[2025-07-08] MEDS: ASPIR LOW (ENTERIC COATED) 81 MG PO (08:47)
[2025-07-08] MEDS: COZAAR 50 MG PO (08:47)
[2025-07-08] MEDS: RESTASIS 0.05% OPHTHALMIC EMULSION 1 DROPS BOTH EYES ×2 (08:47→19:31)
[2025-07-08] MEDS: SENOKOT 8.6 MG PO ×2 (08:47→19:30)
[2025-07-08] MEDS: HYDROCORTISONE 1% CREAM 1 APPLIC TOPICAL (08:48)
--- NOTE | 2025-07-08 10:53 | CON.CAR ---
Consultation
Consultation Request
Date/Time Consultation Requested: 07/08/2025
Date/Time Consultation Performed: 07/08/2025
Reason for Consultation: Atrial fibrillation and pauses
Medical History
-
Chief Complaint: New onset atrial fibrillation and significant conversion pauses
History of Present Illness:
Ms. Young is an 85-year-old woman, resident of independent apartment at [facility] with history of CVA, HTN, HPL and dementia presenting now with new onset atrial fibrillation and back pain. Patient's back pain was likely related to fecal
impaction and was disimpacted in the ER with an enema. Patient was noted to be in A-fib with RVR. Subsequently she converted back to normal sinus rhythm and had 6.7-second pause.
[id number] score is 6�age, gender, CVA, HTN
Patient continued to have paroxysms of atrial fibrillation and conversion pauses. Amlodipine and metoprolol has been held. Blood pressure has been acceptable. She was noted to have leukocytosis but has already started to improve with fecal
disimpaction.
LVEF 60%, mild AR.
Past Medical History
Past Medical History: Arrhythmias (Newly identified atrial fibrillation), CVA, HTN, Hypercholesterolemia and Other (Dementia, overactive bladder, compression fracture.)
Past Surgical History: Gynecological (Hysterectomy, left lumpectomy) and Other (Cataract extraction)
Social History
Tobacco: Non-Smoker
Alcohol: None
Drug: None
Employment: Retired
Family History
Family History: Reviewed & Not Pertinent
Allergies / Home Medications
Allergy/AdvReac Type Severity Reaction Status Date / Time
gabapentin Allergy Rash/macular Verified 07/06/25 09:42
rash upper
back and
face
lactose Allergy abd pain Verified 07/06/25 09:42
and
diarrhea
Penicillins Allergy Rash Verified 07/06/25 09:42
Sulfa (Sulfonamide Allergy Rash Verified 07/06/25 09:42
Antibiotics)
�Medication �Instructions �Recorded �Confirmed �Type
cyclosporine 0.05 % eye drops in a 1 drp BOTH EYES Q12 Eye Condition 01/25/24 07/06/25 History
dropperette (Restasis)
sennosides 8.6 mg-docusate sodium 1 tab PO BIDPRN PRN constipation 01/31/24 07/06/25 Rx
50 mg tablet (Stool #60 tabs
Softener-Stimulant Laxative)
cetirizine 10 mg tablet 5 mg PO HS Allergies 12/04/24 07/06/25 History
acetaminophen 325 mg tablet 650 mg (2 x 325 mg) PO Q6HPRN PRN 12/09/24 07/06/25 Rx
mild pain/ fever>100.5F #0 tabs
metoprolol tartrate 25 mg tablet 25 mg PO BID Blood Pressure 12/21/24 07/06/25 History
amlodipine 10 mg tablet 10 mg PO DAILY Blood Pressure 07/06/25 07/06/25 History
ammonium lactate 12 % lotion 1 applic topical BID b/l legs, back 07/06/25 07/06/25 History
(AmLactin)
aspirin 81 mg tablet,delayed 81 mg PO DAILY Blood Clot 07/06/25 07/06/25 History
release Prevention/Tx
atorvastatin 40 mg tablet 40 mg PO QPM High Cholesterol 07/06/25 07/06/25 History
hydralazine 25 mg tablet 12.5 mg PO BIDPRN PRN rash 07/06/25 07/06/25 History
hydrocortisone 1 % topical cream 1 applic topical BID b/l legs 07/06/25 07/06/25 History
ipratropium 0.5 mg-albuterol 3 mg 3 ml inhalation R Q6HPRN PRN sob 07/06/25 07/06/25 History
(2.5 mg base)/3 mL nebulization
soln
lactase 3,000 unit tablet 3,000 unit PO Q6HPRN PRN dairy 07/06/25 07/06/25 History
lidocaine 4 % topical patch 1 patch topical DAILYPRN PRN lower 07/06/25 07/06/25 History
back
losartan 50 mg tablet 50 mg PO DAILY Blood Pressure 07/06/25 07/06/25 History
Review of Systems
-
History Source: Patient and Family (Daughter who is POA and son who was visiting and at bedside.)
All other systems: Negative unless noted
Physical Exam
Vital Signs
Temp Pulse Resp BP Pulse Ox
98 F 86 16 138/67 95
07/08/25 07:00 07/08/25 07:00 07/08/25 07:00 07/08/25 07:00 07/08/25 07:00
Lab Results
07/08/25 06:28
07/08/25 06:28
Troponin I < 0.012 ng/ml 07/06/25 10:30
Physical Exam
General: Well Developed, Well Nourished and No Apparent Distress
HEENT: Normocephalic, Anicteric and Moist Mucous Membranes
Respiratory: Clear and Non Labored Respirations
Cardiac: S1/S2 and Regular Rhythm; Negative Murmur or Peripheral Edema
GI: Soft, Non Tender, Non Distended and Normal Bowel Sounds
Musculoskeletal: No Clubbing, No Cyanosis and No Edema
Skin: Warm and Dry
Neuro: Awake, Alert and Other (Dementia with difficult to provide history. She urged me to talk to her daughter as well.)
Psych: Calm and Confused
Impression / Plan
-
85-year-old woman with advanced dementia, hypertension, CVA, hyperlipidemia, compression fracture, with fecal impaction status post disimpaction is noted to have recurrent paroxysmal atrial fibrillation. Patient is going in and out of atrial
fibrillation and is having significant long conversion pauses.
Paroxysmal atrial fibrillation /tachybradycardia syndrome
- [id number]-[id number] score is 6
- Patient is going in and out of A-fib.
- She presented with A-fib with RVR and had significant long pauses 6.7 seconds after conversion into sinus.
- Recurrent pauses noted on telemetry
- Transfer patient from medical floor to IVU.
- Holding metoprolol.
- With elevated [id number]-QHXt score, risk of stroke was discussed with the patient, her son and her daughter.
- The patient has dementia but appears alert and oriented at this time. She wants to proceed with therapy as needed. She does not want stroke and was willing to start chronic anticoagulation therapy.
- I discussed this with her daughter (Shraddha Young) who was of the opinion that patient did not want any interventions and does not want to be hospitalized either.
- This was based on a conversation she had with her mother a year ago when she was emotionally aggravated and asked for no interventions. At that time patient was suspected of having atrial fibrillation and loop recorder was suggested. Patient
refused implantable loop recorder implantation.
- Now atrial fibrillation is confirmed and she is having significant pauses. I discussed in detail the need for pacemaker. After explaining that this is life saving intervention and patient is at high risk for sudden cardiac if she does not
proceed with pacemaker, her daughter Shraddha is in agreement with proceeding with pacemaker implantation.
- Patient's daughter will talk in detail to the patient and let us know whether a pacemaker is warranted or not.
- In case patient's and her daughter decided to not pursue pacemaker, aggressive interventions are of little value and I would suggest discontinuation of Eliquis and continue supportive therapy. Patient probably can be discharged back to [facility]
home.
- For now we will continue with the plan for pacemaker implantation.
- Given patient's dementia, she would be a good candidate for leadless pacemaker. If patient and her POA/daughter is in agreement, we will plan for leadless pacemaker implantation tomorrow
Data Reviewed
-
EKG: Tracing Personally Visualized and interpreted, Report Reviewed by me, Discussed with Physician, Discussed with Nurse, Discussed with Patient and Discussed with Family
Labs: Labs Reviewed by me, Discussed with Physician, Discussed with Patient and Discussed with Family
Old Records: Reviewed
[2025-07-08] MEDS: MAGNESIUM SULFATE 102 GRAMS IV (11:11)
--- NOTE | 2025-07-08 11:15 | VATNOTE ---
vat following r ac infiltrate. upon assessment, looks better than yesterday, less that +1 edema,area pink, soft to palpation. pt denies discomfort. heat applied, arm elevated. will cont to monitor
[2025-07-08] MEDS: ELIQUIS 5 MG PO ×2 (11:23→19:31)
[2025-07-08] MEDS: MIRALAX 17 GRAMS PO (11:23)
[2025-07-08] MEDS: ELIQUIS PO (11:47)
--- NOTE | 2025-07-08 12:46 | W.PN.HOSP.TC ---
Today's Communication/Plan
-
Monitor vitals
See plan
Pacemaker tomorrow
Transfer to IVU
Discussed with cardiology
Discussed with daughter
Hold metoprolol
Eliquis
Assessment / Plan
Assessment / Plan
General: Comfortable and Conversant
HEENT: Anicteric and Moist mucous membranes
Respiratory: Clear and Non Labored Respirations
Cardiac: S1/S2 and Regular Rhythm
GI: Soft and Non Tender
Musculoskeletal: no edema
Neuro: Awake, Alert and Other (Left hemiparesis which daughter reports seems to be at baseline)
Psych: Calm
New onset A-fib with RVR 07/07, no prior history
Subsequently converted to normal sinus rhythm with a 6-second pause. Cardiology following. Plan for pacemaker tomorrow
Reviewed telemetry, multiple pauses. Will move patient to IVU. Cardiology aware
Hold metoprolol
TSH wnl
Check echo
chadvasc 6; started on Eliquis
Hold metoprolol
Patient with fecal impaction
Disimpacted in the ED
And enema administered
Continue monitor bowel movements
Leukocytosis improving
Positive blood culture, 1 bottle with gram-positive cocci in clusters
Likely contaminant, speciated as coag negative staph
Currently without any fever and leukocytosis improving without any antibiotic
Essential hypertension
Currently normotensive
Hold amlodipine, metoprolol
WOOD likely secondary to hypotension
Hold losartan
Monitor
Hyponatremia
monitor
Multifocal stroke with residual left hemiparesis
some cognitive impairment from likely CVA
Aspirin now stopped since started Eliquis
Spoke with daughter, patient refused loop recorder in the past
Hyperlipidemia
DVT prophylaxis
Eliquis
Full code
I spent a total of 52 minutes with the patient or on the floor. More than 50% of this time involved counseling and coordination of care.
Anticipated Discharge: 24 - 48 hours
Subjective/Interval History
-
Date of Service: July 08, 2025
Denies pain
Objective Data
-
Labs:
Laboratory Results
07/08/25
06:28
WBC 9.1
Hgb 10.0 L
Hct 31.0 L
Plt Count 203
Sodium 131 L
Potassium 3.8
Chloride 103
Carbon Dioxide 24
BUN 34 H
Creatinine 1.1 H
Glucose 107 H
Calcium 8.4
Total Bilirubin 1.3
AST 25
ALT 30
Alkaline Phosphatase 84
Vital Signs:
Vital Signs
Temp Pulse Resp BP Pulse Ox
98.2 F 84 18 136/58 98
07/08/25 11:00 07/08/25 11:00 07/08/25 11:00 07/08/25 11:00 07/08/25 11:00
I&O
07/07/25 07/08/25 07/09/25
06:59 06:59 06:59
Intake Total 980 / 980 1380 / 1380
Output Total 300 / 300
Balance 680 / 680 1380 / 1380
--- NOTE | 2025-07-08 16:00 | PTCARENOTE ---
Patient transferred to IVU room 2243. All belongings taken with patient at time of transfer.
[2025-07-08] MEDS: LIPITOR 40 MG PO (18:20)
--- NOTE | 2025-07-08 19:04 | PTCARENOTE ---
~1600: Received patient from via stretcher. Patient ambulated off stretcher with Ax1 walker to bed and c/o dizziness. While connecting patient to IVU tele monitor, patient alarms and is now in Afib 90s-190s with SBP 160s-170s, asmyptomatic.
Jaquan made aware, no new orders at this time. Pt oriented to self, place and situation but not time. and forgettful. + Murmur noted RA satting 95% diminished at bases. +2/+2 pulses, trace edema. Patient does not c/o pain at this time. Oriented to
room and call hinds system. Bed alarm and chair alarm in place for safety. All needs met at this time, call hinds within reach.
~[id number]: Patient OOB with Ax2 to bedside commode to void. I/Os charted. Order received from Dr. Partida for hydralazine PRN for SBP >160. Pt current SBP 150. Family at bedside at this time. Pt c/o L thigh pain, per family has been happening
prior to admission, PRN tylenol given. All needs met, call hinds within reach. Handoff given to nightshift RN.
[2025-07-08] MEDS: HYDROCORTISONE 1% CREAM TOPICAL (20:31)
[2025-07-08] MEDS: ZYRTEC 5 MG PO (21:25)
--- NOTE | 2025-07-08 21:46 | PTCARENOTE ---
Received pt at change of shift resting in bed. AOx2--name and situation/place. SR on tele, HR 80's-90's. pt denies any CP or SOB at this time. Fall risk precautions maintained, bed alarm on and audible. Educated pt on NPO status after midnight, pt
verbalizes understanding. MEAT SEA[employer]OD ASSOCIATE in room to insert 20g IV. Encouraged pt to call RN for assistance ambulating. pt ambulating to bedside commode w/ RN and rw. pt calls appropriately. Call hinds within reach.
[2025-07-09] VITALS (17 sets, daily range): BP systolic 111–160; BP diastolic 59–76; PULSE 91; O2SAT 97; BMI 23.3
[2025-07-09 04:03] LABS: Hematocrit 36.6 % (37.0-47.0); Hemoglobin 12.0 g/dL (12.0-16.0); Mean Corp Hgb Conc. 32.8 g/dL (33.0-37.0); Mean Corpuscular Volume 90.8 fL (81.0-99.0); Nucleated Red Blood Cells % 0 %; Platelet Count 272 10^3/uL (130-400); Red Cell Dist. Width 13.2 % (11.5-14.5)
[2025-07-09 04:19] LABS: ALT (SGPT) 35 U/L (0-35); AST (SGOT) 30 U/L (14-36); Albumin 3.5 g/dl (3.5-5.0); Alkaline Phosphatase 115 U/L (38-126); Blood Urea Nitrogen 25 mg/dl (7-17); Calcium 9.0 mg/dl (8.4-10.2); Carbon Dioxide 24 mmol/L (22-30); Chloride 107 mmol/L (98-107); Estimated Creatinine Clearance 46 ml/min; Glucose 101 mg/dl (70-99); Potassium 4.4 mmol/L (3.5-5.1); Sodium 139 mmol/L (135-145); Total Protein 6.4 g/dl (6.3-8.2); eGFR > 60.00
--- NOTE | 2025-07-09 08:05 | PTCARENOTE ---
Assumed care of pt from prev nsg shift; Pt AAOx1-2, pt confused to time & place, which is pt's baseline. Pt w/no c/o CP or SOB. Pt's VSS w/HR in the 80's & BP 131/76 this AM. Pt is SR w/PAC's on telemetry monitoring. Pt NPO for leadless pacemaker
placement today. Plan of care discussed w/pt & pt verbalized her understanding. Pt w/no addtl needs at this time. Call hinds within reach & Bed & chair alarms in place for safety.
[2025-07-09] MEDS: HYDROCORTISONE 1% CREAM TOPICAL (09:29)
[2025-07-09] MEDS: MIRALAX 17 GRAMS PO (09:49)
[2025-07-09] MEDS: SENOKOT 8.6 MG PO ×2 (09:50→19:32)
[2025-07-09] MEDS: RESTASIS 0.05% OPHTHALMIC EMULSION 1 DROPS BOTH EYES ×2 (09:50→19:32)
--- NOTE | 2025-07-09 10:22 | W.PN.HOSP.TC ---
Today's Communication/Plan
-
For permanent pacemaker placement today
Assessment / Plan
Assessment / Plan
New onset A-fib with RVR 07/07, no prior history
Subsequently converted to normal sinus rhythm with a 6-second pause. Cardiology following. Plan for pacemaker today
TSH within normal limits, echocardiogram requested, started on Eliquis, aspirin discontinued
Hold metoprolol
Patient with fecal impaction
Disimpacted in the ED, enema administered
Continue monitor bowel movements
Leukocytosis improving
Positive blood culture, 1 bottle with gram-positive cocci in clusters
Likely contaminant, speciated as coag negative staph
Currently without any fever and leukocytosis improving without any antibiotic
Essential hypertension
Currently normotensive
Hold amlodipine, losartan, metoprolol
WOOD likely secondary to hypotension
Hold losartan
Monitor
Hyponatremia
monitor
Multifocal stroke with residual left hemiparesis
Some cognitive impairment from likely CVA
Aspirin now stopped since started Eliquis
Spoke with daughter, patient refused loop recorder in the past
Hyperlipidemia
DVT prophylaxis- Eliquis
DNR
Total time spent to see the patient on the floor, examine the patient, review data and lab results, discuss treatment plan with patient, nursing staff around 40 minutes.
Physical exam
General: No acute distress
HEENT: Anicteric and Moist mucous membranes
Respiratory: Clear and Non Labored Respirations
Cardiac: S1/S2 and Regular Rhythm
GI: Soft and Non Tender
Musculoskeletal: no edema
Neuro: Awake, Alert and Other (Left hemiparesis which daughter reports seems to be at baseline)
Psych: Calm
Anticipated Discharge: Within 24 hours
Subjective/Interval History
-
Date of Service: July 09, 2025
Patient complains of left thigh pain and cramping. Denies chest pain, denies shortness of breath. No lightheadedness, no dizziness. No fever, no vomiting.
Objective Data
-
Labs:
Laboratory Results
07/09/25
03:03
WBC 7.7
Hgb 12.0
Hct 36.6 L
Plt Count 272 D
Sodium 139 D
Potassium 4.4
Chloride 107
Carbon Dioxide 24
BUN 25 H
Creatinine 0.8
Glucose 101 H
Calcium 9.0
Total Bilirubin 1.4 H
AST 30
ALT 35
Alkaline Phosphatase 115
Vital Signs:
Vital Signs
Temp Pulse Resp BP Pulse Ox
98.3 F 76 18 131/76 98
07/09/25 07:37 07/09/25 08:00 07/09/25 07:37 07/09/25 07:36 07/09/25 07:37
I&O
07/08/25 07/09/25 07/10/25
06:59 06:59 06:59
Intake Total 1380 / 1380 400 / 400
Output Total 950 / 950
Balance 1380 / 1380 -550 / -550
--- NOTE | 2025-07-09 11:02 | CM ---
spoke to pt in room, she lives withher daughter in indep apt at [facility]. plan is for PPM/leadless today and dc to home when medically stable.
--- NOTE | 2025-07-09 14:30 | PTCARENOTE ---
Pt received from 2242 to calibration laboratory technician recovery bay 8, pt alert, oriented to person and birthday only, disoriented to place and time, monitor showing NSR, denies any pain, palpable peripheral pulses, bilat lower leg trace edema, lung sounds diminished at
bases, O2 sat 98% on romm air, abd soft with +BS, verified with RN during handoff report that pt has been NPO since midnight, voided just prior to transfer here, NSS @ KVO placed to medial left hand IV site, temp 99.[address] Jaquan Dr
Asher at bedside to complete pre anesthesia evaluation
--- NOTE | 2025-07-09 14:55 | PTCARENOTE ---
Dr Partida at bedside to see pt, pt with c/o left thigh pain, unable to rate on pain scale, area assessed by MD, no new orders at this time
--- NOTE | 2025-07-09 15:06 | PTCARENOTE ---
Hand off report given to Kerri and Nicholas pt transferred via bed to procedure room
[2025-07-09] MEDS: VANCOCIN 200 IV (15:30)
--- NOTE | 2025-07-09 16:17 | W.PN.CD ---
Today's Communication / Plan
-
- Micra implant today
- Restart Coreg post op.
- If hypertensive, then can add Amlodipine back.
Impression / Plan
-
85-year-old woman with advanced dementia, hypertension, CVA, hyperlipidemia, compression fracture, with fecal impaction status post disimpaction is noted to have recurrent paroxysmal atrial fibrillation. Patient is going in and out of atrial
fibrillation and is having significant long conversion pauses.
Paroxysmal atrial fibrillation /tachybradycardia syndrome
- HTQ4ZH0-HRQz score is 6
- Patient is going in and out of A-fib.
- She presented with A-fib with RVR and had significant long pauses 6.7 seconds after conversion into sinus.
- Recurrent pauses noted on telemetry
- Transfer patient from medical floor to IVU.
- Holding metoprolol.
- I discussed this with her daughter (Shraddha Young) and the plan of pacemaker was explained in detail. Patient and daughter are both in agreement to proceed with pacemaker. We discussed the benefits and risks of both leadless and traditional
pacemaker. Given pt dementia, UTI and risk of infections, it was decided to proceed with leadless pacemaker.
- Consent obtained on the phone from the daughter.
- Micra implant today.
Physical Exam
Vital Signs/Labs
Vital Signs
Temp Pulse Resp BP Pulse Ox
99.5 F 95 15 137/66 98
07/09/25 14:38 07/09/25 14:38 07/09/25 14:38 07/09/25 14:38 07/09/25 14:38
07/08/25 07/09/25 07/10/25
06:59 06:59 06:59
Actual Weight 65.828 kg 65.4 kg
07/09/25 03:03
07/09/25 03:03
Magnesium 1.8 mg/dl (1.6-2.3) 07/07/25 07:18
Physical Exam
Constitutional: No acute distress, Comfortable and Confusion
EENT: Anicteric and Moist mucous membranes
Cardiovascular: Rhythm & rate is regular, Pedal edema is absent and Systolic murmur absent
Respiratory: Respiratory effort normal, Wheeze Absent and Crackles Absent
GI: Soft, Non tender and Normal bowel sounds
Neuro/Psych: Alert and Oriented
Data Reviewed
-
Date of Service: July 09, 2025
Medical Decision Making: Reviewed Test Results, Test Interpretation and Review of Case with other Provider
EKG: Tracing Personally Visualized and interpreted
Echo: Report Reviewed by me
Labs: Labs Reviewed by me
Old Records: Reviewed
--- NOTE | 2025-07-09 16:28 | ITS.CL.PACE ---
District Wildlife Manager - Pacemaker Implant
Pacemaker Implant
Procedure Report:
Leadless Pacemaker (Micra) Implantation:
Ms. Young is a very pleasant 85 yr old woman with with history of CVA, HTN, HPL and advanced dementia presenting now with new onset atrial fibrillation with tachy casa syndrome and long conversion pauses and pre-syncope and was recommended for a
leadless pacemaker.
Indications: Tachy casa syndrome and long conversion pauses
Date of the Procedure:
07/09/2025
Pre-Operative Diagnosis: Tachy casa syndrome and long conversion pauses
Post-Operative Diagnosis: Tachy casa syndrome and long conversion pauses
Procedure Performed: Leadless pacemaker placement
Performing Physician:
Tony Partida MD
Anesthesia:
See anesthesia records
Pre-operative antibiotics:
Aztreonam and Vancomycin
Detailed Description of the Procedure:
Written informed consent was obtained from the patient after a full explanation of the risks and benefits of the procedure including the risks of sedation and anesthesia.
The patient was brought to the electrophysiology laboratory in stable condition in fasting state. Continuous electrocardiographic and hemodynamic monitoring was initiated.
The initial rhythm was sinus rhythm.
The procedure site was meticulously prepared with surgical scrub and allowed to dry with no pooling. Sterile draping was applied to cover the procedure site. The image intensifier was draped with sterile bag and positioned over the patient.
After infusion of local anesthetic, vascular access was obtained under ultrasound guidance and sheaths were placed over guide wire as detailed below.
An 8Fr sheath in right femoral vein was placed and Amplatz Guidewire 0.035 was placed in the superior vena cava. The venous access was gradually dilated from 14-24 German dilators. Then the 27 Fr Micra outer sheath was successfully and carefully
advanced to the RA.
Leadless Pacemaker (Micra) implantation:
The delivery system of the Micra was prepped with removal of all air underwater and was advanced into the sheath to the RA with continuous saline irrigation. The sheath was pulled back to the IVC and the delivery sheath was advanced into the RV
cavity. The delivery system as placed against the ventricular septum using FIELD and REJI fluoroscopic views. Once adequate location was confirmed, the locked sutures were unlocked and the Micra was slowly advanced pulling back the delivery sheath
releasing the anchoring hooks. The Micra was attached successfully to the RV septum. The PM was tested and adequate sensing and threshold noted.
Next, the tug test was done with the pulling the attached suture under fluoroscopic guidance with the three anchors securely embedded and showed movement and widening of the anchors with pulling them. The PPM again was tested showing stable
thresholds and excellent sensing.
The one side of the suture was cut and the other side was gradually and carefully pulled until free. The delivery system sheath was pulled back to the IVC and the PPM was again tested showing stable numbers.
Device Information:
Medtronic Leadless (Micra) pacemaker-
Model #: [id number]; Serial Number: [id number] @ RV septum
Casa parameter settings were VVI 60 bpm. �
Measured data in the Micra was sensing of 20mV, impedance of 1150 ohms and the threshold of 0.38 V at 0.24ms.
Procedure End
Following the completion of the Micra implant, catheters were removed. The decision was made to also place a �figure of 8� sutures. The sheaths were removed and hemostasis achieved with manual compression.
Estimated Blood loss:
<5 cc
Total contrast used:
0
Specimens Removed:
None.
Implants / Devices:
None
Urine output:
None
Packs / Drains/ Tubes:
None
Instrument / Sponge Count Correct:
Yes
Complications of the Procedure:
None
Condition of Patient at Time of Transfer:
Hemodynamically stable with no neurological or vascular compromise.
Summary:
Successful implantation of MRI compatible Medtronic leadless ventricular pacemaker
[2025-07-09] MEDS: TYLENOL 650 MG PO (19:31)
[2025-07-09] MEDS: COREG 12.5 MG PO (19:32)
[2025-07-09] MEDS: SENOKOT-S 2 TABLET PO (19:32)
[2025-07-09] MEDS: LIPITOR 40 MG PO (19:33)
--- NOTE | 2025-07-09 21:50 | PTCARENOTE ---
Pt rec'd at change of shift awake, alert with friend at bedside who helped pt eat her dinner. CBR maintained at this time. Right femoral vein Fig 8 suture clipped without difficulty. no active bleeding noted. Pt remains on cbr until 2214. Pt has
been resting in bed after getting Tylenol for c/o pain in left thigh. Pt's friend stated she c/o pain last week in same area.
[2025-07-09] MEDS: ZYRTEC 5 MG PO (22:32)
[2025-07-09] MEDS: HYDROCORTISONE 1% CREAM 1 APPLIC TOPICAL (22:33)
--- NOTE | 2025-07-09 23:21 | PTCARENOTE ---
Right femoral site remains dry and intact with no hematoma. Bedrest complete. Pt assisted to bathroom to void. Pt with significant stress incontinence
bath given with bath cloths and disposable underwear with pad placed. urine dark kong in color
[2025-07-10] VITALS (9 sets, daily range): BP systolic 116–142; BP diastolic 57–79; PULSE 71; O2SAT 97; BMI 22.9
[2025-07-10 04:25] LABS: Hematocrit 35.0 % (37.0-47.0); Hemoglobin 11.7 g/dL (12.0-16.0); Mean Corp Hgb Conc. 33.4 g/dL (33.0-37.0); Mean Corpuscular Volume 88.2 fL (81.0-99.0); Platelet Count 268 10^3/uL (130-400); Red Cell Dist. Width 13.1 % (11.5-14.5)
[2025-07-10 04:51] LABS: Blood Urea Nitrogen 23 mg/dl (7-17); Calcium 9.3 mg/dl (8.4-10.2); Carbon Dioxide 24 mmol/L (22-30); Chloride 107 mmol/L (98-107); Estimated Creatinine Clearance 53 ml/min; Glucose 151 mg/dl (70-99); Potassium 4.7 mmol/L (3.5-5.1); Sodium 135 mmol/L (135-145); eGFR > 60.00
--- NOTE | 2025-07-10 08:08 | W.PN.CD ---
Today's Communication / Plan
-
- Micra interrogation today
- Resume Losartan. Continue Coreg and Eliquis.
Impression / Plan
-
85-year-old woman with advanced dementia, hypertension, CVA, hyperlipidemia, compression fracture, with fecal impaction status post disimpaction is noted to have recurrent paroxysmal atrial fibrillation. Patient is going in and out of atrial
fibrillation and is having significant long conversion pauses.
tachybradycardia syndrome
- Long conversion pauses.
- s/p leadless pacemaker - Micra 07/09/25
- Intermittent demand pacing noted
- No pauses noted
- PPM is working well.
Paroxysmal atrial fibrillation /
- [id number] score is 6
- Coreg 12.5 mg BID
- Resume Eliquis - 5 mg BID
- rates are better controlled with Coreg
HTN
- BP was elevated and Coreg is started
- Will stop Amlodipine and resume Losartan 50 mg QD today
- Out patient regimen is modified with discontinuation of Amlodipine and Hydralazine
- Further titration as outpatient.
Fever:
- Unclear etiology
- As per primary
- Blood cultures obtained on 07/09/25 before antibiotics given with pacemaker.
Physical Exam
Vital Signs/Labs
Vital Signs
Temp Pulse Resp BP Pulse Ox
97.8 F 74 20 142/58 93
07/10/25 03:49 07/10/25 08:00 07/09/25 22:35 07/10/25 07:59 07/10/25 03:49
07/09/25 07/10/25 07/11/25
06:59 06:59 06:59
Actual Weight 65.4 kg 64.4 kg
07/10/25 04:12
07/10/25 04:12
Magnesium 1.8 mg/dl (1.6-2.3) 07/07/25 07:18
Physical Exam
Constitutional: No acute distress and Comfortable
EENT: Anicteric and Moist mucous membranes
Cardiovascular: Rhythm & rate is regular, Pedal edema is absent and JVD pressure is normal
Respiratory: Respiratory effort normal, Lungs clear to auscul. and Crackles Absent
GI: Soft, Distention absent and Normal bowel sounds
Neuro/Psych: Alert, Oriented and AO x 3
Data Reviewed
-
Date of Service: July 10, 2025
Medical Decision Making: Reviewed Test Results, Test Interpretation and Review of Case with other Provider
EKG: Tracing Personally Visualized and interpreted
Labs: Labs Reviewed by me
Old Records: Reviewed
--- NOTE | 2025-07-10 08:31 | PTCARENOTE ---
Assumed care of pt from prev nsg shift; Pt AAOx1-2, pt confused to time & place, which is pt's baseline. Pt w/no c/o CP or SOB. Pt's VSS w/HR in the 70's & BP 142/58 this AM. Pt is SR w/occas PAC's on telemetry monitoring. Pt w/R groin site
w/dressing C/D/I w/no signs or symptoms of bleeding or hematoma. Pt does c/o L thigh pain, unable to rate; PRN PO Tylenol to be administered as ordered. Plan of care discussed w/pt & pt verbalized her understanding. Pt w/no addtl needs at this time.
Call hinds within reach & Bed & chair alarms in place for safety.
--- NOTE | 2025-07-10 09:21 | W.PN.HOSP.TC ---
Today's Communication/Plan
-
Check chest x-ray
Check urine analysis
Discharge tomorrow if cleared by cardiology
Assessment / Plan
Assessment / Plan
New onset A-fib with RVR 07/07, no prior history
Subsequently converted to normal sinus rhythm with a 6-second pause.
Appreciate cardiology input, status post pacemaker placement on 07/09
TSH within normal limits, echo EF 65-70%, started on Eliquis, aspirin discontinued
Metoprolol discontinued. Started on Coreg 12.5 mg twice a day by cardiology
Reported fever of 101.6 prior to PPM implantation
Fever resolved, patient denies any respiratory or urinary symptoms
Check urine analysis, chest x-ray, follow-up on blood culture sent yesterday
Patient with fecal impaction
Disimpacted in the ED, enema administered
Continue laxatives, monitor bowel movements
Leukocytosis improving
Positive blood culture, 1 bottle with gram-positive cocci in clusters
Likely contaminant, speciated as coag negative staph
Essential hypertension
Currently normotensive
Hold amlodipine, losartan, metoprolol
WOOD likely secondary to hypotension
Hold losartan
Monitor
Hyponatremia
monitor
Multifocal stroke with residual left hemiparesis
Some cognitive impairment from likely CVA
Aspirin now stopped since started Eliquis
Spoke with daughter, patient refused loop recorder in the past
Hyperlipidemia
DVT prophylaxis- Eliquis
DNR
Disposition: PT recommends returning to memory care at [facility] versus SNF
Updated daughter on phone 07/10
Total time spent to see the patient on the floor, examine the patient, review data and lab results, discuss treatment plan with patient, nursing staff around 50 minutes.
Physical exam
General: No acute distress
HEENT: Anicteric and Moist mucous membranes
Respiratory: Clear and Non Labored Respirations
Cardiac: S1/S2 and Regular Rhythm
GI: Soft and Non Tender
Musculoskeletal: no edema
Neuro: Awake, Alert and Other (Left hemiparesis which daughter reports seems to be at baseline)
Psych: Calm
Anticipated Discharge: Within 24 hours
Subjective/Interval History
-
Date of Service: July 10, 2025
Patient reports feeling well. Denies chest pain, denies shortness of breath, no coughing. Denies dysuria, or abdominal pain. No fever, no vomiting.
Objective Data
-
Labs:
Laboratory Results
07/10/25
04:12
WBC 6.0
Hgb 11.7 L
Hct 35.0 L
Plt Count 268
Sodium 135
Potassium 4.7
Chloride 107
Carbon Dioxide 24
BUN 23 H
Creatinine 0.7
Glucose 151 H
Calcium 9.3
Vital Signs:
Vital Signs
Temp Pulse Resp BP Pulse Ox
97.4 F 75 18 142/58 99
07/10/25 08:00 07/10/25 08:00 07/10/25 08:00 07/10/25 07:59 07/10/25 08:00
I&O
07/09/25 07/10/25 07/11/25
06:59 06:59 06:59
Intake Total 400 / 400 1530 / 1530
Output Total 950 / 950 900 / 900
Balance -550 / -550 630 / 630
[2025-07-10] MEDS: RESTASIS 0.05% OPHTHALMIC EMULSION 1 DROPS BOTH EYES ×2 (09:52→20:02)
[2025-07-10] MEDS: SENOKOT-S 2 TABLET PO (09:52)
[2025-07-10] MEDS: HYDROCORTISONE 1% CREAM 1 APPLIC TOPICAL ×2 (09:53→20:03)
[2025-07-10] MEDS: ELIQUIS 5 MG PO ×2 (09:53→20:02)
[2025-07-10] MEDS: MIRALAX 17 GRAMS PO (09:53)
[2025-07-10] MEDS: COREG 12.5 MG PO ×2 (09:53→20:02)
[2025-07-10] MEDS: SENOKOT 8.6 MG PO (09:54)
[2025-07-10 16:25] LABS: Urine Character Clear (Clear)
[2025-07-10 16:33] LABS: Urine Squamous Cell >30 /LPF (Few)
[2025-07-10 16:34] LABS: Urine White Cell 16-20 /HPF (0-5)
[2025-07-10] MEDS: SENOKOT PO (18:05)
[2025-07-10] MEDS: LIPITOR 40 MG PO (18:05)
[2025-07-10] MEDS: SENOKOT-S PO (18:06)
[2025-07-10] MEDS: TYLENOL 650 MG PO (20:31)
[2025-07-10] MEDS: ZYRTEC 5 MG PO (22:35)
--- NOTE | 2025-07-10 23:56 | PTCARENOTE ---
Pt rec'd at change of shift resting in bed. Assisted oob x 1 with walker to br to void. Sinus first degree with some MUSIC MIXER noted on telemetry. At approx 2330 pt was noted to be going in and out of V paced rhythm with tachy but regular rhythm 140's B/P
124/50. Pt asympt.
--- NOTE | 2025-07-11 02:11 | PTCARENOTE ---
tele showing afib with V pacing
[2025-07-11 03:31] VITALS: BMI 23.2
[2025-07-11 03:34] VITALS: BP 139/80
[2025-07-11] MEDS: TYLENOL 650 MG PO ×2 (03:36→12:11)
[2025-07-11 07:42] VITALS: BP 118/77
[2025-07-11 07:46] VITALS: BP 134/80
--- NOTE | 2025-07-11 08:07 | W.PN.CD ---
Today's Communication / Plan
-
- Coreg increased to 25 mg BID
- Hold Losartan at discharge and may need to be resume as outpatient.
- Discontinue Hydralazine and Amlodipine
- Stable for discharge from cardiac stand point.
Impression / Plan
-
85-year-old woman with advanced dementia, hypertension, CVA, hyperlipidemia, compression fracture, with fecal impaction status post disimpaction is noted to have recurrent paroxysmal atrial fibrillation. Patient is going in and out of atrial
fibrillation and is having significant long conversion pauses.
tachybradycardia syndrome
- h/o Long conversion pauses.
- s/p leadless pacemaker - Micra 07/09/25
- Intermittent demand pacing noted
- No pauses noted
- PPM is working well.
Paroxysmal atrial fibrillation /
- [id number] score is 6
- Went into AF over night and then in sinus. This AM, pt is again in AF.
- Increase Coreg from 12.5 mg BID to 25 mg BID
- Resume Eliquis - 5 mg BID
- Will stop Hydralazine and Amlodipine. Hold Losartan to allow for higher dose of Coreg.
HTN
- BP is acceptable and Coreg is started
- Hydralazine PO and Amlodipine are discontinued. Hold Losartan 50 mg QD today
- Out patient regimen is modified with discontinuation of Amlodipine and Hydralazine
- Further titration as outpatient.
Fever:
- Unclear etiology
- As per primary
- Blood cultures obtained on 07/09/25 before antibiotics given with pacemaker.
Physical Exam
Vital Signs/Labs
Vital Signs
Temp Pulse Resp BP Pulse Ox
97.5 F 84 20 139/80 97
07/11/25 07:49 07/11/25 04:00 07/11/25 07:49 07/11/25 03:34 07/11/25 07:49
07/10/25 07/11/2507/12/25
06:59 06:59 06:59
Actual Weight 64.4 kg 65.1 kg
07/10/25 04:12
07/10/25 04:12
Magnesium 1.8 mg/dl (1.6-2.3) 07/07/25 07:18
Physical Exam
Constitutional: No acute distress and Comfortable
EENT: Anicteric and Moist mucous membranes
Cardiovascular: Pedal edema is absent, JVD pressure is normal and Rhythm/rate is irregular
Respiratory: Respiratory effort normal, Lungs clear to auscul. and Wheeze Absent
GI: Soft, Non tender and Normal bowel sounds
Neuro/Psych: Alert, Oriented and Motor deficits absent
Other: Cath Site
Data Reviewed
-
Date of Service: July 11, 2025
Medical Decision Making: Reviewed Test Results, Test Interpretation and Review of Case with other Provider
EKG: Tracing Personally Visualized and interpreted
Echo: Report Reviewed by me
X-Ray/CT/US/MRI/NUC/PET: Image Personally Visualized and interpreted
Labs: Labs Reviewed by me
Old Records: Reviewed
[2025-07-11] MEDS: HYDROCORTISONE 1% CREAM 1 APPLIC TOPICAL (09:22)
[2025-07-11] MEDS: ELIQUIS 5 MG PO (09:22)
[2025-07-11] MEDS: RESTASIS 0.05% OPHTHALMIC EMULSION 1 DROPS BOTH EYES (09:23)
[2025-07-11] MEDS: SENOKOT-S 2 TABLET PO (09:23)
[2025-07-11] MEDS: SENOKOT 8.6 MG PO (09:23)
[2025-07-11] MEDS: MIRALAX 17 GRAMS PO (09:24)
--- NOTE | 2025-07-11 09:26 | W.PN.HOSP.TC ---
Today's Communication/Plan
-
Cleared by cardiology for discharge today
Assessment / Plan
Assessment / Plan
New onset A-fib with RVR 07/07, no prior history
Subsequently converted to normal sinus rhythm with a 6-second pause.
Appreciate cardiology input, status post pacemaker placement on 07/09
TSH within normal limits, echo EF 65-70%, started on Eliquis, aspirin discontinued
Metoprolol discontinued. Started on Coreg, which has been increased to 25 mg twice a day by cardiology
Reported fever of 101.6 prior to PPM implantation
Fever resolved, patient denies any respiratory or urinary symptoms
Urine analysis/chest x-ray negative, blood cultures negative
Patient with fecal impaction
Disimpacted in the ED, enema administered
Continue laxatives, monitor bowel movements
Will discharge on aggressive bowel regimen
Positive blood culture, 1 bottle with gram-positive cocci in clusters
Likely contaminant, speciated as coag negative staph
Essential hypertension
Currently normotensive
Discontinue amlodipine and hydralazine as per cardiology
Cardiology recommends holding losartan upon discharge
Check blood pressure with PCP in 1 week, and resume if needed
WOOD likely secondary to hypotension
Resolved
Monitor
Hyponatremia
monitor
Multifocal stroke with residual left hemiparesis
Some cognitive impairment from likely CVA
Aspirin now stopped since started Eliquis
Spoke with daughter, patient refused loop recorder in the past
Hyperlipidemia
DVT prophylaxis- Eliquis
DNR
Disposition: Back to memory care at [facility]
Updated daughter on phone 07/10
Physical exam
General: No acute distress
HEENT: Anicteric and Moist mucous membranes
Respiratory: Clear and Non Labored Respirations
Cardiac: S1/S2 and Regular Rhythm
GI: Soft and Non Tender
Musculoskeletal: no edema
Neuro: Awake, Alert and Other (Left hemiparesis which daughter reports seems to be at baseline)
Psych: Calm
Anticipated Discharge: Today
Subjective/Interval History
-
Date of Service: July 11, 2025
Patient denies dysuria, denies chest pain. No shortness of breath, no lightheadedness. No fever, no vomiting.
Objective Data
-
Vital Signs:
Vital Signs
Temp Pulse Resp BP Pulse Ox
97.5 F 87 20 134/80 97
07/11/25 07:49 07/11/25 08:00 07/11/25 07:49 07/11/25 07:46 07/11/25 07:49
I&O
07/10/25 07/11/25 07/12/25
06:59 06:59 06:59
Intake Total 1530 / 1530 960 / 960
Output Total 900 / 900 1150 / 1150
Balance 630 / 630 -190 / -190
[2025-07-11] MEDS: COZAAR PO (09:27)
[2025-07-11] MEDS: COREG 25 MG PO (09:28)
[2025-07-11] MEDS: COREG PO (10:43)
[2025-07-11 11:00] VITALS: BP 86/48
[2025-07-11 11:01] VITALS: BP 89/59
[2025-07-11 11:02] VITALS: BP 91/57
--- NOTE | 2025-07-11 16:28 | W.DCSUMMARY ---
Discharge Summary
Discharge Data
Date of Admission: 07/07/25
Date of Discharge: 07/11/25
-
Pending Results: No
Hospital Course
Discharge diagnosis:
New onset atrial fibrillation with rapid ventricular response
Reported fever of 101.6 prior to pacemaker implantation
Constipation with fecal impaction
Contaminated blood culture
Essential hypertension
Acute kidney injury
Hyponatremia
Multifocal stroke with residual left-sided hemiparesis
Cognitive impairment, likely from stroke
Hyperlipidemia
Consults: Cardiology
Procedures:
07/09/2025 Micra permanent pacemaker placement
CT abd/pelvis:
1. Trace bilateral pleural effusions with adjacent bandlike opacities within the lower lobes, likely scarring versus atelectasis.
2. Mildly enlarged heart with small pericardial effusion.
3. Moderate to large amount of stool within the rectum which is distended measuring 6.9 cm. No wall thickening or inflammatory stranding. Fecal impaction is a diagnostic consideration.
4. Diffuse osteopenia with multiple thoracolumbar compression fractures, most of which appear old. Moderate compression deformity of T12, age-indeterminate, new compared to prior MRI from 01/26/24.
5. Additional findings above.
Hospital course:
85-year-old female with a past medical history of hypertension, hyperlipidemia, multifocal stroke with residual left-sided hemiparesis, and cognitive impairment who presented with back pain, and was found to have a fecal impaction on CT. She
underwent manual disimpaction and received an enema in the ED with good results.
Her hospital course was complicated by new onset atrial fibrillation with rapid ventricular response. She was seen in conjunction with cardiology, and started on Eliquis and continued on metoprolol. She then converted to normal sinus rhythm, and
had a long pause. Her metoprolol was held. She had permanent pacemaker placement on 07/09/2025. Cardiology reported that she had a fever of 101.6 prior to implantation. Blood culture was negative, urine analysis/chest x-ray were all negative.
Her fever resolved.
Patient is medically stable and cleared by cardiology for discharge. Cardiology recommends patient taking Coreg 25 mg twice a day, stopping her amlodipine, and stopping her hydralazine. Cardiology recommends holding her losartan upon discharge.
She needs to follow-up with her PCP in 1 week, and can resume losartan if her BP is high. Since she has been started on Eliquis, her aspirin has been discontinued. She will also be discharged on an aggressive bowel regimen. She needs to follow-up
with her PCP in 1 week, as well as cardiology in the office in 2-3 weeks.
Disposition: Memory care at [facility] [place]
Discharge planning: Requires 37 minutes
Discharge Plan
-
Patient Disposition: Home with Home Care
Discharge Diagnosis/Procedures: Tachybradycardia syndrome status post Micra pacemaker implant, new onset paroxysmal atrial fibrillation, fecal impaction, constipation
Condition: Good
Diet: Low Fat, Low Cholesterol and 2 Gram Sodium
Activity: As tolerated
Stand Alone Forms: DC Instructions- Cath/EP Lab
Referrals:
[facility] [Outside]
Referral Note: PT/OT
Tony Partida MD [Active, Cardiology] - in two to three weeks
Rodney Anand MD [Family Provider, Family Practice] - in one week
Prescriptions:
New
Eliquis 5 mg Tablet
5 mg PO BID Qty: 60 0RF
polyethylene glycol 3350 17 gram/dose powder
17 g PO DAILY Qty: 510 0RF
carvedilol [Coreg] 25 mg tablet
25 mg PO BID Qty: 60 0RF
Continued
cyclosporine [Restasis] 0.05 % Dropperette
1 drp BOTH EYES Q12
cetirizine 10 mg Tablet
5 mg PO HS
acetaminophen 325 mg Tablet
650 mg PO Q6HPRN PRN (Reason: mild pain/ fever>100.5F) Qty: 0 0RF
ipratropium-albuterol 0.5 mg-3 mg(2.5 mg base)/3 mL Solution For Nebulization
3 ml INHALATION R Q6HPRN PRN (Reason: sob)
ammonium lactate [AmLactin] 12 % Lotion
1 applic TOPICAL BID
hydrocortisone 1 % Cream
1 applic TOPICAL BID
lactase 3,000 unit Tablet
3,000 unit PO Q6HPRN PRN (Reason: dairy)
atorvastatin 40 mg tablet
40 mg PO QPM
lidocaine 4 % adhesive patch,medicated
1 patch topical DAILYPRN PRN (Reason: lower back)
Changed
sennosides-docusate sodium [Stool Softener-Stimulant Laxat] 8.6-50 mg Tablet
2 tab PO BID Qty: 120 0RF
Held
losartan 50 mg Tablet
50 mg PO DAILY
Hold Instructions: Resume on 07/19/25. Resume when directed by PCP
Discontinued
metoprolol tartrate 25 mg Tablet
25 mg PO BID
hydralazine 25 mg tablet
12.5 mg PO BIDPRN PRN (Reason: rash)
aspirin 81 mg tablet,delayed release (DR/EC)
81 mg PO DAILY
amlodipine 10 mg tablet
10 mg PO DAILY
Discharge Orders:
Discharge Patient (As Directed); Ordered 07/11/25
Ordered By: Roly Garcia
Care Plan Goals
Care Plan Goals:
Problem: Readiness for enhanced knowledge related to diagnosis and treatment plan
Goal: Understand your diagnosis and treatment plan needs, including medications if applicable.
Instructions: Know your diagnosis, underlying causes and treatment plan options, including medications if applicable. Consult with your health care team to learn about your diagnosis and treatment plan, including medications if applicable.
Discharge Date and Time
Discharge Date/Time: 07/11/25 13:31
Print Language: MALTESE
== END 2025-07-11 13:31 | disposition home health service (06) | DRG 229 ==
LOC: IVU 13:38
PROVIDERS: Clinical Nurse Specialist Family Health; Nurse Practitioner; ADMITTING PHYSICIAN Internal Medicine; ATTENDING PHYSICIAN Family Medicine; CONSULT PHYSICIAN Internal Medicine Cardiovascular Disease; EMERGENCY PHYSICIAN Student in an Organized Health Care Education/Training Program; FAMILY PHYSICIAN Family Medicine
PROC: 02HK3NZ Insertion of Intracardiac Pacemaker into Right Ventricle, Percutaneous Approach (ICD-10-PCS; 2025-07-09)
DX: I49.5 Sick sinus syndrome (principal); Z00.6 Encounter for examination for normal comparison and control in clinical research program; I31.39 Other pericardial effusion (noninflammatory); I69.354 Hemiplegia and hemiparesis following cerebral infarction affecting left non-dominant side; J90 Pleural effusion, not elsewhere classified; E87.1 Hypo-osmolality and hyponatremia; N17.9 Acute kidney failure, unspecified; F01.50 Vascular dementia, unspecified severity, without behavioral disturbance, psychotic disturbance, mood disturbance, and anxiety; I48.0 Paroxysmal atrial fibrillation; K56.41 Fecal impaction; M85.88 Other specified disorders of bone density and structure, other site; D72.823 Leukemoid reaction; I10 Essential (primary) hypertension; D72.829 Elevated white blood cell count, unspecified; N32.81 Overactive bladder; R32 Unspecified urinary incontinence; E78.00 Pure hypercholesterolemia, unspecified; Z87.311 Personal history of (healed) other pathological fracture; Z88.0 Allergy status to penicillin; Z88.2 Allergy status to sulfonamides; Z88.8 Allergy status to other drugs, medicaments and biological substances; Z79.82 Long term (current) use of aspirin
CPT/HCPCS: 33274; 71046; 71260; 74018; 74177; 80048; 80053; 81003; 81015; 83735; 84443; 84484; 85025; 85027; 87040; 87086; 87147; 87154; 87205; 93005; 93306; 96374; 97163; 97530; 99285; C1769; C1786; C1892; C1894; Q9967

== ENCOUNTER 2025-07-19 20:47 | Inpatient (IN) | payer MEDICARE, BC, SELFPAY ==
[2025-07-19] VITALS (9 sets, daily range): BP systolic 125–160; BP diastolic 60–76; BMI 24.7
--- NOTE | 2025-07-19 15:25 | ED.GENMED ---
History of Present Illness
<Justin Aguayo PA-C - Last Filed: 07/19/25 19:43>
General
Chief Complaint: Weakness
Time Seen by Provider: 07/19/25 15:05
History of Present Illness
History of Present Illness:
85-year-old female with history of dementia, hypertension, and hyperlipidemia presents to the ED from [facility] due to intermittent fever, diarrhea, abdominal pain, and shortness of breath. She was seen in the emergency
department and admitted to the hospital last week for among other issues a fecal impaction. She had been on laxatives after discharge however this was discontinued after diarrhea began. Patient reports lower abdominal pain as well as trouble
breathing, denies chest pain.
Past History
<Justin Aguayo PA-C - Last Filed: 07/19/25 19:43>
Past History
ED Past Medical History: CVA, HTN and Other (Hypercalcemia)
Review of Systems
<Justin Aguayo PA-C - Last Filed: 07/19/25 19:43>
Review of Systems
Allergies reviewed?: Yes
All Other Systems: ROS reviewed and negative except as documented in HPI and ROS
Phy Exam
<Justin Aguayo PA-C - Last Filed: 07/19/25 19:43>
Physical Exam
Physical Exam:
GEN: Well appearing, NAD, WDWN
HEENT: Oral mucosa moist, no scleral icterus
Cardiac: Regular rate and rhythm, no murmur
Lung: No respiratory distress, no tachypnea, diminished left breath sounds
Abdomen: Soft, mild lower abdominal tenderness diffusely no focal tenderness, no rigidity
MSK: No gross deformity or injuries, trace pretibial edema
Skin: Good color, no pallor or jaundice, no rashes
Neuro: Alert, pleasantly confused, follows commands, moves all extremities freely
Psych: Calm, cooperative
Course
<Justin Aguayo PA-C - Last Filed: 07/19/25 19:43>
Orders/Labs/Results
Orders:
Orders
07/19/25 15:16
Complete Blood Count/With Diff Urgent
Comprehensive Metabolic Panel Urgent
Lipase Urgent
07/19/25 15:19
Lactic Acid Urgent
07/19/25 15:24
0.9% Sodium Chloride 1000 ml [Nss] 1,000 ml IV BOLUS
07/19/25 15:25
CR Chest - 2 Views Urgent
Comment:
Reason For Exam: SOB
07/19/25 15:35
COVID-19 Antigen Urgent
Source: Nasal Swab
Blood Culture Q30M
LAURA Source: Blood/Venous
Specimen Description:
Blood Culture Q30M
LAURA Source: Blood/Venous
Specimen Description:
Influenza A+B Rapid Molecular Urgent
LAURA Source: Nasal Swab
Specimen Description:
07/19/25 16:09
Electrocardiogram (*1) Urgent
Reason for Study: Fatigue / Weakness
EKG- Treatment ONCE
07/19/25 16:10
CT Abd/Pel (IV only)-DH only Urgent
Comment:
Reason For Exam: abd pain, diarrhea, fever
07/19/25 17:52
Azithromycin 500 mg/250 ml [Zithromax Infusion] 500 mg in 250 ml IV NOW
CefTRIAXone [Rocephin] 1,000 mg IV NOW STA
07/19/25 17:57
LevoFLOXacin 500 MG/100 ML [Levaquin] 500 mg in 100 ml IV NOW
07/19/25 18:20
Ondansetron Injectable [Zofran] 4 mg IV NOW STA
07/19/25 19:06
Diphenhydramine [Benadryl] 12.5 mg IV NOW STA
07/19/25 19:08
Cefepime HCl [Maxipime] 2,000 mg IV NOW STA
07/19/25 19:24
US Abdomen Limited Urgent
Comment: gallbladder only, BEDSIDE PLEASE
Reason For Exam: abnormal CT
Abnormal Lab Results
07/19/25
15:16
WBC 11.3 H 10^3/uL
(4.8-10.8)
RBC 3.44 L 10^6/uL
(4.20-5.40)
Hgb 10.0 L g/dL
(12.0-16.0)
Hct 30.7 L %
(37.0-47.0)
MCHC 32.6 L g/dL
(33.0-37.0)
MPV 11.4 H fL
(7.4-10.4)
Abs Immat Gran (auto) 0.1 H 10^3/uL
(0-0.05)
Absolute Neuts (auto) 7.9 H 10^3/uL
(1.4-6.5)
Absolute Monos (auto) 1.6 H 10^3/uL
(0.1-0.6)
Lymphocytes % 13.0 L %
(20.5-51.1)
Monocytes % 14.2 H %
(1.7-9.3)
BUN 28 H mg/dl
(7-17)
Glucose 117 H mg/dl
(70-99)
07/19/25 15:16
07/19/25 15:16
Vital Signs
Initial and Last Documented VS:
Initial Vital Signs
Temp Pulse Resp BP Pulse Ox
100 F 80 25 137/66 96
07/19/25 14:54 07/19/25 14:54 07/19/25 14:54 07/19/25 14:54 07/19/25 14:54
Last Documented Vital Signs
Temp Pulse Resp BP Pulse Ox
99.8 F 75 24 152/73 93
07/19/25 19:07 07/19/25 18:30 07/19/25 18:30 07/19/25 18:11 07/19/25 18:30
<Bailey Gibsonselene, DO - Last Filed: 07/19/25 19:25>
Orders/Labs/Results
Orders:
Orders
07/19/25 15:16
Complete Blood Count/With Diff Urgent
Comprehensive Metabolic Panel Urgent
Lipase Urgent
07/19/25 15:19
Lactic Acid Urgent
07/19/25 15:24
0.9% Sodium Chloride 1000 ml [Nss] 1,000 ml IV BOLUS
07/19/25 15:25
CR Chest - 2 Views Urgent
Comment:
Reason For Exam: SOB
07/19/25 15:35
COVID-19 Antigen Urgent
Source: Nasal Swab
Blood Culture Q30M
LAURA Source: Blood/Venous
Specimen Description:
Blood Culture Q30M
LAURA Source: Blood/Venous
Specimen Description:
Influenza A+B Rapid Molecular Urgent
LAURA Source: Nasal Swab
Specimen Description:
07/19/25 16:09
Electrocardiogram (*1) Urgent
Reason for Study: Fatigue / Weakness
EKG- Treatment ONCE
07/19/25 16:10
CT Abd/Pel (IV only)-DH only Urgent
Comment:
Reason For Exam: abd pain, diarrhea, fever
07/19/25 17:52
Azithromycin 500 mg/250 ml [Zithromax Infusion] 500 mg in 250 ml IV NOW
CefTRIAXone [Rocephin] 1,000 mg IV NOW STA
07/19/25 17:57
LevoFLOXacin 500 MG/100 ML [Levaquin] 500 mg in 100 ml IV NOW
07/19/25 18:20
Ondansetron Injectable [Zofran] 4 mg IV NOW STA
07/19/25 19:06
Diphenhydramine [Benadryl] 12.5 mg IV NOW STA
07/19/25 19:08
Cefepime HCl [Maxipime] 2,000 mg IV NOW STA
07/19/25 19:24
US Abdomen Limited Urgent
Comment: gallbladder only, BEDSIDE PLEASE
Reason For Exam: abnormal CT
Abnormal Lab Results
07/19/25
15:16
WBC 11.3 H 10^3/uL
(4.8-10.8)
RBC 3.44 L 10^6/uL
(4.20-5.40)
Hgb 10.0 L g/dL
(12.0-16.0)
Hct 30.7 L %
(37.0-47.0)
MCHC 32.6 L g/dL
(33.0-37.0)
MPV 11.4 H fL
(7.4-10.4)
Abs Immat Gran (auto) 0.1 H 10^3/uL
(0-0.05)
Absolute Neuts (auto) 7.9 H 10^3/uL
(1.4-6.5)
Absolute Monos (auto) 1.6 H 10^3/uL
(0.1-0.6)
Lymphocytes % 13.0 L %
(20.5-51.1)
Monocytes % 14.2 H %
(1.7-9.3)
BUN 28 H mg/dl
(7-17)
Glucose 117 H mg/dl
(70-99)
07/19/25 15:16
07/19/25 15:16
Vital Signs
Initial and Last Documented VS:
Initial Vital Signs
Temp Pulse Resp BP Pulse Ox
100 F 80 25 137/66 96
07/19/25 14:54 07/19/25 14:54 07/19/25 14:54 07/19/25 14:54 07/19/25 14:54
Last Documented Vital Signs
Temp Pulse Resp BP Pulse Ox
99.8 F 75 24 152/73 93
07/19/25 19:07 07/19/25 18:30 07/19/25 18:30 07/19/25 18:11 07/19/25 18:30
<Justin Aguayo PA-C - Last Filed: 07/19/25 19:43>
MDM/Problems Addressed
MDM/Problems Addressed:
85-year-old female presents with general weakness, diarrhea, and fever. She is found to have a acute left-sided pneumonia with associated pleural effusion and significant increase in pericardial effusion. However at this time displays no clinical
signs of pericardial tamponade with stable hemodynamics. She will be covered empirically for hospital-acquired pneumonia, was initially given levofloxacin however due to an allergic reaction this was discontinued in favor of cefepime. CT does
suggest acute cholecystitis however the patient has no focal right upper quadrant tenderness, will obtain ultrasound for completeness however will admit for empiric antibiotics due to hospital-acquired pneumonia
<Justin Aguayo PA-C - Last Filed: 07/19/25 19:43>
Comment
Comment:
EKG independently interpreted by me shows normal sinus rhythm at a rate of [address] changes concerning for ischemia
*Pulse Oximetry
SaO2: 96
Oxygen Mode of Delivery: Room air
Patient hypoxic: no
<Bailey Kramer DO - Last Filed: 07/19/25 19:25>
*Critical Care Note
Total Time (30-74mins, 75-104mins- exclusive of procedures): 41
comment:
The high probability of a clinically significant, sudden or life threatening deterioration of the pulmonary/sepsis system(s) required my full and direct attention, intervention and personal management. The aggregate critical care time was 41
minutes. This time is in addition to time spent performing reported procedures but includes the following:
[x] Data Review and interpretation
[x] Patient assessment and monitoring of vital signs
[x] Documentation
[x] Medication orders and management
<Justin Aguayo PA-C - Last Filed: 07/19/25 19:43>
Update Note
Update Note:
1903: Informed by RN that after approximately half of the infusion of Levaquin the patient developed lymphangitis and significant itching at the infusion site. Infusion discontinued by RN, will order low dose of diphenhydramine. Given that she has
not received full antibiotic coverage will give dose of cefepime for presumed hospital acquired pneumonia
ED Attending Note
<Justin Aguayo PA-C - Last Filed: 07/19/25 19:43>
-
Portions of this chart may have been created with voice recognition software.� Occasional wrong word or��sound alike� substitutions may have occurred due to the inherent limitations of voice recognition software.
<Bailey Kramer DO - Last Filed: 07/19/25 19:25>
ED Attending Note
Patient seen and examined by attending physician: Yes
I performed the substantive portion of visit, reviewed & personally made and approve the management plan that is documented in note by myself or NIKO.: Yes
I performed a history and physical exam of patient and discussed management with resident, I reviewed resident's note and agree with documented findings and plan of care.: Yes
ED Attending Note:
85-year-old female with history of dementia, hypertension, hyperlipidemia presenting from [facility] for concern of fever and shortness of breath. Patient recently seen admitted to the hospital with fecal impaction. Patient had been discharged on
laxative, notes that she has since had diarrhea and abdominal discomfort, generalized. More recently started to develop cough and shortness of breath as well as fevers. Patient somewhat of a limited historian, known history of dementia. Biomedical Repair Technician
at bedside notes that she appears particularly lethargic and weak. Vital signs on arrival significant for fever
On exam, patient is generally unwell in appearance, noted to be hypoxic, maintained on supplemental O2. Patient with mild increased work of breathing, rhonchorous breath signs bilaterally with crackles at the bases. No focal tenderness to the
abdomen, soft and nondistended, no rebound or guarding. No lower extremity edema. Patient had laboratory analysis obtained prior to my assessment. Patient noted to have a leukocytosis, however normal lactic acid. Concern for sepsis. Chest x-ray
as well as CT abdomen pelvis subsequently obtained. CT and chest x-ray consistent with moderate left-sided pleural effusion, also moderate pericardial effusion. No present concern for tamponade physiology given hemodynamic stability. With
patient's effusion, concern for underlying pneumonia. Patient started on broad-spectrum antibiotics. Patient will ultimately require hospitalization for hypoxia, sepsis, suspected hospital-acquired pneumonia
19:10 - Of note, CT being read with concern of possible acute cholecystitis. No focal tenderness to the right upper quadrant with lower suspicion.
Discharge Plan
Departure
Patient Disposition: Admit
Date of Disposition: 07/19/25
Time of Disposition: 19:24
Admit to: IMU
Presentation/result/management discussed w/ accepting MD/DO: Hospitalist
Discharge Problem:
HAP (hospital-acquired pneumonia), Pleural effusion on left, Acute pericardial effusion, Acute respiratory failure
Prescriptions:
No Action
cyclosporine [Restasis] 0.05 % Dropperette
1 drp BOTH EYES BID
cetirizine 10 mg Tablet
5 mg PO HS
acetaminophen 325 mg Tablet
650 mg PO Q6HPRN PRN (Reason: mild pain/ fever>100.5F) Qty: 0 0RF
ipratropium-albuterol 0.5 mg-3 mg(2.5 mg base)/3 mL Solution For Nebulization
3 ml INHALATION R Q6HPRN PRN (Reason: sob)
ammonium lactate [AmLactin] 12 % Lotion
1 applic TOPICAL BID
hydrocortisone 1 % Cream
1 applic TOPICAL BID
lactase 3,000 unit Tablet
3,000 unit PO Q6HPRN PRN (Reason: dairy)
atorvastatin 40 mg tablet
40 mg PO QPM
lidocaine 4 % adhesive patch,medicated
1 patch topical DAILYPRN PRN (Reason: lower back)
Eliquis 5 mg Tablet
5 mg PO BID Qty: 60 0RF
carvedilol [Coreg] 25 mg tablet
25 mg PO BID Qty: 60 0RF
ondansetron HCl [Zofran] 4 mg Tablet
4 mg PO Q6HPRN PRN (Reason: nausea)
sennosides-docusate sodium [Stool Softener-Stimulant Laxat] 8.6-50 mg tablet
1 tab PO BIDPRN PRN (Reason: constipation)
polyethylene glycol 3350 17 gram/dose powder
17 g PO BIDPRN PRN (Reason: constipation)
Referrals:
Rodney Anand MD [Family Provider, Family Practice]
Interventions
Interventions:
*Risk Screen - Suicide Last Done: 07/19/25 15:03
*General Assessment Last Done: 07/19/25 15:03
*Neglect/Abuse Screening Last Done: 07/19/25 15:03
*ED COVID-19 Vaccine History Last Done: 07/19/25 15:03
*ED Influenza Vaccine History Last Done: 07/19/25 15:03
[facility]-Jugmub-Hngxhydgjy Assessment Last Done: 07/19/25 15:15
ED- Cardiac Assessment Last Done: 07/19/25 15:15
ED- Neurological Assessment Last Done: 07/19/25 15:15
ED- Pulmonary Assessment Last Done: 07/19/25 15:15
Discharge Date and Time
Print Language: [place]
[2025-07-19 15:28] LABS: Hematocrit 30.7 % (37.0-47.0); Hemoglobin 10.0 g/dL (12.0-16.0); Mean Corp Hgb Conc. 32.6 g/dL (33.0-37.0); Mean Corpuscular Volume 89.2 fL (81.0-99.0); Nucleated Red Blood Cells % 0 %; Platelet Count 347 10^3/uL (130-400); Red Cell Dist. Width 13.4 % (11.5-14.5)
[2025-07-19] MEDS: NSS 1000 IV (15:38)
[2025-07-19 15:42] LABS: ALT (SGPT) 28 U/L (0-35); AST (SGOT) 26 U/L (14-36); Albumin 3.6 g/dl (3.5-5.0); Alkaline Phosphatase 103 U/L (38-126); Blood Urea Nitrogen 28 mg/dl (7-17); Calcium 8.8 mg/dl (8.4-10.2); Carbon Dioxide 24 mmol/L (22-30); Chloride 104 mmol/L (98-107); Glucose 117 mg/dl (70-99); Lipase 25 U/L (23-300); Potassium 4.7 mmol/L (3.5-5.1); Sodium 136 mmol/L (135-145); Total Protein 6.5 g/dl (6.3-8.2); eGFR > 60.00
[2025-07-19 15:58] LABS: COVID-19 Antigen Negative (Negative)
[2025-07-19] MEDS: LEVAQUIN 100 IV (18:19)
[2025-07-19] MEDS: ZOFRAN 4 MG IV (18:22)
[2025-07-19] MEDS: BENADRYL 12.5 MG IV (19:10)
[2025-07-19] MEDS: MAXIPIME 2000 MG IV (19:20)
--- NOTE | 2025-07-19 19:29 | HPS.HSE ---
Family Physician
-
Family Physician: Rodney Anand MD
Chief Complaint
-
abdominal pain, diarrhea, dyspnea and fevers
History of Present Illness
Patient is a 85-year-old female with past medical history significant for hypertension, hyperlipidemia, overactive bladder / incontinence, compression fractures, glaucoma and Hx CVA who presented to [facility] ED for evaluation of abdominal pain,
diarrhea, dyspnea and fevers. Patient and daughter assisted in HPI. Since hospital discharge on 07/11/2025 patient started with abdominal pain and diarrhea described as loose stools. Hospitalization was for fecal impaction and bowel regimen
initiated. Facility stopped bowel regimen when diarrhea started. Patient reports last loose stool yesterday. Describes diffuse abdominal pain that is intermittent and stabbing. She also notes nausea. It was noted by daughter that facility reported
intermittent fevers and shortness of breath. Denies any cough, chest pain or vomiting.
Medical History
Past Medical History
Past Medical History: Reports Other
Additional Past Medical History:
hypertension
hyperlipidemia
atrial fibrillation
overactive bladder / incontinence
osteoarthritis
osteoporosis
compression fractures
glaucoma
Hx CVA
Past Surgical History: Reports Other
Additional Past Surgical History:
Hysterectomy
Left Lumpectomy
Cataract Extraction
Bland Teeth Extraction
PPM
Social History
Tobacco: Non-smoker
Alcohol: None
Drug: None
Living: Other (Usually resides in independent apartment at [facility], but currently in skilled section)
Employment: Retired
Family History
Family History: Other (Father of gastric cancer mother is unknown)
Allergies / Home Medications
Allergies reflects when Allergies were last updated in [employer].
Home Medications with original date entered in [employer]
Allergy/Medication List:
Allergies
Allergy/AdvReac Type Severity Reaction Status Date / Time
gabapentin Allergy Rash/macular Verified 07/06/25 09:42
rash upper
back and
face
lactose Allergy abd pain Verified 07/06/25 09:42
and
diarrhea
levofloxacin (From Levaquin) Allergy Itching Verified 07/19/25 19:08
Penicillins Allergy Rash Verified 07/06/25 09:42
Sulfa (Sulfonamide Allergy Rash Verified 07/06/25 09:42
Antibiotics)
Home Medications
cyclosporine 0.05 % eye drops in a dropperette (Restasis) 1 drp BOTH EYES BID Eye Condition 01/25/24
cetirizine 10 mg tablet 5 mg PO HS Allergies 12/04/24
acetaminophen 325 mg tablet 650 mg (2 x 325 mg) PO Q6HPRN PRN mild pain/ fever>100.5F #0 tabs 12/09/24
ammonium lactate 12 % lotion (AmLactin) 1 applic topical BID b/l legs, back 07/06/25
atorvastatin 40 mg tablet 40 mg PO QPM High Cholesterol 07/06/25
hydrocortisone 1 % topical cream 1 applic topical BID b/l legs 07/06/25
ipratropium 0.5 mg-albuterol 3 mg (2.5 mg base)/3 mL nebulization soln 3 ml inhalation R Q6HPRN PRN sob 07/06/25
lactase 3,000 unit tablet 3,000 unit PO Q6HPRN PRN dairy 07/06/25
lidocaine 4 % topical patch 1 patch topical DAILYPRN PRN lower back 07/06/25
apixaban 5 mg tablet (Eliquis) 5 mg PO BID #60 tabs 07/11/25
carvedilol 25 mg tablet (Coreg) 25 mg PO BID #60 tabs 07/11/25
ondansetron HCl 4 mg tablet 4 mg PO Q6HPRN PRN nausea 07/19/25
polyethylene glycol 3350 17 gram/dose oral powder 17 g PO BIDPRN PRN constipation 07/19/25
sennosides 8.6 mg-docusate sodium 50 mg tablet (Stool Softener-Stimulant Laxative) 1 tab PO BIDPRN PRN constipation 07/19/25
Review of Systems
-
History Source: Patient and Family
Constitutional: Reports Fever and Fatigue; Denies Chills
EENT: Denies Sore Throat
Respiratory: Reports Trouble Breathing (dyspnea ); Denies Cough or Hemoptysis
Cardiac: Denies Chest Pain, Diaphoresis, Palpitations or Syncope
Abdomen/GI: Reports Abdominal Pain, Nausea and Diarrhea; Denies Vomiting
: Denies Dysuria, Frequency or Urgency
Musculoskeletal: Denies Joint Pain
Skin: Denies Rash
Neurological: Reports Dizzy; Denies Headache, Weakness or Numbness
Endocrine: Denies Polyuria
Physical Exam
Vital Signs
Vital Signs
Temp Pulse Resp BP Pulse Ox
99.8 F 75 24 152/73 93
07/19/25 19:07 07/19/25 18:30 07/19/25 18:30 07/19/25 18:11 07/19/25 18:30
Physical Exam
General: Well Developed, Well Nourished, No Apparent Distress, Comfortable, Conversant and Appears Chronically Ill
HEENT: NormoCephalic, Moist mucous membranes, PERRLA, Nose Appears Normal and Ears Appear Normal
Respiratory: Clear, Non Labored Respirations and Decreased Breath Sounds; No Wheezes, Rales or Rhonchi
Cardiac: Regular Rhythm; No Murmur or Peripheral Edema
GI: Soft, Non Tender, Non Distended and Normal Bowel Sounds
Musculoskeletal: No Clubbing, No Cyanosis and No Edema
Skin: Warm and IV/Catheter Site
Neuro: Awake and Alert
Psych: Calm
Laboratory Results
-
07/19/25 15:16
07/19/25 15:16
Laboratory Results
Lactic Acid 1.3 mmol/L (0.7-2.0) 07/19/25 15:19
Total Bilirubin 0.8 mg/dl (0.2-1.3) 07/19/25 15:16
AST 26 U/L (14-36) 07/19/25 15:16
ALT 28 U/L (0-35) 07/19/25 15:16
Alkaline Phosphatase 103 U/L (38-126) 07/19/25 15:16
Lipase 25 U/L (23-300) 07/19/25 15:16
Data Reviewed
-
Diagnostic Radiology: Report Reviewed by me (CXR: Moderate loculated left pleural effusion. Progressed. Probable underlying pneumonia. New. Small right pleural effusion. Progressed. Compression fractures. Stable)
CT Scan: Report Reviewed by me (Abd/Pel: Contracted gallbladder with wall enhancement and mild pericholecystic fluid concerning for acute cholecystitis. Confirmation with abdominal ultrasound recommended. Clinical and laboratory correlation
recommended Minimal free fluid in the abdomen and pelvis likely reactive. New Moderate p)
Medical Tests (Nuc Med, Echo, EKG etc): Report Reviewed by me (EKG: NORMAL SINUS RHYTHM CANNOT RULE OUT ANTERIOR INFARCT (CITED ON OR BEFORE 09-Jul-2025))
Lab Data: Labs Reviewed by me (WBC 11.3, hgb 10.0, hct 30.7)
Impression/Plan
-
IMPRESSION/PLAN:
#left-sided pneumonia
#bilateral pleural effusion L>R
abdominal pain, nausea, diarrhea and dyspnea
WBC 11.3, hgb 10.0, hct 30.7
Covid: negative
Influenza: negative
CXR: Moderate loculated left pleural effusion. Progressed. Probable underlying pneumonia. New.
Small right pleural effusion. Progressed.
Compression fractures. Stable
Abd/Pel CT: Contracted gallbladder with wall enhancement and mild pericholecystic fluid concerning for acute cholecystitis. Confirmation with abdominal ultrasound recommended. Clinical and laboratory
correlation recommended
Minimal free fluid in the abdomen and pelvis likely reactive. New
Moderate pericardial effusion. Significantly increased
Moderate bilateral pleural effusions. Significantly increased
Moderate left lower lobe consolidation concerning for pneumonia. New
Mild right lower lobe consolidation likely atelectasis. New
Moderate gastric wall thickening versus more likely findings due to limited distention. Gastritis cannot be excluded. Increased.
Hepatic fatty infiltration. Stable
Mild pancreatic atrophy. Stable
Mild diffuse bladder wall thickening. This can be seen with cystitis and bladder outlet obstruction. Stable
Compression fractures. Stable
EKG: NORMAL SINUS RHYTHM
CANNOT RULE OUT ANTERIOR INFARCT (CITED ON OR BEFORE 09-Jul-2025)
- Admit to telemetry
- Consult IR
- left thoracentesis
- IV ceftriaxone and PO Azithromycin
- supportive care
#pericardial effusion
- consult cardiology
- monitor on telemetry
#hypertension
- continue carvedilol
#hyperlipidemia
- continue atorvastatin
#atrial fibulation
s/p PPM
- hold Eliquis
- decrease carvedilol to 12.5mg BID
#compression fractures
- continue lidocaine patch PRN
Code status: DNR
DVT prophylaxis: SCDs
--- NOTE | 2025-07-19 19:58 | W.PN.UPDATE ---
Update Note
Progress Note Update
This is an addendum to H&P written by COLOR MIXER Lilliana Colunga
I saw and examined the patient.
The COLOR MIXER's note was reviewed and I agree with the note.
Comment:
Ms. Aliyah Young is a 85 yo woman with hx essential HTN, HLD, CVA with residual left-sided hemiparesis, recent admission 07/07-07/11/25 for constipation, new afib with RVR and PPM implantation for tachybrady syndrome presents to the ER for fever,
diarrhea, abdominal pain and shortness of breath.
Triage VS: T 100, P 80, RR 25, BP 137/66, SpO2 96%
On exam patient is frail appearing, no supplemental oxygen, mildly tachypneic, decreased breath sounds in bases, no RUQ pain/ neg Arvizu's sign, no LE swelling
LABS: WBC 11.3, Hg 10, PLT 347, Na 136, K+ 4.7, CO2 24, BUN 28, Cr 0.9, Glucose 117, Lactate 1.3, liver enzymes WNL
Covid and Influenza Negative
CXR
IMPRESSION:
Moderate loculated left pleural effusion. Progressed. Probable underlying pneumonia. New.
Small right pleural effusion. Progressed.
Compression fractures. Stable
CT A/P
IMPRESSION: Contracted gallbladder with wall enhancement and mild pericholecystic fluid concerning for acute cholecystitis. Confirmation with abdominal ultrasound recommended. Clinical and laboratory correlation recommended
Minimal free fluid in the abdomen and pelvis likely reactive. New
Moderate pericardial effusion. Significantly increased
Moderate bilateral pleural effusions. Significantly increased
Moderate left lower lobe consolidation concerning for pneumonia. New
Mild right lower lobe consolidation likely atelectasis. New
Moderate gastric wall thickening versus more likely findings due to limited distention. Gastritis cannot be excluded. Increased.
Hepatic fatty infiltration. Stable
Mild pancreatic atrophy. Stable
Mild diffuse bladder wall thickening. This can be seen with cystitis and bladder outlet obstruction. Stable
Compression fractures. Stable
Left lower lobe pneumonia
Moderate Loculated left pleural effusion
Moderate bilateral pleural effusions
-admit to telemetry
-IV Ceftriaxone/ Azithromycin
-IR consult for left-sided thoracentesis, send pleural fluid studies
Moderate pericardial effusion
-Cardiology consult- discussed case with Dr. Arce
-TTE tomorrow AM
-hold Eliquis for now
-mild effusion seen last admission
Acute cholecystitis read on CT
-patient without any pain, neg Arvizu's sign on exam
-follow up US read
CVA with residual left sided hemiparesis
-POWER BARKER Eliquis on hold until further evaluation of effusion
Tachybrady syndrome
paroxysmal atrial fibrillation
-POWER BARKER Eliquis on hold
-POWER BARKER Coreg --> 1/2 dose for now
Recent admission for constipation
now with diarrhea
-hold laxatives and monitor - send stool studies if persist
Essential HTN
-1/2 Dose Coreg BID (12.5mg) for now
HLD - POWER BARKER Statin
DVT PPx SCD
DNR
76 minutes spent on patient care
[2025-07-19] MEDS: COREG 12.5 MG PO (22:38)
[2025-07-19] MEDS: ZITHROMAX 500 MG PO (22:38)
[2025-07-19] MEDS: ZYRTEC 5 MG PO (22:39)
--- NOTE | 2025-07-19 22:48 | PTCARENOTE ---
Pt was admitted to 4W. AAOx1. Confused and forgetful , but pleasant. Pt's daughter Shraddha Young (POA) called for updates, and to inform staff that his bother Akin and [id number]-ern Samara Young shouldn't be allow to see her mother or given any
updates. Pt appears comfortable in bed. 92-93% in RA. Dyspneic w/ exertion. Lung sounds are crackle at the bases, diminished and w/ expiratory wheezing. Call hinds within reach and bed alarm placed.
[2025-07-20] VITALS (10 sets, daily range): BP systolic 69–157; BP diastolic 52–79; BMI 24.7
[2025-07-20] MEDS: TYLENOL 650 MG PO ×2 (03:00→16:34)
[2025-07-20] MEDS: STERILE WATER FOR INJECTION 10 ML IV (03:00)
[2025-07-20] MEDS: ROCEPHIN 1000 MG IV (03:00)
[2025-07-20 07:16] LABS: Hematocrit 27.7 % (37.0-47.0); Hemoglobin 8.9 g/dL (12.0-16.0); Mean Corp Hgb Conc. 32.1 g/dL (33.0-37.0); Mean Corpuscular Volume 91.4 fL (81.0-99.0); Platelet Count 329 10^3/uL (130-400); Red Cell Dist. Width 13.2 % (11.5-14.5)
[2025-07-20] MEDS: RESTASIS 0.05% OPHTHALMIC EMULSION 1 DROPS BOTH EYES ×2 (07:25→19:48)
[2025-07-20] MEDS: COREG 12.5 MG PO ×2 (07:25→19:30)
[2025-07-20] MEDS: HYDROCORTISONE 1% CREAM 1 APPLIC TOPICAL ×2 (07:27→19:31)
[2025-07-20] MEDS: LAC HYDRIN, AM LACTIN LOTION 1 APPLIC TOPICAL ×2 (07:28→19:32)
[2025-07-20 07:53] LABS: Blood Urea Nitrogen 22 mg/dl (7-17); Calcium 9.0 mg/dl (8.4-10.2); Carbon Dioxide 23 mmol/L (22-30); Chloride 106 mmol/L (98-107); Estimated Creatinine Clearance 48 ml/min; Glucose 100 mg/dl (70-99); Potassium 4.6 mmol/L (3.5-5.1); Sodium 134 mmol/L (135-145); eGFR > 60.00
--- NOTE | 2025-07-20 09:47 | CON.PUL ---
Consultation
Consultation Request
Date/Time Consultation Requested: 07/20/2025-10 AM
Date/Time Consultation Performed: 07/20/2025-10:30 AM
Requesting Provider: Hospitalist
Performing Provider: Dr. Win
Reason for Consultation: Shortness of breath/pleural effusion
Medical History
-
Chief Complaint: Shortness of breath
History of Present Illness:
85-year-old non-smoking female with history of hypertension, hyperlipidemia, compression fractures, CVA, atrial fibrillation who presented with abdominal pain, diarrhea shortness of breath and fevers found to have pleural effusion-pulmonary
consulted for shortness of breath/pleural effusion 07/20/2025. No sob at rest no cp congestion pleurisy or abd pain. co sob withexertion possfevers at home
Past Medical History
Past Medical History: None (Hypertension. Hyperlipidemia. Atrial fibrillation. Bladder incontinence. Osteoporosis. Compression fractures. Glaucoma. CVA. Hysterectomy. Left lumpectomy. Cataract. Munith teeth. Permanent pacemaker.)
Social History
Tobacco: Non-smoker
Alcohol: None
Drug: None
Living: With Family
Occupational Exposures: No known asbestos exposure
Environmental Exposures: No known tuberculosis exposure
Family History
Family History: Reviewed & Not Pertinent (Father-gastric cancer)
Allergies / Home Medications
Allergies
Allergy/AdvReac Type Severity Reaction Status Date / Time
gabapentin Allergy Rash/macular Verified 07/06/25 09:42
rash upper
back and
face
lactose Allergy abd pain Verified 07/06/25 09:42
and
diarrhea
levofloxacin (From Levaquin) Allergy Itching Verified 07/19/25 19:08
Penicillins Allergy Rash Verified 07/06/25 09:42
Sulfa (Sulfonamide Allergy Rash Verified 07/06/25 09:42
Antibiotics)
Home Medications
�Medication �Instructions �Recorded �Confirmed �Last Taken �Type
cyclosporine 0.05 % eye drops in a 1 drp BOTH EYES BID Eye Condition 01/25/24 07/19/25 01/25/24 History
dropperette (Restasis)
cetirizine 10 mg tablet 5 mg PO HS Allergies 12/04/24 07/19/25 Unknown History
acetaminophen 325 mg tablet 650 mg (2 x 325 mg) PO Q6HPRN PRN 12/09/24 07/19/25 Unknown Rx
mild pain/ fever>100.5F #0 tabs
ammonium lactate 12 % lotion 1 applic topical BID b/l legs, back 07/06/25 07/19/25 Unknown History
(AmLactin)
atorvastatin 40 mg tablet 40 mg PO QPM High Cholesterol 07/06/25 07/19/25 Unknown History
hydrocortisone 1 % topical cream 1 applic topical BID b/l legs 07/06/25 07/19/25 Unknown History
ipratropium 0.5 mg-albuterol 3 mg 3 ml inhalation R Q6HPRN PRN sob 07/06/25 07/19/25 Unknown History
(2.5 mg base)/3 mL nebulization
soln
lactase 3,000 unit tablet 3,000 unit PO Q6HPRN PRN dairy 07/06/25 07/19/25 Unknown History
lidocaine 4 % topical patch 1 patch topical DAILYPRN PRN lower 07/06/25 07/19/25 Unknown History
back
apixaban 5 mg tablet (Eliquis) 5 mg PO BID #60 tabs 07/11/25 07/19/25 Unknown Rx
carvedilol 25 mg tablet (Coreg) 25 mg PO BID #60 tabs 07/11/25 07/19/25 Unknown Rx
ondansetron HCl 4 mg tablet 4 mg PO Q6HPRN PRN nausea 07/19/25 07/19/25 Unknown History
polyethylene glycol 3350 17 17 g PO BIDPRN PRN constipation 07/19/25 07/19/25 Unknown History
gram/dose oral powder
sennosides 8.6 mg-docusate sodium 1 tab PO BIDPRN PRN constipation 07/19/25 07/19/25 Unknown History
50 mg tablet (Stool
Softener-Stimulant Laxative)
Review of Systems
-
Unable to Obtain full review of systems at this time due to: Other (Per HPI)
Vitals / Labs / Diagnostic Testing
Vital Signs
Temp Pulse Resp BP Pulse Ox
98.0 F 70 18 157/67 95
07/20/25 08:45 07/20/25 08:45 07/20/25 08:45 07/20/25 08:45 07/20/25 08:45
Lab Data
07/20/25 06:47
07/20/25 06:47
Microbiology
07/19/25 15:35 Nasal Swab Influenza Types A & B (HAL) - Final
Negative for Influenza A & B, NAAT
Negative results must be combined with clinical observations
and patient history.
Nucleic Acid Amplification test (NAAT)performed on the
[employer] platform.
Diagnostic Testing:
Physical Exam
-
Exam:
Well-nourished and well-developed in no apparent distress
HEENT-atraumatic, normocephalic
Neck-supple, no JVD, no bruit
Heart-regular rate and rhythm-no murmurs, rubs or gallops
Chest with diminished breath sounds at the bases, few rhonchi
Back-no tenderness
Abdomen-soft, nontender, nondistended, no hepatosplenomegaly
Extremities-no cyanosis, clubbing, trace edema
Integument-intact, no rashes, lesions or ecchymosis
Neurology-alert and oriented, nonfocal motor and sensory exam
Assessment
-
85-year-old non-smoking female with history of hypertension, hyperlipidemia, compression fractures, CVA, atrial fibrillation who presented with abdominal pain, diarrhea shortness of breath and fevers found to have pleural effusion-pulmonary
consulted for shortness of breath/pleural effusion 07/20/2025.
Pneumonia
Bilateral pleural effusions left greater than right
Status post left thoracentesis-exudate, pH 7.0, cultures and cytology pending
Pericardial effusion with early signs of tamponade
Icwhrs-vizdznngdy-rfwnxzdwhp 8.9
Conditions present prior to admission:
Hypertension.
Hyperlipidemia.
Atrial fibrillation.
Bladder incontinence.
Osteoporosis.
Compression fractures.
Glaucoma.
CVA.
Hysterectomy. Left lumpectomy. Cataract. Munith teeth. Permanent pacemaker.
Plan
Respiratory decompensation related to pneumonia, pleural effusions and pericardial effusion
Supplemental oxygen as needed
Aspiration precautions
Nebulizers if needed-currently not bronchospastic
Thoracentesis on the left-exudate, cultures and cytology pending
follow CXR
Consider tap on other side as well
Check cultures
Empiric antibiotics-ceftriaxone and azithromycin initiated
Consider infectious disease consultation
Echocardiogram with sizable pericardial effusion
Cardiology evaluation
Probable pericardiocentesis
Follow hemoglobin
Transfuse if needed
DVT prophylaxis
Nutrition
Early mobilization
Reviewed with primary team and nursing
Diagnostic data:
Chest x-ray 07/19/2025-moderate loculated left pleural effusion which is progressed with probable underlying pneumonia
Chest x-ray post left thoracentesis-bilateral pleural effusions increased on the right and slightly decreased on the left probably compressive atelectasis
CT chest abdomen and pelvis 07/06/2025-trace bilateral pleural effusions, mild cardiomegaly with small pericardial effusion, diffuse osteopenia
Echocardiogram 07/20/2025 5 EF 60 to 65%, moderate aortic stenosis, large pericardial effusion with early signs of tamponade
Data Reviewed
-
EKG: Report reviewed by me
Radiology: Image personally visualized and interpreted and Report reviewed by me
CT Scan: Image personally visualized and interpreted and Report reviewed by me
Medical Tests (Nuc Med, Echo etc): Report reviewed by me
Labs: Labs reviewed by me
Old Records: Reviewed
Total Time Spent with Patient (in minutes): 65
[2025-07-20 10:34] LABS: Body Fluid Second Tech EF
--- NOTE | 2025-07-20 11:28 | CON.CAR ---
Addendum entered and electronically signed by Chaka Segura MD 07/20/25 13:53:
I saw and evaluated the patient, and I provided the substantive portion of the medical decision making.
I reviewed and agree with the note by Michelle JONES and it accurately reflects our care.
I personally performed the medical decision making of the this encounter and my assessment and plan is below:
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
hypertension, CVA who we are asked to see regarding pericardial effusion. She does not know why she came in where she is. Apparently on chart review she presented with abdominal pain and diarrhea. CT scan suggested pericardial effusion. She
denies any chest pain shortness of breath. She is alert and oriented to person but not place or time. She has a regular rate and rhythm with a normal S1-S2 no murmurs gallops were appreciated lungs were clear to auscultation bilaterally, EJ was
plethoric, JVP elevated at about 14 cm when sitting at 90 degrees.
Review of her echocardiogram images show a large pericardial effusion that is circumferential new from the prior with an IVC that is dilated at 3.0 cm and does not collapse, mitral valve inflow variation is seen. EF is normal. EKG is sinus rhythm
with diffuse T wave changes. Compared to the prior there is no significant change.
Assessment:
Large pericardial effusion with signs of early cardiac tamponade: Lengthy discussion with the patient, and her daughter as she cannot provide any consent as to the best course of action. She is cooperative, and I did explain that this is likely a
result of recent pacemaker implantation with anticoagulation. Her daughter was hesitant at first as she does not want to keep doing procedures on her mother, but since this is a complication of her recent procedure, we will proceed to
pericardiocentesis. Discussed with interventional cardiology.
A-fib:in NSR will hold Eliquis.
OBS: advanced. Agree with daughter, given advancing OBS, if short interim admission, would pursue hospice at that time.
HLD: statin
Original Note:
Consultation
Consultation Request
Date/Time Consultation Requested: 07/19/25 9:30p
Date/Time Consultation Performed: 07/20/25 10:30a
Requesting Provider: KAREN Lin
Performing Provider: KAREN Vieyra for Dr. Segura
Reason for Consultation: pericardial effusion
Medical History
-
Chief Complaint: abdominal pain, diarrhea
History of Present Illness:
Mr. Young is an 85-year-old woman with advanced dementia (lives at [facility] dementia unit), paroxysmal Afib on Eliquis, tachybradycardia syndrome with long conversion pauses s/p Micra PPM implanted 07/09/25, hypertension, CVA, hyperlipidemia,
compression fracture of spine, with fecal impaction status post disimpaction last admission 07/08/25, who presents with c/o abdominal pain and diarrhea. She is unable to provide adequate history, so history was obtained from her medical chart and
her daughter who was on the phone during exam/interview. We are consulted for moderate pericardial effusion seen on CT scan. She denies any complaints this am.
Past Medical History
Past Medical History: Other (as above)
Social History
Alcohol: None
Living: [facility] ([facility] dementia unit)
Family History
Family History: Reviewed & Not Pertinent
Allergies / Home Medications
Allergy/AdvReac Type Severity Reaction Status Date / Time
gabapentin Allergy Rash/macular Verified 07/06/25 09:42
rash upper
back and
face
lactose Allergy abd pain Verified 07/06/25 09:42
and
diarrhea
levofloxacin (From Levaquin) Allergy Itching Verified 07/19/25 19:08
Penicillins Allergy Rash Verified 07/06/25 09:42
Sulfa (Sulfonamide Allergy Rash Verified 07/06/25 09:42
Antibiotics)
�Medication �Instructions �Recorded �Confirmed �Type
cyclosporine 0.05 % eye drops in a 1 drp BOTH EYES BID Eye Condition 01/25/24 07/19/25 History
dropperette (Restasis)
cetirizine 10 mg tablet 5 mg PO HS Allergies 12/04/24 07/19/25 History
acetaminophen 325 mg tablet 650 mg (2 x 325 mg) PO Q6HPRN PRN 12/09/24 07/19/25 Rx
mild pain/ fever>100.5F #0 tabs
ammonium lactate 12 % lotion 1 applic topical BID b/l legs, back 07/06/25 07/19/25 History
(AmLactin)
atorvastatin 40 mg tablet 40 mg PO QPM High Cholesterol 07/06/25 07/19/25 History
hydrocortisone 1 % topical cream 1 applic topical BID b/l legs 07/06/25 07/19/25 History
ipratropium 0.5 mg-albuterol 3 mg 3 ml inhalation R Q6HPRN PRN sob 07/06/25 07/19/25 History
(2.5 mg base)/3 mL nebulization
soln
lactase 3,000 unit tablet 3,000 unit PO Q6HPRN PRN dairy 07/06/25 07/19/25 History
lidocaine 4 % topical patch 1 patch topical DAILYPRN PRN lower 07/06/25 07/19/25 History
back
apixaban 5 mg tablet (Eliquis) 5 mg PO BID #60 tabs 07/11/25 07/19/25 Rx
carvedilol 25 mg tablet (Coreg) 25 mg PO BID #60 tabs 07/11/25 07/19/25 Rx
ondansetron HCl 4 mg tablet 4 mg PO Q6HPRN PRN nausea 07/19/25 07/19/25 History
polyethylene glycol 3350 17 17 g PO BIDPRN PRN constipation 07/19/25 07/19/25 History
gram/dose oral powder
sennosides 8.6 mg-docusate sodium 1 tab PO BIDPRN PRN constipation 07/19/25 07/19/25 History
50 mg tablet (Stool
Softener-Stimulant Laxative)
Review of Systems
-
Unable to obtain full review of systems at this time due to: Dementia (pleasant)
History Source: Family (daughter on the telephone in her room) and Other (hospital records)
All other systems: Negative unless noted
Physical Exam
Vital Signs
Temp Pulse Resp BP Pulse Ox
98.2 F 71 12 126/63 97
07/20/25 10:54 07/20/25 10:54 07/20/25 10:54 07/20/25 10:54 07/20/25 10:54
Lab Results
07/20/25 06:47
07/20/25 06:47
Physical Exam
General: Well Developed and Well Nourished
HEENT: Normocephalic and Anicteric
Respiratory: Other (diminished bibasilar)
Cardiac: S1/S2 and Irregular Rhythm
Breast: Deferred by me
GI: Soft and Non Tender
Rectal: Deferred by Provider
Musculoskeletal: No Clubbing and No Cyanosis
Skin: Warm and Dry
Neuro: Awake, Alert and Other (advanced dementia)
Hematologic/Lymphatic: No Lymphadenopathy
Psych: Calm
Impression / Plan
-
Pericardial effusion - new.
- moderate on CT scan.
- large on echo.
- asymptomatic, hemodynamically stable.
- hold Eliquis.
- will discuss with interventional cardiology about possible pericardiocentesis today.
Afib - paroxysmal.
- in SR 70s on Coreg, continue.
- on Eliquis for [id number] VASc score of 6, on hold for pericardial effusion and need for thoracentesis today.
- hold Eliquis.
Tachybradycardia syndrome - with long conversion pauses on tele.
- s/p leadless Micra PPM implanted 07/09/25.
- PPM is functioning normally, will have it interrogated today.
HTN - stable on Coreg, continue.
- out patient regimen was modified with discontinuation of Amlodipine and Hydralazine at d/c 07/11/25.
Pleural effusions - b/l, left > right.
- s/p left thoracentesis today.
- monitor.
Data Reviewed
-
EKG: Tracing Personally Visualized and interpreted (SR)
CT Scan: Report Reviewed by me
Labs: Labs Reviewed by me
Old Records: Reviewed
--- NOTE | 2025-07-20 11:35 | CM ---
Addendum entered by Rhoda Olmedo 07/20/25 11:55:
Patient is current with [facility]- referral in [facility].
Original Note:
CM reviewed chart, patient seen beside with friend visiting, initial assessment completed.
Patient is a 85-year-old female with past medical history significant for hypertension, hyperlipidemia, overactive bladder / incontinence, compression fractures, glaucoma and Hx CVA who presented to [facility] ED for evaluation of abdominal pain,
diarrhea, dyspnea and fevers.
Friend assisted with initial assessment-
Patient recently moved into [facility].
Patient has a walker at home, reports someone does come to provide therapy for patient-unsure name of agency.
Patient denies SNF.
PCP Rodney Anand- [facility] in [place].
Therapy ordered, CM will follow for recommendations.
Plan; home, TBD pending therapy recommendations.
--- NOTE | 2025-07-20 12:36 | CON.GS ---
Consultation
-
Date/Time Consultation Performed: 07/20/25 1305
Medical History
-
Chief Complaint: sob
History of Present Illness:
85 yo female with a history of dementia, CVA, HTN and recent admission for management of new onset afib (now on AC) and tachybrady syndrome with PPM placed on 07/09/25. Fecal impaction was noted during her recent presentation and bowel regimen was
initiated after disimpaction. She presents this admission with reported abdominal discomfort, fever and SOB. She had noted diarrhea at facility and her bowel regimen was discontinued with last BM reported as being 2 days ago. She is seen today at
bedside with her daughter present. The patient and her daughter do not recall her having abdominal pain but she may have had some cramping when she had diarrhea. She denies post prandial abdominal pain, RUQ pain or nausea with vomiting. She denies
hematochezia or acholic stools. On exam, the abdomen is nontender and nondistended.
Past Medical History
Past Medical History: Arrhythmias (afib on eliquis, tachybrady s/p PPM), CVA, HTN, Hypercholesterolemia and Other (dementia, oab, osteoporosis with compression fxs, constipation s/p fecal disimpaction 07/08)
Past Surgical History: Cardiac (ppm 07/09/2025), Gynecological (hysterectomy) and Other (left lumpectomy)
Social History
Tobacco: Non-Smoker
Alcohol: None
Living: Assisted Living ([facility]'s home)
Family History
Family History: Cancer (Father: gastric)
Allergies / Home Medications
Allergy/AdvReac Type Severity Reaction Status Date / Time
gabapentin Allergy Rash/macular Verified 07/06/25 09:42
rash upper
back and
face
lactose Allergy abd pain Verified 07/06/25 09:42
and
diarrhea
levofloxacin (From Levaquin) Allergy Itching Verified 07/19/25 19:08
Penicillins Allergy Rash Verified 07/06/25 09:42
Sulfa (Sulfonamide Allergy Rash Verified 07/06/25 09:42
Antibiotics)
�Medication �Instructions �Recorded �Confirmed �Type
cyclosporine 0.05 % eye drops in a 1 drp BOTH EYES BID Eye Condition 01/25/24 07/19/25 History
dropperette (Restasis)
cetirizine 10 mg tablet 5 mg PO HS Allergies 12/04/24 07/19/25 History
acetaminophen 325 mg tablet 650 mg (2 x 325 mg) PO Q6HPRN PRN 12/09/24 07/19/25 Rx
mild pain/ fever>100.5F #0 tabs
ammonium lactate 12 % lotion 1 applic topical BID b/l legs, back 07/06/25 07/19/25 History
(AmLactin)
atorvastatin 40 mg tablet 40 mg PO QPM High Cholesterol 07/06/25 07/19/25 History
hydrocortisone 1 % topical cream 1 applic topical BID b/l legs 07/06/25 07/19/25 History
ipratropium 0.5 mg-albuterol 3 mg 3 ml inhalation R Q6HPRN PRN sob 07/06/25 07/19/25 History
(2.5 mg base)/3 mL nebulization
soln
lactase 3,000 unit tablet 3,000 unit PO Q6HPRN PRN dairy 07/06/25 07/19/25 History
lidocaine 4 % topical patch 1 patch topical DAILYPRN PRN lower 07/06/25 07/19/25 History
back
apixaban 5 mg tablet (Eliquis) 5 mg PO BID #60 tabs 07/11/25 07/19/25 Rx
carvedilol 25 mg tablet (Coreg) 25 mg PO BID #60 tabs 07/11/25 07/19/25 Rx
ondansetron HCl 4 mg tablet 4 mg PO Q6HPRN PRN nausea 07/19/25 07/19/25 History
polyethylene glycol 3350 17 17 g PO BIDPRN PRN constipation 07/19/25 07/19/25 History
gram/dose oral powder
sennosides 8.6 mg-docusate sodium 1 tab PO BIDPRN PRN constipation 07/19/25 07/19/25 History
50 mg tablet (Stool
Softener-Stimulant Laxative)
Review of Systems
-
Unable to obtain full review of systems at this time due to: Dementia
History Source: Patient and Family
All other systems: Negative unless noted
A 10 point review of systems was completed, and was negative except as per HPI.
Physical Exam
Vital Signs
Temp Pulse Resp BP Pulse Ox
98.2 F 71 12 126/63 97
07/20/25 10:54 07/20/25 10:54 07/20/25 10:54 07/20/25 10:54 07/20/25 10:54
07/19/25 07/20/25 07/21/25
06:59 06:59 06:59
Actual Weight 71.356 kg
Body Mass Index (BMI) 24.7
Lab Results
07/20/25 06:47
07/20/25 06:47
WBC 9.9 10^3/uL (4.8-10.8) 07/20/25 06:47
Hgb 8.9 g/dL (12.0-16.0) L 07/20/25 06:47
Hct 27.7 % (37.0-47.0) L 07/20/25 06:47
Plt Count 329 10^3/uL (130-400) 07/20/25 06:47
Abs Immat Gran (auto) 0.1 10^3/uL (0-0.05) H 07/19/25 15:16
Neutrophils % 69.9 % (42.2-75.2) 07/19/25 15:16
Physical Exam
General: Well Developed and Well Nourished
HEENT: Normocephalic and Moist Mucous Membranes
GI: Soft, Non Tender and Non Distended
Skin: Warm and Dry
Neuro: Awake and Alert
Psych: Calm
Data Reviewed
-
CT Scan: Image Personally Visualized and interpreted, Report Reviewed by me, Discussed with Nurse, Discussed with Patient and Discussed with Family
Ultrasound: Image Personally Visualized and interpreted, Report Reviewed by me, Discussed with Nurse, Discussed with Patient and Discussed with Family
Labs: Labs Reviewed by me, Discussed with Patient and Discussed with Family
Old Records: Reviewed
Assessment / Plan
-
85 yo female with a history of dementia, CVA, HTN and recent admission for management of new onset afib (now on AC) and tachybrady syndrome with PPM placed on 07/09/25. Fecal impaction was noted during her recent presentation and bowel regimen was
initiated after disimpaction. She presents this admission with reported abdominal discomfort, fever and SOB. She had noted diarrhea at facility and her bowel regimen was discontinued with last BM reported as being 2 days ago. She denies abdominal
pain with no tenderness on exam.
CT abd with moderate pericardial effusion, LLL consolidation, contracted gallbladder and some reactive pericholecystic fluid as well as reactive abd/pelvic fluid. Gastric body and urinary bladder with mild thickening.
US with some gallbladder sludge. Minimal pericholecystic fluid.
LFT's WNL. No leukocytosis. Hemoglobin trending down. Afebrile since presentation, VSS.
S/p left thoracentesis early today and possible pericardiocentesis planned for today as well. Cardiology and pulmonary following.
Plan:
Given exam, labs, imaging; do not suspect acute cholecystitis. No plans for surgery/cholecystectomy
Diet as per primary
Would resume Miralax given recent fecal impaction, continue to hold senna
Anemia work up as per primary team
--- NOTE | 2025-07-20 13:33 | W.PN.HOSP.TC ---
Today's Communication/Plan
-
f/u pleural fluid
Abx
Pericardiocentesis today and f/y analysis
Assessment / Plan
Assessment / Plan
General: Well Developed, Well Nourished, No Apparent Distress, Comfortable, Conversant and Appears Chronically Ill
HEENT: NormoCephalic, Moist mucous membranes, PERRLA, Nose Appears Normal and Ears Appear Normal
Respiratory: Clear, Non Labored Respirations and Decreased Breath Sounds; No Wheezes, Rales or Rhonchi
Cardiac: Regular Rhythm; No Murmur or Peripheral Edema
GI: Soft, Non Tender, Non Distended and Normal Bowel Sounds
Musculoskeletal: No Clubbing, No Cyanosis and No Edema
Skin: Warm and IV/Catheter Site
Neuro: Awake and Alert
Psych: Calm
Left lower lobe pneumonia
Moderate Loculated left pleural effusion
Moderate bilateral pleural effusions
-admit to telemetry
-IV Ceftriaxone/ Azithromycin
-IR consult for left-sided thoracentesis, F/u pleural fluid; may need right sided
-Pulmonary consulted
Large pericardial effusion
Early Tamponade
-Moderate on CT, Large on ECHO
-Pericardiocentesis 07/20, f/u cultures
-Cardiology consulted
-hold Eliquis for now
Acute cholecystitis read on CT
-patient without any pain, neg Arvizu's sign on exam, LFTs wnl
-Discussed with surgery - not acute cholecystitis
-Monitor clinically, LFTs
-Surgery consulted - NTD
#Hyponatremia
-mild
-monitor
#Fecal impaction
-miralax
CVA with residual left sided hemiparesis
-[employer] Eliquis on hold until further evaluation of effusion
Tachybrady syndrome
paroxysmal atrial fibrillation
-[employer] Eliquis on hold
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
-PPM is functioning normally, will have it interrogated
Recent admission for constipation
now with diarrhea
-hold laxatives and monitor - send stool studies if persist
Essential HTN
-1/2 Dose Coreg BID (12.5mg) for now
HLD - IR[employer]ULLET [employer] Statin
DVT PPx SCD
DNR
Total time spent on today's encounter was 51 minutes which included time spent in counseling the patient/family regarding diagnosis and treatment plan as listed above, goals of care, and symptom management. Case was discussed with nursing staff,
specialists, and care coordinators/case management. All labs and imaging personally reviewed by me. Remainder the time spent in detailed review of previous records, lab data, imaging, and other medical provider documentation.
Anticipated Discharge: Today
Subjective/Interval History
-
Date of Service: July 20, 2025
Feels better s/p Thora
Objective Data
-
Labs:
Laboratory Results
07/20/25
06:47
WBC 9.9
Hgb 8.9 L
Hct 27.7 L
Plt Count 329
Sodium 134 L
Potassium 4.6
Chloride 106
Carbon Dioxide 23
BUN 22 H
Creatinine 0.8
Glucose 100 H
Calcium 9.0
Vital Signs:
Vital Signs
Temp Pulse Resp BP Pulse Ox
98.2 F 71 12 126/63 97
07/20/25 10:54 07/20/25 10:54 07/20/25 10:54 07/20/25 10:54 07/20/25 10:54
I&O
07/19/25 07/20/25 07/21/25
06:59 06:59 06:59
Intake Total 240 / 240
Balance 240 / 240
Review of Systems
-
History Source: Patient
All other systems: Not reviewed unless documented
Data Reviewed
-
CT Scan: Report Reviewed by me
Ultrasound: Report Reviewed by me
Medical Tests (Nuc Med, Echo etc): Report Reviewed by me
Labs: Labs Reviewed by me
--- NOTE | 2025-07-20 14:00 | CON.ID ---
Consultation
-
Date/Time Consultation Requested: 07/20/25 1345
Date/Time Consultation Performed: 07/20/25 1400
Requesting Provider: Dr. Karsten Tomas
Performing Provider: Dr. Radha Brown
Reason for Consultation: Pericardial effusion, Pleural effusion
Chief Complaint / Past History
Chief Complaint
Shortness of breath
History of Present Illness
History obtained from review of medical records as well as from daughter's friend at bedside since patient has dementia. She presented to the ER from [facility] on July 19 due to diarrhea, shortness of breath and fever. She has
history of CVA, hypertension who was recently admitted to the hospital July 06 to July 11 with fecal impaction, disimpacted in ED. She developed new onset atrial fibrillation and tachy cardia-bradycardia syndrome requiring leadless Micra
pacemaker placement on July 09. She was placed on Eliquis and discharged back to SNF on aggressive bowel regimen. While at SNF, she had persistent diarrhea. Patient also was having intermittent fevers, by report. She developed shortness of
breath and therefore came to the ER July 19. In ED temperature 100, white count of 11.3. CT of the chest abdomen and pelvis showed significantly increased moderate bilateral pleural effusions with consolidations, significantly increased
moderate pericardial effusion, minimal free fluid in the abdomen and pelvis. She was started on ceftriaxone and azithromycin for pneumonia. This morning she underwent left thoracentesis removal of1 L hemorrhagic fluid. Patient reports improvement
of the shortness of breath after thoracentesis. She denies cough. No sweats. No chills. She is afebrile and hospital. No urine symptoms. No nausea or vomiting. No abdominal pain. Since stopping the bowel regimen, diarrhea has resolved.
Echocardiogram today showed large pericardial effusion with early tamponade. She is enroute for pericardiocentesis.
Past History
Additional Past Medical History:
Dementia
Hypertension
Hyperlipidemia
CVA
pAfib
Sick sinus syndrome s/p Micra leadless pacer implant 07/09/25
Overactive Bladder / Incontinence
Osteoarthritis
Osteoporosis
IBS
Fecal impaction
Compression Fractures
Glaucoma
Additional Past Surgical History:
Hysterectomy
Left Lumpectomy
Cataract Extraction
[place] Teeth Extraction
Allergy History:
gabapentin Allergy (Verified 07/06/25 09:42)
Rash/macular rash upper back and face
lactose Allergy (Verified 07/06/25 09:42)
abd pain and diarrhea
levofloxacin (From Levaquin) Allergy (Verified 07/19/25 19:08)
Itching
Penicillins Allergy (Verified 07/06/25 09:42)
Rash
Sulfa (Sulfonamide Antibiotics) Allergy (Verified 07/06/25 09:42)
Rash
Medications Reviewed: Yes
Current Antibiotics:
s/p cefepime x1
Ceftriaxone
Azithromycin
Social History
Tobacco: Non-Smoker
Alcohol: None
Drug: None
Living: Penitentiary
Family History
Family History: Not Pertinent
Review of Systems
Review of Systems
Respiratory: Dyspnea; Negative Cough or Sputum Production
Gasteroenterology: Diarrhea (resolved); Negative Nausea or Vomiting
Genital / Urological: Negative Dysuria or Flank Pain
All systems: All other systems were reviewed and were negative
Vital Signs
Temp Pulse Resp BP Pulse Ox
98.2 F 71 12 126/63 97
07/20/25 10:54 07/20/25 10:54 07/20/25 10:54 07/20/25 10:54 07/20/25 10:54
Physical Exam
Physical Exam
Constitutional: No Acute Distress
Eyes: No Conjunctival Hemorrhage and Sclera Anicteric
Cardiovascular: Regular Rate and S1/S2
Pulmonary: Other (Decreased BS at bases.)
Gastrointestinal: Soft, Non Tender, Non Distended and Normal Bowel Sounds
Genito-Urinary: Negative CVA Tenderness
Extremities: Negative Edema
Neurological: Awake and Alert
Lab / Diagnostic Study Results
07/20/25 06:47
07/20/25 06:47
Abs Immat Gran (auto) 0.1 10^3/uL (0-0.05) H 07/19/25 15:16
Absolute Neuts (auto) 7.9 10^3/uL (1.4-6.5) H 07/19/25 15:16
Absolute Lymphs (auto) 1.5 10^3/uL (1.2-3.4) 07/19/25 15:16
Absolute Monos (auto) 1.6 10^3/uL (0.1-0.6) H 07/19/25 15:16
Absolute Basos (auto) 0.1 10^3/uL (0-0.2) 07/19/25 15:16
Immature Gran % 0.4 % (0-0.5) 07/19/25 15:16
Neutrophils % 69.9 % (42.2-75.2) 07/19/25 15:16
Lymphocytes % 13.0 % (20.5-51.1) L 07/19/25 15:16
Monocytes % 14.2 % (1.7-9.3) H 07/19/25 15:16
Eosinophils % 2.0 % (0-6) 07/19/25 15:16
Basophils % 0.5 % (0-2) 07/19/25 15:16
Lactic Acid 1.3 mmol/L (0.7-2.0) 07/19/25 15:19
Microbiology Results
Micro:
07/20/25 09:27 Fungal Smear - Final
Pleural Fluid No yeast or fungal elements seen.
Fungal Culture - Pending
07/20/25 09:27 Body Fluid Culture - Pending
Pleural Fluid Gram Stain - Pending
07/20/25 09:27 Acid Fast Bacilli Smear - Pending
Pleural Fluid Acid Fast Bacilli Culture - Pending
07/19/25 22:35 MRSA Screen - Pending
Nose
07/19/25 15:35 Blood Culture - Pending
Blood/Venous
07/19/25 15:35 Blood Culture - Pending
Blood/Venous
07/19/25 15:35 Influenza Types A & B (HAL) - Final
Nasal Swab Negative for Influenza A & B, NAAT
Negative results must be combined with clinical observations
and patient history.
Nucleic Acid Amplification test (NAAT)performed on the
[employer] platform.
07/20/25 TTE: Moderate aortic stenosis. Large pericardial effusion is present circumferential. There are signs of early tamponade with respiratory variation at the mitral inflow.
07/19 ABD US: Mild gallbladder sludge. Minimal pericholecystic fluid.
07/19/25 CT chest/a/p: Contracted gallbladder with wall enhancement and mild pericholecystic fluid concerning for acute cholecystitis. Minimal free fluid in the abdomen and pelvis likely reactive. New Moderate pericardial effusion. Significantly
increased. Moderate bilateral pleural effusions. Significantly increased. Moderate left lower lobe consolidation concerning for pneumonia. New. Mild right lower lobe consolidation likely atelectasis. New
07/19/25 CXR: Moderate loculated left pleural effusion. Progressed. Probable underlying pneumonia. New. Small right pleural effusion. Progressed.
07/10/25 CXR: Small bilateral pleural effusions, left greater right. Adjacent basilar parenchymal disease, left greater than right, likely atelectasis.
Assessment / Plan
# Recent new onset afib, tachy-casa s/p Micra pacemaker placement 07/09/25 and initiated anticoagulation
# Increased bilateral pleural effusion
. 07/20 s/p left thoracentesis of 1L bloody fluid. Fluid wbc 1171 WBC, 85% mono, only 15% polys, transudate by protein ratio, no serum LDH available. Cx pending
# Large pericardial effusion with early tamponade
. Pericardiocentesis pending
# Diarrhea resolved off multiple bowel regimen
- Suspect effusions as complication of anticoagulation, recent Micra placement with bleeding rather than infectious etiology.
- Await body fluid studies.
- Follow clinically.
# Conditions present on admission::
Dementia
Hypertension
Hyperlipidemia
CVA
pAfib
Sick sinus syndrome s/p Micra leadless pacer implant 07/09/25
Overactive Bladder / Incontinence
Osteoarthritis
Osteoporosis
IBS
Fecal impaction
Compression Fractures
Glaucoma
Care Review
Plan reviewed with: Physician (Dr. Tomas)
--- NOTE | 2025-07-20 14:27 | PTCARENOTE ---
1415-Pt received from via stretcher on tele monitor. Pt oriented to person and birthdate only. Disoriented to place and time. Placed on monitor- showing NSR, vs as noted. Denies any pain. SOB at rest. O2 sat 96% on room air. Lung sounds
diminished on right, crackles throughout on left. Palpable peripheral pulses. No edema. Abd soft with +BS. Confirmed NPO status. #22P IV in place in right hand- flushes easily and placed to 500 ml NSS KVO.
1425-Dr Artis at bedside to speak with pt.
--- NOTE | 2025-07-20 14:45 | PTCARENOTE ---
Hand off report given to Shanti. Pt transferred to procedural room.
[2025-07-20] MEDS: LIPITOR 40 MG PO (16:35)
--- NOTE | 2025-07-20 16:45 | ITS.CL.PN ---
[employer] [facility] - Procedure Note
Procedure
Procedure Note:
CARDIAC CATHETERIZATION REPORT
Date of Procedure: 07/20/2025
Referring: Dr. Mindy Segura MD
Indication: pericardial effusion, pre-tamponade physiology
PROCEDURE: Pericardiocentesis
ACCESS: 6 [place] subxiphoid
CATHETERS: 6 [place] pigtail
MODERATE SEDATION: 30 minutes of moderate sedation was utilized. An [facility] was present to assist with and help manage the patient's level of consciousness and physiologic status.
HEMODYNAMIC DATA
Initial pericardial pressure - 19 mmHg
Final pericardial pressure - 8 mmHg (sub-atmospheric on inspiration)
PROCEDURE DESCRIPTION:
Echocardiography was used to determine an optimal subxiphoid approach after which pericardial access was gained with a micropuncture needle. No ectopy was observed on telemetry. Through a 4 [place]ese micropuncture sheath, bubble study was used to prove
pericardial location after which the sheath was upsized to a 6 [place] pigtail catheter and initial pericardial pressure measured at 19 mmHg. 400 cc of bloody fluid were drained and sent for lab analysis. The pigtail was moved to different locations
to ensure all fluid drained. Echo was repeated which demonstrated no residual pericardial effusion. Final pericardial pressure was measured at 8 mmHg (sub-atmospheric on inspiration). A new Vacutainer was placed and the drain sutured in place.
RECOMMENDATIONS:
1. Hold AC
2. Monitor drain output and when less than 50 cc per 24 hours check echocardiogram. If no reaccumulation on echocardiogram, pull drain and recheck echocardiogram 24 hours later.
Signed: Adarsh Ruvalcaba MD, PhD
--- NOTE | 2025-07-20 18:18 | PTCARENOTE ---
Addendum entered by Alexandra Hendrickson RN 07/20/25 18:24:
Pt OOB to bathroom with one assist using a walker. Telemetry shows sinus rhythm.
Original Note:
Pt received from phlebotomist medical lab assistant post pericardiocentesis, subxiphoid dressing dry and intact, drain in place with 50mls serosanguineous fluid present at 18:00.
Pt transferred from 4th floor admitted with pneumonia and pleural effusions with left thoracentesis today for 1000mls fluid. Pt has history of dementia and is oriented to herself only. Pt is very pleasant. Fall precautions in place, bed alarm is
activated
[2025-07-20] MEDS: ZITHROMAX 500 MG PO (22:17)
[2025-07-20] MEDS: ZYRTEC 5 MG PO (22:17)
--- NOTE | 2025-07-20 23:15 | PTCARENOTE ---
Received patient at change of shift. SR on the monitor, HR in the 70s. Subxiphoid dressing dry and intact, drain with serosanguineous fluid. Band aid on left back intact. Oriented to self only, Bed alarm in place. No complaints from pt at this time,
call hinds within reach.
[2025-07-21] VITALS (9 sets, daily range): BP systolic 95–148; BP diastolic 51–88; PULSE 82–130; O2SAT 97; BMI 23.8
[2025-07-21] MEDS: TYLENOL 650 MG PO ×2 (04:19→18:13)
[2025-07-21] MEDS: STERILE WATER FOR INJECTION 10 ML IV (04:20)
[2025-07-21] MEDS: ROCEPHIN 1000 MG IV (04:20)
[2025-07-21 05:04] LABS: Hematocrit 29.4 % (37.0-47.0); Hemoglobin 9.0 g/dL (12.0-16.0); Mean Corp Hgb Conc. 30.6 g/dL (33.0-37.0); Mean Corpuscular Volume 93.9 fL (81.0-99.0); Platelet Count 345 10^3/uL (130-400); Red Cell Dist. Width 13.2 % (11.5-14.5)
[2025-07-21 05:19] LABS: Blood Urea Nitrogen 21 mg/dl (7-17); Calcium 8.6 mg/dl (8.4-10.2); Carbon Dioxide 24 mmol/L (22-30); Chloride 108 mmol/L (98-107); Estimated Creatinine Clearance 55 ml/min; Glucose 91 mg/dl (70-99); Magnesium 1.9 mg/dl (1.6-2.3); Potassium 4.4 mmol/L (3.5-5.1); Sodium 137 mmol/L (135-145); eGFR > 60.00
--- NOTE | 2025-07-21 05:35 | W.PN.UPDATE ---
Addendum entered and electronically signed by Godwin Barlow MD 07/21/25 08:15:
Surgery will sign off. Please call for any questions or concerns.
Original Note:
Update Note
Progress Note Update
Attempted to see pt x2 07/20/25. pt off floor initially for echo, subsequently for cardiac cath. she has denied abd pain and per chart has a benign abd exam. if abd pain develops would obtain HIDA
--- NOTE | 2025-07-21 08:17 | W.PN.CD ---
Today's Communication / Plan
-
add colchicine
hold eliquis
continue pericardial drain
Impression / Plan
-
Pericardial effusion - new.
- moderate on CT scan.
- large on echo---> 400 cc of bloody fluid were drained and sent for lab analysis.
-drain with 60cc since placement, slowing down. Hopefully will be able to pull tomorrow.
- Will add colchicine
- hold Eliquis.
Afib - paroxysmal.
-sinus with brief runs of SVT
- on Eliquis for [id number] VASc score of 6, on hold for pericardial effusion
Tachybradycardia syndrome - with long conversion pauses on tele.
- s/p leadless Micra PPM implanted 07/09/25
-will interrogate Wednesday am
HTN - stable on Coreg, continue.
- out patient regimen was modified with discontinuation of Amlodipine and Hydralazine at d/c 07/11/25.
Pleural effusions - b/l, left > right.
- s/p left thoracentesis 07/20/25
- monitor.
Subjective:
She is without complaint
Physical Exam
Vital Signs/Labs
Vital Signs
Temp Pulse Resp BP Pulse Ox
98.1 F 81 18 112/52 94
07/21/25 08:10 07/21/25 04:45 07/21/25 08:10 07/21/25 03:59 07/21/25 08:10
07/20/25 07/21/25 07/22/25
06:59 06:59 06:59
Actual Weight 157 lb 5 oz 151 lb 10.848 oz
07/21/25 04:06
07/21/25 04:06
Magnesium 1.9 mg/dl (1.6-2.3) 07/21/25 04:06
Physical Exam
Constitutional: No acute distress
Cardiovascular: Rhythm & rate is regular, Pedal edema is absent, JVD pressure is normal and Systolic murmur absent
Respiratory: Respiratory effort normal, Lungs clear to auscul., Wheeze Absent and Crackles Present (left base)
Neuro/Psych: AO x 3
Data Reviewed
-
Date of Service: July 21, 2025
Medical Decision Making: Review of Case with other Provider (IVU nursing Christie and Dr Tomas: continue drain, add colchicine)
[2025-07-21] MEDS: COLCHICINE 0.3 MG PO ×2 (09:46→19:46)
[2025-07-21] MEDS: COREG 12.5 MG PO ×2 (09:49→19:46)
[2025-07-21] MEDS: LAC HYDRIN, AM LACTIN LOTION 1 APPLIC TOPICAL ×2 (09:50→19:46)
[2025-07-21] MEDS: RESTASIS 0.05% OPHTHALMIC EMULSION 1 DROPS BOTH EYES ×2 (09:50→19:46)
[2025-07-21] MEDS: MIRALAX 17 GRAMS PO (09:50)
[2025-07-21] MEDS: HYDROCORTISONE 1% CREAM 1 APPLIC TOPICAL ×2 (09:51→19:46)
--- NOTE | 2025-07-21 11:26 | W.PN.PUL3 ---
Today's Communication / Plan
-
- Follow-up on fluid cultures
- Incentive spirometry
- Suspect inflammatory disease leading to pericardio-pleural effusions rather than infectious. Agree with colchicine
- If infectious workup stay negative, may discontinue antibiotics
- Follow-up chest x-ray in a.m.
Assessment
-
85-year-old non-smoking female with history of hypertension, hyperlipidemia, compression fractures, CVA, atrial fibrillation who presented with abdominal pain, diarrhea shortness of breath and fevers found to have pleural effusion-pulmonary
consulted for shortness of breath/pleural effusion 07/20/2025.
Compressive atelectasis due to pleural effusion versus pneumonia
Bilateral pleural effusions left greater than right
Status post left thoracentesis-exudate, pH 7.0, cultures and cytology pending
Pericardial effusion with early signs of tamponade, status post pericardiocentesis
Anemia-normocytic
Conditions present prior to admission:
Hypertension.
Hyperlipidemia.
Atrial fibrillation.
Bladder incontinence.
Osteoporosis.
Compression fractures.
Glaucoma.
CVA.
Hysterectomy. Left lumpectomy. Cataract. [place] teeth. Permanent pacemaker.
Plan
Respiratory decompensation related to bilateral pleural effusion as well as pericardial effusion
Symptomatically improved after left-sided thoracentesis as well as pericardiocentesis. Current MAP of 70 not requiring any pressors, saturating 97% on room air
Doing well on room air, oxygen as needed
Aspiration precautions
Nebulizers if needed-currently not bronchospastic
Thoracentesis on the left-exudate, cultures and cytology pending
follow up CXR improving
Depending on clinical course may need right-sided thoracentesis
Empirically on ceftriaxone and azithromycin, low likelihood of active infection, if cultures stay negative at 48 hours may consider discontinuing antibiotics
S/p pericardiocentesis, follow-up fluid studies, cardiology service on case. Colchicine initiated
Follow hemoglobin
Transfuse if needed
DVT prophylaxis
Nutrition
Early mobilization
Diagnostic data:
Chest x-ray 07/19/2025-moderate loculated left pleural effusion which is progressed with probable underlying pneumonia
Chest x-ray post left thoracentesis-bilateral pleural effusions increased on the right and slightly decreased on the left probably compressive atelectasis
CT chest abdomen and pelvis 07/06/2025-trace bilateral pleural effusions, mild cardiomegaly with small pericardial effusion, diffuse osteopenia
Echocardiogram 07/20/2025 5 EF 60 to 65%, moderate aortic stenosis, large pericardial effusion with early signs of tamponade
Subjective Data
-
Date of Service:
Date of Service: July 21, 2025
Subjective:
Comfortably sitting in bed in no acute distress.
Review of Systems
Genitourinary: Other (All 14 systems reviewed and negative except as stated above in the history of present illness.)
Objective Data
Data Reviewed
Vital Signs / I&O / Oxygen:
Vital Signs
Temp Pulse Resp BP Pulse Ox
98.1 F 80 18 114/88 94
07/21/25 08:10 07/21/25 10:30 07/21/25 08:10 07/21/25 10:12 07/21/25 08:10
Intake and Output
07/20/25 07/21/25 07/22/25
06:59 06:59 06:59
Intake Total 240 / 240 240 / 240
Output Total 60 / 60
Balance 240 / 240 180 / 180
SaO2 94
Physical Exam
General: Comfortable
HEENT: Normocephalic
Cardiovascular: S1-S2
Respiratory: Clear and Non-Labored Respirations
GI: Soft and Non Distended
Neurology: Awake and Alert
Skin: Warm
Labs/Micro/Reports
Lab Data
07/21/25 04:06
07/21/25 04:06
Microbiology
07/20/25 09:27 Pleural Fluid Body Fluid Culture - Preliminary
No Growth After 18-24 Hours
07/20/25 09:27 Pleural Fluid Gram Stain - Preliminary
07/19/25 22:35 Nose MRSA Screen - Final
No Methicillin Resistant Staphylococcus aureus isolated.
07/20/25 14:32 Pericardial Fluid Gram Stain - Preliminary
07/20/25 14:32 Pericardial Fluid Fungal Culture - Preliminary
Culture in progress.
Positive cultures are reported as soon as detected.
Final report to follow in four to five weeks.
07/19/25 15:35 Blood/Venous Blood Culture - Preliminary
No Growth in 24 hours- Final report to follow
07/19/25 15:35 Blood/Venous Blood Culture - Preliminary
No Growth in 24 hours- Final report to follow
07/20/25 09:27 Pleural Fluid Fungal Smear - Final
No yeast or fungal elements seen.
07/19/25 15:35 Nasal Swab Influenza Types A & B (HAL) - Final
Negative for Influenza A & B, NAAT
Negative results must be combined with clinical observations
and patient history.
Nucleic Acid Amplification test (NAAT)performed on the
[employer] platform.
--- NOTE | 2025-07-21 12:00 | W.PN.ID1 ---
Date of Service
Date of Service: July 21, 2025
Today's Communication
Await cx's.
Assessment / Plan
# Recent new onset afib, tachy-casa s/p Micra pacemaker placement 07/09/25 and initiated anticoagulation
# Increased bilateral pleural effusion
. 07/20 s/p left thoracentesis of 1L bloody fluid. Fluid wbc 1171 WBC, 85% mono, only 15% polys, transudate by protein ratio, no serum LDH available.
Cx neg to date
# Large pericardial effusion with early tamponade
. 07/20 s/p Pericardiocentesis -> hemorrhagic fluid
Cx neg to date.
# Diarrhea resolved off multiple bowel regimen
- Suspect effusions as complication of anticoagulation, recent Micra placement with bleeding rather than infectious etiology.
- If body fluid cx's neg, dc ceftriaxone/azithromycin (d3)
# Conditions present on admission::
Dementia
Hypertension
Hyperlipidemia
CVA
pAfib
Sick sinus syndrome s/p Micra leadless pacer implant 07/09/25
Overactive Bladder / Incontinence
Osteoarthritis
Osteoporosis
IBS
Fecal impaction
Compression Fractures
Glaucoma
Chief Complaint
-: Other (Effusions)
Subjective / Review of Systems
Feels improved after thoracentesis and pericardiocentesis. No cough. SOB resolving.
Vital Signs / Physical Exam
Vital Signs
Vital Signs
Temp Pulse Resp BP Pulse Ox
98.1 F 80 18 114/88 94
07/21/25 08:10 07/21/25 10:30 07/21/25 08:10 07/21/25 10:12 07/21/25 08:10
Physical Exam
Constitutional: No Acute Distress
Cardiovascular: Regular Rate, S1/S2 and Other (Pericardial drain fluid -bloody)
Pulmonary: Non Labored and Other (Decreased BS bases)
Gastrointestinal: Soft
Genito-Urinary: Negative CVA Tenderness
Neurological: Awake and Alert
Objective Data
Lab Data
Lab Results
07/21/25 04:06
07/21/25 04:06
Estimated Creat Clear 55 ml/min 07/21/25 04:06
Lactic Acid 1.3 mmol/L (0.7-2.0) 07/19/25 15:19
Total Bilirubin 0.8 mg/dl (0.2-1.3) 07/19/25 15:16
AST 26 U/L (14-36) 07/19/25 15:16
ALT 28 U/L (0-35) 07/19/25 15:16
Alkaline Phosphatase 103 U/L (38-126) 07/19/25 15:16
Most recent labs reviewed.
Micro Results:
07/20/25 14:32 Body Fluid Culture - Preliminary
Pericardial Fluid No Growth After 18-24 Hours
Gram Stain - Preliminary
07/20/25 09:27 Body Fluid Culture - Preliminary
Pleural Fluid No Growth After 18-24 Hours
Gram Stain - Preliminary
07/19/25 22:35 MRSA Screen - Final
Nose No Methicillin Resistant Staphylococcus aureus isolated.
07/20/25 14:32 Fungal Culture - Preliminary
Pericardial Fluid Culture in progress.
Positive cultures are reported as soon as detected.
Final report to follow in four to five weeks.
07/20/25 14:32 Acid Fast Bacilli Smear - Pending
Pericardial Fluid Acid Fast Bacilli Culture - Pending
07/19/25 15:35 Blood Culture - Preliminary
Blood/Venous No Growth in 24 hours- Final report to follow
07/19/25 15:35 Blood Culture - Preliminary
Blood/Venous No Growth in 24 hours- Final report to follow
07/20/25 09:27 Fungal Smear - Final
Pleural Fluid No yeast or fungal elements seen.
Fungal Culture - Pending
07/20/25 09:27 Acid Fast Bacilli Smear - Pending
Pleural Fluid Acid Fast Bacilli Culture - Pending
07/19/25 15:35 Influenza Types A & B (HAL) - Final
Nasal Swab Negative for Influenza A & B, NAAT
Negative results must be combined with clinical observations
and patient history.
Nucleic Acid Amplification test (NAAT)performed on the
[employer] platform.
07/20/25 TTE: Moderate aortic stenosis. Large pericardial effusion is present circumferential. There are signs of early tamponade with respiratory variation at the mitral inflow.
07/19 ABD US: Mild gallbladder sludge. Minimal pericholecystic fluid.
07/19/25 CT chest/a/p: Contracted gallbladder with wall enhancement and mild pericholecystic fluid concerning for acute cholecystitis. Minimal free fluid in the abdomen and pelvis likely reactive. New Moderate pericardial effusion. Significantly
increased. Moderate bilateral pleural effusions. Significantly increased. Moderate left lower lobe consolidation concerning for pneumonia. New. Mild right lower lobe consolidation likely atelectasis. New
07/19/25 CXR: Moderate loculated left pleural effusion. Progressed. Probable underlying pneumonia. New. Small right pleural effusion. Progressed.
07/10/25 CXR: Small bilateral pleural effusions, left greater right. Adjacent basilar parenchymal disease, left greater than right, likely atelectasis.
--- NOTE | 2025-07-21 13:25 | W.PN.HOSP.TC ---
Today's Communication/Plan
-
Monitor Drain output, anticipate removal by tomorrow
Hold Eliquis
Initiate colchicine
Follow-up cultures, if negative�discontinue antibiotics
Assessment / Plan
Assessment / Plan
General: Well Developed, Well Nourished, No Apparent Distress, Comfortable, Conversant and Appears Chronically Ill
HEENT: NormoCephalic, Moist mucous membranes, PERRLA, Nose Appears Normal and Ears Appear Normal
Respiratory: Clear, Non Labored Respirations and Decreased Breath Sounds; No Wheezes, Rales or Rhonchi
Cardiac: Regular Rhythm; No Murmur or Peripheral Edema
GI: Soft, Non Tender, Non Distended and Normal Bowel Sounds
Musculoskeletal: No Clubbing, No Cyanosis and No Edema
Skin: Warm and IV/Catheter Site
Neuro: Awake and Alert
Psych: Calm
Moderate Loculated left pleural effusion
Moderate bilateral pleural effusions
-admit to telemetry
-Likely hemorrhagic effusion w/ inflammation s/p PPM placement and anticoag
-IV Ceftriaxone/ Azithromycin
-IR left-sided thoracentesis 07/20, F/u pleural fluid - appears to be hemorrhagic: high level of monocytes; Transudative by protein ratio
-If body fluid cx negative - can dc abx
-Pulmonary consulted
-Suspect effusions as complication of anticoagulation, recent Micra placement with bleeding rather than infectious or autoimmune etiology
Large pericardial effusion
Early Tamponade
-Moderate on CT, Large on ECHO
-Pericardiocentesis 07/20, f/u cultures; hemorrhagic fluid
-Cardiology consulted
-hold Eliquis for now
-Drain in place - likely removal by 07/22
-Initiate Colchicine
- Suspect effusions as complication of anticoagulation, recent Micra placement with bleeding rather than infectious or autoimmune etiology
Acute cholecystitis read on CT
-patient without any pain, neg Arvizu's sign on exam, LFTs wnl
-Discussed with surgery - not acute cholecystitis
-Monitor clinically, LFTs
-Surgery consulted - NTD
#Diarrhea
-resolved on BM Regimen
#Hyponatremia
-mild
-monitor
#Fecal impaction
-miralax
-improved
CVA with residual left sided hemiparesis
-COFFEE WEIGHER Eliquis on hold until further evaluation of effusion
Tachybrady syndrome
paroxysmal atrial fibrillation
-COFFEE WEIGHER Eliquis on hold
-COFFEE WEIGHER Coreg --> 1/2 dose for now
-PPM is functioning normally, will have it interrogated
Recent admission for constipation
now with diarrhea
-hold laxatives and monitor
-diarrhea improved
Essential HTN
-1/2 Dose Coreg BID (12.5mg) for now
HLD - COFFEE WEIGHER Statin
DVT PPx SCD
DNR
Anticipated Discharge: 24 - 48 hours
Subjective/Interval History
-
Date of Service: July 21, 2025
no acute events overnight. Feels better today
Objective Data
-
Labs:
Laboratory Results
07/21/25
04:06
WBC 10.2
Hgb 9.0 L
Hct 29.4 L
Plt Count 345
Sodium 137
Potassium 4.4
Chloride 108 H
Carbon Dioxide 24
BUN 21 H
Creatinine 0.7
Glucose 91
Calcium 8.6
Vital Signs:
Vital Signs
Temp Pulse Resp BP Pulse Ox
98.0 F 80 18 114/88 93
07/21/25 12:44 07/21/25 10:30 07/21/25 12:44 07/21/25 10:12 07/21/25 12:44
I&O
07/20/25 07/21/25 07/22/25
06:59 06:59 06:59
Intake Total 240 / 240 240 / 240
Output Total 60 / 60
Balance 240 / 240 180 / 180
Review of Systems
-
History Source: Patient
All other systems: Not reviewed unless documented
Data Reviewed
-
CT Scan: Report Reviewed by me
Ultrasound: Report Reviewed by me
Medical Tests (Nuc Med, Echo etc): Report Reviewed by me
Labs: Labs Reviewed by me
[2025-07-21] MEDS: LIPITOR 40 MG PO (18:13)
--- NOTE | 2025-07-21 18:36 | PTCARENOTE ---
Pt temp this afternoon 102.9, Pt c/o some abdominal bloating and discomfort, Dr Tomas notified, blood cultures ordered and drawn, Pt med with Tylenol 650 mg po. No new drainage noted from pericardial drain. Pericardial dsg D+I.
[2025-07-21] MEDS: ZYRTEC 5 MG PO (22:14)
[2025-07-21] MEDS: ZITHROMAX 500 MG PO (22:14)
--- NOTE | 2025-07-21 22:59 | PTCARENOTE ---
Received patient at change of shift. SR on the monitor, HR in the 80s with occasional brief runs of SVT. Temp 101.3 at 1900, Tylenol administered on previous shift. Temp now 98.1. Pericardial drain in place, dressing CDI. Oriented to self only, bed
alarm in place. No complaints from pt at this time, call hinds within reach.
[2025-07-22] MEDS: STERILE WATER FOR INJECTION 10 ML IV (04:33)
[2025-07-22] MEDS: ROCEPHIN 1000 MG IV (04:34)
[2025-07-22] MEDS: TYLENOL 650 MG PO ×2 (04:36→17:00)
[2025-07-22 04:43] VITALS: BP 119/66
[2025-07-22 05:12] VITALS: BMI 23.0
[2025-07-22 05:16] LABS: Hematocrit 27.3 % (37.0-47.0); Hemoglobin 8.9 g/dL (12.0-16.0); Mean Corp Hgb Conc. 32.6 g/dL (33.0-37.0); Mean Corpuscular Volume 88.3 fL (81.0-99.0); Nucleated Red Blood Cells % 0 %; Platelet Count 344 10^3/uL (130-400); Red Cell Dist. Width 13.4 % (11.5-14.5)
[2025-07-22 05:34] LABS: ALT (SGPT) 16 U/L (0-35); AST (SGOT) 12 U/L (14-36); Albumin 2.6 g/dl (3.5-5.0); Alkaline Phosphatase 84 U/L (38-126); Blood Urea Nitrogen 18 mg/dl (7-17); Calcium 8.3 mg/dl (8.4-10.2); Carbon Dioxide 25 mmol/L (22-30); Chloride 108 mmol/L (98-107); Estimated Creatinine Clearance 55 ml/min; Glucose 103 mg/dl (70-99); Potassium 4.1 mmol/L (3.5-5.1); Sodium 137 mmol/L (135-145); Total Protein 5.0 g/dl (6.3-8.2); eGFR > 60.00
[2025-07-22 07:48] VITALS: BP 110/59
[2025-07-22] MEDS: COREG 12.5 MG PO ×2 (08:40→19:52)
[2025-07-22] MEDS: COLCHICINE 0.3 MG PO ×2 (08:40→19:51)
[2025-07-22] MEDS: RESTASIS 0.05% OPHTHALMIC EMULSION 1 DROPS BOTH EYES ×2 (08:41→19:51)
[2025-07-22] MEDS: MIRALAX 17 GRAMS PO (08:41)
[2025-07-22] MEDS: LAC HYDRIN, AM LACTIN LOTION 1 APPLIC TOPICAL ×2 (08:41→19:51)
[2025-07-22] MEDS: HYDROCORTISONE 1% CREAM 1 APPLIC TOPICAL ×2 (08:42→19:51)
--- NOTE | 2025-07-22 09:23 | W.PN.CD ---
Today's Communication / Plan
-
echo now
if echo stable d/c pericardial drain
Impression / Plan
-
Pericardial effusion - new.
- moderate on CT scan.
- large on echo---> 400 cc of bloody fluid were drained and sent for lab analysis.
-drain with no further drainage since yesterday
-will check echo and if stable d/c drain today
-continue colchicine
- hold Eliquis.
Afib - paroxysmal.
-sinus with brief runs of SVT
- on Eliquis for [id number] VASc score of 6, on hold for pericardial effusion
Tachybradycardia syndrome - with long conversion pauses on tele.
- s/p leadless Micra PPM implanted 07/09/25
-will interrogate Wednesday am
HTN - stable on Coreg, continue.
- out patient regimen was modified with discontinuation of Amlodipine and Hydralazine at d/c 07/11/25.
Pleural effusions - b/l, left > right.
- s/p left thoracentesis 07/20/25
- monitor.
Subjective:
She is without complaint, febrile yesterday
Physical Exam
Vital Signs/Labs
Vital Signs
Temp Pulse Resp BP Pulse Ox
98.5 F 70 20 110/59 95
07/22/25 07:49 07/22/25 08:15 07/22/25 07:49 07/22/25 07:48 07/22/25 07:49
07/21/25 07/22/25 07/23/25
06:59 06:59 06:59
Actual Weight 151 lb 10.848 oz 146 lb 9.718 oz
07/22/25 04:49
07/22/25 04:49
Magnesium 1.9 mg/dl (1.6-2.3) 07/21/25 04:06
Physical Exam
Constitutional: No acute distress
Cardiovascular: Rhythm & rate is regular, Pedal edema is absent, JVD pressure is normal, Systolic murmur absent and Diastolic murmur absent
Respiratory: Respiratory effort normal, Lungs clear to auscul., Wheeze Absent, Crackles Absent and Rhonchi Absent
Neuro/Psych: Alert
Data Reviewed
-
Date of Service: July 22, 2025
Medical Decision Making: Review of Case with other Provider (Dr Tomas will check echo and hopefully d/c pericardial drain. )
EKG: Other (sinus with psvt)
--- NOTE | 2025-07-22 09:57 | W.PN.ID1 ---
Date of Service
Date of Service: July 22, 2025
Today's Communication
Follow cx's.
Check COVID
Assessment / Plan
# Post procedure Fever x 2 resolving
# Recent new onset afib, tachy-casa s/p Micra pacemaker placement 07/09/25 and initiated anticoagulation
# Increased bilateral pleural effusion
. 07/20 s/p left thoracentesis of 1L bloody fluid. Fluid wbc 1171 WBC, 85% mono, only 15% polys, transudate by protein ratio, no serum LDH available.
Cx neg to date
# Large pericardial effusion with early tamponade
. 07/20 s/p Pericardiocentesis -> hemorrhagic fluid
Cx neg to date.
on colchicine
# Diarrhea resolved off multiple bowel regimen
- Suspect effusions as complication of anticoagulation, recent Micra placement with bleeding rather than infectious etiology.
-On empiric ceftriaxone/azithromycin (d4)
- Blood cx's pending. If neg dc abx's.
- Check COVID
# Conditions present on admission::
Dementia
Hypertension
Hyperlipidemia
CVA
pAfib
Sick sinus syndrome s/p Micra leadless pacer implant 07/09/25
Overactive Bladder / Incontinence
Osteoarthritis
Osteoporosis
IBS
Fecal impaction
Compression Fractures
Glaucoma
Chief Complaint
-: Other (Effusions)
Subjective / Review of Systems
Feels well. Was not aware of fever until told.
Vital Signs / Physical Exam
Vital Signs
Vital Signs
Temp Pulse Resp BP Pulse Ox
98.5 F 70 20 110/59 95
07/22/25 07:49 07/22/25 08:15 07/22/25 07:49 07/22/25 07:48 07/22/25 07:49
Selected Entries
07/21/25
16:56 07/21/25
19:45
Temp 102.9 F H 101.3 F H
Physical Exam
Constitutional: No Acute Distress and Comfortable
Cardiovascular: Regular Rate and S1/S2
Pulmonary: Non Labored and Other (decreased BS at bases)
Gastrointestinal: Soft, Non Tender and Normal Bowel Sounds
Extremities: Negative Edema
Neurological: Awake and Alert
Objective Data
Lab Data
Lab Results
07/22/25 04:49
07/22/25 04:49
Estimated Creat Clear 55 ml/min 07/22/25 04:49
Lactic Acid 1.3 mmol/L (0.7-2.0) 07/19/25 15:19
Total Bilirubin 1.0 mg/dl (0.2-1.3) 07/22/25 04:49
AST 12 U/L (14-36) L 07/22/25 04:49
ALT 16 U/L (0-35) 07/22/25 04:49
Alkaline Phosphatase 84 U/L (38-126) 07/22/25 04:49
Most recent labs reviewed.
Micro Results:
07/21/25 18:12 Blood Culture - Pending
Blood/Venous
07/21/25 18:05 Blood Culture - Pending
Blood/Venous
07/19/25 15:35 Blood Culture - Preliminary
Blood/Venous No Growth in 48 hours- Final report to follow
07/19/25 15:35 Blood Culture - Preliminary
Blood/Venous No Growth in 48 hours- Final report to follow
07/20/25 14:32 Body Fluid Culture - Preliminary
Pericardial Fluid No Growth After 18-24 Hours
Gram Stain - Preliminary
07/20/25 09:27 Body Fluid Culture - Preliminary
Pleural Fluid No Growth After 18-24 Hours
Gram Stain - Preliminary
07/19/25 22:35 MRSA Screen - Final
Nose No Methicillin Resistant Staphylococcus aureus isolated.
07/20/25 14:32 Fungal Culture - Preliminary
Pericardial Fluid Culture in progress.
Positive cultures are reported as soon as detected.
Final report to follow in four to five weeks.
07/20/25 14:32 Acid Fast Bacilli Smear - Pending
Pericardial Fluid Acid Fast Bacilli Culture - Pending
07/20/25 09:27 Fungal Smear - Final
Pleural Fluid No yeast or fungal elements seen.
Fungal Culture - Pending
07/20/25 09:27 Acid Fast Bacilli Smear - Pending
Pleural Fluid Acid Fast Bacilli Culture - Pending
07/19/25 15:35 Influenza Types A & B (HAL) - Final
Nasal Swab Negative for Influenza A & B, NAAT
Negative results must be combined with clinical observations
and patient history.
Nucleic Acid Amplification test (NAAT)performed on the
[employer] platform.
07/20/25 TTE: Moderate aortic stenosis. Large pericardial effusion is present circumferential. There are signs of early tamponade with respiratory variation at the mitral inflow.
07/19 ABD US: Mild gallbladder sludge. Minimal pericholecystic fluid.
07/19/25 CT chest/a/p: Contracted gallbladder with wall enhancement and mild pericholecystic fluid concerning for acute cholecystitis. Minimal free fluid in the abdomen and pelvis likely reactive. New Moderate pericardial effusion. Significantly
increased. Moderate bilateral pleural effusions. Significantly increased. Moderate left lower lobe consolidation concerning for pneumonia. New. Mild right lower lobe consolidation likely atelectasis. New
07/19/25 CXR: Moderate loculated left pleural effusion. Progressed. Probable underlying pneumonia. New. Small right pleural effusion. Progressed.
07/10/25 CXR: Small bilateral pleural effusions, left greater right. Adjacent basilar parenchymal disease, left greater than right, likely atelectasis.
Care Review
Plan reviewed with: Physician (Dr. Tomas)
[2025-07-22 11:45] VITALS: BP 130/59
--- NOTE | 2025-07-22 13:51 | W.PN.HOSP.TC ---
Today's Communication/Plan
-
monitor fever curve, wbc
F/u cultures
Tentative drain removal with ECHO today
Holding anticoag
Assessment / Plan
Assessment / Plan
General: Well Developed, Well Nourished, No Apparent Distress, Comfortable, Conversant and Appears Chronically Ill
HEENT: NormoCephalic, Moist mucous membranes, PERRLA, Nose Appears Normal and Ears Appear Normal
Respiratory: Clear, Non Labored Respirations and Decreased Breath Sounds; No Wheezes, Rales or Rhonchi
Cardiac: Regular Rhythm; No Murmur or Peripheral Edema
GI: Soft, Non Tender, Non Distended and Normal Bowel Sounds
Musculoskeletal: No Clubbing, No Cyanosis and No Edema
Skin: Warm and IV/Catheter Site
Neuro: Awake and Alert
Psych: Calm
Moderate Loculated left pleural effusion
Moderate bilateral pleural effusions
-admit to telemetry
-Likely hemorrhagic effusion w/ inflammation s/p PPM placement and anticoag
-IV Ceftriaxone/ Azithromycin
-IR left-sided thoracentesis 07/20, F/u pleural fluid - appears to be hemorrhagic: high level of monocytes; Transudative by protein ratio
- Follow-up body fluid cultures
-Pulmonary consulted
-Suspect effusions as complication of anticoagulation, recent Micra placement with bleeding rather than infectious or autoimmune etiology
Large pericardial effusion
Early Tamponade
-Moderate on CT, Large on ECHO
-Pericardiocentesis 07/20, f/u cultures; hemorrhagic fluid
-Cardiology consulted
-hold Eliquis for now
-Drain in place - likely removal today 07/22
-Initiated Colchicine
- Suspect effusions as complication of anticoagulation, recent Micra placement with bleeding rather than infectious or autoimmune etiology
Febrile episode
� Defervesced on her own
� Possibly post procedure febrile illness
� Follow-up blood cultures
� ID on board
�continue empiric antibiotics for now
Acute cholecystitis read on CT
-patient without any pain, neg Arvizu's sign on exam, LFTs wnl
-Discussed with surgery - not acute cholecystitis
-Monitor clinically, LFTs
-Surgery consulted - NTD
#Diarrhea
-resolved on BM Regimen
#Hyponatremia
-mild
-monitor
#Fecal impaction
-miralax
-improved
CVA with residual left sided hemiparesis
-PLASTIC SURGERY COORDINATOR Eliquis on hold until further evaluation of effusion
Tachybrady syndrome
paroxysmal atrial fibrillation
-PLASTIC SURGERY COORDINATOR Eliquis on hold
-PLASTIC SURGERY COORDINATOR Coreg --> 1/2 dose for now
-PPM is functioning normally, will have it interrogated
Recent admission for constipation
now with diarrhea
-hold laxatives and monitor
-diarrhea improved
Essential HTN
-1/2 Dose Coreg BID (12.5mg) for now
HLD - PLASTIC SURGERY COORDINATOR Statin
DVT PPx SCD
DNR
Anticipated Discharge: > 48 hours
Subjective/Interval History
-
Date of Service: July 22, 2025
Spiked temperature yesterday 102.9, 101.3 Fahrenheit. Defervesced on arrival
Objective Data
-
Labs:
Laboratory Results
07/22/25
04:49
WBC 9.9
Hgb 8.9 L
Hct 27.3 L
Plt Count 344
Sodium 137
Potassium 4.1
Chloride 108 H
Carbon Dioxide 25
BUN 18 H
Creatinine 0.7
Glucose 103 H
Calcium 8.3 L
Total Bilirubin 1.0
AST 12 L
ALT 16
Alkaline Phosphatase 84
Vital Signs:
Vital Signs
Temp Pulse Resp BP Pulse Ox
98 F 70 20 110/59 100
07/22/25 11:45 07/22/25 08:15 07/22/25 11:45 07/22/25 07:48 07/22/25 11:45
I&O
07/21/25 07/22/25 07/23/25
06:59 06:59 06:59
Intake Total 240 / 240 480 / 480
Output Total 60 / 60 0 / 0
Balance 180 / 180 480 / 480
Review of Systems
-
History Source: Patient
All other systems: Not reviewed unless documented
Data Reviewed
-
CT Scan: Report Reviewed by me
Ultrasound: Report Reviewed by me
Medical Tests (Nuc Med, Echo etc): Report Reviewed by me
Labs: Labs Reviewed by me
--- NOTE | 2025-07-22 13:59 | W.PN.PUL3 ---
Today's Communication / Plan
-
- Follow-up on cultures, if stay negative can discontinue antibiotics
Assessment
-
85-year-old non-smoking female with history of hypertension, hyperlipidemia, compression fractures, CVA, atrial fibrillation who presented with abdominal pain, diarrhea shortness of breath and fevers found to have pleural effusion-pulmonary
consulted for shortness of breath/pleural effusion 07/20/2025.
Compressive atelectasis due to pleural effusion versus pneumonia
Bilateral pleural effusions left greater than right
Status post left thoracentesis-exudate, pH 7.0, cultures and cytology pending
Pericardial effusion with early signs of tamponade, status post pericardiocentesis
Anemia-normocytic
Conditions present prior to admission:
Hypertension.
Hyperlipidemia.
Atrial fibrillation.
Bladder incontinence.
Osteoporosis.
Compression fractures.
Glaucoma.
CVA.
Hysterectomy. Left lumpectomy. Cataract. Hermann teeth. Permanent pacemaker.
Plan
Respiratory decompensation related to bilateral pleural effusion as well as pericardial effusion
Symptomatically improved after left-sided thoracentesis as well as pericardiocentesis. Patient not requiring any pressors, saturating well on room air.
Doing well on room air, oxygen as needed
Aspiration precautions
Nebulizers if needed-currently not bronchospastic
Thoracentesis on the left-exudate, cultures and cytology pending
follow up CXR 07/22 with improving pleural effusions
Empirically on ceftriaxone and azithromycin, low likelihood of active infection, if cultures stay negative may consider discontinuing antibiotics
S/p pericardiocentesis, follow-up fluid studies, cardiology service on case. Colchicine initiated
Suspect inflammatory etiology leading to both pleural and pericardial effusion rather than infection. Responding well to colchicine.
Pericardial drain in place, follow-up echo pending
Follow hemoglobin
Transfuse if needed
DVT prophylaxis
Nutrition
Early mobilization
Diagnostic data:
Chest x-ray 07/19/2025-moderate loculated left pleural effusion which is progressed with probable underlying pneumonia
Chest x-ray post left thoracentesis-bilateral pleural effusions increased on the right and slightly decreased on the left probably compressive atelectasis
CT chest abdomen and pelvis 07/06/2025-trace bilateral pleural effusions, mild cardiomegaly with small pericardial effusion, diffuse osteopenia
Echocardiogram 07/20/2025 5 EF 60 to 65%, moderate aortic stenosis, large pericardial effusion with early signs of tamponade
Subjective Data
-
Date of Service:
Date of Service: July 22, 2025
Subjective:
Patient comfortably lying in bed in no acute distress. Saturating well on room air
Review of Systems
Genitourinary: Other (All 14 systems reviewed and negative except as stated above in the history of present illness.)
Objective Data
Data Reviewed
Vital Signs / I&O / Oxygen:
Vital Signs
Temp Pulse Resp BP Pulse Ox
98 F 70 20 110/59 100
07/22/25 11:45 07/22/25 08:15 07/22/25 11:45 07/22/25 07:48 07/22/25 11:45
Intake and Output
07/21/25 07/22/25 07/23/25
06:59 06:59 06:59
Intake Total 240 / 240 480 / 480
Output Total 60 / 60 0 / 0
Balance 180 / 180 480 / 480
SaO2 100
Physical Exam
General: Comfortable
HEENT: Normocephalic
Cardiovascular: S1-S2
Respiratory: Clear and Non-Labored Respirations
GI: Soft and Non Distended
Neurology: Awake and Alert
Skin: Warm
Labs/Micro/Reports
Lab Data
07/22/25 04:49
07/22/25 04:49
Microbiology
07/20/25 09:27 Pleural Fluid Body Fluid Culture - Preliminary
No Growth After 48 Hours
07/20/25 09:27 Pleural Fluid Gram Stain - Preliminary
07/20/25 14:32 Pericardial Fluid Body Fluid Culture - Preliminary
No Growth After 48 Hours
07/20/25 14:32 Pericardial Fluid Gram Stain - Preliminary
07/19/25 15:35 Blood/Venous Blood Culture - Preliminary
No Growth in 48 hours- Final report to follow
07/19/25 15:35 Blood/Venous Blood Culture - Preliminary
No Growth in 48 hours- Final report to follow
07/19/25 22:35 Nose MRSA Screen - Final
No Methicillin Resistant Staphylococcus aureus isolated.
07/20/25 14:32 Pericardial Fluid Fungal Culture - Preliminary
Culture in progress.
Positive cultures are reported as soon as detected.
Final report to follow in four to five weeks.
07/20/25 09:27 Pleural Fluid Fungal Smear - Final
No yeast or fungal elements seen.
07/19/25 15:35 Nasal Swab Influenza Types A & B (HAL) - Final
Negative for Influenza A & B, NAAT
Negative results must be combined with clinical observations
and patient history.
Nucleic Acid Amplification test (NAAT)performed on the
[employer] platform.
--- NOTE | 2025-07-22 14:35 | W.PN.UPDATE ---
Update Note
Progress Note Update
after echo showed small, stable effusion
D/C pericardial drain without complacation at the bedside
will repeat echo in am
I updated her daughter Shraddha over the phone
--- NOTE | 2025-07-22 14:45 | PTCARENOTE ---
Pericardial drain -no new drainage since yesterday. Echo ordered and complete. Pericardial drain removed by Dr Segura without incident, Pt diane well. Dsg to site remains C,D+I.
[2025-07-22 15:56] VITALS: BP 135/68
[2025-07-22] MEDS: LIPITOR 40 MG PO (17:00)
[2025-07-22 17:52] LABS: COVID-19 Antigen Negative (Negative)
[2025-07-22 19:51] VITALS: BP 134/56
[2025-07-22 22:20] VITALS: BP 104/61
[2025-07-22] MEDS: ZYRTEC 5 MG PO (22:21)
[2025-07-22] MEDS: ZITHROMAX 500 MG PO (22:21)
--- NOTE | 2025-07-22 22:43 | PTCARENOTE ---
Received patient at change of shift. SR on the monitor, HR in the 70s. VSS on room air. Chest dressing CDI. Oriented to self only, bed alarm in place. No complaints from pt at this time, call hinds within reach.
[2025-07-23] VITALS (8 sets, daily range): BP systolic 122–182; BP diastolic 58–79; BMI 22.9
[2025-07-23] MEDS: STERILE WATER FOR INJECTION 10 ML IV (04:00)
[2025-07-23] MEDS: ROCEPHIN 1000 MG IV (04:00)
[2025-07-23] MEDS: TYLENOL 650 MG PO (04:00)
[2025-07-23 04:42] LABS: Hematocrit 31.2 % (37.0-47.0); Hemoglobin 10.0 g/dL (12.0-16.0); Mean Corp Hgb Conc. 32.1 g/dL (33.0-37.0); Mean Corpuscular Volume 91.0 fL (81.0-99.0); Platelet Count 400 10^3/uL (130-400); Red Cell Dist. Width 13.2 % (11.5-14.5)
[2025-07-23 05:22] LABS: ALT (SGPT) 19 U/L (0-35); AST (SGOT) 15 U/L (14-36); Albumin 3.0 g/dl (3.5-5.0); Alkaline Phosphatase 86 U/L (38-126); Blood Urea Nitrogen 15 mg/dl (7-17); Calcium 8.7 mg/dl (8.4-10.2); Carbon Dioxide 25 mmol/L (22-30); Chloride 107 mmol/L (98-107); Estimated Creatinine Clearance 64 ml/min; Glucose 103 mg/dl (70-99); Potassium 4.3 mmol/L (3.5-5.1); Sodium 136 mmol/L (135-145); Total Protein 5.8 g/dl (6.3-8.2); eGFR > 60.00
--- NOTE | 2025-07-23 07:20 | W.PN.HOSP.TC ---
Today's Communication/Plan
-
day 5 antibiotics, likely stop after today
appreciate consultants
holding Eliquis
continue Colchicine
eventual SNF
Assessment / Plan
Assessment / Plan
Ms. Aliyah Young is a 85 yo woman with hx essential HTN, HLD, CVA with residual left-sided hemiparesis, recent admission 07/07-07/11/25 for constipation, new afib with RVR and PPM implantation for tachybrady syndrome presents to the ER for fever,
diarrhea, abdominal pain and shortness of breath. She was found to have moderate loculated left pleural effusion, right pleural effusion and pericardial effusion. TTE the next morning revealed early signs of tamponade and she is s/p
pericardiocentesis on 07/20 with finding of hemorrhagic fluid. She is s/p thoracentesis, pH 7.0, cultures NGTD. Patient started on colchicine with suspicion that inflammatory etiology lead to both pericardial and pleural effusions. She is on day
5 antibiotics for possible pneumonia.
Moderate Loculated left pleural effusion
Moderate bilateral pleural effusions
-status post IR left-sided thoracentesis 07/20, pH 7.0, WBC 1171, 84.9% mononuclear; cultures no growth to date
-IV Ceftriaxone/ Azithromycin (day 5)
-appreciate Pulmonary consult
-effusion hemorrhagic in setting of recent procedure/OAC versus inflammatory response
-AVIONICS SYSTEMS INTEGRATION SPECIALIST Eliquis held
-cotinue Colchicine
Large pericardial effusion
Early Tamponade
-Moderate on CT, Large on ECHO
-Pericardiocentesis 07/20, cultures NGTD
-Cardiology consult appreciated
-hold Eliquis for now
-drain removed 07/22
-Initiated Colchicine
Febrile episode
- fever up to 102.9 07/21
� Possibly post procedure febrile illness
� Follow-up blood cultures
� ID on board
�continue empiric antibiotics for now
Acute cholecystitis read on CT
-patient without any pain, neg Arvizu's sign on exam, LFTs wnl
-Discussed with surgery - not acute cholecystitis
-Monitor clinically, LFTs
-Surgery consulted - NTD
#Diarrhea
-resolved on BM Regimen
#Hyponatremia
-mild
-monitor
#Fecal impaction
-miralax
-improved
CVA with residual left sided hemiparesis
-AVIONICS SYSTEMS INTEGRATION SPECIALIST Eliquis on hold until further evaluation of effusion
Tachybrady syndrome
paroxysmal atrial fibrillation
-AVIONICS SYSTEMS INTEGRATION SPECIALIST Eliquis on hold
-AVIONICS SYSTEMS INTEGRATION SPECIALIST Coreg --> 1/2 dose for now
-PPM is functioning normally, will have it interrogated
Recent admission for constipation
now with diarrhea
-hold laxatives and monitor
-diarrhea improved
Essential HTN
-1/2 Dose Coreg BID (12.5mg) for now
HLD - AVIONICS SYSTEMS INTEGRATION SPECIALIST Statin
DVT PPx SCD
DNR
51 minutes spent on patient care
Anticipated Discharge: 24 - 48 hours
Subjective/Interval History
-
Date of Service: July 23, 2025
she is feeling well
denies chest pain or shortness of breath
Objective Data
-
Labs:
Laboratory Results
07/23/25
03:54
WBC 8.9
Hgb 10.0 L
Hct 31.2 L
Plt Count 400
Sodium 136
Potassium 4.3
Chloride 107
Carbon Dioxide 25
BUN 15
Creatinine 0.6
Glucose 103 H
Calcium 8.7
Total Bilirubin 0.8
AST 15
ALT 19
Alkaline Phosphatase 86
Vital Signs:
Vital Signs
Temp Pulse Resp BP Pulse Ox
98.5 F 69 18 160/72 97
07/23/25 04:07 07/23/25 06:15 07/23/25 04:07 07/23/25 03:50 07/23/25 04:07
I&O
07/22/25 07/23/25 07/24/25
06:59 06:59 06:59
Intake Total 480 / 480
Output Total 0 / 0
Balance 480 / 480
Review of Systems
-
History Source: Patient
All other systems: Reviewed and negative
Physical Exam
-
General: Well Developed, Well Nourished, Comfortable and Conversant
HEENT: Normocephalic and Atraumatic
Respiratory: Clear to Auscultation
Cardiac: Regular Rhythm and S1/S2
GI: Soft, Nontender and Nondistended
Musculoskeletal: No Clubbing, No Cyanosis and No Edema
Skin: Warm
Neuro: Awake and Alert
Psych: Calm
Data Reviewed
-
Diagnostic Radiology: Report Reviewed by me
Labs: Labs Reviewed by me
[2025-07-23] MEDS: COLCHICINE 0.3 MG PO ×2 (09:00→20:32)
[2025-07-23] MEDS: RESTASIS 0.05% OPHTHALMIC EMULSION 1 DROPS BOTH EYES ×2 (09:00→20:33)
[2025-07-23] MEDS: COREG 12.5 MG PO ×2 (09:01→20:33)
[2025-07-23] MEDS: MIRALAX PO ×2 (09:01→09:09)
[2025-07-23] MEDS: HYDROCORTISONE 1% CREAM 1 APPLIC TOPICAL ×2 (09:01→20:34)
[2025-07-23] MEDS: LAC HYDRIN, AM LACTIN LOTION 1 APPLIC TOPICAL ×2 (09:01→20:33)
--- NOTE | 2025-07-23 09:22 | W.PN.PUL3 ---
Today's Communication / Plan
-
Remained stable on room air, repeat echo pending
Encourage PT/OT, likely to be discharged to SNF
Can arrange outpatient follow-up should pleural effusion return
Discussed plan of care with patient and family member
Discharge planning per team pending results
No further recommendations at this time, we will sign off, please call with questions
Assessment
-
85-year-old non-smoking female with history of hypertension, hyperlipidemia, compression fractures, CVA, atrial fibrillation who presented with abdominal pain, diarrhea shortness of breath and fevers found to have pleural effusion-pulmonary
consulted for shortness of breath/pleural effusion 07/20/2025.
Compressive atelectasis due to pleural effusion versus pneumonia
Bilateral pleural effusions left greater than right
Status post left thoracentesis-exudate, pH 7.0, cultures and cytology pending
Pericardial effusion with early signs of tamponade, status post pericardiocentesis
Anemia-normocytic
Conditions present prior to admission:
Hypertension.
Hyperlipidemia.
Atrial fibrillation.
Bladder incontinence.
Osteoporosis.
Compression fractures.
Glaucoma.
CVA.
Hysterectomy. Left lumpectomy. Cataract. [place] teeth. Permanent pacemaker.
Plan
Respiratory decompensation related to bilateral pleural effusion as well as pericardial effusion
Symptomatically improved after left-sided thoracentesis as well as pericardiocentesis. Patient not requiring any pressors, saturating well on room air.
Doing well on room air, oxygen as needed
Aspiration precautions
Nebulizers if needed-currently not bronchospastic
Thoracentesis on the left-exudate, cultures and cytology pending
follow up CXR 07/22 with improving pleural effusions
Empirically on ceftriaxone and azithromycin, low likelihood of active infection, if cultures stay negative may consider discontinuing antibiotics
S/p pericardiocentesis, follow-up fluid studies, cardiology service on case. Colchicine initiated
Suspect inflammatory etiology leading to both pleural and pericardial effusion rather than infection. Responding well to colchicine.
Pericardial drain in place, follow-up echo pending today
Follow hemoglobin
Transfuse if needed
DVT prophylaxis
Nutrition
Early mobilization
Discharge planning to SNF likely per team
Diagnostic data:
Chest x-ray 07/19/2025-moderate loculated left pleural effusion which is progressed with probable underlying pneumonia
Chest x-ray post left thoracentesis-bilateral pleural effusions increased on the right and slightly decreased on the left probably compressive atelectasis
CT chest abdomen and pelvis 07/06/2025-trace bilateral pleural effusions, mild cardiomegaly with small pericardial effusion, diffuse osteopenia
Echocardiogram 07/20/2025 5 EF 60 to 65%, moderate aortic stenosis, large pericardial effusion with early signs of tamponade
Total time spent on this consultation/encounter __50__ minutes which includes review of history, physical exam, medications, laboratory data, personal review of imaging, extensive review of outpatient records, discussion with care team and
respiratory therapy.
Subjective Data
-
Date of Service:
Date of Service: July 23, 2025
Chief Complaint: Pulmonary Follow Up
Subjective:
No new complaints, stable on room air
Objective Data
Data Reviewed
Vital Signs / I&O / Oxygen:
Vital Signs
Temp Pulse Resp BP Pulse Ox
97.4 F 65 18 141/61 97
07/23/25 07:53 07/23/25 09:01 07/23/25 07:53 07/23/25 09:01 07/23/25 07:53
Intake and Output
07/22/25 07/23/25 07/24/25
06:59 06:59 06:59
Intake Total 480 / 480
Output Total 0 / 0
Balance 480 / 480
SaO2 97
Physical Exam
General: Comfortable, Poor Appetite and Other (NAD)
HEENT: Normocephalic and Sinus Tenderness
Cardiovascular: S1-S2 and Regular Rhythm
Respiratory: Clear and Non-Labored Respirations
GI: Soft and Non Distended
Neurology: Awake, Alert, Oriented and No Motor Deficits
Skin: Warm and Good Color
Labs/Micro/Reports
Lab Data
07/23/25 03:54
07/23/25 03:54
Microbiology
07/21/25 18:12 Blood/Venous Blood Culture - Preliminary
No Growth in 24 hours- Final report to follow
07/21/25 18:05 Blood/Venous Blood Culture - Preliminary
No Growth in 24 hours- Final report to follow
07/19/25 15:35 Blood/Venous Blood Culture - Preliminary
No Growth in 72 hours- Final report to follow
07/19/25 15:35 Blood/Venous Blood Culture - Preliminary
No Growth in 72 hours- Final report to follow
07/20/25 09:27 Pleural Fluid Body Fluid Culture - Preliminary
No Growth After 48 Hours
07/20/25 09:27 Pleural Fluid Gram Stain - Preliminary
07/20/25 14:32 Pericardial Fluid Body Fluid Culture - Preliminary
No Growth After 48 Hours
07/20/25 14:32 Pericardial Fluid Gram Stain - Preliminary
07/19/25 22:35 Nose MRSA Screen - Final
No Methicillin Resistant Staphylococcus aureus isolated.
07/20/25 14:32 Pericardial Fluid Fungal Culture - Preliminary
Culture in progress.
Positive cultures are reported as soon as detected.
Final report to follow in four to five weeks.
07/20/25 09:27 Pleural Fluid Fungal Smear - Final
No yeast or fungal elements seen.
--- NOTE | 2025-07-23 09:51 | W.PN.CD ---
Today's Communication / Plan
-
- Holding Eliquis for 6 weeks at least.
- Pacemaker Micra is working normally
- Continue carvedilol 12.5 mg twice a day and colchicine 0.3 mg twice daily.
Impression / Plan
-
Pericardial effusion -
- Recent history of leadless pacemaker implantation on 07/09/2025
- Procedure was reviewed in detail. Short duration of the procedure with implantation of the Micra on the ventricular septum.
- No complications noted during the procedure.
- A 27 Fr catheter if because RV rupture would fill pericardium within 5 minutes - resulting in severe tamponade within minutes.
- The slow recommendation of pericardial fluid which was blood-tinged is likely not related to pacemaker implantation.
- The presence of bilateral pleural effusions which was also hemorrhagic in nature along with pericardial fluid makes it systemic etiology. The procedure of over 2 weeks ago could be coincident but highly likely to be contributing to the event.
- Both pleural and pericardial fluids were identified incidentally on a CT scan. The etiology remains unclear at this time. Likely systemic with chronic anticoagulation therapy and fever.
- Pathology is sent. Both fluids have elevated LDH levels.
- Pericardial drain was removed over the weekend.
- No sign of reaccumulation.
- continue colchicine
- hold Eliquis. -With pleural and pericardial hemorrhagic fluid noted, we will hold Eliquis at this time. Risk of bleeding is much elevated. Plan is to hold Eliquis for at least 6 weeks.
Afib - paroxysmal.
-sinus with brief runs of SVT
-on Eliquis for [id number] VASc score of 6, on hold for pericardial effusion
- Plan to hold Eliquis for 6 weeks for
Tachybradycardia syndrome - with long conversion pauses on tele.
- s/p leadless Micra PPM implanted 07/09/25
- Pacing noted postconversion without any pauses. Patient's pacemaker is working well.
-Stable location of the Micra at ventricular septum on chest x-ray and echo.
HTN - stable on Coreg, continue.
- out patient regimen was modified with discontinuation of Amlodipine and Hydralazine at d/c 07/11/25.
Pleural effusions - b/l, left > right.
- s/p left thoracentesis 07/20/25 -over a liter of hemorrhagic pleural effusion was drained.
- monitor.
Subjective:
She is without complaint, afebrile now. Last fever 07/21/2025.
Physical Exam
Vital Signs/Labs
Vital Signs
Temp Pulse Resp BP Pulse Ox
97.4 F 65 18 141/61 97
07/23/25 07:53 07/23/25 09:01 07/23/25 07:53 07/23/25 09:01 07/23/25 07:53
07/22/25 07/23/25 07/24/25
06:59 06:59 06:59
Actual Weight 66.5 kg 66.3 kg
07/23/25 03:54
07/23/25 03:54
Magnesium 1.9 mg/dl (1.6-2.3) 07/21/25 04:06
Physical Exam
Constitutional: No acute distress and Comfortable
EENT: Anicteric and Moist mucous membranes
Cardiovascular: Rhythm & rate is regular, Pedal edema is absent, JVD pressure is normal and Systolic murmur present
Respiratory: Respiratory effort normal and Lungs clear to auscul.
GI: Soft, Distention absent, Non tender and Normal bowel sounds
Neuro/Psych: Alert, Oriented and AO x 3
Other: Cath Site
Data Reviewed
-
Date of Service: July 23, 2025
Medical Decision Making: Reviewed Test Results, Test Interpretation and Review of Case with other Provider
EKG: Tracing Personally Visualized and interpreted
Echo: Report Reviewed by me
Labs: Labs Reviewed by me
Old Records: Reviewed
--- NOTE | 2025-07-23 10:00 | PTCARENOTE ---
Assumed care of patient at 0645. Assessment completed and documented on worklist. Patient is drowsy this AM, complaining of feeling tired. Otherwise no complaints. Plan for repeat echo later today. Gave daughter update on phone. Hired caregiver at
bedside.
--- NOTE | 2025-07-23 10:00 | W.PN.ID1 ---
Date of Service
Date of Service: July 23, 2025
Today's Communication
DC abx's.
ID will sign off.
Assessment / Plan
# Post procedure Fever x 2 resolved
# Recent new onset afib, tachy-casa s/p Micra pacemaker placement 07/09/25 and initiated anticoagulation
# Increased bilateral pleural effusion
. 07/20 s/p left thoracentesis of 1L bloody fluid. Fluid wbc 1171 WBC, 85% mono, only 15% polys, transudate by protein ratio, no serum LDH available.
Cx neg to date
# Large pericardial effusion with early tamponade
. 07/20 s/p Pericardiocentesis -> hemorrhagic fluid
Cx neg to date.
on colchicine
# Diarrhea resolved off multiple bowel regimen
- Suspect effusions as complication of anticoagulation, recent Micra placement with bleeding rather than infectious etiology.
- Fluid cx's neg.
- Blood cx's neg to date
- COVID neg
- DC empiric ceftriaxone/azithromycin (d5)
ID will sign off.
# Conditions present on admission::
Dementia
Hypertension
Hyperlipidemia
CVA
pAfib
Sick sinus syndrome s/p Micra leadless pacer implant 07/09/25
Overactive Bladder / Incontinence
Osteoarthritis
Osteoporosis
IBS
Fecal impaction
Compression Fractures
Glaucoma
Chief Complaint
-: Other (Effusions)
Subjective / Review of Systems
Feels well. No complaints.
No SOB.
Vital Signs / Physical Exam
Vital Signs
Vital Signs
Temp Pulse Resp BP Pulse Ox
97.4 F 65 18 141/61 97
07/23/25 07:53 07/23/25 09:01 07/23/25 07:53 07/23/25 09:01 07/23/25 07:53
Physical Exam
Constitutional: No Acute Distress and Comfortable
Cardiovascular: Regular Rate and S1/S2
Pulmonary: Non Labored and Other (decreased BS at bases)
Gastrointestinal: Soft, Non Tender and Normal Bowel Sounds
Extremities: Negative Edema
Neurological: Awake and Alert
Objective Data
Lab Data
Lab Results
07/23/25 03:54
07/23/25 03:54
Estimated Creat Clear 64 ml/min 07/23/25 03:54
Lactic Acid 1.3 mmol/L (0.7-2.0) 07/19/25 15:19
Total Bilirubin 0.8 mg/dl (0.2-1.3) 07/23/25 03:54
AST 15 U/L (14-36) 07/23/25 03:54
ALT 19 U/L (0-35) 07/23/25 03:54
Alkaline Phosphatase 86 U/L (38-126) 07/23/25 03:54
Most recent labs reviewed.
Micro Results:
07/21/25 18:12 Blood Culture - Preliminary
Blood/Venous No Growth in 24 hours- Final report to follow
07/21/25 18:05 Blood Culture - Preliminary
Blood/Venous No Growth in 24 hours- Final report to follow
07/19/25 15:35 Blood Culture - Preliminary
Blood/Venous No Growth in 72 hours- Final report to follow
07/19/25 15:35 Blood Culture - Preliminary
Blood/Venous No Growth in 72 hours- Final report to follow
07/20/25 09:27 Body Fluid Culture - Preliminary
Pleural Fluid No Growth After 48 Hours
Gram Stain - Preliminary
07/20/25 14:32 Body Fluid Culture - Preliminary
Pericardial Fluid No Growth After 48 Hours
Gram Stain - Preliminary
07/19/25 22:35 MRSA Screen - Final
Nose No Methicillin Resistant Staphylococcus aureus isolated.
07/20/25 14:32 Fungal Culture - Preliminary
Pericardial Fluid Culture in progress.
Positive cultures are reported as soon as detected.
Final report to follow in four to five weeks.
07/20/25 14:32 Acid Fast Bacilli Smear - Pending
Pericardial Fluid Acid Fast Bacilli Culture - Pending
07/20/25 09:27 Fungal Smear - Final
Pleural Fluid No yeast or fungal elements seen.
Fungal Culture - Pending
07/20/25 09:27 Acid Fast Bacilli Smear - Pending
Pleural Fluid Acid Fast Bacilli Culture - Pending
07/19/25 15:35 Influenza Types A & B (HAL) - Final
Nasal Swab Negative for Influenza A & B, NAAT
Negative results must be combined with clinical observations
and patient history.
Nucleic Acid Amplification test (NAAT)performed on the
[employer] platform.
07/20/25 TTE: Moderate aortic stenosis. Large pericardial effusion is present circumferential. There are signs of early tamponade with respiratory variation at the mitral inflow.
07/19 ABD US: Mild gallbladder sludge. Minimal pericholecystic fluid.
07/19/25 CT chest/a/p: Contracted gallbladder with wall enhancement and mild pericholecystic fluid concerning for acute cholecystitis. Minimal free fluid in the abdomen and pelvis likely reactive. New Moderate pericardial effusion. Significantly
increased. Moderate bilateral pleural effusions. Significantly increased. Moderate left lower lobe consolidation concerning for pneumonia. New. Mild right lower lobe consolidation likely atelectasis. New
07/19/25 CXR: Moderate loculated left pleural effusion. Progressed. Probable underlying pneumonia. New. Small right pleural effusion. Progressed.
07/10/25 CXR: Small bilateral pleural effusions, left greater right. Adjacent basilar parenchymal disease, left greater than right, likely atelectasis.
--- NOTE | 2025-07-23 11:33 | W.PN.UPDATE ---
Update Note
Progress Note Update
Pt seen and evaluated at bedside. Denies abd pain. Brad diet. Non tender on exam. LFTs remain unremarkable. Do not suspect acute gallbladder issue. GS will s/o pls call with ?s.
--- NOTE | 2025-07-23 13:13 | CM ---
spoke to [facility] admission, pt lives in memory care , has private caregivers as well. PT eval and recomm SNF, referral faxed to [facility], they will have a bed for her. called pts daughter, Shraddha, she is aware of the plan and agreeable.
[2025-07-23] MEDS: LIPITOR 40 MG PO (18:19)
--- NOTE | 2025-07-23 20:00 | PTCARENOTE ---
Patient received in bed, AAOx2, not to place. NSR on monitor, + murmur, trace lower extremity edema. room air, pulse ox 97%. +RODRIGUEZ. voiding. #20 g in left wrist flushed and patent. bed alarm engaged
[2025-07-23] MEDS: ZYRTEC 5 MG PO (20:33)
[2025-07-24 04:29] VITALS: BP 139/66
[2025-07-24 05:16] LABS: Hematocrit 27.2 % (37.0-47.0); Hemoglobin 8.9 g/dL (12.0-16.0); Mean Corp Hgb Conc. 32.7 g/dL (33.0-37.0); Mean Corpuscular Volume 89.2 fL (81.0-99.0); Platelet Count 363 10^3/uL (130-400); Red Cell Dist. Width 13.1 % (11.5-14.5)
[2025-07-24 05:42] LABS: ALT (SGPT) 14 U/L (0-35); AST (SGOT) 12 U/L (14-36); Albumin 2.5 g/dl (3.5-5.0); Alkaline Phosphatase 74 U/L (38-126); Blood Urea Nitrogen 12 mg/dl (7-17); Calcium 8.5 mg/dl (8.4-10.2); Carbon Dioxide 24 mmol/L (22-30); Chloride 110 mmol/L (98-107); Estimated Creatinine Clearance 64 ml/min; Glucose 144 mg/dl (70-99); Potassium 4.5 mmol/L (3.5-5.1); Sodium 136 mmol/L (135-145); Total Protein 5.0 g/dl (6.3-8.2); eGFR > 60.00
--- NOTE | 2025-07-24 07:21 | W.DCSUMMARY ---
Discharge Summary
Discharge Data
Date of Admission: 07/19/25
Date of Discharge: 07/24/25
-
Pending Results: No
Hospital Course
Discharging Physician : Dr. Reanna Ferro
Disposition : SNF
Primary care physician : Dr. Rodney Anand
Principal Discharge diagnosis : Pericardial and Pleural Effusions; status post pericardiocentesis; status post thoracentesis
Hospital Course :
Ms. Aliyah Young is a 85 yo woman with hx essential HTN, HLD, CVA with residual left-sided hemiparesis, recent admission 07/07-07/11/25 for constipation, new afib with RVR and PPM implantation for tachybrady syndrome presents to the ER for fever,
diarrhea, abdominal pain and shortness of breath. Triage vitals significant for T 100, P 80, BP 137/66, SpO2 96%. Labs with mild leukocytosis 11.3, Cr 0.9, lactate 1.3. CXR with moderate loculated left pleural effusion with probably underlying
pneumonia. CT A/P with moderate pericardial effusion and bilateral pleural effusions.
She was admitted to medicine. She was started on antibiotics for possible pneumonia. Eliquis was held. TTE ordered for the following morning, Cardiology consulted. IR and Pulmonary were consulted.
Regarding pericardial effusion, TTE the following morning showed large pericardial effusion with early tamponade physiology. She is status post pericardiocentesis on 07/20 that was hemorrhagic. She was started on Colchicine. Drain removed on 07/22
without any evidence of reaccumulation. Colchicine to continue for 3-6 additional months. Eliquis to be held for at least 6 weeks. She will get a repeat echo in one week post discharge.
She is status post left-sided thoracentesis on 07/20. pH 7.0, WBC 1171, 84.9% mononuclear. Cultures remained without growth. She completed 5 days of antibiotics for possible pneumonia, but etiology of pericardial and pleural effusions thought
more to be inflammatory than infectious.
Of note, initial imaging showed possible cholecystitis but patient had no abdominal pain on exam and therefore there was no clinical concern.
Hospital course complicated by fever up to 102.9 post procedures. Covid, flu and cultures remained negative. She was seen by ID.
Patient is discharged to SNF. changes in medications including holding Eliquis, 1/2 dose prior Coreg and new start Colchicine.
Time spent on discharge was 40 minutes.
Important imaging findings :
CXR 07/19/25
IMPRESSION:
Moderate loculated left pleural effusion. Progressed. Probable underlying pneumonia. New.
Small right pleural effusion. Progressed.
Compression fractures. Stable
CT A/P 07/19/25
IMPRESSION: Contracted gallbladder with wall enhancement and mild pericholecystic fluid concerning for acute cholecystitis. Confirmation with abdominal ultrasound recommended. Clinical and laboratory correlation recommended
Minimal free fluid in the abdomen and pelvis likely reactive. New
Moderate pericardial effusion. Significantly increased
Moderate bilateral pleural effusions. Significantly increased
Moderate left lower lobe consolidation concerning for pneumonia. New
Mild right lower lobe consolidation likely atelectasis. New
Moderate gastric wall thickening versus more likely findings due to limited distention. Gastritis cannot be excluded. Increased.
Hepatic fatty infiltration. Stable
Mild pancreatic atrophy. Stable
Mild diffuse bladder wall thickening. This can be seen with cystitis and bladder outlet obstruction. Stable
Compression fractures. Stable
TTE 07/20/25
SUMMARY
1. Left ventricular ejection fraction is normal. Ejection fraction is 60-65% by visual assessment.
2. Right ventricular size and systolic function are within normal limits.
3. Moderate aortic stenosis.
4. Large pericardial effusion is present circumferential. There are signs of early tamponade with respiratory variation at the mitral inflow.
5. Inferior vena cava is dilated (3.0cm) without collapse.
6. Compared to the prior echocardiogram images from 07/09/2025, small posterior pericardial effusion has increased to a large circumferential pericardial effusion with signs of early hemodynamic compromise.
7. Results were discussed with primary team.
TTE 07/20/25
SUMMARY
1. Ejection fraction is 60-65% by visual assessment.
2. Pre-pericardiocentesis: Large pericardial effusion.
Post-pericardiocentesis: Trivial pericardial effusion.
TTE 07/22/25
SUMMARY
1. Limited study to reassess effusion.
2. Normal biventricular size and systolic function without regional wall motion abnormality.
3. Moderate to severe tricuspid regurgitation (Remaining valves not assessed). Mild pulmonary hypertension.
4. Small, circumferential pericardial effusion with some fibrinous material versus fat pad. No evidence of hemodynamic significant.
5. When compared to the prior ultrasound on 07/20/2025 which guided the pericardiocentesis, the effusion has remained stable when comparing postprocedure images.
TTE 07/23/25
SUMMARY
1. Normal biventricular size and function without regional wall motion abnormalities.
2. LVEF is 56% by Morley's biplane method of discs.
3. Mild to moderate tricuspid regurgitation. Top normal estimated PASP at 39 mmHg.
4. Trivial pericardial effusion.
5. Compared to prior from July 22, 2025, no significant change.
Procedure findings :
Discharge Plan
-
Patient Disposition: [facility]it[facility]SNF
Discharge Diagnosis/Procedures: Pericardial and Pleural Effusions; status post pericardiocentesis; status post thoracentesis
Diet: Low Cholesterol
Activity: As tolerated
Driving Restrictions: No driving
Bathing Restrictions: None
Others Tests: Repeat echo in one week. Please call the cardiology office to arrange this.
repeat CXR should be ordered in 2 weeks by your outpatient provider
Other Services: PT and OT
Referrals:
[facility] [Outside]
Referral Note: Skilled rehab unit
Tony Partida MD [Active, Cardiology] - 08/08/25 4:00 pm
Rodney Anand MD [Family Provider, Family Practice] - in less than 1 week
Additional Discharge Medication Instructions: STOP Eliquis (this will be held for at least 6 weeks)
You are started on Colchicine. Take 0.3mg twice a day for 3-6 months
Decrease Coreg from 25mg to 12.5mg twice a day
Prescriptions:
New
polyethylene glycol 3350 17 gram Powder In Packet
17 g PO DAILY Qty: 30 0RF
colchicine 0.6 mg Tablet
0.3 mg PO BID Qty: 60 2RF
Continued
cyclosporine [Restasis] 0.05 % Dropperette
1 drp BOTH EYES BID
cetirizine 10 mg Tablet
5 mg PO HS
acetaminophen 325 mg Tablet
650 mg PO Q6HPRN PRN (Reason: mild pain/ fever>100.5F) Qty: 0 0RF
ipratropium-albuterol 0.5 mg-3 mg(2.5 mg base)/3 mL Solution For Nebulization
3 ml INHALATION R Q6HPRN PRN (Reason: sob)
ammonium lactate [AmLactin] 12 % Lotion
1 applic TOPICAL BID
hydrocortisone 1 % Cream
1 applic TOPICAL BID
lactase 3,000 unit Tablet
3,000 unit PO Q6HPRN PRN (Reason: dairy)
atorvastatin 40 mg tablet
40 mg PO QPM
lidocaine 4 % adhesive patch,medicated
1 patch topical DAILYPRN PRN (Reason: lower back)
ondansetron HCl 4 mg Tablet
4 mg PO Q6HPRN PRN (Reason: nausea)
sennosides-docusate sodium [Stool Softener-Stimulant Laxat] 8.6-50 mg tablet
1 tab PO BIDPRN PRN (Reason: constipation)
Changed
carvedilol [Coreg] 25 mg tablet
12.5 mg PO BID Qty: 60 0RF
Discontinued
Eliquis 5 mg Tablet
5 mg PO BID Qty: 60 0RF
polyethylene glycol 3350 17 gram/dose powder
17 g PO BIDPRN PRN (Reason: constipation)
Discharge Orders:
Discharge Patient (As Directed); Ordered 07/24/25
Ordered By: Reanna Ferro
Care Plan Goals
Care Plan Goals:
Problem: Readiness for enhanced knowledge related to diagnosis and treatment plan
Goal: Understand your diagnosis and treatment plan needs, including medications if applicable.
Instructions: Know your diagnosis, underlying causes and treatment plan options, including medications if applicable. Consult with your health care team to learn about your diagnosis and treatment plan, including medications if applicable.
Discharge Date and Time
Discharge Date/Time: 07/24/25 13:59
Print Language: [place]OOK ISLANDER
--- NOTE | 2025-07-24 07:52 | W.PN.HOSP.TC ---
Today's Communication/Plan
-
plan for DC to SNF today
follow up final cardiology recommendations
Assessment / Plan
Assessment / Plan
Ms. Aliyah Young is a 85 yo woman with hx essential HTN, HLD, CVA with residual left-sided hemiparesis, recent admission 07/07-07/11/25 for constipation, new afib with RVR and PPM implantation for tachybrady syndrome presents to the ER for fever,
diarrhea, abdominal pain and shortness of breath. She was found to have moderate loculated left pleural effusion, right pleural effusion and pericardial effusion. TTE the next morning revealed early signs of tamponade and she is s/p
pericardiocentesis on 07/20 with finding of hemorrhagic fluid. She is s/p thoracentesis, pH 7.0, cultures NGTD. Patient started on colchicine with suspicion that inflammatory etiology lead to both pericardial and pleural effusions. She is on day
5 antibiotics for possible pneumonia.
Moderate Loculated left pleural effusion
Moderate bilateral pleural effusions
-status post IR left-sided thoracentesis 07/20, pH 7.0, WBC 1171, 84.9% mononuclear; cultures no growth to date
-s/p 5 day course IV Ceftriaxone/ Azithromycin
-appreciate Pulmonary consult
-effusion hemorrhagic likely related to inflammatory response (slow accumulation would not be consistent with resulting from procedure)
-BEDSPREAD SEAMER Eliquis held
-continue Colchicine
Large pericardial effusion
Early Tamponade
-Moderate on CT, Large on ECHO
-Pericardiocentesis 07/20, cultures NGTD
-Cardiology consult appreciated
-hold Eliquis x at least 6 weeks
-drain removed 07/22
-Initiated Colchicine
Febrile episode
- fever up to 102.9 07/21
� Possibly post procedure febrile illness
� Follow-up blood cultures
� ID on board
-abx now off, afebrile
Acute cholecystitis read on CT
-patient without any pain, neg Arvizu's sign on exam, LFTs wnl
-Discussed with surgery - not acute cholecystitis
-Monitor clinically, LFTs
-Surgery consulted - NTD
#Diarrhea
-resolved on BM Regimen
#Hyponatremia
-mild
-monitor
#Fecal impaction
-miralax
-improved
CVA with residual left sided hemiparesis
-BEDSPREAD SEAMER Eliquis given hemorrhagic effusion
Tachybrady syndrome
paroxysmal atrial fibrillation
-BEDSPREAD SEAMER Eliquis on hold
-BEDSPREAD SEAMER Coreg --> 1/2 dose for now
-PPM is functioning normally, will have it interrogated
Recent admission for constipation
now with diarrhea
-hold laxatives and monitor
-diarrhea improved
Essential HTN
-1/2 Dose Coreg BID (12.5mg) for now
HLD - BEDSPREAD SEAMER Statin
DVT PPx SCD
DNR
51 minutes spent on patient care
Anticipated Discharge: Today
Subjective/Interval History
-
Date of Service: July 24, 2025
she is feeling well
no new complaints
feels ready for rehab
Objective Data
-
Labs:
Laboratory Results
07/24/25
04:29
WBC 7.8
Hgb 8.9 L
Hct 27.2 L
Plt Count 363
Sodium 136
Potassium 4.5
Chloride 110 H
Carbon Dioxide 24
BUN 12
Creatinine 0.5 L
Glucose 144 H
Calcium 8.5
Total Bilirubin 0.5
AST 12 L
ALT 14
Alkaline Phosphatase 74
Vital Signs:
Vital Signs
Temp Pulse Resp BP Pulse Ox
99.6 F 76 19 139/66 94
07/23/25 18:46 07/24/25 04:45 07/23/25 18:46 07/24/25 04:29 07/24/25 04:00
Review of Systems
-
History Source: Patient
All other systems: Reviewed and negative
Physical Exam
-
General: Well Developed, Well Nourished, Comfortable and Conversant
HEENT: Normocephalic and Atraumatic
Respiratory: Clear to Auscultation
Cardiac: Regular Rhythm and S1/S2
GI: Soft, Nontender and Nondistended
Musculoskeletal: No Clubbing, No Cyanosis and No Edema
Skin: Warm
Neuro: Awake and Alert
Psych: Calm
Data Reviewed
-
Diagnostic Radiology: Report Reviewed by me
Labs: Labs Reviewed by me
[2025-07-24 07:53] VITALS: BP 152/69
[2025-07-24] MEDS: COREG 12.5 MG PO (08:00)
[2025-07-24] MEDS: COLCHICINE 0.3 MG PO (08:00)
[2025-07-24] MEDS: LAC HYDRIN, AM LACTIN LOTION 1 APPLIC TOPICAL (08:00)
[2025-07-24] MEDS: MIRALAX PO ×2 (08:01→08:03)
[2025-07-24] MEDS: HYDROCORTISONE 1% CREAM 1 APPLIC TOPICAL (08:01)
[2025-07-24] MEDS: RESTASIS 0.05% OPHTHALMIC EMULSION 1 DROPS BOTH EYES (08:01)
--- NOTE | 2025-07-24 08:35 | W.PN.CD ---
Today's Communication / Plan
-
- No sign of reaccumulation on echocardiogram over the past 2 days.
- Continue colchicine for at least 3 months (will follow as outpatient).
- Repeat echocardiogram in 1 week.
- Plan is to hold Eliquis for at least 6 weeks.
- Outpatient follow-up with Cardiology.
Impression / Plan
-
Pericardial effusion -
- Recent history of leadless pacemaker implantation on 07/09/2025
- Procedure was reviewed in detail. Short duration of the procedure with implantation of the Micra on the ventricular septum.
- No complications noted during the procedure.
- A 27 Fr catheter if because RV rupture would fill pericardium within 5 minutes - resulting in severe tamponade within minutes.
- The slow recommendation of pericardial fluid which was blood-tinged is likely not related to pacemaker implantation.
- The presence of bilateral pleural effusions which was also hemorrhagic in nature along with pericardial fluid makes it systemic etiology. The procedure of over 2 weeks ago could be coincident but highly likely to be contributing to the event.
- Both pleural and pericardial fluids were identified incidentally on a CT scan. The etiology remains unclear at this time. Likely systemic with chronic anticoagulation therapy and fever.
- Pathology is sent. Both fluids have elevated LDH levels.
- Pericardial drain was removed over the weekend.
- No sign of reaccumulation on echocardiogram over the past 2 days.
- Continue colchicine for at least 3 months (will follow as outpatient).
- Repeat echocardiogram in 1 week.
- Holding Eliquis. -With pleural and pericardial hemorrhagic fluid noted, we will hold Eliquis at this time. Risk of bleeding is much elevated. Plan is to hold Eliquis for at least 6 weeks.
Afib - paroxysmal.
- Remains in sinus rhythm on telemetry.
-on Eliquis for [id number] VASc score of 6, on hold for pericardial effusion
- Plan to hold Eliquis for 6 weeks as above.
Tachybradycardia syndrome - with long conversion pauses on tele.
- s/p leadless Micra PPM implanted 07/09/25
- Pacing noted post-conversion without any pauses. Patient's pacemaker is working well.
- Stable location of the Micra at ventricular septum on chest x-ray and echo.
HTN -controlled/stable on Coreg, continue.
- out patient regimen was modified with discontinuation of Amlodipine and Hydralazine at d/c 07/11/25.
Pleural effusions - b/l, left > right.
- s/p left thoracentesis 07/20/25 -over a liter of hemorrhagic pleural effusion was drained.
TR: Likely moderate.
- Continue to monitor as outpatient.
: Moderate.
- Continue management as outpatient.
Subjective:
No major events overnight. No cardiac complaints.
Physical Exam
Vital Signs/Labs
Vital Signs
Temp Pulse Resp BP Pulse Ox
98.1 F 80 19 152/69 94
07/24/25 08:00 07/24/25 07:53 07/24/25 08:00 07/24/25 07:53 07/24/25 08:00
07/23/25 07/24/25 07/25/25
06:59 06:59 06:59
Actual Weight 66.3 kg
07/24/25 04:29
07/24/25 04:29
Magnesium 1.9 mg/dl (1.6-2.3) 07/21/25 04:06
Physical Exam
Constitutional: No acute distress and Comfortable
EENT: Anicteric
Cardiovascular: Rhythm & rate is regular, Pedal edema is absent, Systolic murmur present (11/02) and S1S2 is normal
Respiratory: Respiratory effort normal and Lungs clear to auscul.
GI: Soft
Neuro/Psych: AO x 3
Other: Skin (Warm, dry, intact)
Data Reviewed
-
Date of Service: July 24, 2025
EKG: Tracing Personally Visualized and interpreted (Telemetry: Sinus rhythm.)
Echo: Report Reviewed by me (07/19/2025: EF 55-60%, mild to moderate TR.)
Medical Tests (PFT, Pathology etc): Other (Caregiver at bedside.)
Labs: Labs Reviewed by me
[2025-07-24 11:02] VITALS: BP 145/56
--- NOTE | 2025-07-24 11:25 | W.DS.TRANS ---
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
-
Discharge Instructions:
Discharge Diagnosis/Procedures Pericardial and Pleural Effusions; status post
pericardiocentesis; status post thoracentesis
Diet Low Cholesterol
Activity As tolerated
Driving Restrictions No driving
Bathing Restrictions None
Others Tests repeat echo in one week
repeat CXR should be ordered in 2 weeks by your
outpatient provider
Other Services PT,OT
Instructions:
Stand-Alone Forms:
Changes to Home Medications: Yes
Discharge Medications:
DC Medications w/original date entered in [employer]
cyclosporine 0.05 % eye drops in a dropperette (Restasis) 1 drp BOTH EYES BID Eye Condition 01/25/24
cetirizine 10 mg tablet 5 mg PO HS Allergies 12/04/24
acetaminophen 325 mg tablet 650 mg (2 x 325 mg) PO Q6HPRN PRN mild pain/ fever>100.5F #0 tabs 12/09/24
ammonium lactate 12 % lotion (AmLactin) 1 applic topical BID b/l legs, back 07/06/25
atorvastatin 40 mg tablet 40 mg PO QPM High Cholesterol 07/06/25
hydrocortisone 1 % topical cream 1 applic topical BID b/l legs 07/06/25
ipratropium 0.5 mg-albuterol 3 mg (2.5 mg base)/3 mL nebulization soln 3 ml inhalation R Q6HPRN PRN sob 07/06/25
lactase 3,000 unit tablet 3,000 unit PO Q6HPRN PRN dairy 07/06/25
lidocaine 4 % topical patch 1 patch topical DAILYPRN PRN lower back 07/06/25
ondansetron HCl 4 mg tablet 4 mg PO Q6HPRN PRN nausea 07/19/25
sennosides 8.6 mg-docusate sodium 50 mg tablet (Stool Softener-Stimulant Laxative) 1 tab PO BIDPRN PRN constipation 07/19/25
carvedilol 25 mg tablet (Coreg) 12.5 mg (1/2 x 25 mg) PO BID #60 tabs 07/24/25
colchicine 0.6 mg tablet 0.3 mg (1/2 x 0.6 mg) PO BID #60 tabs 07/24/25
polyethylene glycol 3350 17 gram oral powder packet 17 g PO DAILY #30 ea 07/24/25
Home Medication Changes
STOP Eliquis (this will be held for at least 6 weeks)
You are started on Colchicine. Take 0.3mg twice a day for 3-6 months
Decrease Coreg from 25mg to 12.5mg twice a day
Pending Results: No
== END 2025-07-24 13:59 | DRG 314 ==
LOC: IVU 20:47
PROVIDERS: Internal Medicine; Nurse Practitioner Family; Nurse Practitioner Gerontology; Physician Assistant; Radiology Vascular & Interventional Radiology; Student in an Organized Health Care Education/Training Program; ADMITTING PHYSICIAN Student in an Organized Health Care Education/Training Program; CONSULT PHYSICIAN Internal Medicine Critical Care Medicine; CONSULT PHYSICIAN Internal Medicine Infectious Disease; CONSULT PHYSICIAN Surgery; EMERGENCY PHYSICIAN Student in an Organized Health Care Education/Training Program; FAMILY PHYSICIAN Family Medicine; OTHER PHYSICIAN Internal Medicine Cardiovascular Disease
PROC: 0W9D3ZZ Drainage of Pericardial Cavity, Percutaneous Approach (ICD-10-PCS; 2025-07-20)
PROC: 0W9B3ZZ Drainage of Left Pleural Cavity, Percutaneous Approach (ICD-10-PCS; 2025-07-20)
DX: I30.9 Acute pericarditis, unspecified (principal); J18.9 Pneumonia, unspecified organism; J90 Pleural effusion, not elsewhere classified; D68.32 Hemorrhagic disorder due to extrinsic circulating anticoagulants; J98.11 Atelectasis; I47.10 Supraventricular tachycardia, unspecified; G81.94 Hemiplegia, unspecified affecting left nondominant side; K81.0 Acute cholecystitis; Z11.52 Encounter for screening for COVID-19; I48.0 Paroxysmal atrial fibrillation; I49.5 Sick sinus syndrome; I10 Essential (primary) hypertension; K86.89 Other specified diseases of pancreas; Z66 Do not resuscitate; Z79.01 Long term (current) use of anticoagulants; Z79.899 Other long term (current) drug therapy
CPT/HCPCS: 32555; 33016; 71045; 71046; 74177; 76705; 80048; 80053; 82150; 82945; 83605; 83615; 83690; 83735; 83986; 84157; 84478; 85014; 85025; 85027; 87015; 87040; 87070; 87102; 87116; 87205; 87206; 87502; 87811; 88112; 88305; 89051; 93005; 93308; 93321; 93325; 96361; 96365; 96375; 96376; 97163; 99152; 99153; 99291; C1769; C1894; Q9967

== ENCOUNTER 2025-08-13 08:02 | Inpatient (IN) | payer MEDICARE, BC, SELFPAY ==
[2025-08-11] VITALS (11 sets, daily range): BP systolic 145–231; BP diastolic 68–126
[2025-08-11 08:38] LABS: Urine Character Clear (Clear)
[2025-08-11 08:42] LABS: Hematocrit 37.7 % (37.0-47.0); Hemoglobin 12.3 g/dL (12.0-16.0); Mean Corp Hgb Conc. 32.6 g/dL (33.0-37.0); Mean Corpuscular Volume 85.3 fL (81.0-99.0); Nucleated Red Blood Cells % 0 %; Platelet Count 247 10^3/uL (130-400); Red Cell Dist. Width 13.5 % (11.5-14.5)
--- NOTE | 2025-08-11 08:52 | ED.GENMED ---
History of Present Illness
General
Chief Complaint: Change in Mental Status
Source: patient, records and assisted records
Exam Limitations: dementia
Time Seen by Provider: 08/11/25 08:19
Nursing documentation reviewed up to this point in time: agreed with
History of Present Illness
History of Present Illness:
85-year-old female with dementia prior stroke hypertension in the memory care unit presents with decreased responsiveness, details are not entirely clear no noted fever,
Past History
Past History
ED Past Medical History: CVA, HTN and Other (Hypercalcemia)
Phy Exam
Physical Exam
Physical Exam:
Physical Exam
General: Chronically ill-appearing female somewhat slow to respond but oriented to place BP is noted
Neck: Lips are
Heart: s1/s2 regular rate and rhythm, no murmur. equal radial pulses.
Lungs: no acute respiratory distress.
Abdomen: Nontender
Neuro: Globally weak follows simple
Skin: no rash
Psychiatric: Flat affect
Extremities: no edema.
Course
Orders/Labs/Results
Orders:
Orders
08/11/25 08:15
Electrocardiogram (*1) Urgent
Reason for Study: Hypertension, Benign
EKG- Treatment ONCE
08/11/25 08:29
Complete Blood Count/With Diff Urgent
Comprehensive Metabolic Panel Urgent
Urinalysis Reflex To Culture Urgent
Date Specimen was Collected: 08/11/25
Time Specimen was Collected: 08:28
08/11/25 08:43
CT Head W/o Iv Contrast Urgent
Comment:
Reason For Exam: confsuion bp up
08/11/25 08:54
Carvedilol [Coreg] 12.5 mg PO NOW STA
08/11/25 09:29
HydrALAZINE [Apresoline] 10 mg IV NOW STA
EEG [Rapid Point of Care EEG (ED/ICU ONLY)] Q1H
Indications for use:: Altered Mental Status
CR Chest Portable - 1 View Urgent
Comment:
Reason For Exam: confusion
Reason Study Needs to be Portable: Patient Unstable
08/11/25 10:23
Furosemide [Lasix] 40 mg IV NOW STA
08/11/25 10:28
NT-proBNP Urgent
Troponin I Urgent
08/11/25 10:41
Ondansetron Injectable [Zofran] 4 mg IV NOW STA
08/11/25 10:44
CARDIOLOGY CONSULT Routine
Consulting Provider: Tyrese Ingram
Was physician already notified: Yes
Reason for consult: CHF Exac
08/11/25 10:45
Ondansetron Injectable [Zofran] 4 mg IV NOW STA
08/11/25 10:46
COVID-19 Antigen Urgent
Source: Nasal Swab
Influenza A+B Rapid Molecular Urgent
LAURA Source: Nasal Swab
Specimen Description:
08/11/25 10:54
Case Management Consult ONCE
Case Management Consult: Hospice
Hospice: Evaluation and treat
Abnormal Lab Results
08/11/25
08:29
MCHC 32.6 L g/dL
(33.0-37.0)
MPV 11.9 H fL
(7.4-10.4)
Absolute Monos (auto) 0.7 H 10^3/uL
(0.1-0.6)
Monocytes % 11.9 H %
(1.7-9.3)
Eosinophils % 7.6 H %
(0-6)
Glucose 107 H mg/dl
(70-99)
Total Bilirubin 1.5 H mg/dl
(0.2-1.3)
08/11/25 08:29
08/11/25 08:29
Vital Signs
Initial and Last Documented VS:
Initial Vital Signs
Temp Pulse Resp BP Pulse Ox
98.6 F 89 16 231/109 97
08/11/25 08:15 08/11/25 08:15 08/11/25 08:15 08/11/25 08:15 08/11/25 08:15
Last Documented Vital Signs
Temp Pulse Resp BP Pulse Ox
98.6 F 72 19 220/123 94
08/11/25 08:15 08/11/25 10:30 08/11/25 10:30 08/11/25 10:30 08/11/25 10:30
MDM/Problems Addressed
Differential Diagnosis Includes:
Toxic metabolic CVA electrolyte abnormality less likely infectious, possibly related to high blood pressure
MDM/Problems Addressed:
Confused
Chronic conditions affecting care: HTN and Neurological disorder
Acute Exacerbation and/or Progression of Chronic Illness: HTN and Neurological disorder
*Radiology
Radiology exam reviewed: radiology read reviewed
*Pulse Oximetry
SaO2: 95
Oxygen Mode of Delivery: Room air
Patient hypoxic: no
*EKG
Interpreted by ED Provider?: Yes
Interpretation: abnormal
Comparison EKG: no comparison EKG present
Heart Rate: 78
Rate: normal
Rhythm: sinus
Ischemia: non-specific ST changes
*Thaw Shed Heater Tender Interpretation
Rate: normal
Interpretation: normal
Heart Rate: 78
Rhythm: sinus
*Critical Care Note
Total Time (30-74mins, 75-104mins- exclusive of procedures): 32
Update Note
Update Note:
Update patient appears to be at her baseline neurologically blood pressure is up a bit we will give her her a.m. dose of meds which she did not receive check CT to rule out hemorrhage, advance directive reviewed, comfort measures only will honor that
9:30 AM daughter at bedside she is concerned the patient is more confused acutely compared to yesterday apparently had a pericardial effusion and pleural effusion been on antibiotics she is looking off to the side of it we will check chest x-ray
here, tract and CT of the head report, check EEG daughter I suspect is not on board with just comfort measures based upon my interaction with her
1030 chest x-ray noted proBNP noted EEG noted prior cardiology notes noted will admit
Update patient now apparently interested in hospice per the daughter
ED Attending Note
-
Portions of this chart may have been created with voice recognition software.� Occasional wrong word or��sound alike� substitutions may have occurred due to the inherent limitations of voice recognition software.
Discharge Plan
Departure
Patient Disposition: Admit
Date of Disposition: 08/11/25
Time of Disposition: 10:28
Admit to: Telemetry
Presentation/result/management discussed w/ accepting MD/DO: Hospitalist
Patient with high blood pressure during this ER visit?: Yes
Condition: Fair
Discharge Problem:
CHF (congestive heart failure), Hypertensive urgency
Prescriptions:
No Action
cyclosporine [Restasis] 0.05 % Dropperette
1 drp BOTH EYES BID
cetirizine 10 mg Tablet
5 mg PO HS
acetaminophen 325 mg Tablet
650 mg PO Q6HPRN PRN (Reason: mild pain/ fever>100.5F) Qty: 0 0RF
ipratropium-albuterol 0.5 mg-3 mg(2.5 mg base)/3 mL Solution For Nebulization
3 ml INHALATION R Q6HPRN PRN (Reason: sob)
ammonium lactate [AmLactin] 12 % Lotion
1 applic TOPICAL BID
hydrocortisone 1 % Cream
1 applic TOPICAL BID
lactase 3,000 unit Tablet
3,000 unit PO Q6HPRN PRN (Reason: dairy)
atorvastatin 40 mg tablet
40 mg PO QPM
lidocaine 4 % adhesive patch,medicated
1 patch topical DAILYPRN PRN (Reason: lower back)
ondansetron HCl 4 mg Tablet
4 mg PO Q6HPRN PRN (Reason: nausea)
sennosides-docusate sodium [Stool Softener-Stimulant Laxat] 8.6-50 mg tablet
1 tab PO BIDPRN PRN (Reason: constipation)
polyethylene glycol 3350 17 gram Powder In Packet
17 g PO DAILY Qty: 30 0RF
colchicine 0.6 mg Tablet
0.3 mg PO BID Qty: 60 2RF
carvedilol [Coreg] 25 mg tablet
12.5 mg PO BID Qty: 60 0RF
Referrals:
Rodney Anand MD [Family Provider, Family Practice]
Interventions
Interventions:
*Risk Screen - Suicide Last Done: 08/11/25 08:26
*General Assessment Last Done: 08/11/25 08:26
*Neglect/Abuse Screening Last Done: 08/11/25 08:26
*ED COVID-19 Vaccine History Last Done: 08/11/25 08:26
*ED Influenza Vaccine History Last Done: 08/11/25 08:26
[facility] Fall Risk Assessment Tool Last Done: 08/11/25 08:25
ED- Neurological Assessment Last Done: 08/11/25 08:26
ED Swallowing Screen Last Done: 08/11/25 08:45
Discharge Date and Time
Print Language: LAO
[2025-08-11 08:57] LABS: ALT (SGPT) 14 U/L (0-35); AST (SGOT) 21 U/L (14-36); Albumin 3.8 g/dl (3.5-5.0); Alkaline Phosphatase 96 U/L (38-126); Blood Urea Nitrogen 11 mg/dl (7-17); Calcium 9.5 mg/dl (8.4-10.2); Carbon Dioxide 28 mmol/L (22-30); Chloride 105 mmol/L (98-107); Glucose 107 mg/dl (70-99); Potassium 4.0 mmol/L (3.5-5.1); Sodium 139 mmol/L (135-145); Total Protein 6.7 g/dl (6.3-8.2); eGFR > 60.00
[2025-08-11] MEDS: COREG 12.5 MG PO (09:11)
[2025-08-11] MEDS: LASIX 40 MG IV (10:35)
[2025-08-11] MEDS: APRESOLINE 10 MG IV (10:35)
[2025-08-11] MEDS: ZOFRAN 4 MG IV ×3 (10:44→23:27)
[2025-08-11 11:10] LABS: Troponin I < 0.012 ng/ml
[2025-08-11 11:18] LABS: COVID-19 Antigen Negative (Negative)
--- NOTE | 2025-08-11 11:29 | EDCM ---
Addendum entered by Maki Painter 08/11/25 17:33:
Jeannette from [facility] evaluated pt, does not feel she is appropriate for inpatient hospice level of care at this time. Will plan for hospice at [facility] when skilled bed is available.
Addendum entered by Maki Painter 08/11/25 15:50:
Spoke with Liaison from [facility], she is coming to the hospital to evaluate pt. I also spoke to Ekta from [facility] and updated her on current status, does not feel she meets criteria for inpatient hospice at this time, will continue to follow.
Addendum entered by Maki Painter 08/11/25 14:41:
I spoke to pt's daughter, additional referrals sent to [facility] and [facility] at her request.
Addendum entered by Maki Painter 08/11/25 14:25:
I spoke to Gisselle, Admissions nurse at [facility], they do not have a nurse to evaluate today and do not have a contract to do inpatient hospice here at [place]. Dr Tim and Dr Schaffer notified.
Addendum entered by Maki Painter 08/11/25 12:11:
I spoke to Nilesh, hospice referral placed in Care Port.
Original Note:
Received consult, reviewed chart and met with pt's daughter bedside in ED.
Pt resides in Memory Care at [facility]. Per her daughter, they have discussed transitioning to hospice care there but she has not yet contacted any of the hospices recommended. She said there was discussion of her needing skilled care but also
said she was told hospice could start in memory care.
I spoke to Jonna, Nursing Compensator Worker at [facility]. She referred me to Skilled, I spoke to a nurse in the Skilled Unit, she referred me to [facility]. I spoke to [facility], currently they do not have any available beds in the skilled unit. Will place referral
in Care Port.
--- NOTE | 2025-08-11 13:08 | CON.HOSP ---
Addendum entered and electronically signed by Kan Tim MD 08/11/25 14:30:
[facility] cannot evaluate the pt today, will place the pt in the hospital on comfort care under OBS. I confirmed that the pt is DNR and will be placed on comfort care with the pt's daughter, Shraddha Young, over the phone at 1426.
This document serves as the history and physical.
Original Note:
Consultation
-
Requesting Provider: Dr. Guerrero
Reason for Consultation: Change in mental status, hospice
Family Physician
-
Family Physician: Rodney Anand MD
Chief Complaint
-
change in mental status, hospice
History of Present Illness
85 h/o F with PMHx:
Dementia
Large Pericardial effusion with early tamponade
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
Paroxysmal atrial fibrillation
Essential HTN
Bilateral pleural effusions s/p L thoracentesis 07/20/25
Valvular heart disease: Mod TR, mod
Hyponatremia
CVA with residual left sided hemiparesis
HLD
Who presented to the ER with a change in mental status. Specifically the patient had decreased responsiveness. There were no reports of fever. History obtained from the patient's friend, Socrates, at bedside as well as discussion with Dr. Guerrero.
When asked how the patient is feeling she turns her head slightly and looks at me but is unable to answer. Unable to obtain any history from the patient.
Medical History
Past Medical History
Past Medical History: Reports Other (as per HPI)
Past Surgical History: Reports Other (as per HPI, otherwise N/A)
Social History
Tobacco: Non-smoker
Alcohol: None
Drug: None
Family History
Family History: Reviewed & Not Pertinent
Allergies / Home Medications
Allergies reflects when Allergies were last updated in [facility].
Home Medications with original date entered in [facility]
Allergy/Medication List:
Allergies
Allergy/AdvReac Type Severity Reaction Status Date / Time
gabapentin Allergy Rash/macular Verified 07/06/25 09:42
rash upper
back and
face
lactose Allergy abd pain Verified 07/06/25 09:42
and
diarrhea
levofloxacin (From Levaquin) Allergy Itching Verified 07/19/25 19:08
Penicillins Allergy Rash Verified 07/06/25 09:42
Sulfa (Sulfonamide Allergy Rash Verified 07/06/25 09:42
Antibiotics)
Home Medications
cyclosporine 0.05 % eye drops in a dropperette (Restasis) 1 drp BOTH EYES BID Eye Condition 01/25/24
cetirizine 10 mg tablet 5 mg PO HS Allergies 12/04/24
acetaminophen 325 mg tablet 650 mg (2 x 325 mg) PO Q6HPRN PRN mild pain/ fever>100.5F #0 tabs 12/09/24
ammonium lactate 12 % lotion (AmLactin) 1 applic topical BID b/l legs, back 07/06/25
atorvastatin 40 mg tablet 40 mg PO QPM High Cholesterol 07/06/25
hydrocortisone 1 % topical cream 1 applic topical BID b/l legs 07/06/25
ipratropium 0.5 mg-albuterol 3 mg (2.5 mg base)/3 mL nebulization soln 3 ml inhalation R Q6HPRN PRN sob 07/06/25
lactase 3,000 unit tablet 3,000 unit PO Q6HPRN PRN dairy 07/06/25
lidocaine 4 % topical patch 1 patch topical DAILYPRN PRN lower back 07/06/25
ondansetron HCl 4 mg tablet 4 mg PO Q6HPRN PRN nausea 07/19/25
sennosides 8.6 mg-docusate sodium 50 mg tablet (Stool Softener-Stimulant Laxative) 1 tab PO BIDPRN PRN constipation 07/19/25
carvedilol 25 mg tablet (Coreg) 12.5 mg (1/2 x 25 mg) PO BID #60 tabs 07/24/25
colchicine 0.6 mg tablet 0.3 mg (1/2 x 0.6 mg) PO BID #60 tabs 07/24/25
polyethylene glycol 3350 17 gram oral powder packet 17 g PO DAILY #30 ea 07/24/25
Review of Systems
-
Unable to obtain full review of systems at this time due to: Dementia
Physical Exam
Vital Signs
Vital Signs
Temp Pulse Resp BP Pulse Ox
98.6 F 81 18 159/68 96
08/11/25 08:15 08/11/25 13:00 08/11/25 13:00 08/11/25 12:00 08/11/25 13:00
Physical Exam
General: Other (.)
Laboratory Results
-
Laboratory Results
08/11/25 08:29
08/11/25 08:29
Total Bilirubin 1.5 mg/dl (0.2-1.3) H 08/11/25 08:29
AST 21 U/L (14-36) 08/11/25 08:29
ALT 14 U/L (0-35) 08/11/25 08:29
Alkaline Phosphatase 96 U/L (38-126) 08/11/25 08:29
Troponin I < 0.012 ng/ml 08/11/25 10:28
Impression / Plan
-
Gen: NAD, Awake and alert
Eyes: EOMI, no scleral icterus.
Neck: supple.
CV: RRR, +S1/S2, 2/6 systolic murmur
Resp: CTAB anteriorly, no rales, wheezes, or rhonchi.
Abd: +BS, soft, NT, ND
Skin: No rashes, intact.
Neuro: CN 2-12 intact
Psych: Calm
GOC care discussion:
-as per discussion with Dr. Guerrero pt's family wants hospice at this time. Recommend hospice eval to determine if pt meets criteria for inpt hospice. This was discussed with ZEYNEP Painter.
Other problems:
Dementia
Large Pericardial effusion with early tamponade
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
Paroxysmal atrial fibrillation
Essential HTN
Bilateral pleural effusions s/p L thoracentesis 07/20/25
Valvular heart disease: Mod TR, mod
Hyponatremia
CVA with residual left sided hemiparesis
HLD
-as goals of care are hospice would not continue any medications for the above problems and focus on comfort only
[2025-08-11] MEDS: NSS 1000 IV (17:10)
--- NOTE | 2025-08-11 19:10 | PTOTSP ---
ST CONSULT
Received and appreciate GASOLINE PUMP INSTALLER consultation. Chart reviewed. Pt admitted from a memory care unit for reduced responsiveness and increased confusion. Of note, pt recently had a pericardial effusion and pleural effusion; pt also recently on abx. In the
ED, pt noted to be looking off to the side.
Pt's medical hx significant for dementia, CVA, HTN, hypercalcemia, large pericardial effusion with early tamponade, recent pacemaker placement for tachybradycardia, paroxysmal afib, bilateral pleural effusions s/p thoracentesis (07/20/25), valvular
heart disease, hyponatremia, CVAs with residual L sided weakness, diverticulosis, and IBS. Pt is familiar to GASOLINE PUMP INSTALLER team from previous hospitalizations, the most recent of which she was evaluated was 12/06/2024 - pt was recommended for a regular solids
and thin liquids diet. Pt's baseline diet, per transfer records, is regular solids and thin liquids.
Pt's family has elected for hospice level of care. Pt is currently admitted under observation status and receiving comfort measures until pt can receive full hospice evaluation. Given [facility], skilled GASOLINE PUMP INSTALLER services are not indicated at this time - GASOLINE PUMP INSTALLER
team signing off.
If pt awake/alert enough to receive and deemed appropriate, would recommend initiating some level of PO diet for comfort measures - consistencies at the discretion of RN/MD.
--- NOTE | 2025-08-11 23:08 | HOSPNOTE ---
Hospice referral received. Reviewed records and spoke with CM. Patient does not meet inpatient criteria. Plan is for patient to be admitted under comfort measures. Ideally patient will transition to hospice at [facility] when a skilled bed is
available as patient was from their memory care unit. Patient was using [facility] home care and will likely use them for hospice services back at [facility] as well. Hospice will follow while in the hospital incase patient becomes inpatient
appropriate. CM updated.
[2025-08-12 08:39] VITALS: BP 153/79
--- NOTE | 2025-08-12 10:46 | HOSPNOTE ---
Reviewed records. Patient continues to not meet inpatient criteria. Patient can go back to [facility] into skilled area with hospice. CM reviewed that patient will likely return there with [facility] as they had them for HomeCare in the past.
Hospice will sign off.
--- NOTE | 2025-08-12 10:52 | W.PN.HOSP.TC ---
Today's Communication/Plan
-
see bold
Assessment / Plan
Assessment / Plan
Gen: NAD, NCAT
CV: remains RRR, +S1/S2, 2/6 systolic murmur
Resp: remains CTAB anteriorly, no rales, wheezes, or rhonchi.
Abd: remains +BS, soft, NT, ND
Psych: Calm
GOC care discussion/awaiting hospice:
-[facility] was unable to evaluate the pt on 08/11 and referrals were sent to [facility] and [facility]
-currently OBS comfort care
Other problems:
Dementia
Large Pericardial effusion with early tamponade
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
Paroxysmal atrial fibrillation
Essential HTN
Bilateral pleural effusions s/p L thoracentesis 07/20/25
Valvular heart disease: Mod TR, mod
Hyponatremia
CVA with residual left sided hemiparesis
HLD
-as goals of care are hospice would not continue any medications for the above problems and focus on comfort only
Remains medically cleared for d/c to hospice.
Dispo: as per discussion with ZEYNEP Mcneil today [facility] does not have a bed for the pt today. Hopefully tomorrow, 08/13.
Anticipated Discharge: Within 24 hours
Subjective/Interval History
-
Date of Service: August 12, 2025
Pt sleeping.
Objective Data
-
Vital Signs:
Vital Signs
Temp Pulse Resp BP Pulse Ox
99.8 F 94 18 153/79 95
08/12/25 08:39 08/12/25 08:39 08/12/25 08:39 08/12/25 08:39 08/12/25 08:39
I&O
12/13/25 12/14/25 12/15/25
06:59 06:59 06:59
Intake Total 480 / 480
Output Total 1650 / 1650
Balance -1170 / -1170
--- NOTE | 2025-08-12 14:11 | CM ---
CM spoke with dtr/Shraddha who is in town [place]
Pt from [facility] memory care will need LTC placement at [facility] SNF with hospice
Dtr reported onsite eval was completed with [facility] day prior and they are her agency of choice
UPdate to [facility] SN[facility] admissions/Nath[facility]
SNF bed likely available tomorrow
CM spoke with on-call [facility] [phone]
They are available for sign on tomomorrow at SNF
Will need to provide timing of dc so they can schedule sign up
Plan to coordinate dc tomorrow [facility] admissions and [facility]
Pt si OBS- [facility] notice provided to dtr bedside
Discharge Disposition- [facility] with [facility]
[2025-08-12 16:04] VITALS: BP 141/72
[2025-08-12] MEDS: NSS 1000 IV (16:48)
[2025-08-12 23:02] VITALS: BP 215/122
[2025-08-13] MEDS: TYLENOL/FEVERALL 650 MG RECTAL ×2 (00:01→12:21)
[2025-08-13 05:21] VITALS: BP 129/77
[2025-08-13 07:00] VITALS: BP 160/95
--- NOTE | 2025-08-13 09:50 | W.RAPID.EEG ---
Rapid EEG
-
Procedure Date: 08/11/25
Patient Status: Emergency Room
Results:
Impression:
No evidence of status epilepticus
Patient was awake and drowsy
Recording Information:
Diagnostic Recording Time: 00:54:36 (55 minutes)
Recording 1: [email or web address]
Start Time: Aug 11, 2025 09:43 AM End Time: Aug 11, 2025 10:38 AM
Recording Technique: This EEG was obtained using a 10 lead, 8 channel system positioned circumferentially without any parasagittal coverage (rapid EEG). Computer selected EEG is reviewed as well as background features and all clinically significant
events. Clarity algorithm utilized and implemented to provide analysis of underlying activity and seizure detection used to facilitate reading. ICD-10 Code NQ20G79
Clinical History: SEBASTIAN STAFFORD is a 85 year old Undifferentiated AMS patient undergoing EEG to screen for non-convulsive status epilepticus.
--- NOTE | 2025-08-13 10:49 | CM ---
Pt to be discharged to [facility] today with hospice.
Ambulance pickup at 4:30. Dtr made aware
[facility]
Report [phone]
Fax: [phone]
[2025-08-13] MEDS: MORPHINE SULFATE 1 MG IV (13:24)
[2025-08-13] MEDS: ZOFRAN 4 MG IV (13:24)
--- NOTE | 2025-08-13 15:09 | W.PN.HOSP.TC ---
Addendum entered and electronically signed by Emily Mccarty MD 08/13/25 16:00:
Dictation- [id number]
Original Note:
Today's Communication/Plan
-
Discharge
Assessment / Plan
Assessment / Plan
85-year-old female presented to the ER with mental status change.. As per discussion by Dr. Guerrero and Dr. Tim with family it was decided to place the patient under hospice.
Patient is not much responsive to questions
Cardiovascular system S1-S2 appreciated, systolic murmur at apex
Chest decreased breath sounds
Not following directions
left hemiparesis
Assessment
Dementia
Large pericardial effusion with early tamponade
Leadless pacemaker implantation 07/09/2025 for tachybradycardia syndrome with long conversion pauses
Paroxysmal atrial fibrillation
Hypertension
Bilateral pleural effusions status post left thoracentesis 07/20/2025
Valvular heart disease-moderate TR, moderate AAS
Hyponatremia
CVA with residual left-sided hemiparesis
Hyperlipidemia
Plan
Goals of care discussion by Dr. Guerrero and Dr. Tim with family decided for hospice
Case management was informed that patient is ready for discharge-needs a bed arranged at nursing facility
In the meantime continue medicines for comfort
Discussed with case management
D/W Physician Advisor
Discussed with caregiver at bedside
Prescription for morphine provided. Will discharge to [facility] on hospice.
Anticipated Discharge: Today
Subjective/Interval History
-
Date of Service: August 13, 2025
Objective Data
-
Vital Signs:
Vital Signs
Temp Pulse Resp BP Pulse Ox
98.9 F 88 12 160/95 93
08/13/25 07:00 08/13/25 07:00 08/13/25 07:00 08/13/25 07:00 08/13/25 11:01
I&O
08/12/25 08/13/25 08/14/25
06:59 06:59 06:59
Intake Total 480 / 480 480 / 480
Output Total 1650 / 1650 100 / 100
Balance -1170 / -1170 380 / 380
--- NOTE | 2025-08-13 15:09 | W.DS.TRANS ---
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
-
Discharge Instructions:
Discharge Diagnosis/Procedures Large pericardial effusion with early tamponade
Dimension
Leadless pacemaker [place]
Atrial fibrillation
Hypertension
Bilateral pleural effusions
Valvular heart disease
Hyponatremia
CVA
Hyperlipidemia
Diet As tolerated
Activity As tolerated
Driving Restrictions No driving
Other Services Hospice
Instructions:
Stand-Alone Forms:
Changes to Home Medications: Yes
Discharge Medications:
DC Medications w/original date entered in [employer]
cyclosporine 0.05 % eye drops in a dropperette (Restasis) 1 drp BOTH EYES BID Eye Condition 01/25/24
acetaminophen 325 mg tablet 650 mg (2 x 325 mg) PO Q6HPRN PRN mild pain/ fever>100.5F #0 tabs 12/09/24
ammonium lactate 12 % lotion (AmLactin) 1 applic topical BID b/l legs, back 07/06/25
hydrocortisone 1 % topical cream 1 applic topical BID rash 07/06/25
ipratropium 0.5 mg-albuterol 3 mg (2.5 mg base)/3 mL nebulization soln 3 ml inhalation R Q6HPRN PRN sob 07/06/25
lactase 3,000 unit tablet 3,000 unit PO AC Gastrointestinal Issue 07/06/25
lidocaine 4 % topical patch 1 patch topical DAILYPRN PRN lower back 07/06/25
ondansetron HCl 4 mg tablet 4 mg PO Q6HPRN PRN nausea 07/19/25
colchicine 0.6 mg tablet 0.3 mg (1/2 x 0.6 mg) PO BID #60 tabs 07/24/25
cetirizine 5 mg tablet 5 mg PO HS Allergies 08/11/25
diphenhydramine HCl 25 mg tablet 25 mg PO TID PRN itching 08/11/25
polyethylene glycol 3350 17 gram oral powder packet 17 g PO DAILYPRN PRN constipation 08/11/25
carvedilol 25 mg tablet (Coreg) 12.5 mg (1/2 x 25 mg) PO BID Heart disease/condition #60 tabs 08/13/25
morphine concentrate 5 mg/0.25 mL oral syringe (ORAL USE) 5 mg (0.25 mL) PO Q6H PRN Pain #50 ea 08/13/25
sennosides 8.6 mg-docusate sodium 50 mg tablet (Stool Softener-Stimulant Laxative) 1 tab PO BID constipation #0 tabs 08/13/25
Home Medication Changes
Morphine, Senokot ordered
. Statin stopped
Pending Results: No
[2025-08-13 17:17] VITALS: BP 185/90
== END 2025-08-13 17:09 | disposition hospice, home (50) | DRG 315 ==
LOC: 4 EAST ACU 08:02
PROVIDERS: ADMITTING PHYSICIAN Internal Medicine; ATTENDING PHYSICIAN Hospitalist; EMERGENCY PHYSICIAN Emergency Medicine; FAMILY PHYSICIAN Family Medicine
DX: I31.39 Other pericardial effusion (noninflammatory) (principal); E87.1 Hypo-osmolality and hyponatremia; I69.354 Hemiplegia and hemiparesis following cerebral infarction affecting left non-dominant side; I31.4 Cardiac tamponade; I11.0 Hypertensive heart disease with heart failure; Z11.52 Encounter for screening for COVID-19; F03.90 Unspecified dementia, unspecified severity, without behavioral disturbance, psychotic disturbance, mood disturbance, and anxiety; E78.5 Hyperlipidemia, unspecified; I48.0 Paroxysmal atrial fibrillation; Z95.0 Presence of cardiac pacemaker
CPT/HCPCS: 70450; 71045; 80053; 81003; 83880; 84484; 85025; 87502; 87811; 93005; 93288; 95812; 96374; 96375; 99291